=== PATIENT | female | born 1950 | race Caucasian/White ===

== ENCOUNTER 2017-02-23 19:24 | Observation (INO) | payer MEDICARE ==
[2017-02-23] MEDS ORDERED: SODIUM CHLORIDE 0.9% 1000 ML INFUS.BAG IV ONE (20:23)
[2017-02-23] MEDS ORDERED: ACETAMINOPHEN 325 MG TABLET (FP) PO ONE (20:23)
[2017-02-23 20:31] LABS: BASOPHIL 0.5 % (0-2.0); EOSINOPHIL 0.7 % (0-4.5); MCH 29.3 pg (25.7-33.7); MCHC 34.1 g/dl (32.0-36.0); MEAN CELL VOLUME 85.7 fl (80-96); MEAN PLT VOLUME 8.9 fl (7.5-11.1); NEUTROPHILS 72.3 % (42.8-82.8); PLATELET COUNT 263 K/MM3 (134-434); RDW 12.9 % (11.6-15.6); WHITE BLOOD COUNT 7.8 K/mm3 (4.0-10.0)
--- NOTE | 2017-02-23 20:47 | PDOC ---
History of Present Illness - General History Source: Family Exam Limitations: No Limitations - History of Present Illness Initial Comments: 02/23/17 21:24 The patient is a 66-year-old female accompanied by daughter and grandson, with a significant past medical history of diabetes, who presents with 3 days of high BS, blurred vision, dizziness, and headache. As per daughter, the pts BS was noted be high at 540 two days ago. Today the pts BS was noted to be 360. She reports that the patient has been increasingly more confused in the past 3 days and has been having difficulty ambulating. Pt does not use a walker or wheelchair at baseline. Pt was seeing Dr. Paris and her last visit was in November. Pt is now seeing a new PMD. The patient denies any fever, chills, nausea, vomiting, diarrhea, or abdominal pain. She denies any chest pain or shortness of breath. She denies any dysuria. <Caty Kay - Last Filed: 02/23/17 21:30> <Abbey Park - Last Filed: 02/24/17 00:28> - General Chief Complaint: Lightheaded Stated Complaint: BLURRY VISION/DIZZINESS Past History <Caty Kay - Last Filed: 02/23/17 21:30> - Psycho/Social/Smoking Cessation Hx Suicidal Ideation: No Smoking History: Never smoked Have you smoked in the past 12 months: No Information on smoking cessation initiated: No Hx Alcohol Use: No Drug/Substance Use Hx: No <[place] - Last Filed: 02/24/17 00:28> - Past Medical History Allergies/Adverse Reactions: Allergies Allergy/AdvReac Type Severity Reaction Status Date / Time Penicillins Allergy Unknown Difficulty Verified 02/23/17 20:42 Breathing Home Medications: Ambulatory Orders Glipizide [Glipizide ER] 10 mg PO BID 02/23/17 Lisinopril 5 mg PO DAILY 02/23/17 Metformin HCl [Metformin HCl ER] 1,000 mg PO BID 02/23/17 Review of Systems - Review of Systems Able to Perform ROS?: Yes Comments:: 02/23/17 21:26 GENERAL/CONSTITUTIONAL: No fever or chills. HEAD, EYES, EARS, NOSE AND THROAT: (+)blurry vision. No ear pain or discharge. No sore throat. CARDIOVASCULAR: No chest pain or shortness of breath. RESPIRATORY: No cough, wheezing, or hemoptysis. GASTROINTESTINAL: No nausea, vomiting, diarrhea or constipation. GENITOURINARY: No dysuria, frequency, or change in urination. MUSCULOSKELETAL: No joint or muscle swelling or pain. No neck or back pain. SKIN: No rash NEUROLOGIC: (+)headache, dizziness. No vertigo, loss of consciousness, or change in strength/sensation. ENDOCRINE: No increased thirst. No abnormal weight change. HEMATOLOGIC/LYMPHATIC: No anemia, easy bleeding, or history of blood clots. ALLERGIC/IMMUNOLOGIC: No hives or skin allergy. <Caty Kay - Last Filed: 02/23/17 21:30> *Physical Exam - Vital Signs Last Vital Signs Temp Pulse Resp BP Pulse Ox 98.8 F 74 20 146/78 100 02/23/17 19:28 02/23/17 19:28 02/23/17 19:28 02/23/17 19:28 02/23/17 19:28 - Physical Exam Comments: 02/23/17 21:31 GENERAL: Awake, alert, and fully oriented, in no acute distress HEAD: No signs of trauma EYES: PERRLA, EOMI, sclera anicteric, conjunctiva clear ENT: Auricles normal inspection, hearing grossly normal, nares patent, oropharynx clear without exudates. Moist mucosa NECK: Normal ROM, supple, no lymphadenopathy, JVD, or masses LUNGS: Breath sounds equal, clear to auscultation bilaterally. No wheezes, and no crackles HEART: Regular rate and rhythm, normal S1 and S2, no murmurs, rubs or gallops ABDOMEN: Soft, nontender, normoactive bowel sounds. No guarding, no rebound. No masses EXTREMITIES: Normal range of motion, no edema. No clubbing or cyanosis. No cords, erythema, or tenderness NEUROLOGICAL: 5/5 strength. Cranial nerves are normal. [id number] is normal. Gait not tested. SKIN: Warm, Dry, normal turgor, no rashes or lesions noted <Caty Kay - Last Filed: 02/23/17 21:30> - Vital Signs Last Vital Signs Temp Pulse Resp BP Pulse Ox 98.8 F 74 20 146/78 100 02/23/17 19:28 02/23/17 19:28 02/23/17 19:28 02/23/17 19:28 02/23/17 19:28 <BradmauricioAbbey - Last Filed: 02/24/17 00:28> Heart Score/ECG Review #1 ECG reviewed & interpreted by me at: 20:05 General ECG Interpretation: Sinus Rhythm (sinus tachycardia), Normal Rate (105) , Normal Intervals, No acute ischemic changes (q wave III,) Compared to previous ECG there are: Previous ECG unavail <[place] - Last Filed: 02/24/17 00:28> ED Treatment Course - LABORATORY CBC & Chemistry Diagram: 02/23/17 20:23 02/23/17 20:23 - ADDITIONAL ORDERS Additional order review: Laboratory Results 02/23/17 02/23/17 20:31 20:23 Sodium 133 L Potassium 3.9 Chloride 93 L Carbon Dioxide 30 Anion Gap 10 BUN 26 H Creatinine 1.6 H Creat Clearance w eGFR 32.25 Random Glucose 369 H* Calcium 9.0 Total Bilirubin 0.3 AST 12 L ALT 26 Alkaline Phosphatase 140 H Total Protein 7.2 Albumin 3.4 Urine Color Ltyellow Urine Appearance Slcloudy Urine pH 5.0 Urine Protein Negative Urine Glucose (UA) 3+ H Urine Ketones Negative Urine Blood Negative Urine Nitrite Negative Urine Bilirubin Negative Urine Urobilinogen Negative Ur Leukocyte Esterase 2+ H Urine RBC <1 Urine WBC 27 Ur Epithelial Cells Rare Urine Bacteria Moderate Granular Casts 1 Urine Mucus Rare Acetone, Qual Negative L 02/23/17 20:23 RBC 4.63 MCV 85.7 MCHC 34.1 RDW 12.9 MPV 8.9 Neutrophils % 72.3 Lymphocytes % 20.6 Monocytes % 5.9 Eosinophils % 0.7 Basophils % 0.5 - Medications Given in the ED: ED Medications Discontinued Medications Generic Name Dose Route Start Last Admin Trade Name Freq PRN Reason Stop Dose Admin Acetaminophen 650 mg 02/23/17 20:23 02/23/17 20:36 Tylenol - PO 02/23/17 20:24 650 mg ONCE ONE Administration Sodium Chloride 1,000 ml 02/23/17 20:23 02/23/17 20:36 Normal Saline - IV 02/23/17 20:24 1,000 ml ONCE ONE Administration <Caty Kay - Last Filed: 02/23/17 21:30> - LABORATORY CBC & Chemistry Diagram: 02/23/17 20:23 02/23/17 20:23 - ADDITIONAL ORDERS Additional order review: 02/23/17 20:23 RBC 4.63 MCV 85.7 MCHC 34.1 RDW 12.9 MPV 8.9 Neutrophils % 72.3 Lymphocytes % 20.6 Monocytes % 5.9 Eosinophils % 0.7 Basophils % 0.5 - RADIOLOGY Radiology Studies Ordered: Category Date Time Status HEAD CT WITHOUT CONTRAST [CT] Stat CT Scan 02/23/17 20:24 Ordered <[place] - Last Filed: 02/24/17 00:28> Medical Decision Making - Medical Decision Making 02/23/17 20:44 66 yo F with h/o DM HTN here with feeling more confusion, lightheaded blurry vision headache and high sugars. per her daughter and grandson who provide additional history pt has bee more confused and hallucinating the last 3 days. has been unsteady walking. no f/c no urinary complaints. no cp no sob. no head trauma. no cough. on exam awake alert lungs clear heart rrr nomrg abd soft nt nd . ext wwp. no edema. nuero alert oriented. 5/5 all four ext. speech clear. finger to nose normal. gait not tested. differential diagnosis: hyperglycemia. dehydration, cva. dka, hyperosmolar syndrome, infection such as uti, pna, plan cxr ekg labs ivf. ct head. reassess. 02/23/17 20:48 pt with sugar 350. give ivf. will repeat insulin as needed. given levaquin for uti. due to delirium and elevated glucose levels will admit for uti. cultures sent. d/w admitting resident. admit to dr. sena. 02/23/17 20:53 02/24/17 00:26 <[place] - Last Filed: 02/24/17 00:28> *DC/Admit/Observation/Transfer - Attestations Scribe Attestion: 02/23/17 21:32 Documentation prepared by Caty Kay, acting as medical artist for Abbey Park MD. <Caty Kay - Last Filed: 02/23/17 21:30> - Discharge Dispostion Admit: Yes <[place] - Last Filed: 02/24/17 00:28> Diagnosis at time of Disposition: Urinary tract infection, Delirium, Hyperglycemia
[2017-02-23 20:55] LABS: URINE APPEARANCE SLCLOUDY; URINE BILIRUBIN NEGATIVE (NEGATIVE); URINE BLOOD NEGATIVE (NEGATIVE); URINE COLOR LTYELLOW; URINE GLUCOSE (UA) 3+ (NEGATIVE); URINE KETONE NEGATIVE (NEGATIVE); URINE NITRITE NEGATIVE (NEGATIVE); URINE PROTEIN NEGATIVE (NEGATIVE); URINE UROBILINOGEN NEGATIVE mg/dL (0.2-1.0)
[2017-02-23 21:08] LABS: ALBUMIN 3.4 g/dl (3.4-5.0); ALK PHOS 140 U/L (45-117); ANION GAP 10 (8-16); BILIRUBIN,TOTAL 0.3 mg/dL (0.2-1.0); CO2 30 mmol/L (21-32); CREATININE 1.6 mg/dL (0.55-1.02); SGOT/AST 12 U/L (15-37); SGPT/ALT 26 U/L (12-78); TOT PROT 7.2 g/dl (6.4-8.2)
[2017-02-23 21:10] LABS: GLUCOSE,RANDOM 369 mg/dL (74-106)
[2017-02-23 21:13] LABS: ACETONE SERUM NEGATIVE (NEGATIVE)
[2017-02-23 21:17] LABS: URINE LEUK ESTERASE 2+ (NEGATIVE)
[2017-02-23 21:19] LABS: GRANULAR CASTS 1 /lpf; URINE BACTERIA MODERATE /hpf (NONE SEEN); URINE MUCUS RARE; URINE RBC <1 /hpf (0-3); URINE WBC 27 /hpf (3-5)
[2017-02-23] MEDS ORDERED: CIPROFLOXACIN 400 MG/D5W 200 ML IVPB ONE (23:59)
[2017-02-24] MEDS ORDERED: LEVOFLOXACIN 750 MG IVPB 150 ML IVPB ONE ×3 (00:25→10:00)
--- NOTE | 2017-02-24 00:42 | PN ---
Teaching Attending Note Name of Resident: Roby Zamarripa ATTENDING PHYSICIAN STATEMENT I saw and evaluated the patient. I reviewed the resident's note and discussed the case with the resident. I agree with the resident's findings and plan as documented. SUBJECTIVE: BROUGHT BY FAMILY DUE TO WORSENING CONFUSION X 3 DAYS AND ELEVATED BLOOD GLUCOSE 300-500. COMPLAINING OF DIZZINESS. BG UPON ARRIVAL 560. Patient denies any fever, chills, nausea, vomiting, diarrhea, or abdominal pain. She denies any chest pain or shortness of breath. She denies any dysuria. ER course was notable for: (1) Blood Sugar -- 369 (2) BUN/Cr -- 26/1.6 (3) UA--2+LE (4) CT head- mild to moderate volume loss-- no acute pathology Recent Travel: denies PAST MEDICAL HISTORY: HTN, DM PAST SURGICAL HISTORY: no Social History: Smoking: denies Alcohol: denies Drugs: dnies Family History: DM Allergies Penicillins Allergy (Unknown, Verified 02/23/17 20:42) Difficulty Breathing OBJECTIVE: Vital Signs Temperature 98.8 F 02/23/17 19:28 Pulse Rate 74 02/23/17 19:28 Respiratory Rate 20 02/23/17 19:28 Blood Pressure 146/78 02/23/17 19:28 O2 Sat by Pulse Oximetry (%) 100 02/23/17 19:28 HEAD: No signs of trauma EYES: PERRLA, EOMI, sclera anicteric, conjunctiva clear ENT: Oropharynx clear without exudates. Moist mucosa NECK: Normal ROM, supple, no lymphadenopathy, JVD, or masses LUNGS: Breath sounds equal, clear to auscultation bilaterally. No wheezes, and no crackles HEART: Regular rate and rhythm, normal S1 and S2, no murmurs, rubs or gallops ABDOMEN: Soft, nontender, normoactive bowel sounds, No suprapubic tenderness. No guarding, no rebound. No masses EXTREMITIES: Normal range of motion, no edema. No clubbing or cyanosis. CBC, BMP 02/23/17 20:23 02/23/17 20:23 ASSESSMENT AND PLAN: 1.AMS - METABOLIC ENCEPHALOPATHY, ACUTE , POSSIBLY SECONDARY TO UTI 2. UTI - Ua cultures - IV AB 3. UNCONTROLLED DM -DISCONTINUE ORAL METFORMIN - INSULIN SS - TREAT UNDERLYING INFECTION 4. CHRISTIANNE VS POSSIBLE CKD - IV FLUIDS - REPEAT BMP 5. PPx Heparin
[2017-02-24] MEDS ORDERED: SODIUM CHLORIDE 1,000 ML IV SCH (01:00)
--- NOTE | 2017-02-24 01:53 | HP ---
CHIEF COMPLAINT: AMS PCP: unknown HISTORY OF PRESENT ILLNESS: 66 y.o. F with pmh of DM and HTN presented to the ED with 3 day hx of ams, blurry vision, dizziness, visual hallucinations. For the past 3 days, patient's sugars have been elevated to the 300s-500s. Patient has been acting differently per family. Patient has been complaining of dizziness, blurry vision, confusion , headache, as well as visual hallucinations. Patient lives at home with family members and is at baseline able to ambulate without walker or wheelchair. Patient denies any fever, chills, nausea, vomiting, diarrhea, or abdominal pain. She denies any chest pain or shortness of breath. She denies any dysuria. ER course was notable for: (1) Blood Sugar -- 369 (2) BUN/Cr -- 26/1.6 (3) UA--2+LE (4) CT head- mild to moderate volume loss-- no acute pathology Recent Travel: denies PAST MEDICAL HISTORY: HTN, DM PAST SURGICAL HISTORY: no Social History: Smoking: denies Alcohol: denies Drugs: dnies Family History: Allergies Penicillins Allergy (Unknown, Verified 02/23/17 20:42) Difficulty Breathing HOME MEDICATIONS: Home Medications Medication Instructions Recorded Glipizide [Glipizide ER] 10 mg PO BID 02/23/17 Lisinopril 5 mg PO DAILY 02/23/17 Metformin HCl [Metformin HCl ER] 1,000 mg PO BID 02/23/17 REVIEW OF SYSTEMS CONSTITUTIONAL: Absent: fever, chills, diaphoresis, generalized weakness, malaise, loss of appetite, weight change HEENT: Absent: rhinorrhea, nasal congestion, throat pain, throat swelling, difficulty swallowing, mouth swelling, ear pain, eye pain, visual changes CARDIOVASCULAR: Absent: chest pain, syncope, palpitations, irregular heart rate, lightheadedness , peripheral edema RESPIRATORY: Absent: cough, shortness of breath, dyspnea with exertion, orthopnea, wheezing, stridor, hemoptysis GASTROINTESTINAL: Absent: abdominal pain, abdominal distension, nausea, vomiting, diarrhea, constipation, melena, hematochezia GENITOURINARY: Absent: dysuria, frequency, urgency, hesitancy, hematuria, flank pain, genital pain MUSCULOSKELETAL: Absent: myalgia, arthralgia, joint swelling, back pain, neck pain SKIN: Absent: rash, itching, pallor HEMATOLOGIC/IMMUNOLOGIC: Absent: easy bleeding, easy bruising, lymphadenopathy, frequent infections ENDOCRINE: Absent: unexplained weight gain, unexplained weight loss, heat intolerance, cold intolerance NEUROLOGIC: Absent: headache, focal weakness or paresthesias, dizziness, unsteady gait, seizure, mental status changes, bladder or bowel incontinence PSYCHIATRIC: Absent: anxiety, depression, suicidal or homicidal ideation, hallucinations. PHYSICAL EXAMINATION Vital Signs - 24 hr 02/24/17 01:29 Temperature 98.4 F Pulse Rate [ 76 Left Radial] Respiratory 18 Rate Blood Pressure 132/76 [Left Arm] O2 Sat by Pulse 98 Oximetry (%) GENERAL: Awake, alert, and fully oriented x3 , in no acute distress HEAD: No signs of trauma EYES: PERRLA, EOMI, sclera anicteric, conjunctiva clear ENT: Oropharynx clear without exudates. Moist mucosa NECK: Normal ROM, supple, no lymphadenopathy, JVD, or masses LUNGS: Breath sounds equal, clear to auscultation bilaterally. No wheezes, and no crackles HEART: Regular rate and rhythm, normal S1 and S2, no murmurs, rubs or gallops ABDOMEN: Soft, nontender, normoactive bowel sounds, No suprapubic tenderness. No guarding, no rebound. No masses EXTREMITIES: Normal range of motion, no edema. No clubbing or cyanosis. NEUROLOGICAL: 5/5 strength. Cranial nerves are normal. Gait not tested. Sensation intact SKIN: Warm, Dry, normal turgor, no rashes or lesions noted ASSESSMENT/PLAN: 66 y.o. F with pmh of DM and HTN presented with AMS admitted for acute metabolic encephalopathy 2/2 to UTI #Acute metabolic encephalopathy 2/2 to UTI -UA+ UCX pending -1 dose of Ciprofloxacin and Levaquin in the ED -Continue Levaquin 750 mg IV daily -Monitor mental status #DM -BGM achs -ISS achs -Hold metformin and glipizide -Will add levemir coverage as needed #CHRISTIANNE -baseline cr unknown -F/u with PCP -IVF @ 100cc/hr -Trend Cr #HTN -Continue lisinopril 5 mg po daily #FEN/GI -IVF ns @ 100 cc/hr -wnl -Diabetic/sodium diet #PPx Heparin 5000 units sq bid Visit type - Emergency Visit Emergency Visit: Yes ED Registration Date: 02/24/17 Care time: The patient presented to the Emergency Department on the above date and was hospitalized for further evaluation of their emergent condition. - New Patient This patient is new to me today: Yes Date on this admission: 02/24/17 - Critical Care Critical Care patient: No
[2017-02-24 02:10] VITALS: BMI 24.8
[2017-02-24] MEDS: INSULIN SLIDING SCALE (NOVOLOG) 1 VIAL SQ SCH ×4 (06:16→21:32)
--- NOTE | 2017-02-24 08:24 | HOSP ---
Subjective - Review of Symptoms Subjective: pt currently c/o urinary urgency and frequency. can not specify duration. no other assoc symptoms. was having dizzyness and blurred vision last night but that has resolved. denies CP, SOB, fever,chills, N/V/C/D Current Medications Generic Name Dose Route Start Last Admin Trade Name Alphonsoq PRN Reason Stop Dose Admin Heparin Sodium (Porcine) 5,000 unit 02/24/17 10:00 Heparin - SQ BID ANAYELI Sodium Chloride 1,000 mls @ 100 mls/hr 02/24/17 01:00 02/24/17 01:03 Normal Saline - IV 100 mls/hr ASDIR ANAYELI Administration Insulin Aspart 1 vial 02/24/17 07:00 02/24/17 06:16 Novolog Vial Sliding Scale - SQ 2 units ACHS ANAYELI Administration Protocol Lisinopril 5 mg 02/24/17 10:00 Prinivil PO DAILY ANAYELI Last Vital Signs Temp Pulse Resp BP Pulse Ox 98.9 F 68 18 120/68 98 02/24/17 06:00 02/24/17 06:00 02/24/17 06:00 02/24/17 06:00 02/24/17 01:29 General NAD CV S1 s2 RRR no murmur/rub/gallop Lungs CTA B/L no wheezing/rales/rhonchi ABdomen soft NT/ND Extremities no pedal edema CBCD WBC 7.8 K/mm3 (4.0-10.0) 02/23/17 20:23 RBC 4.63 M/mm3 (3.60-5.2) 02/23/17 20:23 Hgb 13.5 GM/dL (10.7-15.3) 02/23/17 20:23 Hct 39.7 % (32.4-45.2) 02/23/17 20:23 MCV 85.7 fl (80-96) 02/23/17 20:23 MCHC 34.1 g/dl (32.0-36.0) 02/23/17 20:23 RDW 12.9 % (11.6-15.6) 02/23/17 20:23 Plt Count 263 K/MM3 (134-434) 02/23/17 20:23 MPV 8.9 fl (7.5-11.1) 02/23/17 20:23 CMP Sodium 133 mmol/L (136-145) L 02/23/17 20:23 Potassium 3.9 mmol/L (3.5-5.1) 02/23/17 20:23 Chloride 93 mmol/L (98-107) L 02/23/17 20:23 Carbon Dioxide 30 mmol/L (21-32) 02/23/17 20:23 Anion Gap 10 (8-16) 02/23/17 20:23 BUN 26 mg/dL (7-18) H 02/23/17 20:23 Creatinine 1.6 mg/dL (0.55-1.02) H 02/23/17 20:23 Creat Clearance w eGFR 32.25 (>60) 02/23/17 20:23 Calcium 9.0 mg/dL (8.5-10.1) 02/23/17 20:23 Total Bilirubin 0.3 mg/dL (0.2-1.0) 02/23/17 20:23 AST 12 U/L (15-37) L 02/23/17 20:23 ALT 26 U/L (12-78) 02/23/17 20:23 Alkaline Phosphatase 140 U/L (45-117) H 02/23/17 20:23 Total Protein 7.2 g/dl (6.4-8.2) 02/23/17 20:23 Albumin 3.4 g/dl (3.4-5.0) 02/23/17 20:23 A/P 66yo F wtih DM and HTN presented with altered mental status and blurred vision 1. Acute metabolic encephalopathy- due to UTI and hypergylcemia. appears more oriented today. head CT negative for acute pathology. remains afebrile. no leukocytosis. started on levaquin due to PCN allergy. can not use bactrim due to CHRISTIANNE. will switch to levaquin po. 2. CHRISTIANNE- likely dehydration and infection. unknown cr baseline. repeat labs. eating well will d/c IVF. avoid nephrotoxic agents 3. DM- check A1c. uncontrolled. hold oral agents. iss, bgm 4. HTN- controlled. cont medications 5. DVT ppx-hep sq Physical Examination Vital Signs: Vital Signs Temperature 98.9 F 02/24/17 06:00 Pulse Rate 68 02/24/17 06:00 Respiratory Rate 18 02/24/17 06:00 Blood Pressure 120/68 02/24/17 06:00 O2 Sat by Pulse Oximetry (%) 98 02/24/17 01:29
[2017-02-24 09:16] LABS: ANION GAP 8 (8-16); CALCIUM 8.3 mg/dL (8.5-10.1); CO2 29 mmol/L (21-32); GLUCOSE,RANDOM 247 mg/dL (74-106)
[2017-02-24 09:20] LABS: CREATININE 1.1 mg/dL (0.55-1.02)
[2017-02-24] MEDS: HEPARIN NA (PORCINE) 5,000 UNITS/ML 1ML VIAL SQ SCH ×2 (10:18→21:32)
[2017-02-24] MEDS: LEVOFLOXACIN 250 MG TABLET (FP) PO SCH (10:18)
[2017-02-24] MEDS: LISINOPRIL 5 MG TABLET (FP) PO SCH (10:18)
[2017-02-24] MEDS ORDERED: INSULIN DETEMIR 100 UNITS/ML MDV SQ SCH (22:00)
[2017-02-25] MEDS: LEVOFLOXACIN 250 MG TABLET (FP) PO SCH (06:14)
[2017-02-25] MEDS: INSULIN SLIDING SCALE (NOVOLOG) 1 VIAL SQ SCH ×2 (06:15→11:43)
[2017-02-25] MEDS ORDERED: INSULIN (NOVOLOG) ASPART 100 UNITS/ML 10ML VIAL ONE (06:46)
[2017-02-25 07:59] VITALS: BP 121/69; PULSE 72
[2017-02-25 08:11] LABS: BASOPHIL 0.6 % (0-2.0); EOSINOPHIL 0.2 % (0-4.5); MCH 29.1 pg (25.7-33.7); MCHC 34.2 g/dl (32.0-36.0); MEAN CELL VOLUME 85.1 fl (80-96); MEAN PLT VOLUME 8.5 fl (7.5-11.1); NEUTROPHILS 62.1 % (42.8-82.8); PLATELET COUNT 219 K/MM3 (134-434); RDW 12.4 % (11.6-15.6); WHITE BLOOD COUNT 8.1 K/mm3 (4.0-10.0)
[2017-02-25 08:37] LABS: ALBUMIN 2.7 g/dl (3.4-5.0); ANION GAP 7 (8-16); CALCIUM 8.7 mg/dL (8.5-10.1); CO2 26 mmol/L (21-32); GLUCOSE,RANDOM 170 mg/dL (74-106)
[2017-02-25 08:41] LABS: ALK PHOS 94 U/L (45-117); BILIRUBIN,TOTAL 0.4 mg/dL (0.2-1.0); CREATININE 1.1 mg/dL (0.55-1.02); SGOT/AST 10 U/L (15-37); SGPT/ALT 17 U/L (12-78); TOT PROT 5.9 g/dl (6.4-8.2)
[2017-02-25] MEDS ORDERED: ACETAMINOPHEN 325 MG TABLET (FP) PO PRN (09:25)
[2017-02-25] MEDS: LISINOPRIL 5 MG TABLET (FP) PO SCH (09:50)
[2017-02-25] MEDS: HEPARIN NA (PORCINE) 5,000 UNITS/ML 1ML VIAL SQ SCH (09:50)
[2017-02-25 10:43] VITALS: TEMP 98.4
--- NOTE | 2017-02-25 11:33 | DS ---
Physical Exam: SUBJECTIVE: Patient seen and examined. asymptomatic. denies CP, SOB, blurred vision, N/V/C/D OBJECTIVE: Vital Signs Period Temp Pulse Resp BP Sys/Salvador Pulse Ox Last 24 Hr 98.2 F-99.8 F 64-72 18-18 119-155/53-74 96-97 PHYSICAL EXAM GENERAL: The patient is awake, alert, and fully oriented, in no acute distress. HEAD: Normal with no signs of trauma. EYES: PERRL, extraocular movements intact, sclera anicteric, conjunctiva clear. ENT: Ears normal, nares patent, oropharynx clear without exudates, moist mucous membranes. NECK: Trachea midline, full range of motion, supple. LUNGS: Breath sounds equal, clear to auscultation bilaterally, no wheezes, no crackles, no accessory muscle use. HEART: Regular rate and rhythm, S1, S2 without murmur, rub or gallop. ABDOMEN: Soft, nontender, nondistended, normoactive bowel sounds, no guarding, no rebound, no hepatosplenomegaly, no masses. EXTREMITIES: 2+ pulses, warm, well-perfused, no edema. NEUROLOGICAL: Cranial nerves II through XII grossly intact. Normal speech, gait not observed. PSYCH: Normal mood, normal affect. SKIN: Warm, dry, normal turgor, no rashes or lesions noted. LABS Laboratory Results - last 24 hr 02/24/17 02/24/17 02/24/17 11:27 16:47 21:26 WBC RBC Hgb Hct MCV MCH MCHC RDW Plt Count MPV Neutrophils % Lymphocytes % Monocytes % Eosinophils % Basophils % Sodium Potassium Chloride Carbon Dioxide Anion Gap BUN Creatinine Creat Clearance w eGFR POC Glucometer 235 186 274 Random Glucose Calcium Total Bilirubin AST ALT Alkaline Phosphatase Total Protein Albumin 02/25/17 02/25/17 02/25/17 06:00 06:00 06:14 WBC 8.1 RBC 4.05 Hgb 11.8 D Hct 34.4 MCV 85.1 MCH 29.1 MCHC 34.2 RDW 12.4 Plt Count 219 MPV 8.5 Neutrophils % 62.1 Lymphocytes % 32.2 D Monocytes % 4.9 Eosinophils % 0.2 Basophils % 0.6 Sodium 134 L Potassium 3.9 Chloride 101 Carbon Dioxide 26 Anion Gap 7 L BUN 14 D Creatinine 1.1 H Creat Clearance w eGFR 49.69 POC Glucometer 212 Random Glucose 170 H D Calcium 8.7 Total Bilirubin 0.4 D AST 10 L ALT 17 D Alkaline Phosphatase 94 D Total Protein 5.9 L Albumin 2.7 L D HOSPITAL COURSE: Date of Admission:02/24/17 Date of Discharge: 02/25/17 Admitting diagnosis: Acute metabolic encephalopathy, hypeglcyemia, CHRISTIANNE Pre hospital course 66 y.o. F with pmh of DM and HTN presented to the ED with 3 day hx of ams, blurry vision, dizziness, visual hallucinations. For the past 3 days, patient's sugars have been elevated to the 300s-500s. Patient has been acting differently per family. Patient has been complaining of dizziness, blurry vision, confusion , headache, as well as visual hallucinations. Patient lives at home with family members and is at baseline able to ambulate without walker or wheelchair. Patient denies any fever, chills, nausea, vomiting, diarrhea, or abdominal pain. She denies any chest pain or shortness of breath. She denies any dysuria. Subsequent hospital course Medicine observation. symptoms resolved. started on levaquin due to PCN allergy. CHRISTIANNE resolved. A1c 12. started on levemir 5units HS with improvement. Spoke with grandson over the phone who speaks good egyptian. counseled on need for tight glycemic control and need for insulin therapy. informed need to take sugar log and montior sugars and to bring that to next dr appt for further adjustment to insulin. to no longer take diabetic medication. d/c home on levaquin to complete 5 day course. Minutes to complete discharge: 40 Discharge Summary Reason For Visit: UTI, DELIRIUM, HYPERGLYCEMIA Current Active Problems CHRISTIANNE (acute kidney injury) (Acute) Delirium (Acute) Hyperglycemia (Acute) Metabolic encephalopathy (Acute) UTI (urinary tract infection) (Acute) Condition: Improved - Instructions Diet, Activity, Other Instructions: You were found to have a urinary tract infection. Take antibiotic for 3 more days. Your diabetes is very uncontrolled. You are now requiring insulin. Take 5 units at bedtime. Follow the instruction given to you by the nurse on how to administer insulin. Check your sugars in the morning and before each meal. write down what your sugars are and bring them to your doctors office. Stop taking your oral diabetic medications. Follow a diabetic diet It is important that you see your primary care doctor this week. You will need further adjustment to your insulin If your symptoms worsen return to the ER. if you develop signs of low blood sugar (dizzyness, sweating, confusion) check your blood sugar and eat a piece of candy or drink some juice. Refer to handout for signs of low blood sugar. Disposition: HOME - Home Medications Comprehensive Discharge Medication List: Ambulatory Orders Lisinopril 5 mg PO DAILY 02/23/17 Insulin (Levemir) [Levemir Flexpen -] 5 units SQ HS #1 pen 02/25/17 Levofloxacin [Levaquin -] 250 mg PO DAILY@0600 #3 tablet 02/25/17 This patient is new to me today: No Emergency Visit: Yes ED Registration Date: 02/24/17 Care time: The patient presented to the Emergency Department on the above date and was hospitalized for further evaluation of their emergent condition. Critical Care patient: No - Discharge Referral Referred to [facility] Med P.C.: No
--- NOTE | 2017-02-25 21:29 | EKG ---
Test Reason : Blood Pressure : / mmHG Vent. Rate : 105 BPM Atrial Rate : 105 BPM P-R Int : 136 ms QRS Dur : 068 ms QT Int : 308 ms P-R-T Axes : 036 020 074 degrees QTc Int : 407 ms SINUS TACHYCARDIA PREMATURE VENTRICULAR COMPLEXES POSSIBLE LEFT ATRIAL ENLARGEMENT LOW VOLTAGE QRS CANNOT RULE OUT INFERIOR INFARCT , AGE UNDETERMINED CANNOT RULE OUT ANTERIOR INFARCT , AGE UNDETERMINED ABNORMAL ECG NO PREVIOUS ECGS AVAILABLE Confirmed by OMEGA MONROY, REINIER ([id number]) on 02/25/2017 9:28:56 PM Referred By: Confirmed By:REINIER DUFF MD
== END 2017-02-25 14:42 | disposition home or self-care (01) ==
LOC: JER 19:24 → JERBED 02-24 00:28 → INTOOBSV 02-24 00:28 → J6S 02-24 02:11
PROVIDERS: ADMIT Internal Medicine; ATTEND Internal Medicine
PROC: 3E03329 Introduction of Other Anti-infective into Peripheral Vein, Percutaneous Approach (ICD-10-PCS; principal; 2017-02-24)
PROC: 3E0337Z Introduction of Electrolytic and Water Balance Substance into Peripheral Vein, Percutaneous Approach (ICD-10-PCS; 2017-02-24)
PROC: 3E013GC Introduction of Other Therapeutic Substance into Subcutaneous Tissue, Percutaneous Approach (ICD-10-PCS; 2017-02-24)
PROC: 3E013VG Introduction of Insulin into Subcutaneous Tissue, Percutaneous Approach (ICD-10-PCS; 2017-02-24)
DX: N39.0 Urinary tract infection, site not specified (principal); R41.0 Disorientation, unspecified; E11.65 Type 2 diabetes mellitus with hyperglycemia; Z79.84 Long term (current) use of oral hypoglycemic drugs; G93.41 Metabolic encephalopathy; N17.9 Acute kidney failure, unspecified; I10 Essential (primary) hypertension; Z88.0 Allergy status to penicillin
CPT/HCPCS: 36415; 70450-TC; 80048; 80053; 81003; 81015; 82009; 83036; 85025; 87040; 87086; 87186; 93005; 93010; 99284-25; G0378; J1644

== ENCOUNTER 2017-02-28 09:43 | Inpatient (IN) | payer MEDICARE, OTHER ==
--- NOTE | 2017-02-28 10:53 | PDOC ---
History of Present Illness <PrasadLizzynaldo - Last Filed: 02/28/17 12:43> - History of Present Illness Initial Comments: 02/28/17 10:47 The patient is a 66 year old female, with a significant past medical history of hypertension, diabetes, dementia, visual hallucinations, and CHRISTIANNE who presents to the emergency department accompanied by family, with increased confusion over the past 2 days. Per family member, the patient woke up this morning at approximately 04:00 shaking her right arm, turning her head to the right with an associated right sided droop of her lips. Family member states her episode lasted approximately 35 seconds, and has occurred intermittently since. Family reports the patient presented to the ED on 02/23/17 for confusion and hallucinations and was diagnosed with a UTI, discharged home, and started on antibiotics. Patient was last seen at her baseline yesterday morning. Family reports that since yesterday afternoon, patient has not been herself, and has not been conversive or responsive to commands. Family denies any fever, chills, nausea, or vomiting. No falls or head trauma. No h/o seizures. As per daughter, patients blood sugar levels have been in the 250-300 range throughout the day. Patient lives at home with family, and is able to carry a conversation and ambulate without a walker at her baseline. Allergies: Penicillins Past Surgical History: None reported Social History: Non smoker. No ETOH or recreational drug use. " <EvaMartin - Last Filed: 03/01/17 09:20> - General Chief Complaint: Seizure Stated Complaint: SEIZURE Time Seen by Provider: 02/28/17 10:04 NIH Stroke Scale - Last Known Well Date/Time & Onset Date Last Known Well: 02/27/17 Time Last Known Well: 12:00 - Initial Evaluation Level of consciousness: Not alert, requires repeat stimulation to attend Ask patient the month and their age: Both incorrect Ask patient to open & close eyes; make fist and let go: Both incorrect Best gaze (horizontal eye movement): Partial gaze palsy Visual field testing: No visual field loss Facial paresis (Show teeth/raise eyebrows/close eyes tight): Normal symmetrical movement Motor Function: Left Arm: Normal Motor Function: Right Arm: Normal (extends arm 90 (or 45) degrees for 10 seconds without drift Motor Function: Left Leg: Normal (extends leg 30 degrees for 5 seconds without drift) Motor Function: Right Leg: Normal (extends leg 30 degrees for 5 seconds without drift) Limb Ataxia: No ataxia Sensory(Use pinprick test arms,legs,trunk,face/side to side): Normal Best language (Describe picture, name items, read sentences): Mute Dysarthria (read several words): Near unintelligible or unable to speak Extinction and Inattention: No abnormality - Total Score NIH Stroke Scale Score: 12 <Martin Velasquez - Last Filed: 03/01/17 09:20> Past History <Judah Prasad - Last Filed: 02/28/17 12:43> - Past Medical History Diabetes: Yes HTN: Yes - Immunization History Immunization Up to Date: Yes - Psycho/Social/Smoking Cessation Hx Anxiety: No Suicidal Ideation: No Smoking History: Never smoked Have you smoked in the past 12 months: No Information on smoking cessation initiated: No Hx Alcohol Use: No Drug/Substance Use Hx: No Substance Use Type: None Hx Substance Use Treatment: No <Martin Velasquez - Last Filed: 03/01/17 09:20> - Past Medical History Allergies/Adverse Reactions: Allergies Allergy/AdvReac Type Severity Reaction Status Date / Time Penicillins Allergy Unknown Difficulty Verified 02/28/17 10:03 Breathing Home Medications: Ambulatory Orders Lisinopril 5 mg PO DAILY 02/23/17 Insulin (Levemir) [Levemir Flexpen -] 5 units SQ HS #1 pen 02/25/17 Review of Systems - Review of Systems Able to Perform ROS?: No (pt nonverbal) <Martin Velasquez - Last Filed: 03/01/17 09:20> *Physical Exam - Vital Signs Last Vital Signs Temp Pulse Resp BP Pulse Ox 99.5 F 80 20 146/84 100 02/28/17 10:04 02/28/17 10:04 02/28/17 10:04 02/28/17 10:04 02/28/17 10:04 <Judah Prasad - Last Filed: 02/28/17 12:43> - Vital Signs Last Vital Signs Temp Pulse Resp BP Pulse Ox 99.5 F 80 20 146/84 100 02/28/17 10:04 02/28/17 10:04 02/28/17 10:04 02/28/17 10:04 02/28/17 10:04 - Physical Exam Comments: 02/28/17 10:49 "GENERAL: Awake, nonverbal, no acute distress HEAD: No signs of trauma EYES: PERRLA, EOMI, sclera anicteric, conjunctiva clear ENT: No tongue lacerations, Auricles normal inspection, hearing grossly normal, nares patent, oropharynx clear without exudates. Moist mucosa NECK: Normal ROM, supple, no lymphadenopathy, JVD, or masses LUNGS: Breath sounds equal, clear to auscultation bilaterally. No wheezes, and no crackles HEART: Regular rate and rhythm, normal S1 and S2, no murmurs, rubs or gallops ABDOMEN: Soft, nontender, normoactive bowel sounds. No guarding, no rebound. No masses EXTREMITIES: Normal range of motion, no edema. No clubbing or cyanosis. No cords, erythema, or tenderness NEUROLOGICAL: R gaze preference, Attends to verbal stimulus but does not follow , Cranial nerves II through XII grossly intact. moves all extremities spontaneously SKIN: Warm, Dry, normal turgor, no rashes or lesions noted. " <Aicha Velasquezan - Last Filed: 03/01/17 09:20> Heart Score/ECG Review - ECG Impressions Comment:: 02/28/17 10:53 NSR, no CHAN/STDs, TWI in V1-V2. intervals wnl, no axis deviation <EvaMartin - Last Filed: 03/01/17 09:20> ED Treatment Course - LABORATORY CBC & Chemistry Diagram: 02/28/17 10:41 02/28/17 10:41 - ADDITIONAL ORDERS Additional order review: Laboratory Results 02/28/17 02/28/17 02/28/17 11:05 10:41 10:41 INR PTT (Actin FS) VBG pH 7.39 POC VBG pCO2 43.5 POC VBG pO2 28.4 Mixed VBG HCO3 25.5 H Sodium Potassium Chloride Carbon Dioxide Anion Gap BUN Creatinine Creat Clearance w eGFR POC Glucometer Random Glucose Lactic Acid 1.2 Calcium Total Bilirubin AST ALT Alkaline Phosphatase Ammonia Creatine Kinase Troponin I Total Protein Albumin TSH Acetone, Qual Negative L 02/28/17 02/28/17 02/28/17 10:41 10:41 10:41 INR 1.01 PTT (Actin FS) 28.8 VBG pH POC VBG pCO2 POC VBG pO2 Mixed VBG HCO3 Sodium 134 L Potassium 4.4 Chloride 99 Carbon Dioxide 26 Anion Gap 9 BUN 22 H D Creatinine 1.2 H Creat Clearance w eGFR 44.95 POC Glucometer Random Glucose 273 H D Lactic Acid Calcium 9.0 Total Bilirubin 0.4 AST 13 L D ALT 23 D Alkaline Phosphatase 102 Ammonia < 10 L Creatine Kinase Troponin I Total Protein 7.1 D Albumin 3.3 L D TSH 1.50 Acetone, Qual 02/28/17 02/28/17 10:41 09:59 INR PTT (Actin FS) VBG pH POC VBG pCO2 POC VBG pO2 Mixed VBG HCO3 Sodium Potassium Chloride Carbon Dioxide Anion Gap BUN Creatinine Creat Clearance w eGFR POC Glucometer 271.00013 Random Glucose Lactic Acid Calcium Total Bilirubin AST ALT Alkaline Phosphatase Ammonia Creatine Kinase 38 Troponin I < 0.02 Total Protein Albumin TSH Acetone, Qual 02/28/17 02/28/17 10:41 09:59 RBC 4.60 MCV 86.0 MCHC 32.9 RDW 13.1 MPV 8.2 Neutrophils % 81.1 D Lymphocytes % 13.1 D Monocytes % 4.7 Eosinophils % 0.7 D Basophils % 0.4 POC Glucometer [id number] - RADIOLOGY Radiograph Interpretation: 02/28/17 12:41 EXAM: Head CT INTERPRETED BY: Dr. Osullivan REVIEWED BY: Dr. Velasquez IMPRESSION: Mild ventriculomegaly that is slightly more than expected for the degree of cortical atrophy, without interval change. No mass lesion or gross acute infarct are identified. EXAM: CXR INTERPRETED BY: Dr. Delatorre REVIEWED BY: Dr. Velasquez IMPRESSION: Large heart. No acute chest pathology. Left axillary density of unclear etiology. <Judah Prasad - Last Filed: 02/28/17 12:43> - LABORATORY CBC & Chemistry Diagram: 02/28/17 10:41 02/28/17 10:41 - ADDITIONAL ORDERS Additional order review: Laboratory Results 02/28/17 09:59 POC Glucometer [id number] 02/28/17 09:59 POC Glucometer [id number] - RADIOLOGY Radiology Studies Ordered: Category Date Time Status HEAD CT WITHOUT CONTRAST [CT] Stat CT Scan 02/28/17 10:16 Ordered CHEST X-RAY PORTABLE* [RAD] Stat Radiology 02/28/17 10:16 Ordered <Martin Velasquez - Last Filed: 03/01/17 09:20> Medical Decision Making - Medical Decision Making 02/28/17 12:40 First call placed to Dr. Muniz at 12:40. Awaiting call back. Case discussed with Dr. Muniz at 12:44. <Judah Prasad - Last Filed: 02/28/17 12:43> - Critical Care Time Total Critical Care Time (minutes): 20 - Medical Decision Making 02/28/17 10:53 66 F with worsening confusion x 2 days, now non-verbal with possible convulsive activity since this morning. Pt awake on exam but unable to follow commands or communicate. Concerning for possible stroke vs seizure activity. Consider infectious etiology as well, as pt was recently diagnosed with UTI. Low suspicion for meningitis, as pt is rectally afebrile with no signs of meningismus. - Labs, cultures - CT head - CXR, UA - MRI if CT head negative - Consider neuro consult and EEG - Admit <Martin Velasquez Last Filed: 03/01/17 09:20> *DC/Admit/Observation/Transfer - Attestations Scribe Attestion: 02/28/17 12:40 Documentation prepared by Judah Prasad, acting as medical equipment repairer for Martin Velasquez MD. <Judah Prasad - Last Filed: 02/28/17 12:43> - Discharge Dispostion Admit: Yes - Attestations Physician Attestion: 03/01/17 09:20 I, Dr. Martin Velasquez MD, attest that this document has been prepared under my direction and personally reviewed by me in its entirety. I further attest, that it accurately reflects all work, treatment, procedures and medical decision -making performed by me. <Martin Velasquez - Last Filed: 03/01/17 09:20> Diagnosis at time of Disposition: Seizure - Referrals
[2017-02-28 11:00] LABS: BASOPHIL 0.4 % (0-2.0); EOSINOPHIL 0.7 % (0-4.5); MCH 28.3 pg (25.7-33.7); MCHC 32.9 g/dl (32.0-36.0); MEAN PLT VOLUME 8.2 fl (7.5-11.1); NEUTROPHILS 81.1 % (42.8-82.8); PLATELET COUNT 282 K/MM3 (134-434); RDW 13.1 % (11.6-15.6); WHITE BLOOD COUNT 7.2 K/mm3 (4.0-10.0)
[2017-02-28 11:09] LABS: VENOUS BLOOD GAS HCO3 25.5 meq/L (19-25); VENOUS PH 7.39 (7.32-7.42)
[2017-02-28 11:21] LABS: INR 1.01 (0.82-1.09); PROTHROMBIN TIME (PATIENT) 11.1 SEC (9.98-11.88)
[2017-02-28 11:24] LABS: ACTIVATED PTT 28.8 SECONDS (26.9-34.4)
[2017-02-28 11:27] LABS: CPK 38 IU/L (26-192)
[2017-02-28 11:28] LABS: TROPONIN I < 0.02 ng/ml (0.00-0.05)
[2017-02-28 11:29] LABS: ALBUMIN 3.3 g/dl (3.4-5.0); ANION GAP 9 (8-16); BILIRUBIN,TOTAL 0.4 mg/dL (0.2-1.0); CO2 26 mmol/L (21-32); CREATININE 1.2 mg/dL (0.55-1.02); GLUCOSE,RANDOM 273 mg/dL (74-106); SGOT/AST 13 U/L (15-37); SGPT/ALT 23 U/L (12-78); TOT PROT 7.1 g/dl (6.4-8.2)
[2017-02-28 11:38] LABS: ALK PHOS 102 U/L (45-117)
[2017-02-28] MEDS ORDERED: SODIUM CHLORIDE 1,000 ML IV STA (12:22)
[2017-02-28 13:50] LABS: URINE APPEARANCE SLCLOUDY; URINE BILIRUBIN NEGATIVE (NEGATIVE); URINE BLOOD NEGATIVE (NEGATIVE); URINE COLOR YELLOW; URINE GLUCOSE (UA) 3+ (NEGATIVE); URINE KETONE 1+ (NEGATIVE); URINE LEUK ESTERASE 1+ (NEGATIVE); URINE NITRITE POSITIVE (NEGATIVE); URINE PROTEIN NEGATIVE (NEGATIVE); URINE UROBILINOGEN NEGATIVE mg/dL (0.2-1.0)
[2017-02-28 13:52] LABS: URINE BACTERIA MANY /hpf (NONE SEEN); URINE HYALINE CAST 4 /lpf; URINE MUCUS RARE; URINE RBC 1 /hpf (0-3); URINE WBC 10 /hpf (3-5)
--- NOTE | 2017-02-28 14:12 | HP ---
CHIEF COMPLAINT: Seizure like activity PCP: Non-staff HISTORY OF PRESENT ILLNESS: 66 yo F h/o dementia, visual hallucination, IDDM, and HTN brought in by family members for seizure-like activity. Patient was found this morning in bed shaking her R arm, head and having R sided lips/facial droop which lasted around half a minute. Family stated patient did not have urinary/bowel incontinence, tongue biting but remains confused. Patient was seen in [facility] ED on 02/23 for confusion and visual hallucination which thought to be secondary to UTI based on lab results. She's discharged home on abx and finished the abx course per family. However, she appeared not to be at her baseline mental status since yesterday afternoon. Further denies fever, chills, urinary/bowel symptoms, chest pain, shortness of breath, n/v, photosensitivity, head rigidity , medication change, psychiatric or cancer history. ER course was notable for: (1) Labs essential wnl besides CHRISTIANNE (2) UA unremarkable s/p abx (3) CXR and CT head -ve Recent Travel: Denies PAST MEDICAL HISTORY: As above PAST SURGICAL HISTORY: None Social History: Smoking: Denies Alcohol: Denies Drugs: Denies Family History: Non-contributory Allergies Penicillins Allergy (Unknown, Verified 02/28/17 10:03) Difficulty Breathing HOME MEDICATIONS: Home Medications Medication Instructions Recorded Lisinopril 5 mg PO DAILY 02/23/17 Insulin (Levemir) [Levemir Flexpen 5 units SQ HS #1 pen 02/25/17 -] REVIEW OF SYSTEMS (Unable to assess) CONSTITUTIONAL: Absent: fever, chills, diaphoresis, generalized weakness, malaise, loss of appetite, weight change HEENT: Absent: rhinorrhea, nasal congestion, throat pain, throat swelling, difficulty swallowing, mouth swelling, ear pain, eye pain, visual changes CARDIOVASCULAR: Absent: chest pain, syncope, palpitations, irregular heart rate, lightheadedness , peripheral edema RESPIRATORY: Absent: cough, shortness of breath, dyspnea with exertion, orthopnea, wheezing, stridor, hemoptysis GASTROINTESTINAL: Absent: abdominal pain, abdominal distension, nausea, vomiting, diarrhea, constipation, melena, hematochezia GENITOURINARY: Absent: dysuria, frequency, urgency, hesitancy, hematuria, flank pain, genital pain MUSCULOSKELETAL: Absent: myalgia, arthralgia, joint swelling, back pain, neck pain SKIN: Absent: rash, itching, pallor HEMATOLOGIC/IMMUNOLOGIC: Absent: easy bleeding, easy bruising, lymphadenopathy, frequent infections ENDOCRINE: Absent: unexplained weight gain, unexplained weight loss, heat intolerance, cold intolerance NEUROLOGIC: Absent: headache, focal weakness or paresthesias, dizziness, unsteady gait, seizure, mental status changes, bladder or bowel incontinence PSYCHIATRIC: Absent: anxiety, depression, suicidal or homicidal ideation, PHYSICAL EXAMINATION Last Vital Signs Temp Pulse Resp BP Pulse Ox 99.5 F 80 20 146/84 100 02/28/17 10:04 02/28/17 10:04 02/28/17 10:04 02/28/17 10:04 02/28/17 10:04 GENERAL: Awake but confused, in no cardiopulmonary acute distress. EYES: Pupils equal, round and reactive to light, extraocular movements intact, sclera anicteric, conjunctiva clear LUNGS: CTAB HEART: Distant heart sounds ABDOMEN: Soft, nontender, not distended, normoactive bowel sounds, no guarding, no rebound, no masses. LOWER EXTREMITIES: warm, well-perfused. No calf tenderness. No peripheral edema. NEUROLOGICAL: Unable to assess due to post-ictal state CBCD WBC 7.2 K/mm3 (4.0-10.0) 02/28/17 10:41 RBC 4.60 M/mm3 (3.60-5.2) 02/28/17 10:41 Hgb 13.0 GM/dL (10.7-15.3) D 02/28/17 10:41 Hct 39.5 % (32.4-45.2) 02/28/17 10:41 MCV 86.0 fl (80-96) 02/28/17 10:41 MCHC 32.9 g/dl (32.0-36.0) 02/28/17 10:41 RDW 13.1 % (11.6-15.6) 02/28/17 10:41 Plt Count 282 K/MM3 (134-434) D 02/28/17 10:41 MPV 8.2 fl (7.5-11.1) 02/28/17 10:41 CMP Sodium 134 mmol/L (136-145) L 02/28/17 10:41 Potassium 4.4 mmol/L (3.5-5.1) 02/28/17 10:41 Chloride 99 mmol/L (98-107) 02/28/17 10:41 Carbon Dioxide 26 mmol/L (21-32) 02/28/17 10:41 Anion Gap 9 (8-16) 02/28/17 10:41 BUN 22 mg/dL (7-18) H D 02/28/17 10:41 Creatinine 1.2 mg/dL (0.55-1.02) H 02/28/17 10:41 Creat Clearance w eGFR 44.95 (>60) 02/28/17 10:41 Calcium 9.0 mg/dL (8.5-10.1) 02/28/17 10:41 Total Bilirubin 0.4 mg/dL (0.2-1.0) 02/28/17 10:41 AST 13 U/L (15-37) L D 02/28/17 10:41 ALT 23 U/L (12-78) D 02/28/17 10:41 Alkaline Phosphatase 102 U/L (45-117) 02/28/17 10:41 Total Protein 7.1 g/dl (6.4-8.2) D 02/28/17 10:41 Albumin 3.3 g/dl (3.4-5.0) L D 02/28/17 10:41 Urine Test Results Urine Color Yellow 02/28/17 13:42 Urine Appearance Slcloudy 02/28/17 13:42 Urine pH 5.0 (5.0-8.0) 02/28/17 13:42 Urine Protein Negative (NEGATIVE) 02/28/17 13:42 Urine Glucose (UA) 3+ (NEGATIVE) H 02/28/17 13:42 Urine Ketones 1+ (NEGATIVE) H 02/28/17 13:42 Urine Blood Negative (NEGATIVE) 02/28/17 13:42 Urine Nitrite Positive (NEGATIVE) 02/28/17 13:42 Urine Bilirubin Negative (NEGATIVE) 02/28/17 13:42 Ur Leukocyte Esterase 1+ (NEGATIVE) H 02/28/17 13:42 Urine RBC 1 /hpf (0-3) 02/28/17 13:42 Urine WBC 10 /hpf (3-5) 02/28/17 13:42 Ur Epithelial Cells Rare /hpf (FEW) 02/28/17 13:42 Urine Bacteria Many /hpf (NONE SEEN) 02/28/17 13:42 Urine Mucus Rare 02/28/17 13:42 ASSESSMENT/PLAN: 66 yo F h/o dementia, visual hallucination, IDDM, and HTN admitted to med-surg inpatient for seizure. Seizure, tonic-clonic - First time seizure, unconfirmed - Likely infectious etiology - Treated for UTI with levaquin - UX resistant to levaquin - Monitor mental status - f/u MRI - Keppra if seizure recurs IDDM -ISS CHRISTIANNE -Unknown baseline -Hydration HTN -Continue lisinopril 5 mg po daily FEN - Gentle hydration - Normal lytes - NPO for now Prophylaxis - Heparin 5000 units SQ TID Dispo - Admit to med-surg inpatient pending seizure workup and neuro status observation Tera Johnson PGY2 Pager: [phone] Visit type - Emergency Visit Emergency Visit: Yes Care time: The patient presented to the Emergency Department on the above date and was hospitalized for further evaluation of their emergent condition. - New Patient This patient is new to me today: Yes Date on this admission: 02/28/17 - Critical Care Critical Care patient: No
--- NOTE | 2017-02-28 14:31 | CONSULT ---
Consult - text type - Consultation Consultation Note: Neurology History of Present Illness The patient is a 66 year old female, with a significant past medical history of hypertension, diabetes, dementia, visual hallucinations, and CHRISTIANNE who presents to the emergency department accompanied by family, with increased confusion over the past 2 days. Per family member, the patient woke up this morning at approximately 04:00 shaking her right arm, turning her head to the right with an associated right sided droop of her lips. Family member states her episode lasted approximately 35 seconds, and has occurred intermittently since. Family reports the patient presented to the ED on 02/23/17 for confusion and hallucinations and was diagnosed with a UTI, discharged home, and started on antibiotics. Patient was last seen at her baseline yesterday morning. Family reports that since yesterday afternoon, patient has not been herself, and has not been conversive or responsive to commands. Family denies any fever, chills, nausea, or vomiting. No falls or head trauma. No h/o seizures. As per daughter, patients blood sugar levels have been in the 250-300 range throughout the day. Patient lives at home with family, and is able to carry a conversation and ambulate without a walker at her baseline. I arrived in the ER to see the patient, she was awake and responsive to me but not following all commands. She did seem to possess strength throughout and was Not TPA case due to no longer being in window and symptoms seem more general and not focal. CT head was completed and did not show any acute changes. Family at bedside and confirmed history that was provided. Past History - Past Medical History Diabetes: Yes HTN: Yes - Immunization History Immunization Up to Date: Yes - Psycho/Social/Smoking Cessation Hx Anxiety: No Suicidal Ideation: No Smoking History: Never smoked Have you smoked in the past 12 months: No Information on smoking cessation initiated: No Hx Alcohol Use: No Drug/Substance Use Hx: No Substance Use Type: None Hx Substance Use Treatment: No - Past Medical History Allergies/Adverse Reactions: Allergies Allergy/AdvReac Type Severity Reaction Status Date / Time Penicillins Allergy Unknown Difficulty Verified 02/28/17 10:03 Breathing Home Medications: Ambulatory Orders Lisinopril 5 mg PO DAILY 02/23/17 Insulin (Levemir) [Levemir Flexpen -] 5 units SQ HS #1 pen 02/25/17 Review of Systems - Review of Systems Able to Perform ROS?: No (pt nonverbal) *Physical Exam - Vital Signs Last Vital Signs Temp Pulse Resp BP Pulse Ox 99.5 F 80 20 146/84 100 02/28/17 10:04 02/28/17 10:04 02/28/17 10:04 02/28/17 10:04 02/28/17 10:04 "GENERAL: Awake, nonverbal, no acute distress HEAD: No signs of trauma EYES: PERRLA, EOMI, sclera anicteric, conjunctiva clear ENT: No tongue lacerations, Auricles normal inspection, hearing grossly normal, nares patent, oropharynx clear without exudates. Moist mucosa NECK: Normal ROM, supple, no lymphadenopathy, JVD, or masses LUNGS: Breath sounds equal, clear to auscultation bilaterally. No wheezes, and no crackles HEART: Regular rate and rhythm, normal S1 and S2, no murmurs, rubs or gallops ABDOMEN: Soft, nontender, normoactive bowel sounds. No guarding, no rebound. No masses EXTREMITIES: Normal range of motion, no edema. No clubbing or cyanosis. No cords, erythema, or tenderness NEUROLOGICAL: R gaze preference, Attends to verbal stimulus but does not follow , Cranial nerves II through XII grossly intact. moves all extremities spontaneously, sensory intact, gait deferred SKIN: Warm, Dry, normal turgor, no rashes or lesions noted. Laboratory Results 02/28/17 02/28/17 02/28/17 11:05 10:41 10:41 INR PTT (Actin FS) VBG pH 7.39 POC VBG pCO2 43.5 POC VBG pO2 28.4 Mixed VBG HCO3 25.5 H Sodium Potassium Chloride Carbon Dioxide Anion Gap BUN Creatinine Creat Clearance w eGFR POC Glucometer Random Glucose Lactic Acid 1.2 Calcium Total Bilirubin AST ALT Alkaline Phosphatase Ammonia Creatine Kinase Troponin I Total Protein Albumin TSH Acetone, Qual Negative L 02/28/17 02/28/17 02/28/17 10:41 10:41 10:41 INR 1.01 PTT (Actin FS) 28.8 VBG pH POC VBG pCO2 POC VBG pO2 Mixed VBG HCO3 Sodium 134 L Potassium 4.4 Chloride 99 Carbon Dioxide 26 Anion Gap 9 BUN 22 H D Creatinine 1.2 H Creat Clearance w eGFR 44.95 POC Glucometer Random Glucose 273 H D Lactic Acid Calcium 9.0 Total Bilirubin 0.4 AST 13 L D ALT 23 D Alkaline Phosphatase 102 Ammonia < 10 L Creatine Kinase Troponin I Total Protein 7.1 D Albumin 3.3 L D TSH 1.50 Acetone, Qual 02/28/17 02/28/17 10:41 09:59 RBC 4.60 MCV 86.0 MCHC 32.9 RDW 13.1 MPV 8.2 Neutrophils % 81.1 D Lymphocytes % 13.1 D Monocytes % 4.7 Eosinophils % 0.7 D Basophils % 0.4 POC Glucometer [id number] - RADIOLOGY CT head INTERPRETED BY: Dr. Osullivan IMPRESSION: Mild ventriculomegaly that is slightly more than expected for the degree of cortical atrophy, without interval change. No mass lesion or gross acute infarct are identified. EXAM: CXR INTERPRETED BY: Dr. Delatorre REVIEWED BY: Dr. Velasquez IMPRESSION: Large heart. No acute chest pathology. Left axillary density of unclear etiology. Medical Decision Making 66 year old female, with a significant past medical history of hypertension, diabetes, dementia, visual hallucinations, and CHRISTIANNE who presents to the emergency department accompanied by family, with increased confusion over the past 2 days. Per family member, the patient woke up this morning at approximately 04:00 shaking her right arm, turning her head to the right with an associated right sided droop of her lips. Family member states her episode lasted approximately 35 seconds, and has occurred intermittently since. Family reports the patient presented to the ED on 02/23/17 for confusion and hallucinations and was diagnosed with a UTI, discharged home, and started on antibiotics. Patient was last seen at her baseline yesterday morning. Family reports that since yesterday afternoon, patient has not been herself, and has not been conversive or responsive to commands. Family denies any fever, chills, nausea, or vomiting. No falls or head trauma. No h/o seizures. As per daughter, patients blood sugar levels have been in the 250-300 range throughout the day. Patient lives at home with family, and is able to carry a conversation and ambulate without a walker at her baseline. In the ER, she was awake and responsive to me but not following all commands. She did seem to possess strength throughout and was Not TPA case due to no longer being in window and symptoms seem more general and not focal. CT head was completed and did not show any acute changes. Unclear if seizure, antiepileptics not started for first time event. Cannot rule out stroke, possible TIA. MRI brain ordered Monitor glucose, prefer range 100-130 Continue Insulin Blood pressure control, continue MARSHA Goal BP < 140/90 Physical therapy Follow up UA as possible source Abx for UTI as needed Increased hydration Critical care time in ER 45 mins
[2017-02-28] MEDS ORDERED: ACETAMINOPHEN 325 MG TABLET (FP) PO PRN (15:08)
[2017-02-28] MEDS ORDERED: SODIUM CHLORIDE 1,000 ML IV SCH ×2 (15:15→18:07)
[2017-02-28 15:44] VITALS: BMI 30.2
--- NOTE | 2017-02-28 15:52 | PN ---
Teaching Attending Note Name of Resident: Bernardino Segura ATTENDING PHYSICIAN STATEMENT I saw and evaluated the patient. I reviewed the resident's note and discussed the case with the resident. I agree with the resident's findings and plan as documented. SUBJECTIVE: Patient is disoriented x 3, even is having problem recognizing her own son, Hx taken by who speaks egyptian fluently. Patient at times looks at her right side and keeps staring to her right side, not sure whether she is having any visual hallucinations. OBJECTIVE: Vital Signs Temperature 99.5 F 02/28/17 10:04 Pulse Rate 71 02/28/17 14:50 Respiratory Rate 18 02/28/17 14:50 Blood Pressure 119/40 02/28/17 14:50 O2 Sat by Pulse Oximetry (%) 97 02/28/17 14:50 CBCD WBC 7.2 K/mm3 (4.0-10.0) 02/28/17 10:41 RBC 4.60 M/mm3 (3.60-5.2) 02/28/17 10:41 Hgb 13.0 GM/dL (10.7-15.3) D 02/28/17 10:41 Hct 39.5 % (32.4-45.2) 02/28/17 10:41 MCV 86.0 fl (80-96) 02/28/17 10:41 MCHC 32.9 g/dl (32.0-36.0) 02/28/17 10:41 RDW 13.1 % (11.6-15.6) 02/28/17 10:41 Plt Count 282 K/MM3 (134-434) D 02/28/17 10:41 MPV 8.2 fl (7.5-11.1) 02/28/17 10:41 CMP Sodium 134 mmol/L (136-145) L 02/28/17 10:41 Potassium 4.4 mmol/L (3.5-5.1) 02/28/17 10:41 Chloride 99 mmol/L (98-107) 02/28/17 10:41 Carbon Dioxide 26 mmol/L (21-32) 02/28/17 10:41 Anion Gap 9 (8-16) 02/28/17 10:41 BUN 22 mg/dL (7-18) H D 02/28/17 10:41 Creatinine 1.2 mg/dL (0.55-1.02) H 02/28/17 10:41 Creat Clearance w eGFR 44.95 (>60) 02/28/17 10:41 Random Glucose 273 mg/dL (74-106) H D 02/28/17 10:41 Calcium 9.0 mg/dL (8.5-10.1) 02/28/17 10:41 Total Bilirubin 0.4 mg/dL (0.2-1.0) 02/28/17 10:41 AST 13 U/L (15-37) L D 02/28/17 10:41 ALT 23 U/L (12-78) D 02/28/17 10:41 Alkaline Phosphatase 102 U/L (45-117) 02/28/17 10:41 Total Protein 7.1 g/dl (6.4-8.2) D 02/28/17 10:41 Albumin 3.3 g/dl (3.4-5.0) L D 02/28/17 10:41 CARDIAC ENZYMES Creatine Kinase 38 IU/L (26-192) 02/28/17 10:41 Troponin I < 0.02 ng/ml (0.00-0.05) 02/28/17 10:41 Current Medications Generic Name Dose Route Start Last Admin Trade Name Freq PRN Reason Stop Dose Admin Acetaminophen 650 mg 02/28/17 15:08 Tylenol - PO Q4H PRN FEVER OR PAIN Enoxaparin Sodium 40 mg 03/01/17 10:00 Lovenox - SQ DAILY [facility] Sodium Chloride 1,000 mls @ 83 mls/hr 02/28/17 15:15 02/28/17 15:45 Normal Saline - IV 83 mls/hr ASDIR [facility] Administration Insulin Aspart 0 vial 02/28/17 16:30 Novolog Vial Sliding Scale - SQ ACHS [facility] Protocol Insulin Detemir 5 units 02/28/17 22:00 Levemir Vial SQ HS [facility] Lisinopril 5 mg 03/01/17 10:00 Prinivil PO DAILY [facility] Pneumococcal 13-Valent Conj Vacc 0.5 ml 02/28/17 15:44 Prevnar 13 Syringe - IM 02/28/17 15:45 .ONCE ONE Home Medications Medication Instructions Recorded Lisinopril 5 mg PO DAILY 02/23/17 Insulin (Levemir) [Levemir Flexpen 5 units SQ HS #1 pen 02/25/17 -] Urine Test Results Urine Color Yellow 02/28/17 13:42 Urine Appearance Slcloudy 02/28/17 13:42 Urine pH 5.0 (5.0-8.0) 02/28/17 13:42 Urine Protein Negative (NEGATIVE) 02/28/17 13:42 Urine Glucose (UA) 3+ (NEGATIVE) H 02/28/17 13:42 Urine Ketones 1+ (NEGATIVE) H 02/28/17 13:42 Urine Blood Negative (NEGATIVE) 02/28/17 13:42 Urine Nitrite Positive (NEGATIVE) 02/28/17 13:42 Urine Bilirubin Negative (NEGATIVE) 02/28/17 13:42 Ur Leukocyte Esterase 1+ (NEGATIVE) H 02/28/17 13:42 Urine RBC 1 /hpf (0-3) 02/28/17 13:42 Urine WBC 10 /hpf (3-5) 02/28/17 13:42 Ur Epithelial Cells Rare /hpf (FEW) 02/28/17 13:42 Urine Bacteria Many /hpf (NONE SEEN) 02/28/17 13:42 Urine Mucus Rare 02/28/17 13:42 PE: disoriented x 3 , follows minimal commands. Rest of physical exam per resident's note. Microbiology 02/24/17 03:27 Urine - Urine Clean Catch Urine Culture - Final Escherichia Coli sensitive to everything except Levaquin. ASSESSMENT AND PLAN: Patient is a 66F w/ hx of HTN and DM and recent hospitalization for UTI treated with Levaquin presented to ED. with right arm shaking and head turning to right side and staring to the right. # Acute UTI will start the patient on IV Rocephin since the culture is sensitive to Rocephin # Acute encephalopathy (disoriented x 3) , Seen by neurologist ordered MRA/MRI of the head and neck, unable to complete at this time since CXR reports some calcified objects of the left axilla vs clips, will get CT of the chest to ID the object prior to proceeding to MRA/MRI. #HTN continue home meds lisinopril 5mg qd #T2DM Uncontrolled on Levemir, sliding scale with coverage. Laboratory Tests 02/24/17 08:50 Hemoglobin A1c % 12.4 H DVT Px: SCds for now.
--- NOTE | 2017-02-28 16:42 | HP ---
CHIEF COMPLAINT: arm shaking PCP: Raina Historian: family members as pt has AMS and is sri lankan-speaking HISTORY OF PRESENT ILLNESS: 66F w/ hx of HTN and DM and recent hospitalization for UTI presenting with right arm shaking and head turning to right side. Family member reports that pt was in her [facility] until 02/23 when she became confused and had visual hallucinations. She was admitted to [facility] for acute encephalopathy 2/2 UTI and CHRISTIANNE, treated with levaquin, and discharged 2 days later. Family members report that her symptoms did not resolve, and late last night, she had a 30 second episode of right arm shaking and head turning to the right side. She continued to have these episodes every 5-10 minutes. Per family member, pt was not complaining of any fevers, chills, headache, chest pain, SOB, n/v/d/c, dysuria, urgency, or frequency. Of note, the urine culture sensitivities from her recent admission show E. coli resistant to levaquin. ER course was notable for: (1) UA showing + nitrites, 10 wbc, and many bacteria (2) CT scan showing mild ventriculomegaly more than expected for degree of cortical atrophy Recent Travel: PAST MEDICAL HISTORY: HTN, DM PAST SURGICAL HISTORY: appendectomy Social History: Smoking: negative Alcohol: negative Drugs: negative Family History: negative Allergies: Penicillins Allergy (Unknown, Verified 02/28/17 10:03) Difficulty Breathing HOME MEDICATIONS: Home Medications Medication Instructions Recorded Lisinopril 5 mg PO DAILY 02/23/17 Insulin (Levemir) [Levemir Flexpen 5 units SQ HS #1 pen 02/25/17 -] REVIEW OF SYSTEMS CONSTITUTIONAL: Absent: fever, chills, diaphoresis, generalized weakness, malaise, loss of appetite, weight change HEENT: Absent: rhinorrhea, nasal congestion, throat pain, throat swelling, difficulty swallowing, mouth swelling, ear pain, eye pain, visual changes CARDIOVASCULAR: Absent: chest pain, syncope, palpitations, irregular heart rate, lightheadedness , peripheral edema RESPIRATORY: Absent: cough, shortness of breath, dyspnea with exertion, orthopnea, wheezing, stridor, hemoptysis GASTROINTESTINAL: Absent: abdominal pain, abdominal distension, nausea, vomiting, diarrhea, constipation, melena, hematochezia GENITOURINARY: Absent: dysuria, frequency, urgency, hesitancy, hematuria, flank pain, genital pain MUSCULOSKELETAL: Absent: myalgia, arthralgia, joint swelling, back pain, neck pain SKIN: Absent: rash, itching, pallor HEMATOLOGIC/IMMUNOLOGIC: Absent: easy bleeding, easy bruising, lymphadenopathy, frequent infections ENDOCRINE: Absent: unexplained weight gain, unexplained weight loss, heat intolerance, cold intolerance NEUROLOGIC: Absent: headache, focal weakness or paresthesias, dizziness, unsteady gait, seizure, bladder or bowel incontinence Present: mental status changes, visual hallucinations PSYCHIATRIC: Absent: anxiety, depression, suicidal or homicidal ideation PHYSICAL EXAMINATION Vital Signs - 24 hr 02/28/17 14:50 Pulse Rate 71 Respiratory 18 Rate Blood Pressure 119/40 O2 Sat by Pulse 97 Oximetry (%) GENERAL: Awake, lying in bed, AAOx1 (name) intermittently, in NAD HEAD: Normal with no signs of trauma. EYES: Pupils equal, round and reactive to light, sclera anicteric, conjunctiva clear. No lid lag. EARS, NOSE, THROAT: Ears normal, nares patent, oropharynx clear without exudates. Moist mucous membranes. NECK: Normal range of motion, supple without lymphadenopathy, JVD, or masses. LUNGS: Breath sounds equal, clear to auscultation bilaterally. No wheezes, and no crackles. No accessory muscle use. HEART: Regular rate and rhythm, normal S1 and S2 without murmur, rub or gallop. ABDOMEN: Soft, mildly tender diffusely, not distended, normoactive bowel sounds , no guarding, no rebound, no masses. No hepatomegaly or splenomegaly. MUSCULOSKELETAL: Normal range of motion at all joints. No bony deformities or tenderness. No CVA tenderness. UPPER EXTREMITIES: 2+ pulses, warm, well-perfused. No cyanosis. No clubbing. No peripheral edema. LOWER EXTREMITIES: 2+ pulses, warm, well-perfused. No calf tenderness. 1+ edema b/l NEUROLOGICAL: head turned to right side, gaze to right and downwards. AAOx1 ( name), speaking incoherently. SKIN: Warm, dry, normal turgor, no rashes or lesions noted, normal capillary refill. Laboratory Results - last 24 hr 02/28/17 13:42 Urine Color Yellow Urine Appearance Slcloudy Urine pH 5.0 Urine Protein Negative Urine Glucose (UA) 3+ H Urine Ketones 1+ H Urine Blood Negative Urine Nitrite Positive Urine Bilirubin Negative Urine Urobilinogen Negative Ur Leukocyte Esterase 1+ H Urine RBC 1 Urine WBC 10 Ur Epithelial Cells Rare Urine Bacteria Many Hyaline Casts 4 Urine Mucus Rare ASSESSMENT/PLAN: #episodic arm shaking and head turning -seizure-like activity likely 2/2 acute encephalopathy 2/2 unresolved UTI from previous admission in setting of UA with + nitrites, 10 wbc, and many bacteria and previous urine culture sensitivities showing resistance to levaquin. Other etiologies include seizure, stroke, NPH. CT did not show evidence of hemorrhagic stroke; shows mild ventriculomegaly more than expected for degree of cortical atrophy. -pending MRA of head and neck -neuro on board, appreciated note -ceftriaxone 1g -Normal saline -neuro checks q4h #acute encephalopathy -likely 2/2 unresolved UTI -f/u blood cultures -f/u urine cultures and sensitivities #HTN -continue home lisinopril 5mg qd #DM -SSI, BGM #left axillary density on CXR -workup as outpt #FEN/PPX -NS -electrolytes wnl -diabetic diet -no GI ppx -lovenox 40mg SQ qd Bernardino Segura MD PGY1 Problem List - Problem (1) Diabetes Code(s): E11.9 - TYPE 2 DIABETES MELLITUS WITHOUT COMPLICATIONS Visit type - Emergency Visit Emergency Visit: Yes ED Registration Date: 02/28/17 Care time: The patient presented to the Emergency Department on the above date and was hospitalized for further evaluation of their emergent condition. - New Patient This patient is new to me today: Yes Date on this admission: 02/28/17 - Critical Care Critical Care patient: No
[2017-02-28] MEDS ORDERED: cefTRIAXone SODIUM 1 GM VIAL ONE (18:14)
[2017-02-28] MEDS ORDERED: DEXTROSE 5%-WATER - 50 ML IVPB ONE (18:14)
[2017-02-28] MEDS: CEFTRIAXONE 1 GM in DEXTROSE 5%-WATER - 50 ML IVPB SCH (18:16)
[2017-02-28] MEDS: INSULIN SLIDING SCALE (NOVOLOG) 1 VIAL SQ SCH ×2 (18:20→21:56)
[2017-02-28] MEDS: SODIUM CHLORIDE 1,000 ML IV SCH (18:22)
[2017-02-28] MEDS ORDERED: PNEUMOC 13-VAL CONJ-DIP CRM/PF 0.5 ML DISP.SYRIN IM ONE (18:30)
[2017-02-28] MEDS: INSULIN DETEMIR 100 UNITS/ML MDV SQ SCH (21:57)
[2017-02-28] MEDS ORDERED: SULFAMETHOXAZOLE 80 MG/TRIMETHOPRIM 16 MG/ML VIAL IVPB SCH (22:00)
--- NOTE | 2017-03-01 04:42 | HOSP ---
Subjective - Review of Symptoms Events since last encounter: MD received page about seizure activity. RN Jasvir stated that patient had frequent episodes of bilateral upper extremity shaking with R head tilt. Each episodes lasted for about 10-30 seconds. No antiepileptics ordered. RN states that patient does not have post-ictal focal neurological deficits, confusion is baseline. Chart reviewed. Seizure activity is presumed to be secondary to acute encephalopathy from unresolved UTI. Physical Examination Vital Signs: Vital Signs Temperature 98.2 F 03/01/17 03:00 Pulse Rate 93 Respiratory Rate 18 03/01/17 03:00 Blood Pressure 160/89 O2 Sat by Pulse Oximetry (%) 100 GEN: Patient awake, breathing spontaneously, alert, not following commands, confused, drooling w/ blood tinged saliva from tongue biting HEENT: PERRLA, unable to assess EOM due to noncooperation CV: S1, S2, RRR LUNG: CTABL on inspiration, patient making upper airway expiratory noises ABD: Soft, nontender, nondistended MSK: No edema Neuro: difficult to assess, PERRLA During the exam, MD witnessed similar episode. Patient turned head to right sided, eyes deviating to right, stiff jaw --> R facial perioral movements --> R upper extremity stiffness and shaking --> bilateral upper extremity stiffness and shaking. Episode was timed lasted for about 40 seconds. Ativan 1mg was drawn , was not given since episode had stopped. After the episode, patient was drooling w/ blood tinged saliva, regained alert status, baseline confusion not following commands. Patient is protecting her airways. Vital signs taken right after the episode revealed O2 sat 98, HR 90s. Hospitalist Encounter Assessment: Pt likely having focal L sided seizure with secondary generalization. Could be secondary to unresolved UTI. Pt currently receiving Ceftriaxone 1g QD. Ativan 1mg PRN ordered for seizure lasting >1min. Patient is currently stable, protecting her airways, vital signs are within normal limits. No electrolyte abnormalities on labs. Mg and PO4 is already ordered for the AM. Prior CT on admission showed no bleed, mild ventriculomegaly. No need for imaging at the moment, as patient does not display focal neurological deficits. Will discuss with day team. Visit type - Emergency Visit Emergency Visit: No - New Patient This patient is new to me today: No - Critical Care Critical Care patient: No
[2017-03-01] MEDS: INSULIN SLIDING SCALE (NOVOLOG) 1 VIAL SQ SCH ×4 (06:45→22:03)
[2017-03-01 09:33] LABS: BASOPHIL 0.4 % (0-2.0); EOSINOPHIL 0.4 % (0-4.5); MCH 29.5 pg (25.7-33.7); MCHC 34.5 g/dl (32.0-36.0); MEAN CELL VOLUME 85.5 fl (80-96); NEUTROPHILS 76.8 % (42.8-82.8); PLATELET COUNT 281 K/MM3 (134-434); WHITE BLOOD COUNT 8.5 K/mm3 (4.0-10.0)
[2017-03-01] MEDS ORDERED: cefTRIAXone SODIUM 1 GM VIAL ONE (09:45)
[2017-03-01] MEDS: LISINOPRIL 5 MG TABLET (FP) PO SCH (09:46)
[2017-03-01] MEDS: CEFTRIAXONE 1 GM in DEXTROSE 5%-WATER - 50 ML IVPB SCH (09:47)
[2017-03-01] MEDS: SODIUM CHLORIDE 1,000 ML IV SCH (09:48)
[2017-03-01] MEDS ORDERED: ENOXAPARIN NA (PORCINE) 40 MG/0.4 ML DISP.SYRIN SQ SCH (10:00)
--- NOTE | 2017-03-01 10:28 | PN ---
Progress Note (short form) - Note Progress Note: Neurology History of Present Illness The patient is a 66 year old female, with a significant past medical history of hypertension, diabetes, dementia, visual hallucinations, and CHRISTIANNE who presents to the emergency department accompanied by family, with increased confusion over the past 2 days. Per family member, the patient woke up this morning at approximately 04:00 shaking her right arm, turning her head to the right with an associated right sided droop of her lips. Family member states her episode lasted approximately 35 seconds, and has occurred intermittently since. Family reports the patient presented to the ED on 02/23/17 for confusion and hallucinations and was diagnosed with a UTI, discharged home, and started on antibiotics. As per daughter, patients blood sugar levels have been in the 250- 300 range throughout the day. Patient lives at home with family, and is able to carry a conversation and ambulate without a walker at her baseline. I arrived in the ER to see the patient, she was awake and responsive to me but not following all commands. She did seem to possess strength throughout and was Not TPA case due to no longer being in window and symptoms seem more general and not focal. CT head was completed and did not show any acute changes. Family at bedside and confirmed history that was provided. Today, more awake, alert, responsive and following commands. She's sitting up in bed, eating meal, no discomfort noted. Overnight there was reported seizure like activity, I spoke to resident and recommended starting keppra 500mg twice daily this AM (I ordered in system). There is also question of metal in chest and resident to discuss with radiology about ability to get MRI. Does not seem she had CVA as there are no deficits, repeat CT head should be sufficient as symptoms are severla days old and would appear on imaging by now. She is getting Ceftriaxone for UTI and this may have been precipitant for her convulsions. Home Medication List Medication Instructions Recorded Confirmed Type Lisinopril 5 mg PO DAILY 02/23/17 02/28/17 History Active Medications Generic Name Dose Route Start Last Admin Trade Name Freq PRN Reason Stop Dose Admin Acetaminophen 650 mg 02/28/17 15:08 Tylenol - PO Q4H PRN FEVER OR PAIN Ceftriaxone Sodium 1 gm/ 50 mls @ 100 mls/hr 02/28/17 17:30 03/01/17 09:47 Dextrose IVPB 100 mls/hr DAILY ANAYELI Administration Sodium Chloride 1,000 mls @ 75 mls/hr 02/28/17 18:15 03/01/17 09:48 Normal Saline - IV 75 mls/hr ASDIR ANAYELI Administration Insulin Aspart 0 vial 02/28/17 16:30 03/01/17 06:45 Novolog Vial Sliding Scale - SQ 4 units ACHS ANAYELI Administration Protocol Insulin Detemir 5 units 02/28/17 22:00 02/28/17 21:57 Levemir Vial SQ 5 units HS ANAYELI Administration Levetiracetam 500 mg 03/01/17 10:30 Keppra - PO BID ANAYELI Lisinopril 5 mg 03/01/17 10:00 03/01/17 09:46 Prinivil PO 5 mg DAILY ANAYELI Administration *Physical Exam Vital Signs Temperature 98.0 F 03/01/17 06:00 Pulse Rate 77 03/01/17 06:00 Respiratory Rate 18 03/01/17 06:00 Blood Pressure 109/73 03/01/17 06:00 O2 Sat by Pulse Oximetry (%) 97 02/28/17 21:00 "GENERAL: Awake, nonverbal, no acute distress HEAD: No signs of trauma EYES: PERRLA, EOMI, sclera anicteric, conjunctiva clear ENT: No tongue lacerations, Auricles normal inspection, hearing grossly normal, nares patent, oropharynx clear without exudates. Moist mucosa NECK: Normal ROM, supple, no lymphadenopathy, JVD, or masses LUNGS: Breath sounds equal, clear to auscultation bilaterally. No wheezes, and no crackles HEART: Regular rate and rhythm, normal S1 and S2, no murmurs, rubs or gallops ABDOMEN: Soft, nontender, normoactive bowel sounds. No guarding, no rebound. No masses EXTREMITIES: Normal range of motion, no edema. No clubbing or cyanosis. No cords, erythema, or tenderness NEUROLOGICAL: Awake, alert, following commands, more cooperative, Cranial nerves II through XII grossly intact. moves all extremities spontaneously, sensory intact, gait deferred SKIN: Warm, Dry, normal turgor, no rashes or lesions noted. CBCD WBC 8.5 K/mm3 (4.0-10.0) 03/01/17 09:05 RBC 4.35 M/mm3 (3.60-5.2) 03/01/17 09:05 Hgb 12.8 GM/dL (10.7-15.3) 03/01/17 09:05 Hct 37.2 % (32.4-45.2) 03/01/17 09:05 MCV 85.5 fl (80-96) 03/01/17 09:05 MCHC 34.5 g/dl (32.0-36.0) 03/01/17 09:05 RDW 13.0 % (11.6-15.6) 03/01/17 09:05 Plt Count 281 K/MM3 (134-434) 03/01/17 09:05 MPV 8.0 fl (7.5-11.1) 03/01/17 09:05 CMP Sodium 134 mmol/L (136-145) L 02/28/17 10:41 Potassium 4.4 mmol/L (3.5-5.1) 02/28/17 10:41 Chloride 99 mmol/L (98-107) 02/28/17 10:41 Carbon Dioxide 26 mmol/L (21-32) 02/28/17 10:41 Anion Gap 9 (8-16) 02/28/17 10:41 BUN 22 mg/dL (7-18) H D 02/28/17 10:41 Creatinine 1.2 mg/dL (0.55-1.02) H 02/28/17 10:41 Creat Clearance w eGFR 44.95 (>60) 02/28/17 10:41 Calcium 9.0 mg/dL (8.5-10.1) 02/28/17 10:41 Total Bilirubin 0.4 mg/dL (0.2-1.0) 02/28/17 10:41 AST 13 U/L (15-37) L D 02/28/17 10:41 ALT 23 U/L (12-78) D 02/28/17 10:41 Alkaline Phosphatase 102 U/L (45-117) 02/28/17 10:41 Total Protein 7.1 g/dl (6.4-8.2) D 02/28/17 10:41 Albumin 3.3 g/dl (3.4-5.0) L D 02/28/17 10:41 - RADIOLOGY CT head INTERPRETED BY: Dr. Osullivan IMPRESSION: Mild ventriculomegaly that is slightly more than expected for the degree of cortical atrophy, without interval change. No mass lesion or gross acute infarct are identified. EXAM: CXR INTERPRETED BY: Dr. Delatorre IMPRESSION: Large heart. No acute chest pathology. Left axillary density of unclear etiology. Medical Decision Making 66 year old female, with a significant past medical history of hypertension, diabetes, dementia, visual hallucinations, and CHRISTIANNE who presents to the emergency department accompanied by family, with increased confusion over the past 2 days. Per family member, the patient woke up this morning at approximately 04:00 shaking her right arm, turning her head to the right with an associated right sided droop of her lips. Family member states her episode lasted approximately 35 seconds, and has occurred intermittently since. Family reports the patient presented to the ED on 02/23/17 for confusion and hallucinations and was diagnosed with a UTI, discharged home, and started on antibiotics. As per daughter, patients blood sugar levels have been in the 250- 300 range throughout the day. Patient lives at home with family, and is able to carry a conversation and ambulate without a walker at her baseline. Tim ordered 500mg twice daily for now If unable to have MRI brain, repeat CT head can be completed as described above Monitor glucose, prefer range 100-130 Continue Insulin Blood pressure control, continue MARSHA Goal BP < 140/90 Physical therapy Follow up UA as possible source, continue ceftriaxone Abx for UTI as needed Increased hydration
[2017-03-01 10:29] LABS: ALK PHOS 94 U/L (45-117); ANION GAP 10 (8-16); BILIRUBIN,TOTAL 0.5 mg/dL (0.2-1.0); CALCIUM 8.7 mg/dL (8.5-10.1); CO2 24 mmol/L (21-32); CREATININE 0.9 mg/dL (0.55-1.02); GLUCOSE,RANDOM 138 mg/dL (74-106); MAGNESIUM 2.3 mg/dL (1.8-2.4); PHOSPHOROUS 2.8 mg/dL (2.5-4.9); SGOT/AST 13 U/L (15-37); SGPT/ALT 19 U/L (12-78); TOT PROT 6.5 g/dl (6.4-8.2)
[2017-03-01] MEDS ORDERED: LORazepam 2 MG/ML SDV VIAL IVPUSH PRN (10:48)
--- NOTE | 2017-03-01 11:30 | EKG ---
Test Reason : Blood Pressure : / mmHG Vent. Rate : 071 BPM Atrial Rate : 071 BPM P-R Int : 142 ms QRS Dur : 064 ms QT Int : 374 ms P-R-T Axes : 034 -12 055 degrees QTc Int : 406 ms NORMAL SINUS RHYTHM LOW VOLTAGE QRS INFERIOR INFARCT (CITED ON OR BEFORE 23-FEB-2017) ABNORMAL ECG WHEN COMPARED WITH ECG OF 23-FEB-2017 20:02, PREMATURE VENTRICULAR COMPLEXES ARE NO LONGER PRESENT NONSPECIFIC T WAVE ABNORMALITY, IMPROVED IN LATERAL LEADS Confirmed by DREW GRACE MD ([id number]) on 03/01/2017 11:30:04 AM Referred By: Confirmed By:DREW GRACE MD
[2017-03-01] MEDS: levETIRAcetam 500 MG TABLET (FP) PO SCH ×2 (12:22→22:02)
--- NOTE | 2017-03-01 14:21 | PN ---
Physical Exam: SUBJECTIVE: Patient seen and examined OBJECTIVE: Vital Signs Period Temp Pulse Resp BP Sys/Salvador Pulse Ox Last 24 Hr 98.0 F-99.1 F 65-83 18-18 109-148/40-99 97-97 GENERAL: The patient is awake, alert, and fully oriented, in no acute distress. HEAD: Normal with no signs of trauma. EYES: PERRL, extraocular movements intact, sclera anicteric, conjunctiva clear. No ptosis. ENT: Ears normal, nares patent, oropharynx clear without exudates, moist mucous membranes. NECK: Trachea midline, full range of motion, supple. LUNGS: Breath sounds equal, clear to auscultation bilaterally, no wheezes, no crackles, no accessory muscle use. HEART: Regular rate and rhythm, S1, S2 without murmur, rub or gallop. ABDOMEN: Soft, nontender, nondistended, normoactive bowel sounds, no guarding, no rebound, no hepatosplenomegaly, no masses. EXTREMITIES: 2+ pulses, warm, well-perfused, no edema. NEUROLOGICAL: Cranial nerves II through XII grossly intact. Normal speech, gait not observed. PSYCH: Normal mood, normal affect. SKIN: Warm, dry, normal turgor, no rashes or lesions noted Laboratory Results - last 24 hr 02/28/17 02/28/17 02/28/17 13:42 18:19 21:53 WBC RBC Hgb Hct MCV MCH MCHC RDW Plt Count MPV Neutrophils % Lymphocytes % Monocytes % Eosinophils % Basophils % Sodium Potassium Chloride Carbon Dioxide Anion Gap BUN Creatinine Creat Clearance w eGFR POC Glucometer 218 185 Random Glucose Calcium Phosphorus Magnesium Total Bilirubin AST ALT Alkaline Phosphatase Total Protein Albumin Urine Color Yellow Urine Appearance Slcloudy Urine pH 5.0 Ur Specific Devens 1.015 Urine Protein Negative Urine Glucose (UA) 3+ H Urine Ketones 1+ H Urine Blood Negative Urine Nitrite Positive Urine Bilirubin Negative Urine Urobilinogen Negative Ur Leukocyte Esterase 1+ H Urine RBC 1 Urine WBC 10 Ur Epithelial Cells Rare Urine Bacteria Many Hyaline Casts 4 Urine Mucus Rare 03/01/17 03/01/17 03/01/17 06:43 09:05 09:05 WBC 8.5 RBC 4.35 Hgb 12.8 Hct 37.2 MCV 85.5 MCH 29.5 MCHC 34.5 RDW 13.0 Plt Count 281 MPV 8.0 Neutrophils % 76.8 Lymphocytes % 16.8 D Monocytes % 5.6 Eosinophils % 0.4 Basophils % 0.4 Sodium 139 Potassium 3.9 Chloride 105 Carbon Dioxide 24 Anion Gap 10 BUN 13 D Creatinine 0.9 D Creat Clearance w eGFR > 60 POC Glucometer 204 Random Glucose 138 H D Calcium 8.7 Phosphorus 2.8 Magnesium 2.3 Total Bilirubin 0.5 D AST 13 L ALT 19 Alkaline Phosphatase 94 Total Protein 6.5 Albumin 3.0 L Urine Color Urine Appearance Urine pH Ur Specific Devens Urine Protein Urine Glucose (UA) Urine Ketones Urine Blood Urine Nitrite Urine Bilirubin Urine Urobilinogen Ur Leukocyte Esterase Urine RBC Urine WBC Ur Epithelial Cells Urine Bacteria Hyaline Casts Urine Mucus 03/01/17 12:17 WBC RBC Hgb Hct MCV MCH MCHC RDW Plt Count MPV Neutrophils % Lymphocytes % Monocytes % Eosinophils % Basophils % Sodium Potassium Chloride Carbon Dioxide Anion Gap BUN Creatinine Creat Clearance w eGFR POC Glucometer 211 Random Glucose Calcium Phosphorus Magnesium Total Bilirubin AST ALT Alkaline Phosphatase Total Protein Albumin Urine Color Urine Appearance Urine pH Ur Specific Devens Urine Protein Urine Glucose (UA) Urine Ketones Urine Blood Urine Nitrite Urine Bilirubin Urine Urobilinogen Ur Leukocyte Esterase Urine RBC Urine WBC Ur Epithelial Cells Urine Bacteria Hyaline Casts Urine Mucus Active Medications Generic Name Dose Route Start Last Admin Trade Name Freq PRN Reason Stop Dose Admin Acetaminophen 650 mg 02/28/17 15:08 Tylenol - PO Q4H PRN FEVER OR PAIN Ceftriaxone Sodium 1 gm/ 50 mls @ 100 mls/hr 02/28/17 17:30 03/01/17 09:47 Dextrose IVPB 100 mls/hr DAILY ANAYELI Administration Sodium Chloride 1,000 mls @ 75 mls/hr 02/28/17 18:15 03/01/17 09:48 Normal Saline - IV 75 mls/hr ASDIR ANAYELI Administration Insulin Aspart 0 vial 02/28/17 16:30 03/01/17 12:21 Novolog Vial Sliding Scale - SQ 4 units ACHS ANAYELI Administration Protocol Insulin Detemir 5 units 02/28/17 22:00 02/28/17 21:57 Levemir Vial SQ 5 units HS ANAYELI Administration Levetiracetam 500 mg 03/01/17 12:15 03/01/17 12:22 Keppra - PO 500 mg BID ANAYELI Administration Lisinopril 5 mg 03/01/17 10:00 03/01/17 09:46 Prinivil PO 5 mg DAILY ANAYELI Administration Lorazepam 1 mg 03/01/17 10:48 Ativan Injection - IVPUSH Q2H PRN seizure ASSESSMENT/PLAN: #episodic arm shaking and head turning -seizure-like activity likely 2/2 acute encephalopathy 2/2 unresolved UTI from previous admission in setting of UA with + nitrites, 10 wbc, and many bacteria and previous urine culture sensitivities showing resistance to levaquin. Other etiologies include seizure, stroke, NPH. CT did not show evidence of hemorrhagic stroke; shows mild ventriculomegaly more than expected for degree of cortical atrophy. -MRA of head and neck- cancelled due to possibility that axillary density seen on CXR may be metallic. -neuro on board- does not think that this is due to stroke because symptoms are not focal. Will repeat CT head to rule out stroke. -f/u carotid doppler -keppra 500mg BID for seizure ppx, ativan 1mg q2h PRN for seizure -continue ceftriaxone 1g, today is day 2 -acetaminophen 650 q4h PRN for pain or fever -Normal saline -neuro checks q4h #acute encephalopathy -likely 2/2 unresolved UTI -f/u blood cultures -f/u urine cultures and sensitivities #HTN -continue home lisinopril 5mg qd #DM -SSI, BGM #left axillary density on CXR -f/u CT chest #FEN/PPX -NS -electrolytes wnl -diabetic diet -no GI ppx -lovenox 40mg SQ qd Bernardino Segura MD PGY1 Problem List - Problems (1) Diabetes Code(s): E11.9 - TYPE 2 DIABETES MELLITUS WITHOUT COMPLICATIONS Visit type - Emergency Visit Emergency Visit: Yes ED Registration Date: 02/28/17 Care time: The patient presented to the Emergency Department on the above date and was hospitalized for further evaluation of their emergent condition. - New Patient This patient is new to me today: No - Critical Care Critical Care patient: No
--- NOTE | 2017-03-01 17:54 | PN ---
Teaching Attending Note Name of Resident: Bernardino Segura ATTENDING PHYSICIAN STATEMENT I saw and evaluated the patient. I reviewed the resident's note and discussed the case with the resident. I agree with the resident's findings and plan as documented. SUBJECTIVE: Patient is 50% better today , but still having some episodes of seizure like activity, tuens head to the right and looks at it as if having visual hallucination. OBJECTIVE: Vital Signs Temperature 99.3 F 03/01/17 14:00 Pulse Rate 84 03/01/17 14:00 Respiratory Rate 18 03/01/17 14:00 Blood Pressure 127/77 03/01/17 14:00 O2 Sat by Pulse Oximetry (%) 97 03/01/17 09:00 CBCD WBC 8.5 K/mm3 (4.0-10.0) 03/01/17 09:05 RBC 4.35 M/mm3 (3.60-5.2) 03/01/17 09:05 Hgb 12.8 GM/dL (10.7-15.3) 03/01/17 09:05 Hct 37.2 % (32.4-45.2) 03/01/17 09:05 MCV 85.5 fl (80-96) 03/01/17 09:05 MCHC 34.5 g/dl (32.0-36.0) 03/01/17 09:05 RDW 13.0 % (11.6-15.6) 03/01/17 09:05 Plt Count 281 K/MM3 (134-434) 03/01/17 09:05 MPV 8.0 fl (7.5-11.1) 03/01/17 09:05 CMP Sodium 139 mmol/L (136-145) 03/01/17 09:05 Potassium 3.9 mmol/L (3.5-5.1) 03/01/17 09:05 Chloride 105 mmol/L (98-107) 03/01/17 09:05 Carbon Dioxide 24 mmol/L (21-32) 03/01/17 09:05 Anion Gap 10 (8-16) 03/01/17 09:05 BUN 13 mg/dL (7-18) D 03/01/17 09:05 Creatinine 0.9 mg/dL (0.55-1.02) D 03/01/17 09:05 Creat Clearance w eGFR > 60 (>60) 03/01/17 09:05 Random Glucose 138 mg/dL (74-106) H D 03/01/17 09:05 Calcium 8.7 mg/dL (8.5-10.1) 03/01/17 09:05 Total Bilirubin 0.5 mg/dL (0.2-1.0) D 03/01/17 09:05 AST 13 U/L (15-37) L 03/01/17 09:05 ALT 19 U/L (12-78) 03/01/17 09:05 Alkaline Phosphatase 94 U/L (45-117) 03/01/17 09:05 Total Protein 6.5 g/dl (6.4-8.2) 03/01/17 09:05 Albumin 3.0 g/dl (3.4-5.0) L 03/01/17 09:05 CARDIAC ENZYMES Creatine Kinase 38 IU/L (26-192) 02/28/17 10:41 Troponin I < 0.02 ng/ml (0.00-0.05) 02/28/17 10:41 Current Medications Generic Name Dose Route Start Last Admin Trade Name Freq PRN Reason Stop Dose Admin Acetaminophen 650 mg 02/28/17 15:08 Tylenol - PO Q4H PRN FEVER OR PAIN Ceftriaxone Sodium 1 gm/ 50 mls @ 100 mls/hr 02/28/17 17:30 03/01/17 09:47 Dextrose IVPB 100 mls/hr DAILY ANAYELI Administration Sodium Chloride 1,000 mls @ 75 mls/hr 02/28/17 18:15 03/01/17 09:48 Normal Saline - IV 75 mls/hr ASDIR ANAYELI Administration Insulin Aspart 0 vial 02/28/17 16:30 03/01/17 16:44 Novolog Vial Sliding Scale - SQ Not Given ACHS [facility] Protocol Insulin Detemir 5 units 02/28/17 22:00 02/28/17 21:57 Levemir Vial SQ 5 units HS ANAYELI Administration Levetiracetam 500 mg 03/01/17 12:15 03/01/17 12:22 Keppra - PO 500 mg BID ANAYELI Administration Lisinopril 5 mg 03/01/17 10:00 03/01/17 09:46 Prinivil PO 5 mg DAILY ANAYELI Administration Lorazepam 1 mg 03/01/17 10:48 Ativan Injection - IVPUSH Q2H PRN seizure Home Medications Medication Instructions Recorded Lisinopril 5 mg PO DAILY 02/23/17 Insulin (Levemir) [Levemir Flexpen 5 units SQ HS #1 pen 02/25/17 -] 02/24/17 08:50 Hemoglobin A1c % 12.4 H ASSESSMENT AND PLAN: Patient is a 66F w/ hx of HTN and DM and recent hospitalization for UTI treated with Levaquin presented to ED. with right arm shaking and head turning to right side and staring to the right. # Questionable seizure activity as per neuro , started the patient on Keppra ordered 500mg twice daily for now , , EEG done, check the result of Ct of the head # Acute UTI continue IV Rocephin since the culture is sensitive to Rocephin continue # Acute encephalopathy improving , MRA/MRI of the head and neck was cancelled due to possible having a metal piece under her left axillary region and was suggested to get Ct of the head with IV contrast . Ct of the chest ordered for possible clip under the arm. and family is not aware of any clip in the arm. #HTN continue home meds lisinopril 5mg qd, as per neuro recom. keep blood pressure Goal BP < 140/90 #T2DM Uncontrolled on Levemir, sliding scale with coverage, need tight control of Blood sugar b/t 100-130 DVT px: SCds
[2017-03-01] MEDS: INSULIN DETEMIR 100 UNITS/ML MDV SQ SCH (22:00)
[2017-03-02] MEDS: SODIUM CHLORIDE 1,000 ML IV SCH (02:39)
[2017-03-02] MEDS: INSULIN SLIDING SCALE (NOVOLOG) 1 VIAL SQ SCH ×4 (06:08→21:34)
[2017-03-02] MEDS ORDERED: DEXTROSE 5%-WATER - 50 ML IVPB ONE (08:39)
[2017-03-02] MEDS ORDERED: cefTRIAXone SODIUM 1 GM VIAL ONE (08:39)
[2017-03-02] MEDS: LISINOPRIL 5 MG TABLET (FP) PO SCH (09:43)
[2017-03-02] MEDS: levETIRAcetam 500 MG TABLET (FP) PO SCH ×2 (09:43→21:35)
[2017-03-02] MEDS: CEFTRIAXONE 1 GM in DEXTROSE 5%-WATER - 50 ML IVPB SCH (09:43)
--- NOTE | 2017-03-02 10:07 | PN ---
Progress Note (short form) - Note Progress Note: Neurology History of Present Illness The patient is a 66 year old female, with a significant past medical history of hypertension, diabetes, dementia, visual hallucinations, and CHRISTIANNE who presents to the emergency department accompanied by family, with increased confusion over the past 2 days. Per family member, the patient woke up this morning at approximately 04:00 shaking her right arm, turning her head to the right with an associated right sided droop of her lips. Family member states her episode lasted approximately 35 seconds, and has occurred intermittently since. Family reports the patient presented to the ED on 02/23/17 for confusion and hallucinations and was diagnosed with a UTI, discharged home, and started on antibiotics. As per daughter, patients blood sugar levels have been in the 250- 300 range throughout the day. Patient lives at home with family, and is able to carry a conversation and ambulate without a walker at her baseline. I arrived in the ER to see the patient, she was awake and responsive to me but not following all commands. She did seem to possess strength throughout and was Not TPA case due to no longer being in window and symptoms seem more general and not focal. CT head was completed and did not show any acute changes. Family at bedside and confirmed history that was provided. Continues to be more awake, alert, responsive and following commands. She's communicative with me but didn't know place or date but maintain attention and conversation. Started on keppra 500mg twice daily. Repeat CT head completed and no structural changes. She is getting Ceftriaxone for UTI and this may have been precipitant for her convulsions. Active Medications Acetaminophen (Tylenol -) 650 mg PO Q4H PRN PRN Reason: FEVER OR PAIN Ceftriaxone Sodium 1 gm/ (Dextrose) 50 mls @ 100 mls/hr IVPB DAILY ANAYELI Last Admin: 03/02/17 09:43 Dose: 100 mls/hr Sodium Chloride (Normal Saline -) 1,000 mls @ 75 mls/hr IV ASDIR ANAYELI Last Admin: 03/02/17 02:39 Dose: 75 mls/hr Insulin Aspart (Novolog Vial Sliding Scale -) 0 vial SQ ACHS ANAYELI PRN Reason: Protocol Last Admin: 03/02/17 06:08 Dose: Not Given Insulin Detemir (Levemir Vial) 5 units SQ HS ANAYELI Last Admin: 03/01/17 22:00 Dose: 5 units Levetiracetam (Keppra -) 500 mg PO BID [facility] Last Admin: 03/02/17 09:43 Dose: 500 mg Lisinopril (Prinivil) 5 mg PO DAILY [facility] Last Admin: 03/02/17 09:43 Dose: 5 mg Lorazepam (Ativan Injection -) 1 mg IVPUSH Q2H PRN PRN Reason: seizure *Physical Exam Vital Signs Temperature 98.5 F 03/02/17 07:00 Pulse Rate 65 03/02/17 07:00 Respiratory Rate 18 03/02/17 07:00 Blood Pressure 121/73 03/02/17 07:00 O2 Sat by Pulse Oximetry (%) 95 03/01/17 22:00 "GENERAL: Awake, nonverbal, no acute distress HEAD: No signs of trauma EYES: PERRLA, EOMI, sclera anicteric, conjunctiva clear ENT: No tongue lacerations, Auricles normal inspection, hearing grossly normal, nares patent, oropharynx clear without exudates. Moist mucosa NECK: Normal ROM, supple, no lymphadenopathy, JVD, or masses LUNGS: Breath sounds equal, clear to auscultation bilaterally. No wheezes, and no crackles HEART: Regular rate and rhythm, normal S1 and S2, no murmurs, rubs or gallops ABDOMEN: Soft, nontender, normoactive bowel sounds. No guarding, no rebound. No masses EXTREMITIES: Normal range of motion, no edema. No clubbing or cyanosis. No cords, erythema, or tenderness NEUROLOGICAL: Awake, alert, following commands, more cooperative, Cranial nerves II through XII grossly intact. moves all extremities spontaneously, sensory intact, gait deferred SKIN: Warm, Dry, normal turgor, no rashes or lesions noted. CBCD WBC 8.5 K/mm3 (4.0-10.0) 03/01/17 09:05 RBC 4.35 M/mm3 (3.60-5.2) 03/01/17 09:05 Hgb 12.8 GM/dL (10.7-15.3) 03/01/17 09:05 Hct 37.2 % (32.4-45.2) 03/01/17 09:05 MCV 85.5 fl (80-96) 03/01/17 09:05 MCHC 34.5 g/dl (32.0-36.0) 03/01/17 09:05 RDW 13.0 % (11.6-15.6) 03/01/17 09:05 Plt Count 281 K/MM3 (134-434) 03/01/17 09:05 MPV 8.0 fl (7.5-11.1) 03/01/17 09:05 CMP Sodium 139 mmol/L (136-145) 03/01/17 09:05 Potassium 3.9 mmol/L (3.5-5.1) 03/01/17 09:05 Chloride 105 mmol/L (98-107) 03/01/17 09:05 Carbon Dioxide 24 mmol/L (21-32) 03/01/17 09:05 Anion Gap 10 (8-16) 03/01/17 09:05 BUN 13 mg/dL (7-18) D 03/01/17 09:05 Creatinine 0.9 mg/dL (0.55-1.02) D 03/01/17 09:05 Creat Clearance w eGFR > 60 (>60) 03/01/17 09:05 Calcium 8.7 mg/dL (8.5-10.1) 03/01/17 09:05 Total Bilirubin 0.5 mg/dL (0.2-1.0) D 03/01/17 09:05 AST 13 U/L (15-37) L 03/01/17 09:05 ALT 19 U/L (12-78) 03/01/17 09:05 Alkaline Phosphatase 94 U/L (45-117) 03/01/17 09:05 Total Protein 6.5 g/dl (6.4-8.2) 03/01/17 09:05 Albumin 3.0 g/dl (3.4-5.0) L 03/01/17 09:05 - RADIOLOGY CT head INTERPRETED BY: Dr. Osullivan IMPRESSION: Mild ventriculomegaly that is slightly more than expected for the degree of cortical atrophy, without interval change. No mass lesion or gross acute infarct are identified. EXAM: CXR INTERPRETED BY: Dr. Delatorre IMPRESSION: Large heart. No acute chest pathology. Left axillary density of unclear etiology. Medical Decision Making 66 year old female, with a significant past medical history of hypertension, diabetes, dementia, visual hallucinations, and CHRISTIANNE who presents to the emergency department accompanied by family, with increased confusion over the past 2 days. Per family member, the patient woke up this morning at approximately 04:00 shaking her right arm, turning her head to the right with an associated right sided droop of her lips. Family member states her episode lasted approximately 35 seconds, and has occurred intermittently since. Family reports the patient presented to the ED on 02/23/17 for confusion and hallucinations and was diagnosed with a UTI, discharged home, and started on antibiotics. As per daughter, patients blood sugar levels have been in the 250- 300 range throughout the day. Patient lives at home with family, and is able to carry a conversation and ambulate without a walker at her baseline. Keppra ordered 500mg twice daily for now Ct head repeated and no acute changes Monitor glucose, prefer range 100-130 Continue Insulin Blood pressure control, continue MARSHA Goal BP < 140/90 Physical therapy Follow up UA as possible source, continue ceftriaxone Abx for UTI as needed Increased hydration Unclear what her baseline mental status and I was told she has Dementia though family said she is functional at home.
--- NOTE | 2017-03-02 16:28 | PN ---
Physical Exam: SUBJECTIVE: Patient seen and examined. No seizure episodes overnight. Per nurse, pt speaking but saying incoherent phrases. This am, pt appears more alert than yesterday and is responding to more commands. She denies pain anywhere. OBJECTIVE: Vital Signs Period Temp Pulse Resp BP Sys/Salvador Pulse Ox Last 24 Hr 98.2 F-98.5 F 61-77 18-18 113-147/63-74 95-98 GENERAL: The patient is awake and alert. HEAD: Normal with no signs of trauma. EYES: PERRL, extraocular movements intact, sclera anicteric, conjunctiva clear. No ptosis. ENT: Ears normal, nares patent, oropharynx clear without exudates, moist mucous membranes. NECK: Trachea midline, full range of motion, supple. LUNGS: Breath sounds equal, clear to auscultation bilaterally, no wheezes, no crackles, no accessory muscle use. HEART: Regular rate and rhythm, S1, S2 without murmur, rub or gallop. ABDOMEN: Soft, mildly tender in lower quadrants, nondistended, normoactive bowel sounds, no guarding, no rebound, no hepatosplenomegaly, no masses. EXTREMITIES: 2+ pulses, warm, well-perfused, no edema. NEUROLOGICAL: physician asst still difficult to fully assess. Pt is more alert than yesterday, responding to more commands. gait not observed. SKIN: Warm, dry, normal turgor, no rashes or lesions noted Laboratory Results - last 24 hr 03/01/17 03/01/17 03/02/17 16:43 22:00 05:49 POC Glucometer 142 248 127 03/02/17 11:09 POC Glucometer 174 Active Medications Generic Name Dose Route Start Last Admin Trade Name Freq PRN Reason Stop Dose Admin Acetaminophen 650 mg 02/28/17 15:08 Tylenol - PO Q4H PRN FEVER OR PAIN Ceftriaxone Sodium 1 gm/ 50 mls @ 100 mls/hr 02/28/17 17:30 03/02/17 09:43 Dextrose IVPB 100 mls/hr DAILY ANAYELI Administration Insulin Aspart 0 vial 02/28/17 16:30 03/02/17 11:32 Novolog Vial Sliding Scale - SQ 4 units ACHS ANAYELI Administration Protocol Insulin Detemir 5 units 02/28/17 22:00 03/01/17 22:00 Levemir Vial SQ 5 units HS ANAYELI Administration Levetiracetam 500 mg 03/01/17 12:15 03/02/17 09:43 Keppra - PO 500 mg BID ANAYELI Administration Lisinopril 5 mg 03/01/17 10:00 03/02/17 09:43 Prinivil PO 5 mg DAILY ANAYELI Administration Lorazepam 1 mg 03/01/17 10:48 Ativan Injection - IVPUSH Q2H PRN seizure ASSESSMENT/PLAN: 66F w/ hx of HTN and DM who presented with acute encephalopathy and intermittent seizures likely due to unresolved UTI. #episodic arm shaking and head turning -seizure-like activity likely 2/2 acute encephalopathy 2/2 unresolved UTI from previous admission in setting of UA with + nitrites, 10 wbc, and many bacteria and previous urine culture sensitivities showing resistance to levaquin. Other etiologies include seizure, stroke, NPH. CT did not show evidence of hemorrhagic stroke; shows mild ventriculomegaly more than expected for degree of cortical atrophy. -neuro on board- does not think that this is due to stroke because symptoms are not focal. -repeat CT shows no acute pathology -carotid doppler: No evidence of hemodynamically significant stenosis. -keppra 500mg BID for seizure ppx, ativan 1mg q2h PRN for seizure -continue ceftriaxone 1g, today is day 3 -acetaminophen 650 q4h PRN for pain or fever -Normal saline discontinued as pt is tolerating PO well. -neuro checks q4h -psych consulted to rule out psychiatric causes of her encephalopathy #acute encephalopathy -likely 2/2 unresolved UTI -f/u blood cultures. Currently no growth after 48 hrs. -f/u urine cultures and sensitivities. Currently reveals > 100,00 of non- lactose fermenting GNB #HTN -continue home lisinopril 5mg qd #DM -SSI, BGM #left axillary density on CXR -CT chest revealed no pathology in axilla. Density on CXR was likely something overlying pt's shirt. #FEN/PPX -no fluids -electrolytes wnl -diabetic diet -no GI ppx -heparin SQ 5000 Units TD Bernardino Segura MD PGY1 Problem List - Problems (1) Diabetes Code(s): E11.9 - TYPE 2 DIABETES MELLITUS WITHOUT COMPLICATIONS Visit type - Emergency Visit Emergency Visit: Yes ED Registration Date: 02/28/17 Care time: The patient presented to the Emergency Department on the above date and was hospitalized for further evaluation of their emergent condition. - New Patient This patient is new to me today: No - Critical Care Critical Care patient: No
--- NOTE | 2017-03-02 17:41 | CON.PSY ---
Psychiatry Consult Chief Complaint: Patient seen for Psych eval. Spoke to HB and daughters. History of Encephalopatrhry, confusion and ? Psedo Seizures?? Symptoms: reports: Memory Impairment - Previous Psychiatric Treatment Outpatient: None Inpatient: None - Previous Substance Abuse Treatment Outpatient: None Inpatient: None - Current Medications Current Medications: Active Medications Acetaminophen (Tylenol -) 650 mg PO Q4H PRN PRN Reason: FEVER OR PAIN Heparin Sodium (Porcine) (Heparin -) 5,000 unit SQ TID [facility] Ceftriaxone Sodium 1 gm/ (Dextrose) 50 mls @ 100 mls/hr IVPB DAILY [facility] Last Admin: 03/02/17 09:43 Dose: 100 mls/hr Insulin Aspart (Novolog Vial Sliding Scale -) 0 vial SQ ACHS ANAYELI PRN Reason: Protocol Last Admin: 03/02/17 17:31 Dose: 6 units Insulin Detemir (Levemir Vial) 5 units SQ HS [facility] Last Admin: 03/01/17 22:00 Dose: 5 units Levetiracetam (Keppra -) 500 mg PO BID [facility] Last Admin: 03/02/17 09:43 Dose: 500 mg Lisinopril (Prinivil) 5 mg PO DAILY [facility] Last Admin: 03/02/17 09:43 Dose: 5 mg Lorazepam (Ativan Injection -) 1 mg IVPUSH Q2H PRN PRN Reason: seizure - Allergies Allergies: Allergies Allergy/AdvReac Type Severity Reaction Status Date / Time Penicillins Allergy Unknown Difficulty Verified 02/28/17 10:03 Breathing - Current Living Status Usual Living Arrangement: With Significant Other - Current Mental Status Evaluation Appearance: Well Groomed Attitude: Cooperative - Affect Affect: Full Range Appropriateness: Appropriate to Content - Mood Mood: Euthymic - Speech/Language Expressive: Delayed - Psychomotor Activity Psychomotor Activity: Normal - Thought Process Thought Process: Circumstantial - Thought Content Hallucinations: Absent Delusions: Absent - Self Perception Self Perception: No Impairment - Cognition Attention: Alert Orientation: Person Memory, Immediate Recall: Intact Memory, Short Term: 2/3 Memory, Remote with Promptin/3 - Concentration Serial Sevens Intact: No Simple Calculations Intact: No - Abstraction Proverb Interpretation: Impaired Judgement: Minimally Impaired - Insight Insight: Intact - Impulse Control Impulse Control: Minimally Impaired - Suicidal Ideation Suicidal Ideation: No - Homicidal Ideation Homicidal Ideation: No Assessment/Plan !) Patient has no Psych history . 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 Neuro follow up.
--- NOTE | 2017-03-02 17:44 | PN ---
Teaching Attending Note Name of Resident: Bernardino Segura ATTENDING PHYSICIAN STATEMENT I saw and evaluated the patient. I reviewed the resident's note and discussed the case with the resident. I agree with the resident's findings and plan as documented. SUBJECTIVE: Patient continues to have seizure like activity. family at bedside. OBJECTIVE: Vital Signs Temperature 98.2 F 03/02/17 10:00 Pulse Rate 61 03/02/17 10:00 Respiratory Rate 18 03/02/17 10:00 Blood Pressure 147/74 03/02/17 10:00 O2 Sat by Pulse Oximetry (%) 98 03/02/17 10:00 CBCD WBC 8.5 K/mm3 (4.0-10.0) 03/01/17 09:05 RBC 4.35 M/mm3 (3.60-5.2) 03/01/17 09:05 Hgb 12.8 GM/dL (10.7-15.3) 03/01/17 09:05 Hct 37.2 % (32.4-45.2) 03/01/17 09:05 MCV 85.5 fl (80-96) 03/01/17 09:05 MCHC 34.5 g/dl (32.0-36.0) 03/01/17 09:05 RDW 13.0 % (11.6-15.6) 03/01/17 09:05 Plt Count 281 K/MM3 (134-434) 03/01/17 09:05 MPV 8.0 fl (7.5-11.1) 03/01/17 09:05 CMP Sodium 139 mmol/L (136-145) 03/01/17 09:05 Potassium 3.9 mmol/L (3.5-5.1) 03/01/17 09:05 Chloride 105 mmol/L (98-107) 03/01/17 09:05 Carbon Dioxide 24 mmol/L (21-32) 03/01/17 09:05 Anion Gap 10 (8-16) 03/01/17 09:05 BUN 13 mg/dL (7-18) D 03/01/17 09:05 Creatinine 0.9 mg/dL (0.55-1.02) D 03/01/17 09:05 Creat Clearance w eGFR > 60 (>60) 03/01/17 09:05 Random Glucose 138 mg/dL (74-106) H D 03/01/17 09:05 Calcium 8.7 mg/dL (8.5-10.1) 03/01/17 09:05 Total Bilirubin 0.5 mg/dL (0.2-1.0) D 03/01/17 09:05 AST 13 U/L (15-37) L 03/01/17 09:05 ALT 19 U/L (12-78) 03/01/17 09:05 Alkaline Phosphatase 94 U/L (45-117) 03/01/17 09:05 Total Protein 6.5 g/dl (6.4-8.2) 03/01/17 09:05 Albumin 3.0 g/dl (3.4-5.0) L 03/01/17 09:05 CARDIAC ENZYMES Creatine Kinase 38 IU/L (26-192) 02/28/17 10:41 Troponin I < 0.02 ng/ml (0.00-0.05) 02/28/17 10:41 Current Medications Generic Name Dose Route Start Last Admin Trade Name Freq PRN Reason Stop Dose Admin Acetaminophen 650 mg 02/28/17 15:08 Tylenol - PO Q4H PRN FEVER OR PAIN Heparin Sodium (Porcine) 5,000 unit 03/02/17 22:00 Heparin - SQ TID ANAYELI Ceftriaxone Sodium 1 gm/ 50 mls @ 100 mls/hr 02/28/17 17:30 03/02/17 09:43 Dextrose IVPB 100 mls/hr DAILY ANAYELI Administration Insulin Aspart 0 vial 02/28/17 16:30 03/02/17 17:31 Novolog Vial Sliding Scale - SQ 6 units ACHS ANAYELI Administration Protocol Insulin Detemir 5 units 02/28/17 22:00 03/01/17 22:00 Levemir Vial SQ 5 units HS ANAYELI Administration Levetiracetam 500 mg 03/01/17 12:15 03/02/17 09:43 Keppra - PO 500 mg BID ANAYELI Administration Lisinopril 5 mg 03/01/17 10:00 03/02/17 09:43 Prinivil PO 5 mg DAILY ANAYELI Administration Lorazepam 1 mg 03/01/17 10:48 Ativan Injection - IVPUSH Q2H PRN seizure Home Medications Medication Instructions Recorded Lisinopril 5 mg PO DAILY 02/23/17 Insulin (Levemir) [Levemir Flexpen 5 units SQ HS #1 pen 02/25/17 -] Head CT: negative CT of the chest: no obvious object on the left axilla PE: per resident's notes ASSESSMENT AND PLAN: Patient is a 66F w/ hx of HTN and DM and recent hospitalization for UTI treated with Levaquin presented to ED. with right arm shaking and head turning to right side and staring to the right. # Acute possibble partial seizure activity continues, as per neuro to continue Keppra ordered 500mg twice daily for now, EEG is done, pending the result. # Acute UTI continue IV Rocephin since the culture is sensitive to Rocephin continue # Acute encephalopathy continues, MRI of the head and neck is ordered to r/o active pathology . #HTN continue home meds lisinopril 5mg qd, as per neuro recom. keep blood pressure Goal BP < 140/90 #T2DM Uncontrolled on Levemir, sliding scale with coverage, need tight control of Blood sugar b/t 100-130 DVT px: SCds, heparin
[2017-03-02] MEDS ORDERED: INSULIN (NOVOLOG) ASPART 100 UNITS/ML 10ML VIAL ONE (20:33)
[2017-03-02] MEDS: HEPARIN NA (PORCINE) 5,000 UNITS/ML 1ML VIAL SQ SCH (21:34)
[2017-03-02] MEDS: INSULIN DETEMIR 100 UNITS/ML MDV SQ SCH (21:34)
[2017-03-02] MEDS: SENNOSIDES 8.6MG TABLET (FP) PO SCH (23:20)
[2017-03-03] MEDS: HEPARIN NA (PORCINE) 5,000 UNITS/ML 1ML VIAL SQ SCH ×3 (06:01→22:13)
[2017-03-03] MEDS: INSULIN SLIDING SCALE (NOVOLOG) 1 VIAL SQ SCH ×4 (06:01→22:19)
[2017-03-03] MEDS ORDERED: PT OWN MED DRAWER 7, Y5N ONE ×2 (10:05→15:18)
[2017-03-03] MEDS ORDERED: DEXTROSE 5%-WATER - 50 ML IVPB ONE (10:05)
[2017-03-03] MEDS ORDERED: cefTRIAXone SODIUM 1 GM VIAL ONE (10:05)
[2017-03-03] MEDS: DOCUSATE SODIUM 100 MG CAPSULE (FP) PO SCH (10:09)
[2017-03-03] MEDS: levETIRAcetam 500 MG TABLET (FP) PO SCH ×2 (10:09→22:13)
[2017-03-03] MEDS: SENNOSIDES 8.6MG TABLET (FP) PO SCH ×2 (10:09→22:13)
[2017-03-03] MEDS: LISINOPRIL 5 MG TABLET (FP) PO SCH (10:09)
[2017-03-03] MEDS: CEFTRIAXONE 1 GM in DEXTROSE 5%-WATER - 50 ML IVPB SCH (10:09)
--- NOTE | 2017-03-03 14:44 | PN ---
Progress Note (short form) - Note Progress Note: Patient continues to be confused ,also keeps staring without any communication Vital Signs Temperature 98.8 F 03/03/17 10:10 Pulse Rate 77 03/03/17 10:10 Respiratory Rate 20 03/03/17 10:10 Blood Pressure 114/70 03/03/17 10:10 O2 Sat by Pulse Oximetry (%) 96 03/03/17 09:00 GENERAL: The patient is awake but does not follow any commands . HEAD: Normal with no signs of trauma. EYES: PERRL, extraocular movements intact, sclera anicteric, conjunctiva clear. ENT: Ears normal, oropharynx clear without exudates, moist mucous membranes. NECK: Trachea midline, full range of motion, supple. LUNGS: Breath sounds equal, clear to auscultation bilaterally, no wheezes, no crackles, no accessory muscle use. HEART: Regular rate and rhythm, S1, S2 without murmur, rub or gallop. ABDOMEN: Soft, mildly tender in lower quadrants, nondistended, normoactive bowel sounds, no guarding, no hepatosplenomegaly, no masses appreciated EXTREMITIES: 2+ pulses, warm, well-perfused, no edema. Right hip an old bruise. NEUROLOGICAL: supervisor curing room still difficult to fully assess. Pt does not follow any command . gait not observed. SKIN: Warm, dry, normal turgor, no rashes or lesions noted CBCD WBC 8.5 K/mm3 (4.0-10.0) 03/01/17 09:05 RBC 4.35 M/mm3 (3.60-5.2) 03/01/17 09:05 Hgb 12.8 GM/dL (10.7-15.3) 03/01/17 09:05 Hct 37.2 % (32.4-45.2) 03/01/17 09:05 MCV 85.5 fl (80-96) 03/01/17 09:05 MCHC 34.5 g/dl (32.0-36.0) 03/01/17 09:05 RDW 13.0 % (11.6-15.6) 03/01/17 09:05 Plt Count 281 K/MM3 (134-434) 03/01/17 09:05 MPV 8.0 fl (7.5-11.1) 03/01/17 09:05 CMP Sodium 139 mmol/L (136-145) 03/01/17 09:05 Potassium 3.9 mmol/L (3.5-5.1) 03/01/17 09:05 Chloride 105 mmol/L (98-107) 03/01/17 09:05 Carbon Dioxide 24 mmol/L (21-32) 03/01/17 09:05 Anion Gap 10 (8-16) 03/01/17 09:05 BUN 13 mg/dL (7-18) D 03/01/17 09:05 Creatinine 0.9 mg/dL (0.55-1.02) D 03/01/17 09:05 Creat Clearance w eGFR > 60 (>60) 03/01/17 09:05 Random Glucose 138 mg/dL (74-106) H D 03/01/17 09:05 Calcium 8.7 mg/dL (8.5-10.1) 03/01/17 09:05 Total Bilirubin 0.5 mg/dL (0.2-1.0) D 03/01/17 09:05 AST 13 U/L (15-37) L 03/01/17 09:05 ALT 19 U/L (12-78) 03/01/17 09:05 Alkaline Phosphatase 94 U/L (45-117) 03/01/17 09:05 Total Protein 6.5 g/dl (6.4-8.2) 03/01/17 09:05 Albumin 3.0 g/dl (3.4-5.0) L 03/01/17 09:05 CARDIAC ENZYMES Creatine Kinase 38 IU/L (26-192) 02/28/17 10:41 Troponin I < 0.02 ng/ml (0.00-0.05) 02/28/17 10:41 Current Medications Generic Name Dose Route Start Last Admin Trade Name Freq PRN Reason Stop Dose Admin Acetaminophen 650 mg 02/28/17 15:08 Tylenol - PO Q4H PRN FEVER OR PAIN Docusate Sodium 100 mg 03/03/17 10:00 03/03/17 10:09 Colace - PO 100 mg DAILY ANAYELI Administration Heparin Sodium (Porcine) 5,000 unit 03/02/17 22:00 03/03/17 06:01 Heparin - SQ 5,000 unit TID ANAYELI Administration Ceftriaxone Sodium 1 gm/ 50 mls @ 100 mls/hr 02/28/17 17:30 03/03/17 10:09 Dextrose IVPB 100 mls/hr DAILY ANAYELI Administration Insulin Aspart 0 vial 02/28/17 16:30 03/03/17 12:06 Novolog Vial Sliding Scale - SQ 8 units ACHS ANAYELI Administration Protocol Insulin Detemir 5 units 02/28/17 22:00 03/02/17 21:34 Levemir Vial SQ 5 units HS ANAYELI Administration Levetiracetam 500 mg 03/01/17 12:15 03/03/17 10:09 Keppra - PO 500 mg BID ANAYELI Administration Lisinopril 5 mg 03/01/17 10:00 03/03/17 10:09 Prinivil PO 5 mg DAILY ANAYELI Administration Lorazepam 1 mg 03/01/17 10:48 Ativan Injection - IVPUSH Q2H PRN seizure Quetiapine Fumarate 12.5 mg 03/03/17 14:45 Seroquel - PO DAILY ANAYELI Senna 1 tab 03/02/17 23:00 03/03/17 10:09 Senna - PO 1 tab BID ANAYELI Administration Home Medications Medication Instructions Recorded Lisinopril 5 mg PO DAILY 02/23/17 Insulin (Levemir) [Levemir Flexpen 5 units SQ HS #1 pen 02/25/17 -] MRI of the brain: Mild to moderate loss ventricular dilatations A/P: Patient is a 66F w/ hx of HTN and DM and recent hospitalization for UTI treated with Levaquin presented to ED. with right arm shaking and head turning to right side and staring to the right. # acute partial seizure activity as per neuro continue , patient on Keppra ordered 500mg twice daily for now , EEG result is pending. # Acute encephalopathy continues, MRI of the head and neck reviewed . #HTN continue home meds lisinopril increased to 10mg qd, keep blood pressure Goal BP < 140/90 #T2DM Uncontrolled on Levemir, sliding scale with coverage, need tight control of Blood sugar b/t 100-130 DVT px: SCds. Visit type - Emergency Visit Emergency Visit: Yes ED Registration Date: 02/28/17 Care time: The patient presented to the Emergency Department on the above date and was hospitalized for further evaluation of their emergent condition. - New Patient This patient is new to me today: No - Critical Care Critical Care patient: No
[2017-03-03] MEDS: QUEtiapine FUMARATE 25 MG TABLET (FP) PO SCH (15:20)
[2017-03-03] MEDS ORDERED: ACETAMINOPHEN 325 MG TABLET (FP) PO PRN (19:45)
[2017-03-03] MEDS ORDERED: SODIUM CHLORIDE 0.45% 1,000 ML IV SCH (20:00)
[2017-03-03] MEDS: INSULIN DETEMIR 100 UNITS/ML MDV SQ SCH (22:21)
[2017-03-04] MEDS: HEPARIN NA (PORCINE) 5,000 UNITS/ML 1ML VIAL SQ SCH ×2 (06:25→14:54)
[2017-03-04] MEDS: INSULIN SLIDING SCALE (NOVOLOG) 1 VIAL SQ SCH ×3 (06:29→16:53)
[2017-03-04 08:20] LABS: BASOPHIL 0.8 % (0-2.0); MCH 29.1 pg (25.7-33.7); MCHC 33.8 g/dl (32.0-36.0); MEAN CELL VOLUME 86.1 fl (80-96); MEAN PLT VOLUME 8.3 fl (7.5-11.1); NEUTROPHILS 63.3 % (42.8-82.8); PLATELET COUNT 215 K/MM3 (134-434); RDW 12.9 % (11.6-15.6); WHITE BLOOD COUNT 6.2 K/mm3 (4.0-10.0)
[2017-03-04 08:53] LABS: PHOSPHOROUS 3.2 mg/dL (2.5-4.9)
[2017-03-04] MEDS ORDERED: cefTRIAXone SODIUM 1 GM VIAL ONE (09:04)
[2017-03-04] MEDS ORDERED: DEXTROSE 5%-WATER - 50 ML IVPB ONE (09:05)
[2017-03-04] MEDS: levETIRAcetam 500 MG TABLET (FP) PO SCH (09:08)
[2017-03-04] MEDS: LISINOPRIL 5 MG TABLET (FP) PO SCH (09:08)
[2017-03-04] MEDS: DOCUSATE SODIUM 100 MG CAPSULE (FP) PO SCH (09:08)
[2017-03-04] MEDS: SENNOSIDES 8.6MG TABLET (FP) PO SCH (09:08)
[2017-03-04] MEDS: QUEtiapine FUMARATE 25 MG TABLET (FP) PO SCH (09:12)
[2017-03-04] MEDS: CEFTRIAXONE 1 GM in DEXTROSE 5%-WATER - 50 ML IVPB SCH (09:12)
[2017-03-04] MEDS ORDERED: levETIRAcetam 500 MG TABLET (FP) PO SCH (09:41)
[2017-03-04] MEDS ORDERED: LISINOPRIL 10 MG TABLET (FP) PO SCH (09:43)
[2017-03-04 09:44] LABS: FREE T4 1.35 ng/dl (0.76-1.46); THYROID STIMULATING HORMONE 0.82 uIU/ml (0.358-3.74)
[2017-03-04] MEDS ORDERED: CEFTRIAXONE 2 GM in DEXTROSE 5%-WATER - 50 ML IVPB SCH (09:44)
[2017-03-04] MEDS ORDERED: QUEtiapine FUMARATE 25 MG TABLET (FP) PO SCH (10:00)
[2017-03-04] MEDS ORDERED: LEVETIRACETAM 250 MG, LEVETIRACETAM 500 MG PO SCH (10:00)
[2017-03-04] MEDS ORDERED: VITAMIN B COMP W-C 1 EA TABLET PO SCH (10:00)
[2017-03-04] MEDS ORDERED: OLANZapine 5 MG TABLET PO SCH (10:45)
[2017-03-04] MEDS ORDERED: LISINOPRIL 5 MG TABLET (FP) PO ONE (10:48)
[2017-03-04] MEDS ORDERED: DIVALPROEX SODIUM 500 MG TABLET E.C. PO SCH (11:00)
--- NOTE | 2017-03-04 12:39 | PN ---
Progress Note (short form) - Note Progress Note: Neurology History of Present Illness The patient is a 66 year old female, with a significant past medical history of hypertension, diabetes, dementia, visual hallucinations, and CHRISTIANNE who presents to the emergency department accompanied by family, with increased confusion over the past 2 days. Per family member, the patient woke up this morning at approximately 04:00 shaking her right arm, turning her head to the right with an associated right sided droop of her lips. Family member states her episode lasted approximately 35 seconds, and has occurred intermittently since. Family reports the patient presented to the ED on 02/23/17 for confusion and hallucinations and was diagnosed with a UTI, discharged home, and started on antibiotics. As per daughter, patients blood sugar levels have been in the 250- 300 range throughout the day. Patient lives at home with family, and is able to carry a conversation and ambulate without a walker at her baseline. I arrived in the ER to see the patient, she was awake and responsive to me but not following all commands. She did seem to possess strength throughout and was Not TPA case due to no longer being in window and symptoms seem more general and not focal. CT head was completed and did not show any acute changes. Family at bedside and confirmed history that was provided. Started on keppra 500mg twice daily. Repeat CT head completed and no structural changes. She is getting Ceftriaxone for UTI and this may have been precipitant for her convulsions. Has been having right arm shaking and also personaility change so spoke to PMD and decision made to switch to Depakote which also has mood stabilization properties. Psych consulted and patient given Zyprexa 5mg twice a day as well. Active Medications Acetaminophen (Tylenol -) 650 mg PO Q6H PRN PRN Reason: FEVER OR PAIN Divalproex Sodium (Depakote -) 500 mg PO BID [facility] Last Admin: 03/04/17 11:57 Dose: 500 mg Docusate Sodium (Colace -) 100 mg PO DAILY [facility] Last Admin: 03/04/17 09:08 Dose: 100 mg Heparin Sodium (Porcine) (Heparin -) 5,000 unit SQ TID [facility] Last Admin: 03/04/17 06:25 Dose: 5,000 unit Insulin Aspart (Novolog Vial Sliding Scale -) 0 vial SQ ACHS [facility] PRN Reason: Protocol Last Admin: 03/04/17 11:57 Dose: 4 units Insulin Detemir (Levemir Vial) 5 units SQ HS [facility] Last Admin: 03/03/17 22:21 Dose: 5 units Lisinopril (Prinivil) 10 mg PO DAILY [facility] Last Admin: 03/04/17 11:34 Dose: Not Given Lorazepam (Ativan Injection -) 1 mg IVPUSH Q2H PRN PRN Reason: seizure Multivit/Ca Carb/B Cmplx/FA/Prenat (Nephro-Robert -) 1 tablet PO DAILY [facility] Last Admin: 03/04/17 09:08 Dose: 1 tablet Olanzapine (Zyprexa -) 5 mg PO BID [facility] Last Admin: 03/04/17 11:57 Dose: 5 mg *Physical Exam Vital Signs Period Temp Pulse Resp BP Sys/Salvador Pulse Ox Last 24 Hr 98.1 F-98.8 F 65-88 16-21 131-150/70-78 96-96 "GENERAL: Awake, nonverbal, no acute distress HEAD: No signs of trauma EYES: PERRLA, EOMI, sclera anicteric, conjunctiva clear ENT: No tongue lacerations, Auricles normal inspection, hearing grossly normal, nares patent, oropharynx clear without exudates. Moist mucosa NECK: Normal ROM, supple, no lymphadenopathy, JVD, or masses LUNGS: Breath sounds equal, clear to auscultation bilaterally. No wheezes, and no crackles HEART: Regular rate and rhythm, normal S1 and S2, no murmurs, rubs or gallops ABDOMEN: Soft, nontender, normoactive bowel sounds. No guarding, no rebound. No masses EXTREMITIES: Normal range of motion, no edema. No clubbing or cyanosis. No cords, erythema, or tenderness NEUROLOGICAL: Awake, alert, following commands, more cooperative, Cranial nerves II through XII grossly intact. moves all extremities spontaneously, sensory intact, gait deferred SKIN: Warm, Dry, normal turgor, no rashes or lesions noted. CBCD WBC 6.2 K/mm3 (4.0-10.0) 03/04/17 07:38 RBC 3.99 M/mm3 (3.60-5.2) 03/04/17 07:38 Hgb 11.6 GM/dL (10.7-15.3) 03/04/17 07:38 Hct 34.4 % (32.4-45.2) 03/04/17 07:38 MCV 86.1 fl (80-96) 03/04/17 07:38 MCHC 33.8 g/dl (32.0-36.0) 03/04/17 07:38 RDW 12.9 % (11.6-15.6) 03/04/17 07:38 Plt Count 215 K/MM3 (134-434) D 03/04/17 07:38 MPV 8.3 fl (7.5-11.1) 03/04/17 07:38 CMP Sodium 139 mmol/L (136-145) 03/01/17 09:05 Potassium 3.9 mmol/L (3.5-5.1) 03/01/17 09:05 Chloride 105 mmol/L (98-107) 03/01/17 09:05 Carbon Dioxide 24 mmol/L (21-32) 03/01/17 09:05 Anion Gap 10 (8-16) 03/01/17 09:05 BUN 13 mg/dL (7-18) D 03/01/17 09:05 Creatinine 0.9 mg/dL (0.55-1.02) D 03/01/17 09:05 Creat Clearance w eGFR > 60 (>60) 03/01/17 09:05 Calcium 8.7 mg/dL (8.5-10.1) 03/01/17 09:05 Total Bilirubin 0.5 mg/dL (0.2-1.0) D 03/01/17 09:05 AST 13 U/L (15-37) L 03/01/17 09:05 ALT 19 U/L (12-78) 03/01/17 09:05 Alkaline Phosphatase 94 U/L (45-117) 03/01/17 09:05 Total Protein 6.5 g/dl (6.4-8.2) 03/01/17 09:05 Albumin 3.0 g/dl (3.4-5.0) L 03/01/17 09:05 - RADIOLOGY CT head INTERPRETED BY: Dr. Osullivan IMPRESSION: Mild ventriculomegaly that is slightly more than expected for the degree of cortical atrophy, without interval change. No mass lesion or gross acute infarct are identified. EXAM: CXR INTERPRETED BY: Dr. Swirsky IMPRESSION: Large heart. No acute chest pathology. Left axillary density of unclear etiology. Medical Decision Making 66 year old female, with a significant past medical history of hypertension, diabetes, dementia, visual hallucinations, and CHRISTIANNE who presents to the emergency department accompanied by family, with increased confusion over the past 2 days. Per family member, the patient woke up this morning at approximately 04:00 shaking her right arm, turning her head to the right with an associated right sided droop of her lips. Family member states her episode lasted approximately 35 seconds, and has occurred intermittently since. Family reports the patient presented to the ED on 02/23/17 for confusion and hallucinations and was diagnosed with a UTI, discharged home, and started on antibiotics. As per daughter, patients blood sugar levels have been in the 250- 300 range throughout the day. Patient lives at home with family, and is able to carry a conversation and ambulate without a walker at her baseline. Keppra discontinued Started depkaote 500mg twice a day As per psych, Zyprexa 5mg twice daily Ct head repeated and no acute changes Monitor glucose, prefer range 100-130 Continue Insulin Blood pressure control, continue MARSHA Goal BP < 140/90 Physical therapy Follow up UA as possible source, continue ceftriaxone Abx for UTI as needed Increased hydration Unclear what her baseline mental status and I was told she has Dementia though family said she is functional at home. Maybe her baseline mental status is more limited than described.
[2017-03-04 15:56] LABS: ARTERIAL BLOOD GAS BASE EXCESS -0.9 meq/l (-2-2); ARTERIAL BLOOD GAS HCO3 23.1 meq/L (22-26); ARTERIAL BLOOD GAS PO2 80.6 mmHg (80-100)
[2017-03-04 15:58] LABS: ALLENS TEST POSITIVE; ART PUNCT SITE RIGHT RADIAL; LPM/O2% 21%; PT. ON O2? NO; TYPE OF O2 ROOM AIR
[2017-03-04] MEDS ORDERED: PHENYTOIN SODIUM 100 MG/2 ML VIAL IVPB ONE (16:29)
[2017-03-04 16:48] LABS: ALBUMIN 2.8 g/dl (3.4-5.0); ALK PHOS 103 U/L (45-117); ANION GAP 10 (8-16); BILIRUBIN,TOTAL 0.2 mg/dL (0.2-1.0); CALCIUM 8.6 mg/dL (8.5-10.1); CO2 26 mmol/L (21-32); CREATININE 1.2 mg/dL (0.55-1.02); GLUCOSE,RANDOM 248 mg/dL (74-106); MAGNESIUM 2.1 mg/dL (1.8-2.4); PHOSPHOROUS 4.1 mg/dL (2.5-4.9); SGOT/AST 15 U/L (15-37); SGPT/ALT 20 U/L (12-78); TOT PROT 6.2 g/dl (6.4-8.2)
--- NOTE | 2017-03-04 17:05 | PN ---
Progress Note (short form) - Note Progress Note: Patient is more not to herself today. Kept staring and does not answer to any questions. Patient's daughter at bed side, kept having episodes of staring, with derilium picture, moaning and foaming today. had a 5 msec of seizure like activity. Vital Signs Temperature 98.0 F 03/04/17 15:30 Pulse Rate 76 03/04/17 15:30 Respiratory Rate 20 03/04/17 15:30 Blood Pressure 148/62 03/04/17 15:30 O2 Sat by Pulse Oximetry (%) 96 03/04/17 09:00 GENERAL: The patient is awake but does not follow any commands . HEAD: Normal with no signs of trauma. EYES: PERRL, extraocular movements intact, sclera anicteric, conjunctiva clear. ENT: Ears normal, oropharynx clear without exudates, moist mucous membranes. NECK: Trachea midline, full range of motion, supple. LUNGS: Breath sounds equal, clear to auscultation bilaterally, no wheezes, no crackles, no accessory muscle use. HEART: Regular rate and rhythm, S1, S2 without murmur, rub or gallop. ABDOMEN: Soft, mildly tender in lower quadrants, nondistended, normoactive bowel sounds, no guarding, no hepatosplenomegaly, no masses appreciated EXTREMITIES: 2+ pulses, warm, well-perfused, no edema. Right hip an old bruise. NEUROLOGICAL: still difficult to fully assess. Pt does not follow any command . gait not observed. SKIN: Warm, dry, normal turgor, no rashes or lesions noted CBCD WBC 6.2 K/mm3 (4.0-10.0) 03/04/17 07:38 RBC 3.99 M/mm3 (3.60-5.2) 03/04/17 07:38 Hgb 11.6 GM/dL (10.7-15.3) 03/04/17 07:38 Hct 34.4 % (32.4-45.2) 03/04/17 07:38 MCV 86.1 fl (80-96) 03/04/17 07:38 MCHC 33.8 g/dl (32.0-36.0) 03/04/17 07:38 RDW 12.9 % (11.6-15.6) 03/04/17 07:38 Plt Count 215 K/MM3 (134-434) D 03/04/17 07:38 MPV 8.3 fl (7.5-11.1) 03/04/17 07:38 CMP Sodium 139 mmol/L (136-145) 03/01/17 09:05 Potassium 3.9 mmol/L (3.5-5.1) 03/01/17 09:05 Chloride 105 mmol/L (98-107) 03/01/17 09:05 Carbon Dioxide 24 mmol/L (21-32) 03/01/17 09:05 Anion Gap 10 (8-16) 03/01/17 09:05 BUN 13 mg/dL (7-18) D 03/01/17 09:05 Creatinine 0.9 mg/dL (0.55-1.02) D 03/01/17 09:05 Creat Clearance w eGFR > 60 (>60) 03/01/17 09:05 Random Glucose 138 mg/dL (74-106) H D 03/01/17 09:05 Calcium 8.7 mg/dL (8.5-10.1) 03/01/17 09:05 Total Bilirubin 0.5 mg/dL (0.2-1.0) D 03/01/17 09:05 AST 13 U/L (15-37) L 03/01/17 09:05 ALT 19 U/L (12-78) 03/01/17 09:05 Alkaline Phosphatase 94 U/L (45-117) 03/01/17 09:05 Total Protein 6.5 g/dl (6.4-8.2) 03/01/17 09:05 Albumin 3.0 g/dl (3.4-5.0) L 03/01/17 09:05 CARDIAC ENZYMES Creatine Kinase 49 IU/L (26-192) 03/04/17 06:00 Troponin I < 0.02 ng/ml (0.00-0.05) 02/28/17 10:41 Current Medications Generic Name Dose Route Start Last Admin Trade Name Freq PRN Reason Stop Dose Admin Docusate Sodium 100 mg 03/03/17 10:00 03/04/17 09:08 Colace - PO 100 mg DAILY ANAYELI Administration Ceftriaxone Sodium 1 gm/ 50 mls @ 100 mls/hr 03/05/17 10:00 Dextrose IVPB DAILY [facility] Insulin Aspart 0 vial 02/28/17 16:30 03/04/17 16:53 Novolog Vial Sliding Scale - SQ 6 units ACHS ANAYELI Administration Protocol Insulin Detemir 5 units 02/28/17 22:00 03/03/17 22:21 Levemir Vial SQ 5 units HS ANAYELI Administration Lisinopril 10 mg 03/04/17 09:43 03/04/17 11:34 Prinivil PO Not Given DAILY [facility] Lorazepam 1 mg 03/01/17 10:48 03/04/17 15:44 Ativan Injection - IVPUSH 1 mg Q2H PRN Administration seizure Multivit/Ca Carb/B Cmplx/FA/Prenat 1 tablet 03/04/17 10:00 03/04/17 09:08 Nephro-Robert - PO 1 tablet DAILY ANAYELI Administration Phenytoin Sodium 1,000 mg 03/04/17 16:29 Dilantin Injection - IVPB 03/04/17 16:30 ONCE ONE Phenytoin Sodium 100 mg 03/05/17 06:00 Dilantin Injection - IVPB Q8H [facility] Home Medications Medication Instructions Recorded RX: Lisinopril 5 mg PO DAILY 02/23/17 Insulin (Levemir) [Levemir Flexpen 5 units SQ HS #1 pen 02/25/17 -] MRI of the brain: Mild to moderate loss ventricular dilatations A/P: Patient is a 66F w/ hx of HTN and DM and recent hospitalization for UTI treated with Levaquin presented to ED. with right arm shaking and head turning to right side and staring to the right. # acute partial seizure activity with worsening episodes ,comming on more often. per psych. to discontine all her meds now and as per neuro to start the patient on Dilantin 1gm followed with the maintenance dose, also to tx the patient to ICU for close monitoring. EEG result is pending. will need LP to r/o viral meningitis. Discussed with pulmonary ACCEPTED THE PATIENT IN THE UNIT , WILL tX THE PATIENT TO icu [place] PRN. DILANTIN LEVEL IN AM # Acute encephalopathy continues, MRI of the head and neck reviewed . #HTN continue home meds lisinopril increased to 10mg qd, keep blood pressure Goal BP < 140/90 #T2DM Uncontrolled on Levemir, sliding scale with coverage, need tight control of Blood sugar b/t 100-130 DVT px: SCds. DC HEPARIN FOR POSSIBLE lp TONIGHT CRITICAL CARE OF 35 MINUTES. Visit type - Emergency Visit Emergency Visit: Yes ED Registration Date: 02/28/17 Care time: The patient presented to the Emergency Department on the above date and was hospitalized for further evaluation of their emergent condition. - New Patient This patient is new to me today: No - Critical Care Critical Care patient: Yes Total Critical Care Time (in minutes): 35 Critical Care Statement: The care of this patient involved high complexity decision making to prevent further life threatening deterioration of the patient 's condition and/or to evaluate & treat vital organ system(s) failure or risk of failure.
[2017-03-04] MEDS ORDERED: LORazepam 2 MG/ML SDV VIAL IVPUSH PRN (17:08)
[2017-03-04] MEDS ORDERED: THIAMINE HCL 200 MG/2 ML VIAL IVPB SCH (19:30)
[2017-03-04] MEDS ORDERED: INSULIN SLIDING SCALE (NOVOLOG) 1 VIAL SQ SCH (22:00)
[2017-03-04] MEDS ORDERED: INSULIN DETEMIR 100 UNITS/ML MDV SQ SCH (22:00)
--- NOTE | 2017-03-04 23:15 | CONSULT ---
Consult Consult Specialty:: PULM / CCM Referred by:: HEIDI Reason for Consultation:: AMS - History of Present Illness Chief Complaint: AMS History of Present Illness: Mrs. Bhavin Mckeon is a 66 y/o woman, w/ HTN, IDDM, CHRISTIANNE, & BENNY (w/ known documented visual hallucinations). 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 Of note, this pt presented to the ED on 02/23/2017 for confusion and hallucinations and was diagnosed w/ UTI, started on LVQ, & dc'ed home. In ED, Family denied pt w/ any fever, chills, or N/V. No falls or head trauma. The pt does NOT have a Hx/o Szs. A/p daughter, patients BGL has been 250-300mg/dl. Initially, the pt was admitted to the floor. A/p report, today, pt "not to herself", staring, NOT answering questions. Patient's daughter at bed side described derilium w/ moaning and foaming +/- 5sec of sz-like activity. Thus, pt sent to ICU. In ICU Pt confirmed NOT in critical condition. No indication of toxic metabolic disarray. Pt stable for transfer back to floor for continued w/u & management. - History Source History Provided By: Medical Record Limitations to Obtaining History: Clinical Condition - Past Medical History NETWORK MANAGER: Yes: Dementia Cardio/Vascular: Yes: HTN Endocrine: Yes: Diabetes Mellitus - Alcohol/Substance Use Hx Alcohol Use: No - Smoking History Smoking history: Never smoked Have you smoked in the past 12 months: No - Social History Usual Living Arrangement: With Significant Other ADL: Family Assistance Place of : Other History of Recent Travel: No Home Medications - Allergies Allergies/Adverse Reactions: Allergies Allergy/AdvReac Type Severity Reaction Status Date / Time Penicillins Allergy Unknown Difficulty Verified 02/28/17 10:03 Breathing - Home Medications Home Medications: Ambulatory Orders Lisinopril 5 mg PO DAILY 02/23/17 Insulin (Levemir) [Levemir Flexpen -] 5 units SQ HS #1 pen 02/25/17 Family Disease History - Family Disease History Family History: Unable to Obtain (BENNY) Review of Systems Unable to obtain ROS, reason: BENNY Physical Exam Vital Signs: Vital Signs Temperature 99.2 F 03/04/17 19:00 Pulse Rate 62 03/04/17 19:00 Respiratory Rate 15 03/04/17 20:38 Blood Pressure 109/63 03/04/17 19:00 O2 Sat by Pulse Oximetry (%) 96 03/04/17 20:38 Constitutional: Yes: Well Nourished, No Distress, Calm Eyes: Yes: WNL, Conjunctiva Clear, EOM Intact HENT: Yes: WNL, Atraumatic, Normocephalic Neck: Yes: WNL, Supple, Trachea Midline Cardiovascular: Yes: WNL, Regular Rate and Rhythm Respiratory: Yes: WNL, Regular, CTA Bilaterally Gastrointestinal: Yes: Normal Bowel Sounds, Soft, Abdomen, Obese ...Rectal Exam: Yes: Deferred Renal/: Yes: WNL Breast(s): Yes: WNL Musculoskeletal: Yes: WNL Extremities: Yes: WNL Edema: No Neurological: Yes: WNL, Alert ...Motor Strength: WNL Psychiatric: Yes: WNL, Alert, Oriented Labs: CBC, BMP 03/04/17 07:38 03/04/17 16:00 Imaging - Results Chest X-ray: Image Reviewed (02/28: Clear (My Read).) MRI: Report Reviewed (03/03: Mild to moderate loss ventricular dilatations) Problem List - Problems (1) Dementia Code(s): F03.90 - UNSPECIFIED DEMENTIA WITHOUT BEHAVIORAL DISTURBANCE (2) Hypertension Code(s): I10 - ESSENTIAL (PRIMARY) HYPERTENSION (3) Diabetes Code(s): E11.9 - TYPE 2 DIABETES MELLITUS WITHOUT COMPLICATIONS (4) CHRISTIANNE (acute kidney injury) Code(s): N17.9 - ACUTE KIDNEY FAILURE, UNSPECIFIED Assessment/Plan ASSESS: This is a 66 y/o woman w/ HTN, IDDM, & BENNY who presents to ED on 02/28 w / worse BENNY than normal +/- partial sz-like activity. Pt sent to ICU today for reported partial sz-like activity on the floor. PLAN: -FiO2 for an SpO2> 92% -Nebs -Dilantin -Ativan prn for any break through activity -F/u EEG Read -NEURO Consult -LP for r/o meningitis -Vitamin B studies -Iron Studies -Vit B1 -Can cont home dose Lisinopril for HTN -FSs -Insulin to cover -I's & O's -Monitor UOP -Replete e-lytes prn -Transfer back to floor for continued eval & manangement Thank you for this interesting consult. DGL [id number] PULM /CCM
[2017-03-04 23:59] LABS: CSF APPEARANCE CLEAR; CSF COLOR COLORLESS; CSF RBC 89
[2017-03-05 00:11] LABS: GLUCOSE,CSF 118 mg/dL (50-80)
--- NOTE | 2017-03-05 00:14 | PROC ---
Lumbar Puncture Indication: AMS Risks and Benefits Explained: Yes Consent on Chart: Yes Sterile Technique: Yes Skin prep: Chlorhexidine Position: Right lateral decubitus Site: L4-L51 Local Anesthesia: 1% Lidocaine with epi Opening Pressure(mmHg): 16 Closing Pressure(mmHg): NOT MEasured CSF Color, Appearance: Clear Sterile Dressing Applied: Yes
[2017-03-05] MEDS ORDERED: LORazepam 2 MG/ML SDV VIAL IVPUSH PRN ×2 (00:25→09:43)
[2017-03-05] MEDS: THIAMINE HCL 200 MG/2 ML VIAL IVPB SCH ×3 (01:13→18:21)
[2017-03-05] MEDS ORDERED: PHENYTOIN SODIUM 100 MG/2 ML VIAL IVPB SCH ×2 (02:00→06:00)
[2017-03-05] MEDS: INSULIN SLIDING SCALE (NOVOLOG) 1 VIAL SQ SCH ×4 (06:11→22:34)
[2017-03-05 06:12] LABS: BASOPHIL 0.4 % (0-2.0); EOSINOPHIL 3.6 % (0-4.5); MCH 29.2 pg (25.7-33.7); MCHC 33.5 g/dl (32.0-36.0); MEAN PLT VOLUME 8.1 fl (7.5-11.1); NEUTROPHILS 66.9 % (42.8-82.8); PLATELET COUNT 215 K/MM3 (134-434); RDW 13.5 % (11.6-15.6); WHITE BLOOD COUNT 8.1 K/mm3 (4.0-10.0)
[2017-03-05] MEDS ORDERED: INSULIN (NOVOLOG) ASPART 100 UNITS/ML 10ML VIAL ONE (06:19)
--- NOTE | 2017-03-05 09:08 | PN ---
Progress Note (short form) - Note Progress Note: Patient is doing better, following commands, no further hallucinations today. no further seizure is noted. S/p LP (02/01/2017) Vital Signs Temperature 98.8 F 03/05/17 06:00 Pulse Rate 79 03/05/17 06:00 Respiratory Rate 18 03/05/17 06:00 Blood Pressure 144/76 03/05/17 06:00 O2 Sat by Pulse Oximetry (%) 96 03/04/17 20:38 GENERAL: The patient is awake , following commands today . HEAD: Normal with no signs of trauma. EYES: PERRL, extraocular movements intact, sclera anicteric, conjunctiva clear. ENT: Ears normal, oropharynx clear without exudates, moist mucous membranes. NECK: Trachea midline, full range of motion, supple. LUNGS: Breath sounds equal, clear to auscultation bilaterally, no wheezes, no crackles, no accessory muscle use. HEART: Regular rate and rhythm, S1, S2 without murmur, rub or gallop. ABDOMEN: Soft, NT, nondistended, normoactive bowel sounds, no guarding, no hepatosplenomegaly, no masses appreciated EXTREMITIES: 2+ pulses, warm, well-perfused, no edema. Right hip an old bruise. NEUROLOGICAL: still difficult to fully assess. Pt does not follow any command . gait not observed. SKIN: Warm, dry, normal turgor, no rashes or lesions noted CBCD WBC 8.1 K/mm3 (4.0-10.0) D 03/05/17 05:30 RBC 4.15 M/mm3 (3.60-5.2) 03/05/17 05:30 Hgb 12.1 GM/dL (10.7-15.3) 03/05/17 05:30 Hct 36.1 % (32.4-45.2) 03/05/17 05:30 MCV 87.0 fl (80-96) 03/05/17 05:30 MCHC 33.5 g/dl (32.0-36.0) 03/05/17 05:30 RDW 13.5 % (11.6-15.6) 03/05/17 05:30 Plt Count 215 K/MM3 (134-434) 03/05/17 05:30 MPV 8.1 fl (7.5-11.1) 03/05/17 05:30 CMP Sodium 141 mmol/L (136-145) 03/04/17 16:00 Potassium 4.1 mmol/L (3.5-5.1) 03/04/17 16:00 Chloride 105 mmol/L (98-107) 03/04/17 16:00 Carbon Dioxide 26 mmol/L (21-32) 03/04/17 16:00 Anion Gap 10 (8-16) 03/04/17 16:00 BUN 17 mg/dL (7-18) D 03/04/17 16:00 Creatinine 1.2 mg/dL (0.55-1.02) H D 03/04/17 16:00 Creat Clearance w eGFR 44.95 (>60) 03/04/17 16:00 Random Glucose 248 mg/dL (74-106) H D 03/04/17 16:00 Calcium 8.6 mg/dL (8.5-10.1) 03/04/17 16:00 Total Bilirubin 0.2 mg/dL (0.2-1.0) D 03/04/17 16:00 AST 15 U/L (15-37) 03/04/17 16:00 ALT 20 U/L (12-78) 03/04/17 16:00 Alkaline Phosphatase 103 U/L (45-117) 03/04/17 16:00 Total Protein 6.2 g/dl (6.4-8.2) L 03/04/17 16:00 Albumin 2.8 g/dl (3.4-5.0) L 03/04/17 16:00 CARDIAC ENZYMES Creatine Kinase 49 IU/L (26-192) 03/04/17 06:00 Troponin I < 0.02 ng/ml (0.00-0.05) 02/28/17 10:41 Current Medications Generic Name Dose Route Start Last Admin Trade Name Freq PRN Reason Stop Dose Admin Docusate Sodium 100 mg 03/05/17 10:00 Colace - PO DAILY [facility] Ceftriaxone Sodium 50 mls @ 100 mls/hr 03/05/17 10:00 Rocephin 1gm Ivpb (Pre-Docked) IVPB DAILY [facility] Insulin Aspart 1 vial 03/05/17 07:00 03/05/17 06:11 Novolog Vial Sliding Scale - SQ 4 units ACHS [facility] Administration Protocol Insulin Detemir 5 units 03/05/17 22:00 Levemir Vial SQ HS [facility] Lisinopril 10 mg 03/05/17 10:00 Prinivil PO DAILY [facility] Lorazepam 1 mg 03/05/17 00:25 Ativan Injection - IVPUSH Q2H PRN seizure Phenytoin Sodium 100 mg 03/05/17 02:00 03/05/17 01:13 Dilantin Injection - IVPB 100 mg Q8H-IV ANAYELI Administration Thiamine HCl 250 mg 03/05/17 02:00 03/05/17 01:13 Vitamin B1 Injection - IVPB 03/06/17 18:01 250 mg Q8H-IV ANAYELI Administration Home Medications Medication Instructions Recorded Lisinopril 5 mg PO DAILY 02/23/17 Insulin (Levemir) [Levemir Flexpen 5 units SQ HS #1 pen 02/25/17 -] Microbiology 03/04/17 23:15 Cerebral Spinal Fluid - Lumbar Puncture ELSY Preparation - Preliminary 03/04/17 23:15 Cerebral Spinal Fluid - Lumbar Puncture Fungal Culture - Preliminary 02/28/17 10:17 Blood - Peripheral Venous Blood Culture - Preliminary NO GROWTH OBTAINED AFTER 96 HOURS, INCUBATION TO CONTINUE FOR 1 DAYS. 02/28/17 10:41 Blood - Peripheral Venous Blood Culture - Preliminary NO GROWTH OBTAINED AFTER 96 HOURS, INCUBATION TO CONTINUE FOR 1 DAYS. 02/28/17 10:59 Urine - Urine - Catheterized Urine Culture - Final Escherichia Coli MRI of the brain: Mild to moderate loss with ventricular dilatations A/P: Patient is a 66F w/ hx of HTN and DM and recent hospitalization for UTI treated with Levaquin presented to ED. with right arm shaking and head turning to right side and staring to the right. # acute partial seizure activity , No further seizure is noted, s/p LP on 2016 . No WBc, only thing is elevated is CSF sugar, which is due to uncontrolled sugar., EEG report is pending. Continue Dilantin 100mg iv q8h for now, phenyroin level is 13.3, continue Thiamine IV 250mg q8 x 2 days. Will hold all the psych. meds for now, if needed will give her ativan. # Acute metabolic encephalopathy is improving, following command today. Continue thiamine 250mg q8h iv, can't r/o dementia. MRI of the head and carotid of the neck reviewed . #HTN continue home meds lisinopril increased to 10mg qd, keep blood pressure Goal BP < 140/90, will add norvasc 2.5mg for better blood pressure control. #T2DM Uncontrolled on Levemir, sliding scale with coverage, need tight control of Blood sugar b/t 100-130, for consult # Right hip old bruise as per son had a fall in the house DVT px: SCds. Visit type - Emergency Visit Emergency Visit: Yes ED Registration Date: 02/28/17 Care time: The patient presented to the Emergency Department on the above date and was hospitalized for further evaluation of their emergent condition. - New Patient This patient is new to me today: No - Critical Care Critical Care patient: Yes Total Critical Care Time (in minutes): 35 Critical Care Statement: The care of this patient involved high complexity decision making to prevent further life threatening deterioration of the patient 's condition and/or to evaluate & treat vital organ system(s) failure or risk of failure.
[2017-03-05] MEDS ORDERED: SODIUM CHLORIDE 0.45% 1,000 ML IV SCH (09:30)
[2017-03-05] MEDS: DOCUSATE SODIUM 100 MG CAPSULE (FP) PO SCH (09:59)
[2017-03-05] MEDS: CEFTRIAXONE 50 ML IVPB SCH (09:59)
[2017-03-05] MEDS ORDERED: amLODIPine BESYLATE 5 MG TABLET (FP) PO SCH (10:00)
[2017-03-05] MEDS ORDERED: DOCUSATE SODIUM 100 MG CAPSULE (FP) PO SCH (10:00)
[2017-03-05] MEDS ORDERED: LISINOPRIL 10 MG TABLET (FP) PO SCH ×2 (10:00)
[2017-03-05] MEDS ORDERED: amLODIPine BESYLATE 2.5 MG TABLET (FP) PO SCH (10:00)
[2017-03-05] MEDS: LISINOPRIL 5 MG TABLET (FP) PO SCH (10:00)
[2017-03-05] MEDS ORDERED: CEFTRIAXONE 1 GM in DEXTROSE 5%-WATER - 50 ML IVPB SCH (10:00)
[2017-03-05] MEDS: PHENYTOIN SODIUM 100 MG/2 ML VIAL IVPB SCH ×2 (10:16→21:38)
--- NOTE | 2017-03-05 10:21 | PN ---
Progress Note (short form) - Note Progress Note: Neurology History of Present Illness The patient is a 66 year old female, with a significant past medical history of hypertension, diabetes, dementia, visual hallucinations, and CHRISTIANNE who presents to the emergency department accompanied by family, with increased confusion for 2 days prior to arrival. Per family member, the patient woke up morning of admission approximately 04:00 shaking her right arm, turning her head to the right with an associated right sided droop of her lips. Family member states her episode lasted approximately 35 seconds, and has occurred intermittently since. Family reports the patient presented to the ED on 02/23/17 for confusion and hallucinations and was diagnosed with a UTI, discharged home, and started on antibiotics. As per daughter, patients blood sugar levels have been in the 250-300 range throughout the day. Patient lives at home with family, and is able to carry a conversation and ambulate without a walker at her baseline. I arrived in the ER to see the patient, she was awake and responsive to me but not following all commands. She did seem to possess strength throughout and was Not TPA case due to no longer being in window and symptoms seem more general and not focal. CT head was completed and did not show any acute changes. Family at bedside and confirmed history that was provided. She was started on keppra 500mg twice daily. Repeat CT head completed and no structural changes. She is getting Ceftriaxone for UTI and this may have been precipitant for her convulsions. Has been having right arm shaking and also personaility change so spoke to PMD and decision made to switch to Depakote which also has mood stabilization properties. Psych consulted and patient given Zyprexa 5mg twice a day as well. Thereafter, patient with repeat episode and decision made to transfer to ICU where LP was completed and 0 Wbc, normal protein, does not meet criteria for meningitis or encephalitis. Was switched to Dilantin, improved overnight, did not have seizures, and downgraded to floor status. Active Medications Amlodipine Besylate (Norvasc -) 5 mg PO DAILY [facility] Last Admin: 03/05/17 10:00 Dose: 5 mg Docusate Sodium (Colace -) 100 mg PO DAILY [facility] Last Admin: 03/05/17 09:59 Dose: 100 mg Ceftriaxone Sodium (Rocephin 1gm Ivpb (Pre-Docked)) 50 mls @ 100 mls/hr IVPB DAILY [facility] Last Admin: 03/05/17 09:59 Dose: 100 mls/hr Sodium Chloride (1/2 Normal Saline) 1,000 mls @ 100 mls/hr IV ASDIR [facility] Stop: 03/05/17 19:29 Last Admin: 03/05/17 09:41 Dose: 100 mls/hr Insulin Aspart (Novolog Vial Sliding Scale -) 1 vial SQ ACHS ANAYELI PRN Reason: Protocol Last Admin: 03/05/17 06:11 Dose: 4 units Insulin Detemir (Levemir Vial) 5 units SQ HS ANAY[facility]I Lisinopril (Prinivil) 5 mg PO DAILY [facility] Last Admin: 03/05/17 10:00 Dose: 5 mg Lorazepam (Ativan Injection -) 0.5 mg IVPUSH Q4H PRN PRN Reason: seizure Phenytoin Sodium (Dilantin Injection -) 100 mg IVPB Q12H [facility] Last Admin: 03/05/17 10:16 Dose: 100 mg Thiamine HCl (Vitamin B1 Injection -) 250 mg IVPB Q8H-IV ANAY[facility]I Stop: 03/06/17 18:01 Last Admin: 03/05/17 10:00 Dose: 250 mg *Physical Exam Vital Signs Temperature 98.1 F 03/05/17 09:00 Pulse Rate 89 03/05/17 09:00 Respiratory Rate 18 03/05/17 09:00 Blood Pressure 155/84 03/05/17 09:00 O2 Sat by Pulse Oximetry (%) 98 03/05/17 09:00 "GENERAL: Awake, nonverbal, no acute distress HEAD: No signs of trauma EYES: PERRLA, EOMI, sclera anicteric, conjunctiva clear ENT: No tongue lacerations, Auricles normal inspection, hearing grossly normal, nares patent, oropharynx clear without exudates. Moist mucosa NECK: Normal ROM, supple, no lymphadenopathy, JVD, or masses LUNGS: Breath sounds equal, clear to auscultation bilaterally. No wheezes, and no crackles HEART: Regular rate and rhythm, normal S1 and S2, no murmurs, rubs or gallops ABDOMEN: Soft, nontender, normoactive bowel sounds. No guarding, no rebound. No masses EXTREMITIES: Normal range of motion, no edema. No clubbing or cyanosis. No cords, erythema, or tenderness NEUROLOGICAL: Awake, alert, following commands, more cooperative, Cranial nerves II through XII grossly intact. moves all extremities spontaneously, sensory intact, gait deferred SKIN: Warm, Dry, normal turgor, no rashes or lesions noted. CBCD WBC 8.1 K/mm3 (4.0-10.0) D 03/05/17 05:30 RBC 4.15 M/mm3 (3.60-5.2) 03/05/17 05:30 Hgb 12.1 GM/dL (10.7-15.3) 03/05/17 05:30 Hct 36.1 % (32.4-45.2) 03/05/17 05:30 MCV 87.0 fl (80-96) 03/05/17 05:30 MCHC 33.5 g/dl (32.0-36.0) 03/05/17 05:30 RDW 13.5 % (11.6-15.6) 03/05/17 05:30 Plt Count 215 K/MM3 (134-434) 03/05/17 05:30 MPV 8.1 fl (7.5-11.1) 03/05/17 05:30 CMP Sodium 141 mmol/L (136-145) 03/04/17 16:00 Potassium 4.1 mmol/L (3.5-5.1) 03/04/17 16:00 Chloride 105 mmol/L (98-107) 03/04/17 16:00 Carbon Dioxide 26 mmol/L (21-32) 03/04/17 16:00 Anion Gap 10 (8-16) 03/04/17 16:00 BUN 17 mg/dL (7-18) D 03/04/17 16:00 Creatinine 1.2 mg/dL (0.55-1.02) H D 03/04/17 16:00 Creat Clearance w eGFR 44.95 (>60) 03/04/17 16:00 Calcium 8.6 mg/dL (8.5-10.1) 03/04/17 16:00 Total Bilirubin 0.2 mg/dL (0.2-1.0) D 03/04/17 16:00 AST 15 U/L (15-37) 03/04/17 16:00 ALT 20 U/L (12-78) 03/04/17 16:00 Alkaline Phosphatase 103 U/L (45-117) 03/04/17 16:00 Total Protein 6.2 g/dl (6.4-8.2) L 03/04/17 16:00 Albumin 2.8 g/dl (3.4-5.0) L 03/04/17 16:00 - RADIOLOGY CT head INTERPRETED BY: Dr. Osullivan IMPRESSION: Mild ventriculomegaly that is slightly more than expected for the degree of cortical atrophy, without interval change. No mass lesion or gross acute infarct are identified. MRI brain reviewed and area of DWI suspicious for artifact LP- See lab section Medical Decision Making 66 year old female, with a significant past medical history of hypertension, diabetes, dementia, visual hallucinations, and CHRISTIANNE who presents to the emergency department accompanied by family, with increased confusion over the past 2 days. Per family member, the patient woke up this morning at approximately 04:00 shaking her right arm, turning her head to the right with an associated right sided droop of her lips. Family member states her episode lasted approximately 35 seconds, and has occurred intermittently since. Family reports the patient presented to the ED on 02/23/17 for confusion and hallucinations and was diagnosed with a UTI, discharged home, and started on antibiotics. As per daughter, patients blood sugar levels have been in the 250- 300 range throughout the day. Patient lives at home with family, and is able to carry a conversation and ambulate without a walker at her baseline. Keppra discontinued, Depakote only one dose given Switched to Dilantin As per psych, Zyprexa 5mg twice daily Ct head repeated and no acute changes MRI reviewed and area of likely artifact, repeat MRI was suggested Monitor glucose, prefer range 100-130 Continue Insulin Blood pressure control, continue MARSHA Goal BP < 140/90 Physical therapy On Ceftriaxone for UTI Unclear what her baseline mental status and I was told she has Dementia though family said she is functional at home. Maybe her baseline mental status is more limited than described.
[2017-03-05] MEDS ORDERED: GLYCERIN 1 RECTAL SUPPOSITORY, ADULT PR ONE (15:54)
[2017-03-05] MEDS ORDERED: MINERAL OIL ENEMA 133 ML ENEMA PR ONE (17:14)
[2017-03-05] MEDS ORDERED: HEMOQUE TEST 1 EACH EACH ONE ×2 (17:47→17:53)
[2017-03-05] MEDS: INSULIN DETEMIR 100 UNITS/ML MDV SQ SCH (22:34)
[2017-03-06] MEDS: THIAMINE HCL 200 MG/2 ML VIAL IVPB SCH ×3 (01:20→17:12)
[2017-03-06] MEDS: INSULIN SLIDING SCALE (NOVOLOG) 1 VIAL SQ SCH ×4 (06:42→22:12)
[2017-03-06 06:50] LABS: ALBUMIN 2.7 g/dl (3.4-5.0); ALK PHOS 97 U/L (45-117); ANION GAP 8 (8-16); BILIRUBIN,TOTAL 0.3 mg/dL (0.2-1.0); CALCIUM 8.4 mg/dL (8.5-10.1); CO2 28 mmol/L (21-32); CREATININE 1.1 mg/dL (0.55-1.02); GLUCOSE,RANDOM 99 mg/dL (74-106); SGOT/AST 14 U/L (15-37); SGPT/ALT 20 U/L (12-78)
[2017-03-06] MEDS: DOCUSATE SODIUM 100 MG CAPSULE (FP) PO SCH (09:05)
[2017-03-06] MEDS: LISINOPRIL 5 MG TABLET (FP) PO SCH (09:05)
[2017-03-06] MEDS ORDERED: SODIUM CHLORIDE 250 ML IV STA (09:06)
[2017-03-06] MEDS: CEFTRIAXONE 50 ML IVPB SCH (09:10)
--- NOTE | 2017-03-06 09:40 | PN ---
Progress Note (short form) - Note Progress Note: Neurology History of Present Illness The patient is a 66 year old female, with a significant past medical history of hypertension, diabetes, dementia, visual hallucinations, and CHRISTIANNE who presents to the emergency department accompanied by family, with increased confusion for 2 days prior to arrival. Per family member, the patient woke up morning of admission approximately 04:00 shaking her right arm, turning her head to the right with an associated right sided droop of her lips. Family member states her episode lasted approximately 35 seconds, and has occurred intermittently since. Family reports the patient presented to the ED on 02/23/17 for confusion and hallucinations and was diagnosed with a UTI, discharged home, and started on antibiotics. As per daughter, patients blood sugar levels have been in the 250-300 range throughout the day. Patient lives at home with family, and is able to carry a conversation and ambulate without a walker at her baseline. I arrived in the ER to see the patient, she was awake and responsive to me but not following all commands. She did seem to possess strength throughout and was Not TPA case due to no longer being in window and symptoms seem more general and not focal. CT head was completed and did not show any acute changes. Family at bedside and confirmed history that was provided. She was started on keppra 500mg twice daily. Repeat CT head completed and no structural changes. She is getting Ceftriaxone for UTI and this may have been precipitant for her convulsions. Has been having right arm shaking and also personaility change so spoke to PMD and decision made to switch to Depakote which also has mood stabilization properties. Psych consulted and patient given Zyprexa 5mg twice a day as well. Thereafter, patient with repeat episode and decision made to transfer to ICU where LP was completed and 0 Wbc, normal protein, does not meet criteria for meningitis or encephalitis. Was switched to Dilantin, has not been have seizures, and downgraded to floor status and more stable now. Active Medications Amlodipine Besylate (Norvasc -) 2.5 mg PO DAILY ANAYELI Docusate Sodium (Colace -) 100 mg PO DAILY [facility] Last Admin: 03/06/17 09:05 Dose: Not Given Ceftriaxone Sodium (Rocephin 1gm Ivpb (Pre-Docked)) 50 mls @ 100 mls/hr IVPB DAILY ANAYELI Last Admin: 09/05/17 09:10 Dose: 100 mls/hr Sodium Chloride (Normal Saline -) 250 mls @ 500 mls/hr IV ASDIR STA Stop: 03/06/17 09:35 Insulin Aspart (Novolog Vial Sliding Scale -) 1 vial SQ ACHS ANAYELI PRN Reason: Protocol Last Admin: 03/06/17 06:42 Dose: Not Given Insulin Detemir (Levemir Vial) 5 units SQ HS [facility] Last Admin: 03/05/17 22:34 Dose: 5 units Lisinopril (Prinivil) 5 mg PO DAILY [facility] Last Admin: 03/06/17 09:05 Dose: Not Given Lorazepam (Ativan Injection -) 0.5 mg IVPUSH Q4H PRN PRN Reason: seizure Phenytoin Sodium (Dilantin Injection -) 100 mg IVPB Q12H [facility] Last Admin: 03/05/17 21:38 Dose: 100 mg Potassium Chloride (K-Dur -) 20 meq PO ONCE ONE Stop: 03/06/17 09:10 Thiamine HCl (Vitamin B1 Injection -) 250 mg IVPB Q8H-IV ANAYELI Stop: 03/06/17 18:01 Last Admin: 03/06/17 01:20 Dose: 250 mg *Physical Exam Vital Signs Period Temp Pulse Resp BP Sys/Salvador Pulse Ox Last 24 Hr 98.0 F-98.4 F 73-106 18-20 93-158/53-90 98-98 "GENERAL: Awake, nonverbal, no acute distress HEAD: No signs of trauma EYES: PERRLA, EOMI, sclera anicteric, conjunctiva clear ENT: No tongue lacerations, Auricles normal inspection, hearing grossly normal, nares patent, oropharynx clear without exudates. Moist mucosa NECK: Normal ROM, supple, no lymphadenopathy, JVD, or masses LUNGS: Breath sounds equal, clear to auscultation bilaterally. No wheezes, and no crackles HEART: Regular rate and rhythm, normal S1 and S2, no murmurs, rubs or gallops ABDOMEN: Soft, nontender, normoactive bowel sounds. No guarding, no rebound. No masses EXTREMITIES: Normal range of motion, no edema. No clubbing or cyanosis. No cords, erythema, or tenderness NEUROLOGICAL: Awake, alert, following commands, more cooperative, Cranial nerves II through XII grossly intact. moves all extremities spontaneously, sensory intact, gait deferred SKIN: Warm, Dry, normal turgor, no rashes or lesions noted. CBCD WBC 8.1 K/mm3 (4.0-10.0) D 03/05/17 05:30 RBC 4.15 M/mm3 (3.60-5.2) 03/05/17 05:30 Hgb 12.1 GM/dL (10.7-15.3) 03/05/17 05:30 Hct 36.1 % (32.4-45.2) 03/05/17 05:30 MCV 87.0 fl (80-96) 03/05/17 05:30 MCHC 33.5 g/dl (32.0-36.0) 03/05/17 05:30 RDW 13.5 % (11.6-15.6) 03/05/17 05:30 Plt Count 215 K/MM3 (134-434) 03/05/17 05:30 MPV 8.1 fl (7.5-11.1) 03/05/17 05:30 CMP Sodium 143 mmol/L (136-145) 03/06/17 05:00 Potassium 3.7 mmol/L (3.5-5.1) 03/06/17 05:00 Chloride 107 mmol/L (98-107) 03/06/17 05:00 Carbon Dioxide 28 mmol/L (21-32) 03/06/17 05:00 Anion Gap 8 (8-16) 03/06/17 05:00 BUN 14 mg/dL (7-18) 03/06/17 05:00 Creatinine 1.1 mg/dL (0.55-1.02) H 03/06/17 05:00 Creat Clearance w eGFR 49.69 (>60) 03/06/17 05:00 Calcium 8.4 mg/dL (8.5-10.1) L 03/06/17 05:00 Total Bilirubin 0.3 mg/dL (0.2-1.0) D 03/06/17 05:00 AST 14 U/L (15-37) L 03/06/17 05:00 ALT 20 U/L (12-78) 03/06/17 05:00 Alkaline Phosphatase 97 U/L (45-117) 03/06/17 05:00 Total Protein 6.0 g/dl (6.4-8.2) L 03/06/17 05:00 Albumin 2.7 g/dl (3.4-5.0) L 03/06/17 05:00 - RADIOLOGY CT head IMPRESSION: Mild ventriculomegaly that is slightly more than expected for the degree of cortical atrophy, without interval change. No mass lesion or gross acute infarct are identified. MRI brain reviewed and area of DWI suspicious for artifact LP- See lab section Medical Decision Making 66 year old female, with a significant past medical history of hypertension, diabetes, dementia, visual hallucinations, and CHRISTIANNE who presents to the emergency department accompanied by family, with increased confusion over the past 2 days. Per family member, the patient woke up this morning at approximately 04:00 shaking her right arm, turning her head to the right with an associated right sided droop of her lips. Family member states her episode lasted approximately 35 seconds, and has occurred intermittently since. Family reports the patient presented to the ED on 02/23/17 for confusion and hallucinations and was diagnosed with a UTI, discharged home, and started on antibiotics. As per daughter, patients blood sugar levels have been in the 250- 300 range throughout the day. Patient lives at home with family, and is able to carry a conversation and ambulate without a walker at her baseline. Keppra discontinued, Depakote only one dose given Switched to Dilantin 100mg three times daily and stable on it As per psych, Zyprexa 5mg twice daily Ct head repeated and no acute changes MRI reviewed and area of likely artifact, repeat MRI was suggested Monitor glucose, prefer range 100-130 Continue Insulin Blood pressure control, continue MARSHA Goal BP < 140/90 Physical therapy On Ceftriaxone for UTI Unclear what her baseline mental status and I was told she has Dementia though family said she is functional at home. Maybe her baseline mental status is more limited than described.
[2017-03-06] MEDS ORDERED: POTASSIUM CHLORIDE TABS 20 MEQ TABLET.ER (FP) PO ONE (09:45)
[2017-03-06] MEDS: PHENYTOIN SODIUM 100 MG/2 ML VIAL IVPB SCH (10:00)
[2017-03-06] MEDS: amLODIPine BESYLATE 2.5 MG TABLET (FP) PO SCH (11:00)
--- NOTE | 2017-03-06 11:34 | CONSULT ---
Consult Consult Specialty:: Endocrinology Referred by:: Dr Sebastian Reason for Consultation:: Hyperglycemia - History of Present Illness Chief Complaint: AMS History of Present Illness: This is a 66 year old female, with history of hypertension, diabetes, dementia , DM recently started on Insulin after ED visit visual hallucinations, and CHRISTIANNE who presents to the emergency department accompanied by family, with increased confusion over the past 2 days. Per Daughter the patient woke up this morning at approximately 04:00 shaking her right arm, turning her head to the right with an associated right sided droop of her lips. Patient presented to the ED on 02/23/17 for confusion and hallucinations and was diagnosed with a UTI, discharged home, and started on antibiotics. Pt referred for management of hyperglycemia. FS at home 200 to 500, no hypos. No visual symptoms. No paresthesia. Pt currently oriented to person. - History Source History Provided By: Patient, Family Member - Past Medical History [employer]: Yes: Dementia Cardio/Vascular: Yes: HTN Endocrine: Yes: Diabetes Mellitus - Alcohol/Substance Use Hx Alcohol Use: No - Smoking History Smoking history: Never smoked Have you smoked in the past 12 months: No - Social History Usual Living Arrangement: With Significant Other ADL: Family Assistance History of Recent Travel: No Home Medications - Allergies Allergies/Adverse Reactions: Allergies Allergy/AdvReac Type Severity Reaction Status Date / Time Penicillins Allergy Unknown Difficulty Verified 02/28/17 10:03 Breathing - Home Medications Home Medications: Ambulatory Orders Lisinopril 5 mg PO DAILY 02/23/17 Insulin (Levemir) [Levemir Flexpen -] 5 units SQ HS #1 pen 02/25/17 Family Disease History - Family Disease History Family Disease History: Diabetes: Brother, Sister Review of Systems - Review of Systems Constitutional: reports: Malaise Eyes: reports: No Symptoms HENT: reports: No Symptoms Neck: reports: No Symptoms Cardiovascular: reports: No Symptoms Respiratory: reports: No Symptoms Gastrointestinal: reports: No Symptoms Genitourinary: reports: No Symptoms Musculoskeletal: reports: No Symptoms Neurological: reports: Confusion, Seizure Physical Exam Vital Signs: Vital Signs Temperature 98.0 F 03/06/17 05:52 Pulse Rate 73 03/06/17 05:52 Respiratory Rate 20 03/06/17 05:52 Blood Pressure 93/53 03/06/17 05:52 O2 Sat by Pulse Oximetry (%) 98 03/05/17 20:17 Constitutional: Yes: No Distress, Calm Eyes: Yes: Conjunctiva Clear, EOM Intact HENT: Yes: Atraumatic, Normocephalic Neck: Yes: Supple, Trachea Midline Cardiovascular: Yes: Regular Rate and Rhythm Respiratory: Yes: Regular, CTA Bilaterally Gastrointestinal: Yes: Normal Bowel Sounds, Soft Extremities: Yes: WNL Edema: No Neurological: Yes: Confusion, Other (Oriented to person) Labs: CBC, BMP 03/05/17 05:30 03/06/17 05:00 Assessment/Plan AP: Dementia Confusion Seizure DM: uncontrolled BGM QACHS Levemir 5 units daily Novolog SS coverage Will f/u
--- NOTE | 2017-03-06 14:08 | PN ---
Physical Exam: SUBJECTIVE: Patient seen and examined. No acute events overnight. Per nurse, pt had no episodes of seizures last night or this am. This am, pt was found sleeping in bed. She was not very responsive and fell asleep during exam several times. OBJECTIVE: Vital Signs Period Temp Pulse Resp BP Sys/Salvador Pulse Ox Last 24 Hr 98.0 F-98.7 F 63-106 16-20 92-158/53-90 98-99 GENERAL: The patient is asleep in no acute distress. HEAD: Normal with no signs of trauma. EYES: PERRL, extraocular movements intact, sclera anicteric, conjunctiva clear. No ptosis. ENT: Ears normal, nares patent, oropharynx clear without exudates, moist mucous membranes. NECK: Trachea midline, full range of motion, supple. LUNGS: Breath sounds equal, clear to auscultation bilaterally, no wheezes, no crackles, no accessory muscle use. HEART: Regular rate and rhythm, S1, S2 without murmur, rub or gallop. ABDOMEN: Soft, nontender, nondistended, normoactive bowel sounds, no guarding, no rebound, no hepatosplenomegaly, no masses. EXTREMITIES: 2+ pulses, warm, well-perfused, no edema. NEUROLOGICAL: Cranial nerves II through XII difficult to fully assess, gait not observed. SKIN: Warm, dry, normal turgor, no rashes or lesions noted Laboratory Results - last 24 hr 03/05/17 03/05/17 03/06/17 18:20 22:30 05:00 Sodium 143 Potassium 3.7 Chloride 107 Carbon Dioxide 28 Anion Gap 8 BUN 14 Creatinine 1.1 H Creat Clearance w eGFR 49.69 POC Glucometer [phone] Random Glucose 470 H* D 99 D Calcium 8.4 L Total Bilirubin 0.3 D AST 14 L ALT 20 Alkaline Phosphatase 97 Total Protein 6.0 L Albumin 2.7 L 03/06/17 03/06/17 05:30 11:32 Sodium Potassium Chloride Carbon Dioxide Anion Gap BUN Creatinine Creat Clearance w eGFR POC Glucometer [phone] Random Glucose Calcium Total Bilirubin AST ALT Alkaline Phosphatase Total Protein Albumin Active Medications Generic Name Dose Route Start Last Admin Trade Name Freq PRN Reason Stop Dose Admin Amlodipine Besylate 2.5 mg 03/06/17 09:06 03/06/17 11:00 Norvasc - PO 2.5 mg DAILY ANAYELI Administration Docusate Sodium 100 mg 03/05/17 10:00 03/06/17 09:05 Colace - PO Not Given DAILY ANAYELI Ceftriaxone Sodium 50 mls @ 100 mls/hr 03/05/17 10:00 03/06/17 09:10 Rocephin 1gm Ivpb (Pre-Docked) IVPB 100 mls/hr DAILY ANAYELI Administration Insulin Aspart 1 vial 03/06/17 16:30 Novolog Vial Sliding Scale - SQ TIDAC ANAYELI Protocol Insulin Aspart 1 vial 03/06/17 22:00 Novolog Vial Sliding Scale - SQ HS ANAYELI Protocol Insulin Detemir 5 units 03/05/17 22:00 03/05/17 22:34 Levemir Vial SQ 5 units HS ANAYELI Administration Lisinopril 5 mg 03/05/17 10:00 03/06/17 09:05 Prinivil PO Not Given DAILY ANAYELI Lorazepam 0.5 mg 03/05/17 09:43 Ativan Injection - IVPUSH Q4H PRN seizure Phenytoin Sodium 100 mg 03/05/17 09:45 03/06/17 10:00 Dilantin Injection - IVPB 100 mg Q12H ANAYLEI Administration Thiamine HCl 250 mg 03/05/17 02:00 03/06/17 11:21 Vitamin B1 Injection - IVPB 03/06/17 18:01 250 mg Q8H-IV ANAYELI Administration ASSESSMENT/PLAN: 66F w/ hx of HTN and DM who presented with acute encephalopathy and intermittent seizures likely due to unresolved UTI. #episodic arm shaking and head turning -seizure-like activity likely 2/2 acute encephalopathy 2/2 unresolved UTI from previous admission in setting of UA with + nitrites, 10 wbc, and many bacteria and previous urine culture sensitivities showing resistance to levaquin. Other etiologies include seizure, stroke, NPH. CT did not show evidence of hemorrhagic stroke; shows mild ventriculomegaly more than expected for degree of cortical atrophy. -neuro on board- does not think that this is due to stroke because symptoms are not focal. -repeat CT shows no acute pathology -carotid doppler: No evidence of hemodynamically significant stenosis. -neuro checks q4h -psych consulted, found no psychiatric cause for acute encephalopathy -brain MRI (03/03) showed increased cortical signalintensity in the left occipital lobe which may be artifact and less likely infarct, rec f/u MRI. -continue phenytoin 100mg IV q12h for seizure ppx, ativan 0.5mg q4h PRN for seizure -continue thiamine 250mg IV q8h -continue ceftriaxone 1g, today is day 7 of a 10 day course -VDRL negative -f/u AFBcx, fungal cx, viral cx, toxoplasma, free T3, phenytoin level #acute encephalopathy -likely 2/2 unresolved UTI -blood cultures were negative after 5 days. -urine cultures grew E. coli pansensitive except for levaquin. -continue ceftriaxone 1g, today is day 7 of a 10 day course #HTN -BP today as low as 90/50 with HR of 70-90. -change amlodipine from 5mg to 2.5mg and administer 250ml bolus of NS -monitor BP #DM -SSI, BGM ACHS -endocrinology on board due to a high level in the 400s yesterday. f/u recs #FEN/PPX -no fluids -potassium repleted -diabetic diet -no GI ppx -SCDs Bernardino Segura MD PGY1 Problem List - Problems (1) Diabetes Code(s): E11.9 - TYPE 2 DIABETES MELLITUS WITHOUT COMPLICATIONS Visit type - Emergency Visit Emergency Visit: Yes ED Registration Date: 02/28/17 Care time: The patient presented to the Emergency Department on the above date and was hospitalized for further evaluation of their emergent condition. - New Patient This patient is new to me today: No - Critical Care Critical Care patient: No
--- NOTE | 2017-03-06 16:18 | PN ---
Teaching Attending Note Name of Resident: Bernardino Segura ATTENDING PHYSICIAN STATEMENT I saw and evaluated the patient. I reviewed the resident's note and discussed the case with the resident. I agree with the resident's findings and plan as documented. SUBJECTIVE: Patient is improving ,back to her normal state of mind. Family at bedside. Patient answers to questions appropiately now. No further seizure is noted today. OBJECTIVE: Vital Signs Temperature 99.3 F 03/06/17 14:00 Pulse Rate 87 03/06/17 14:00 Respiratory Rate 16 03/06/17 14:00 Blood Pressure 106/65 03/06/17 14:00 O2 Sat by Pulse Oximetry (%) 99 03/06/17 09:00 PE: follows commands now, answers appropiately , CN2-12 grossly intact rest of PE per resident's note CBCD WBC 8.1 K/mm3 (4.0-10.0) D 03/05/17 05:30 RBC 4.15 M/mm3 (3.60-5.2) 03/05/17 05:30 Hgb 12.1 GM/dL (10.7-15.3) 03/05/17 05:30 Hct 36.1 % (32.4-45.2) 03/05/17 05:30 MCV 87.0 fl (80-96) 03/05/17 05:30 MCHC 33.5 g/dl (32.0-36.0) 03/05/17 05:30 RDW 13.5 % (11.6-15.6) 03/05/17 05:30 Plt Count 215 K/MM3 (134-434) 03/05/17 05:30 MPV 8.1 fl (7.5-11.1) 03/05/17 05:30 CMP Sodium 143 mmol/L (136-145) 03/06/17 05:00 Potassium 3.7 mmol/L (3.5-5.1) 03/06/17 05:00 Chloride 107 mmol/L (98-107) 03/06/17 05:00 Carbon Dioxide 28 mmol/L (21-32) 03/06/17 05:00 Anion Gap 8 (8-16) 03/06/17 05:00 BUN 14 mg/dL (7-18) 03/06/17 05:00 Creatinine 1.1 mg/dL (0.55-1.02) H 03/06/17 05:00 Creat Clearance w eGFR 49.69 (>60) 03/06/17 05:00 Random Glucose 99 mg/dL (74-106) D 03/06/17 05:00 Calcium 8.4 mg/dL (8.5-10.1) L 03/06/17 05:00 Total Bilirubin 0.3 mg/dL (0.2-1.0) D 03/06/17 05:00 AST 14 U/L (15-37) L 03/06/17 05:00 ALT 20 U/L (12-78) 03/06/17 05:00 Alkaline Phosphatase 97 U/L (45-117) 03/06/17 05:00 Total Protein 6.0 g/dl (6.4-8.2) L 03/06/17 05:00 Albumin 2.7 g/dl (3.4-5.0) L 03/06/17 05:00 CARDIAC ENZYMES Creatine Kinase 49 IU/L (26-192) 03/04/17 06:00 Troponin I < 0.02 ng/ml (0.00-0.05) 02/28/17 10:41 Current Medications Generic Name Dose Route Start Last Admin Trade Name Freq PRN Reason Stop Dose Admin Amlodipine Besylate 2.5 mg 03/06/17 09:06 03/06/17 11:00 Norvasc - PO 2.5 mg DAILY ANAYELI Administration Docusate Sodium 100 mg 03/05/17 10:00 03/06/17 09:05 Colace - PO Not Given DAILY [facility] Ceftriaxone Sodium 50 mls @ 100 mls/hr 03/05/17 10:00 03/06/17 09:10 Rocephin 1gm Ivpb (Pre-Docked) IVPB 100 mls/hr DAILY ANAYELI Administration Insulin Aspart 1 vial 03/06/17 16:30 Novolog Vial Sliding Scale - SQ TIDAC [facility] Protocol Insulin Aspart 1 vial 03/06/17 22:00 Novolog Vial Sliding Scale - SQ HS [facility] Protocol Insulin Detemir 5 units 03/05/17 22:00 03/05/17 22:34 Levemir Vial SQ 5 units HS ANAYELI Administration Lisinopril 5 mg 03/05/17 10:00 03/06/17 09:05 Prinivil PO Not Given DAILY [facility] Lorazepam 0.5 mg 03/05/17 09:43 Ativan Injection - IVPUSH Q4H PRN seizure Phenytoin Sodium 100 mg 03/06/17 22:00 Dilantin - PO TID ANAYELI Thiamine HCl 250 mg 03/05/17 02:00 03/06/17 11:21 Vitamin B1 Injection - IVPB 03/06/17 18:01 250 mg Q8H-IV ANAYELI Administration Home Medications Medication Instructions Recorded RX: Lisinopril 5 mg PO DAILY 02/23/17 Insulin (Levemir) [Levemir Flexpen 5 units SQ HS #1 pen 02/25/17 -] Microbiology 03/04/17 23:15 Cerebral Spinal Fluid - Lumbar Puncture AFB Smear Concentration - Preliminary 03/04/17 23:15 Cerebral Spinal Fluid - Lumbar Puncture Mycobacterial Culture - Preliminary 03/04/17 23:15 Cerebral Spinal Fluid - Lumbar Puncture Gram Stain - Final 03/04/17 23:15 Cerebral Spinal Fluid - Lumbar Puncture CSF Culture - Preliminary 03/04/17 23:15 Cerebral Spinal Fluid - Lumbar Puncture Cryptococcal Antigen - Preliminary 03/04/17 23:15 Cerebral Spinal Fluid - Lumbar Puncture Viral Culture - Preliminary 02/28/17 10:17 Blood - Peripheral Venous Blood Culture - Final NO GROWTH AFTER 5 DAYS INCUBATION 02/28/17 10:41 Blood - Peripheral Venous Blood Culture - Final NO GROWTH AFTER 5 DAYS INCUBATION 03/04/17 23:15 Cerebral Spinal Fluid - Lumbar Puncture ELSY Preparation - Preliminary 03/04/17 23:15 Cerebral Spinal Fluid - Lumbar Puncture Fungal Culture - Preliminary 02/28/17 10:59 Urine - Urine - Catheterized Urine Culture - Final Escherichia Coli EEG report: reported normal LP report: negative for now MRI of the brain: Mild to moderate volume loss and ventricular dilatation. mild chronic microvascular ischemic changes are present. Carotid doppler: internal thickening and minimal plague build at common carotid bifurcation without evidence of stenosis. ASSESSMENT AND PLAN: Patient is a 66F w/ hx of HTN and DM and recent hospitalization for UTI treated with Levaquin presented to ED. with right arm shaking and head turning to right side and staring to the right with seizure like activity. # acute partial seizure activity , No further seizure is noted, s/p LP on 2016 . No WBc in LP. EEG report negative for seizure. but EEG is not 100% specific, patient was witnessed to have partial seizure activity. S/p MRI and CT of brain completed with mild to moderate ventricaular dilatation, Dilantin 100mg iv chnaged to po dilantin 100mg tid, discussed with Dr. khan neurologist to discharge the patient on dilatin 3 x per day. to be followed as an outpatient with neurologist. if no further seizure for a year then can be taken off Dilantin . last phenyroin level is 13.3, , patient received Thiamine IV 250mg q8 x 2 days ( will complete the last dose of 250 tonight). ativan prn if needed. # Acute UTI sensitive to Rocephin, upon discharge give the patient 3 more days of po Ceftin 250mg po bid x 3 more days. # Acute metabolic encephalopathy improved fully today. Follows command today. can't r/o dementia. MRI of the head ; enlarged ventricals and brain volume loss. #Internal thickening of carotid with minimal plaque, will fasting lipid profile for am. Started tonight with Lipitor 20mg hs. also started the patient on po aspirin. #HTN continue home meds lisinopril 5mg and added 2.5mg norvasc. keep blood pressure Goal BP < 140/90. #T2DM Uncontrolled on Levemir, sliding scale with coverage, need tight control of Blood sugar b/t 100-130, ; endocrine consult appreciated. # Right hip old bruise as per son had a fall in the house DVT px: SCds.
[2017-03-06] MEDS: ASPIRIN COATED 81 MG TABLET.EC PO SCH (17:12)
[2017-03-06] MEDS: PHENYTOIN NA EXTENDED 100 MG CAPSULE (FP) PO SCH (22:11)
[2017-03-06] MEDS: ATORVASTATIN CA 20 MG TABLET (FP) PO SCH (22:11)
[2017-03-06] MEDS: INSULIN DETEMIR 100 UNITS/ML MDV SQ SCH (22:12)
[2017-03-07] MEDS: PHENYTOIN NA EXTENDED 100 MG CAPSULE (FP) PO SCH ×3 (06:12→21:43)
[2017-03-07] MEDS: INSULIN SLIDING SCALE (NOVOLOG) 1 VIAL SQ SCH ×4 (06:13→21:45)
[2017-03-07 06:38] LABS: ANION GAP 9 (8-16); CALCIUM 8.6 mg/dL (8.5-10.1); CO2 24 mmol/L (21-32); GLUCOSE,RANDOM 182 mg/dL (74-106)
[2017-03-07 07:32] LABS: BASOPHIL 0.2 % (0-2.0); EOSINOPHIL 3.9 % (0-4.5); MCH 29.1 pg (25.7-33.7); MCHC 33.3 g/dl (32.0-36.0); MEAN CELL VOLUME 87.4 fl (80-96); NEUTROPHILS 71.1 % (42.8-82.8); PLATELET COUNT 129 K/MM3 (134-434); RDW 13.4 % (11.6-15.6); WHITE BLOOD COUNT 9.5 K/mm3 (4.0-10.0)
--- NOTE | 2017-03-07 09:06 | PN ---
Progress Note (short form) - Note Progress Note: Denies any complaints Vital Signs Period Temp Pulse Resp BP Sys/Salvador Pulse Ox Last 24 Hr 98.9 F-99.9 F 76-95 16-20 101-141/59-83 99 PE: Awake, alert Neck: supple, No JVD HEENT: EOMI Lungs: CTA CVS: S1S2 Abd: Benign Ext: No edema Neuro: No focal deficit CMP Sodium 141 mmol/L (136-145) 03/07/17 05:15 Potassium 4.4 mmol/L (3.5-5.1) 03/07/17 05:15 Chloride 108 mmol/L (98-107) H 03/07/17 05:15 Carbon Dioxide 24 mmol/L (21-32) 03/07/17 05:15 Anion Gap 9 (8-16) 03/07/17 05:15 BUN 16 mg/dL (7-18) 03/07/17 05:15 Creatinine 1.0 mg/dL (0.55-1.02) 03/07/17 05:15 Creat Clearance w eGFR 49.69 (>60) 03/06/17 05:00 POC Glucometer [phone] UNITS (()) 03/06/17 22:10 Random Glucose 182 mg/dL (74-106) H D 03/07/17 05:15 Lactic Acid 1.2 mmol/L (0.4-2.0) 02/28/17 10:41 Calcium 8.6 mg/dL (8.5-10.1) 03/07/17 05:15 Phosphorus 4.1 mg/dL (2.5-4.9) D 03/04/17 16:00 Magnesium 2.1 mg/dL (1.8-2.4) 03/04/17 16:00 Total Bilirubin 0.3 mg/dL (0.2-1.0) D 03/06/17 05:00 AST 14 U/L (15-37) L 03/06/17 05:00 ALT 20 U/L (12-78) 03/06/17 05:00 Alkaline Phosphatase 97 U/L (45-117) 03/06/17 05:00 Ammonia 12.50 umol/L (11-32) 03/04/17 16:00 Creatine Kinase 49 IU/L (26-192) 03/04/17 06:00 Troponin I < 0.02 ng/ml (0.00-0.05) 02/28/17 10:41 Total Protein 6.0 g/dl (6.4-8.2) L 03/06/17 05:00 Albumin 2.7 g/dl (3.4-5.0) L 03/06/17 05:00 Vitamin B12 Cancelled 03/04/17 07:38 Serum Folate Cancelled 03/04/17 07:38 TSH 0.82 uIU/ml (0.358-3.74) D 03/04/17 06:00 Free T4 1.35 ng/dl (0.76-1.46) 03/04/17 06:00 Free T3 2.6 pg/ml (2.0-4.4) 03/04/17 07:38 Current Medications Generic Name Dose Route Start Last Admin Trade Name Alphonsoq PRN Reason Stop Dose Admin Amlodipine Besylate 2.5 mg 03/06/17 09:06 03/06/17 11:00 Norvasc - PO 2.5 mg DAILY ANAYELI Administration Aspirin 81 mg 03/06/17 16:30 03/06/17 17:12 Ecotrin - PO 81 mg DAILY ANAYELI Administration Atorvastatin Calcium 20 mg 03/06/17 22:00 03/06/17 22:11 Lipitor - PO 20 mg HS ANAYELI Administration Docusate Sodium 100 mg 03/05/17 10:00 03/06/17 09:05 Colace - PO Not Given DAILY ANAYELI Ceftriaxone Sodium 50 mls @ 100 mls/hr 03/05/17 10:00 03/06/17 09:10 Rocephin 1gm Ivpb (Pre-Docked) IVPB 100 mls/hr DAILY ANAYELI Administration Insulin Aspart 1 vial 03/06/17 16:30 03/07/17 06:13 Novolog Vial Sliding Scale - SQ 2 unit TIDAC [facility] Administration Protocol Insulin Aspart 1 vial 03/06/17 22:00 03/06/17 22:12 Novolog Vial Sliding Scale - SQ 6 units HS ANAYELI Administration Protocol Insulin Detemir 5 units 03/05/17 22:00 03/06/17 22:12 Levemir Vial SQ 5 units HS ANAYELI Administration Lisinopril 5 mg 03/05/17 10:00 03/06/17 09:05 Prinivil PO Not Given DAILY ANAYELI Lorazepam 0.5 mg 03/05/17 09:43 Ativan Injection - IVPUSH Q4H PRN seizure Phenytoin Sodium 100 mg 03/06/17 22:00 03/07/17 06:12 Dilantin - PO 100 mg TID ANAYELI Administration AP: Dementia Confusion Seizure DM: uncontrolled BGM QACHS Increase Levemir 8 units daily Novolog SS coverage Will f/u
--- NOTE | 2017-03-07 09:48 | PN ---
Progress Note (short form) - Note Progress Note: Neurology History of Present Illness The patient is a 66 year old female, with a significant past medical history of hypertension, diabetes, dementia, visual hallucinations, and CHRISTIANNE who presents to the emergency department accompanied by family, with increased confusion for 2 days prior to arrival. Per family member, the patient woke up morning of admission approximately 04:00 shaking her right arm, turning her head to the right with an associated right sided droop of her lips. Family member states her episode lasted approximately 35 seconds, and has occurred intermittently since. Family reports the patient presented to the ED on 02/23/17 for confusion and hallucinations and was diagnosed with a UTI, discharged home, and started on antibiotics. As per daughter, patients blood sugar levels have been in the 250-300 range throughout the day. Patient lives at home with family, and is able to carry a conversation and ambulate without a walker at her baseline. I arrived in the ER to see the patient, she was awake and responsive to me but not following all commands. She did seem to possess strength throughout and was Not TPA case due to no longer being in window and symptoms seem more general and not focal. CT head was completed and did not show any acute changes. Family at bedside and confirmed history that was provided. She was started on keppra 500mg twice daily. Repeat CT head completed and no structural changes. She is getting Ceftriaxone for UTI and this may have been precipitant for her convulsions. Has been having right arm shaking and also personality change so spoke to PMD and decision made to switch to Depakote which also has mood stabilization properties. Psych consulted and patient given Zyprexa 5mg twice a day as well. Thereafter, patient with repeat episode and decision made to transfer to ICU where LP was completed and 0 Wbc, normal protein, does not meet criteria for meningitis or encephalitis. Was switched to Dilantin, has not been have seizures, and downgraded to floor status and more stable now. Awake and alert with me today. She was able to tell me she's in the hospital which is much improved from previous. She was watching TV and coherent today. She seems to be close to her baseline. Active Medications Amlodipine Besylate (Norvasc -) 2.5 mg PO DAILY [facility] Last Admin: 03/06/17 11:00 Dose: 2.5 mg Aspirin (Ecotrin -) 81 mg PO DAILY [facility] Last Admin: 03/06/17 17:12 Dose: 81 mg Atorvastatin Calcium (Lipitor -) 20 mg PO HS [facility] Last Admin: 03/06/17 22:11 Dose: 20 mg Docusate Sodium (Colace -) 100 mg PO DAILY [facility] Last Admin: 03/06/17 09:05 Dose: Not Given Ceftriaxone Sodium (Rocephin 1gm Ivpb (Pre-Docked)) 50 mls @ 100 mls/hr IVPB DAILY [facility] Last Admin: 03/06/17 09:10 Dose: 100 mls/hr Insulin Aspart (Novolog Vial Sliding Scale -) 1 vial SQ TIDAC [facility] PRN Reason: Protocol Last Admin: 03/07/17 06:13 Dose: 2 unit Insulin Aspart (Novolog Vial Sliding Scale -) 1 vial SQ HS [facility] PRN Reason: Protocol Last Admin: 03/06/17 22:12 Dose: 6 units Insulin Detemir (Levemir Vial) 5 units SQ HS [facility] Last Admin: 03/06/17 22:12 Dose: 5 units Lisinopril (Prinivil) 5 mg PO DAILY [facility] Last Admin: 03/06/17 09:05 Dose: Not Given Lorazepam (Ativan Injection -) 0.5 mg IVPUSH Q4H PRN PRN Reason: seizure Phenytoin Sodium (Dilantin -) 100 mg PO TID [facility] Last Admin: 03/07/17 06:12 Dose: 100 mg *Physical Exam Vital Signs Period Temp Pulse Resp BP Sys/Salvador Pulse Ox Last 24 Hr 98.9 F-99.9 F 76-95 16-20 101-141/59-83 99 "GENERAL: Awake, nonverbal, no acute distress HEAD: No signs of trauma EYES: PERRLA, EOMI, sclera anicteric, conjunctiva clear ENT: No tongue lacerations, Auricles normal inspection, hearing grossly normal, nares patent, oropharynx clear without exudates. Moist mucosa NECK: Normal ROM, supple, no lymphadenopathy, JVD, or masses LUNGS: Breath sounds equal, clear to auscultation bilaterally. No wheezes, and no crackles HEART: Regular rate and rhythm, normal S1 and S2, no murmurs, rubs or gallops ABDOMEN: Soft, nontender, normoactive bowel sounds. No guarding, no rebound. No masses EXTREMITIES: Normal range of motion, no edema. No clubbing or cyanosis. No cords, erythema, or tenderness NEUROLOGICAL: Awake, alert, following commands, more cooperative, Cranial nerves II through XII grossly intact. moves all extremities spontaneously, sensory intact, gait deferred SKIN: Warm, Dry, normal turgor, no rashes or lesions noted. CBCD WBC 9.5 K/mm3 (4.0-10.0) 03/07/17 05:15 RBC 4.12 M/mm3 (3.60-5.2) 03/07/17 05:15 Hgb 12.0 GM/dL (10.7-15.3) 03/07/17 05:15 Hct 36.0 % (32.4-45.2) 03/07/17 05:15 MCV 87.4 fl (80-96) 03/07/17 05:15 MCHC 33.3 g/dl (32.0-36.0) 03/07/17 05:15 RDW 13.4 % (11.6-15.6) 03/07/17 05:15 Plt Count 129 K/MM3 (134-434) L D 03/07/17 05:15 MPV 8.0 fl (7.5-11.1) 03/07/17 05:15 CMP Sodium 141 mmol/L (136-145) 03/07/17 05:15 Potassium 4.4 mmol/L (3.5-5.1) 03/07/17 05:15 Chloride 108 mmol/L (98-107) H 03/07/17 05:15 Carbon Dioxide 24 mmol/L (21-32) 03/07/17 05:15 Anion Gap 9 (8-16) 03/07/17 05:15 BUN 16 mg/dL (7-18) 03/07/17 05:15 Creatinine 1.0 mg/dL (0.55-1.02) 03/07/17 05:15 Creat Clearance w eGFR 49.69 (>60) 03/06/17 05:00 Calcium 8.6 mg/dL (8.5-10.1) 03/07/17 05:15 Total Bilirubin 0.3 mg/dL (0.2-1.0) D 03/06/17 05:00 AST 14 U/L (15-37) L 03/06/17 05:00 ALT 20 U/L (12-78) 03/06/17 05:00 Alkaline Phosphatase 97 U/L (45-117) 03/06/17 05:00 Total Protein 6.0 g/dl (6.4-8.2) L 03/06/17 05:00 Albumin 2.7 g/dl (3.4-5.0) L 03/06/17 05:00 - RADIOLOGY CT head IMPRESSION: Mild ventriculomegaly that is slightly more than expected for the degree of cortical atrophy, without interval change. No mass lesion or gross acute infarct are identified. MRI brain reviewed and area of DWI suspicious for artifact LP- See lab section Medical Decision Making 66 year old female, with a significant past medical history of hypertension, diabetes, dementia, visual hallucinations, and CHRISTIANNE who presents to the emergency department accompanied by family, with increased confusion over the past 2 days. Per family member, the patient woke up this morning at approximately 04:00 shaking her right arm, turning her head to the right with an associated right sided droop of her lips. Family member states her episode lasted approximately 35 seconds, and has occurred intermittently since. Family reports the patient presented to the ED on 02/23/17 for confusion and hallucinations and was diagnosed with a UTI, discharged home, and started on antibiotics. As per daughter, patients blood sugar levels have been in the 250- 300 range throughout the day. Patient lives at home with family, and is able to carry a conversation and ambulate without a walker at her baseline. Keppra discontinued, Depakote only one dose given Switched to Dilantin 100mg three times daily and stable on it OUTPATIENT WOULD BE ON DILANTIN 300MG DAILY, 100 TID dose is often difficult for compliance As per psych, Zyprexa 5mg twice daily EEG completed and reviewed, grossly normal Ct head repeated and no acute changes MRI reviewed and area of likely artifact, repeat MRI was suggested Monitor glucose, prefer range 100-130 Continue Insulin Blood pressure control, continue MARSHA Goal BP < 140/90 Physical therapy On Ceftriaxone for UTI Mental status much improved at this point
[2017-03-07] MEDS ORDERED: PT OWN MED DRAWER 7, Y5N ONE (09:55)
[2017-03-07] MEDS: CEFTRIAXONE 50 ML IVPB SCH (09:57)
[2017-03-07] MEDS: amLODIPine BESYLATE 2.5 MG TABLET (FP) PO SCH (09:57)
[2017-03-07] MEDS: LISINOPRIL 5 MG TABLET (FP) PO SCH (09:58)
[2017-03-07] MEDS: ASPIRIN COATED 81 MG TABLET.EC PO SCH (09:59)
[2017-03-07] MEDS: DOCUSATE SODIUM 100 MG CAPSULE (FP) PO SCH (11:24)
[2017-03-07] MEDS ORDERED: INSULIN (NOVOLOG) ASPART 100 UNITS/ML 10ML VIAL ONE ×2 (12:14→17:13)
--- NOTE | 2017-03-07 15:38 | DS ---
Physical Exam: SUBJECTIVE: Patient seen and examined. No acute events including seizures overnight. This am, pt is alert, sitting in bed, without any complaints. She denies CARVALHO, chest pain, SOB, abdominal pain, or dysuria. OBJECTIVE: Vital Signs Period Temp Pulse Resp BP Sys/Salvador Pulse Ox Last 24 Hr 98.9 F-99.9 F 76-95 16-22 101-141/59-84 99-99 PHYSICAL EXAM GENERAL: The patient is awake, alert, and in no acute distress. HEAD: Normal with no signs of trauma. EYES: PERRL, extraocular movements intact, sclera anicteric, conjunctiva clear. ENT: Ears normal, nares patent, oropharynx clear without exudates, moist mucous membranes. NECK: Trachea midline, full range of motion, supple. LUNGS: Breath sounds equal, clear to auscultation bilaterally, no wheezes, no crackles, no accessory muscle use. HEART: Regular rate and rhythm, S1, S2 without murmur, rub or gallop. ABDOMEN: Soft, nontender, nondistended, normoactive bowel sounds, no guarding, no rebound, no hepatosplenomegaly, no masses. EXTREMITIES: 2+ pulses, warm, well-perfused, no edema. NEUROLOGICAL: Cranial nerves II through XII grossly intact although not responding to all commands appropriately. Does not know age, gait not observed. SKIN: Warm, dry, normal turgor, no rashes or lesions noted. LABS Laboratory Results - last 24 hr 03/04/17 03/06/17 03/06/17 07:38 16:48 22:10 WBC RBC Hgb Hct MCV MCH MCHC RDW Plt Count MPV Neutrophils % Lymphocytes % Monocytes % Eosinophils % Basophils % Sodium Potassium Chloride Carbon Dioxide Anion Gap BUN Creatinine POC Glucometer [phone] Random Glucose Calcium Free T3 2.6 03/07/17 03/07/17 05:15 05:15 WBC 9.5 RBC 4.12 Hgb 12.0 Hct 36.0 MCV 87.4 MCH 29.1 MCHC 33.3 RDW 13.4 Plt Count 129 L D MPV 8.0 Neutrophils % 71.1 Lymphocytes % 19.9 Monocytes % 4.9 Eosinophils % 3.9 Basophils % 0.2 Sodium 141 Potassium 4.4 Chloride 108 H Carbon Dioxide 24 Anion Gap 9 BUN 16 Creatinine 1.0 POC Glucometer Random Glucose 182 H D Calcium 8.6 Free T3 HOSPITAL COURSE: Ms. Delcid is a 66F with a history of HTN and DM who presented with intermittent seizures and acute encephelopathy likely 2/2 an unresolved UTI from her prior admission (she was treated with levaquin and her prior urine culture sensitivities showed resistance to levaquin). In the hospital, her UA showed + nitries, many bacteria, and 10 wbcs. Work-up for other causes of acute encephalopathy and seizures including CT head, CXR, brain MRI, TSH, troponin and electrolytes were all negative. The pt received 8 doses of ceftriaxone for her UTI, and urine cultures here showed sensitivity to ceftriaxone. Her seizures were effectively treated with phenytoin 100mg TID. Pt was also started on ASA and lipitor 20, and her home dose of lisinopril was continued. Today, pt is back at her baseline mental status as per daughter, her vitals are normal, she has had no seizure activity since starting phenytoin, she is stable, and ready for discharge. She is being sent home on 2 more days of ceftin with referral to neurology (Dr. Muniz). Date of Admission:02/28/17 Date of Discharge: 03/07/17 Minutes to complete discharge: 38 Discharge Summary Reason For Visit: SEIZURE Current Active Problems CHRISTIANNE (acute kidney injury) (Acute) Delirium (Acute) Dementia (Acute) Hyperglycemia (Acute) Metabolic encephalopathy (Acute) Seizure (Acute) UTI (urinary tract infection) (Acute) Diabetes (Chronic) Hypertension (Chronic) Condition: Improved - Instructions Diet, Activity, Other Instructions: You were found to have seizures and altered mental status likely from a urinary tract infection. In the hospital, we gave you an antibiotic called ceftriaxone and a medication to treat your seizures called phenytoin. We have prescribed you the antibiotic called ceftin that you should take for two more days at home. Please follow up with your PCP, Dr. Paris, within one week. We have referred you to a neurologist, Dr. Muniz. Please make an appointment to see him within 2 weeks. He may want to perform repeat imaging including CT or MRI. Referrals: Domo Muniz MD [Staff Physician] - Marilee Cooper MD [Primary Care Provider] - Disposition: VNS/HOME HEALTH CARE - Home Medications Comprehensive Discharge Medication List: Ambulatory Orders Lisinopril 5 mg PO DAILY 02/23/17 Insulin (Levemir) [Levemir Flexpen -] 5 units SQ HS #1 pen 02/25/17 Aspirin Coated [Ecotrin -] 81 mg PO DAILY #30 tab 03/07/17 Atorvastatin Ca [Lipitor] 20 mg PO HS #30 tablet 03/07/17 Phenytoin Na Extended [Dilantin -] 100 mg PO TID #90 tab 03/07/17 Problem List - Problems (1) Diabetes Code(s): E11.9 - TYPE 2 DIABETES MELLITUS WITHOUT COMPLICATIONS This patient is new to me today: No Emergency Visit: Yes ED Registration Date: 02/28/17 Care time: The patient presented to the Emergency Department on the above date and was hospitalized for further evaluation of their emergent condition. Critical Care patient: No - Discharge Referral Referred to [facility] Med P.C.: No
--- NOTE | 2017-03-07 15:54 | PN ---
Teaching Attending Note Name of Resident: Bernardino Segura ATTENDING PHYSICIAN STATEMENT I saw and evaluated the patient. I reviewed the resident's note and discussed the case with the resident. I agree with the resident's findings and plan as documented. SUBJECTIVE: no fever or chills, feels better , no abd pain OBJECTIVE: NAD , AAOx2 , does not remember her age CV: RRR Lyngs : CTAB ext : no edema neuro , hard to perform , no facial droop, EOMI, round equal pupils, reactive to light. Strength 5/5 in upper and lower extremities. reflexes limited, as not relaxed ASSESSMENT AND PLAN: 66F w/ hx of HTN and DM and recent hospitalization for UTI presented with seizure activity 1- Seizure activity 2- UTI 3- Acute metabolic encephalopathy , due to seizure , meds, delirium, and UTI 4- HTN 5- DM Plan: - cont dilantin 300 TID - f/u with neuro -levemir to 8 units HS and SSI - cont ceftin x 2 more days - cont lisinopril and norvasc - cont ASa for carotid plaque . lipitor started LDL pending Dispo: dc home today if cleared by PT
[2017-03-07 16:28] LABS: ALBUMIN,CSF 54.2 % (56.8-76.4); ALPHA-1-GLOBULIN,CSF 4.9 % (1.1-6.6); M-SPIKE CSF Not Observed % (Not Observed); PRE-ALBUMIN CSF 3.4 % (2.2-7.1); TOTAL PROTEIN, CSF 46.5 mg/dL (0.0-44.0)
[2017-03-07] MEDS ORDERED: INSULIN DETEMIR 100 UNITS/ML MDV SQ ONE ×3 (17:55→19:19)
--- NOTE | 2017-03-07 21:34 | PN ---
Physical Exam: SUBJECTIVE: Patient seen and examined. Pt's daughter stated yesterday that pt is at baseline in terms of mental status. No acute events overnight. This am, pt is awake, alert, communicative, and not complaining of any problems. She denies headache, SOB, chest pain, or abdominal pain. OBJECTIVE: Vital Signs Period Temp Pulse Resp BP Sys/Salvador Pulse Ox Last 24 Hr 98.9 F-99.9 F 76-95 19-22 101-141/59-84 99-99 GENERAL: The patient is awake, alert, and in no acute distress. HEAD: Normal with no signs of trauma. EYES: PERRL, extraocular movements intact, sclera anicteric, conjunctiva clear. No ptosis. ENT: Ears normal, nares patent, oropharynx clear without exudates, moist mucous membranes. NECK: Trachea midline, full range of motion, supple. LUNGS: Breath sounds equal, clear to auscultation bilaterally, no wheezes, no crackles, no accessory muscle use. HEART: Regular rate and rhythm, S1, S2 without murmur, rub or gallop. ABDOMEN: Soft, nontender, nondistended, normoactive bowel sounds, no guarding, no rebound, no hepatosplenomegaly, no masses. EXTREMITIES: 2+ pulses, warm, well-perfused, no edema. NEUROLOGICAL: Cranial nerves II through XII grossly intact. speech incompletely appropriate, gait not observed. SKIN: Warm, dry, normal turgor, no rashes or lesions noted Laboratory Results - last 24 hr 03/04/17 03/04/17 03/06/17 07:38 23:15 16:48 WBC RBC Hgb Hct MCV MCH MCHC RDW Plt Count MPV Neutrophils % Lymphocytes % Monocytes % Eosinophils % Basophils % Sodium Potassium Chloride Carbon Dioxide Anion Gap BUN Creatinine POC Glucometer [phone] Random Glucose Calcium Free T3 2.6 CSF Total Protein 46.5 H CSF Prealbumin 3.4 CSF Albumin 54.2 L CSF Hjpke-9-Djqmrfeg 4.9 CSF Shxma-1-Yxzwxcrn 8.5 CSF Beta Globulin 22.1 H CSF Gamma Globulin 7.0 CSF PEP M-Gibran Not observed CSF VDRL Non reactive 03/06/17 03/07/17 03/07/17 22:10 05:15 05:15 WBC 9.5 RBC 4.12 Hgb 12.0 Hct 36.0 MCV 87.4 MCH 29.1 MCHC 33.3 RDW 13.4 Plt Count 129 L D MPV 8.0 Neutrophils % 71.1 Lymphocytes % 19.9 Monocytes % 4.9 Eosinophils % 3.9 Basophils % 0.2 Sodium 141 Potassium 4.4 Chloride 108 H Carbon Dioxide 24 Anion Gap 9 BUN 16 Creatinine 1.0 POC Glucometer [phone] Random Glucose 182 H D Calcium 8.6 Free T3 CSF Total Protein CSF Prealbumin CSF Albumin CSF Rwzuy-4-Kgkulkni CSF Tlafw-4-Kvddkqrp CSF Beta Globulin CSF Gamma Globulin CSF PEP M-Gibran CSF VDRL 03/07/17 03/07/17 06:04 12:09 WBC RBC Hgb Hct MCV MCH MCHC RDW Plt Count MPV Neutrophils % Lymphocytes % Monocytes % Eosinophils % Basophils % Sodium Potassium Chloride Carbon Dioxide Anion Gap BUN Creatinine POC Glucometer 195.22504 [phone] Random Glucose Calcium Free T3 CSF Total Protein CSF Prealbumin CSF Albumin CSF Akihq-1-Kqmuudsm CSF Nviyx-3-Iqvvrpzx CSF Beta Globulin CSF Gamma Globulin CSF PEP M-iGbran CSF VDRL Active Medications Generic Name Dose Route Start Last Admin Trade Name Freq PRN Reason Stop Dose Admin Amlodipine Besylate 2.5 mg 03/06/17 09:06 03/07/17 09:57 Norvasc - PO 2.5 mg DAILY ANAYELI Administration Aspirin 81 mg 03/06/17 16:30 03/07/17 09:59 Ecotrin - PO 81 mg DAILY ANAYELI Administration Atorvastatin Calcium 20 mg 03/06/17 22:00 03/06/17 22:11 Lipitor - PO 20 mg HS ANAYELI Administration Docusate Sodium 100 mg 03/05/17 10:00 03/07/17 11:24 Colace - PO Not Given DAILY ANAYELI Glipizide 10 mg 03/08/17 09:00 Glucotrol Xl - PO 03/08/17 09:01 ONCE ONE Ceftriaxone Sodium 50 mls @ 100 mls/hr 03/05/17 10:00 03/07/17 09:57 Rocephin 1gm Ivpb (Pre-Docked) IVPB 100 mls/hr DAILY ANAYELI Administration Insulin Aspart 1 vial 03/06/17 22:00 03/06/17 22:12 Novolog Vial Sliding Scale - SQ 6 units HS ANAYELI Administration Protocol Insulin Aspart 1 vial 03/07/17 17:30 Novolog Vial Sliding Scale - SQ TIDAC COUNT INCLUDES THE [facility] Protocol Lisinopril 5 mg 03/05/17 10:00 03/07/17 09:58 Prinivil PO 5 mg DAILY ANAYELI Administration Lorazepam 0.5 mg 03/05/17 09:43 Ativan Injection - IVPUSH Q4H PRN seizure Metformin HCl 1,000 mg 03/08/17 09:00 Glucophage Xr - PO 03/08/17 09:01 ONCE ONE Phenytoin Sodium 100 mg 03/06/17 22:00 03/07/17 13:30 Dilantin - PO 100 mg TID ANAYELI Administration ASSESSMENT/PLAN: 66F w/ hx of HTN and DM who presented with acute encephalopathy and intermittent seizures likely due to unresolved UTI. #episodic arm shaking and head turning -seizure-like activity likely 2/2 acute encephalopathy 2/2 unresolved UTI from previous admission in setting of UA with + nitrites, 10 wbc, and many bacteria and previous urine culture sensitivities showing resistance to levaquin. Other etiologies include seizure, stroke, NPH. CT did not show evidence of hemorrhagic stroke; shows mild ventriculomegaly more than expected for degree of cortical atrophy. -neuro on board- does not think that this is due to stroke because symptoms are not focal. -repeat CT shows no acute pathology -carotid doppler: No evidence of hemodynamically significant stenosis. -neuro checks q4h -psych consulted, found no psychiatric cause for acute encephalopathy -brain MRI (03/03) showed increased cortical signalintensity in the left occipital lobe which may be artifact and less likely infarct, rec f/u MRI. -continue phenytoin 100mg IV TID for seizure ppx, ativan 0.5mg q4h PRN for seizure -continue ceftriaxone 1g, today is day 8 of a 10 day course -EEG negative -VDRL negative -f/u AFBcx, fungal cx, viral cx, toxoplasma, free T3, phenytoin level -no seizure activity since being started on phenytoin. #acute encephalopathy -likely 2/2 unresolved UTI -blood cultures were negative after 5 days. -urine cultures grew E. coli pansensitive except for levaquin. -continue ceftriaxone 1g, today is day 8 of a 10 day course -back at baseline mental status per daughter #HTN -BP today 100-140/60-80 with HR of 80-90. -continue amlodipine 2.5mg qd and lisinopril 5mg qd -monitor BP #DM -SSI, BGM ACHS -endocrinology on board due to a high level in the 400s yesterday. f/u recs -due to pt's lack of insurance, pt started on metformin 1000mg ER and glipizide 10 ER. Will discuss oral hypoglycemics vs. insulin with pt's family iqra. -continue levemir 5U #FEN/PPX -no fluids -potassium repleted -diabetic diet -no GI ppx -SCDs #Dispo -Per PT, pt able to walk 80 feet, but with unsteady gait. -pt to be discharged tomorrow home with home PT. Discussed w/ social media project manager that pt has no insurance and might not be covered for services. Will discuss iqra about providing a walker for pt. Will call [facility] about pt's insulin coverage and pricing. Bernardino Segura MD PGY1 Problem List - Problems (1) Diabetes Code(s): E11.9 - TYPE 2 DIABETES MELLITUS WITHOUT COMPLICATIONS Visit type - Emergency Visit Emergency Visit: Yes ED Registration Date: 02/28/17 Care time: The patient presented to the Emergency Department on the above date and was hospitalized for further evaluation of their emergent condition. - New Patient This patient is new to me today: No - Critical Care Critical Care patient: No
[2017-03-07] MEDS: ATORVASTATIN CA 20 MG TABLET (FP) PO SCH (21:44)
[2017-03-07] MEDS ORDERED: INSULIN DETEMIR 100 UNITS/ML MDV SQ SCH (22:00)
[2017-03-08] MEDS ORDERED: HEMOQUE TEST 1 EACH EACH ONE (04:07)
[2017-03-08 04:29] LABS: CHOLESTEROL 231 mg/dL (50-200)
[2017-03-08] MEDS: PHENYTOIN NA EXTENDED 100 MG CAPSULE (FP) PO SCH ×3 (06:32→23:21)
[2017-03-08] MEDS ORDERED: glipiZIDE-XL 10 MG TAB.ER.24 (FP) PO ONE (09:00)
[2017-03-08] MEDS ORDERED: INSULIN (NOVOLOG) ASPART 100 UNITS/ML 10ML VIAL ONE ×2 (09:34→18:22)
[2017-03-08] MEDS: INSULIN SLIDING SCALE (NOVOLOG) 1 VIAL SQ SCH ×4 (09:42→23:34)
[2017-03-08] MEDS: ASPIRIN COATED 81 MG TABLET.EC PO SCH (09:43)
[2017-03-08] MEDS: LISINOPRIL 5 MG TABLET (FP) PO SCH (09:43)
[2017-03-08] MEDS: amLODIPine BESYLATE 2.5 MG TABLET (FP) PO SCH (09:43)
[2017-03-08] MEDS: CEFTRIAXONE 50 ML IVPB SCH (09:43)
[2017-03-08] MEDS: DOCUSATE SODIUM 100 MG CAPSULE (FP) PO SCH (09:44)
--- NOTE | 2017-03-08 09:50 | PN ---
Progress Note (short form) - Note Progress Note: Neurology History of Present Illness The patient is a 66 year old female, with a significant past medical history of hypertension, diabetes, dementia, visual hallucinations, and CHRISTIANNE who presents to the emergency department accompanied by family, with increased confusion for 2 days prior to arrival. Per family member, the patient woke up morning of admission approximately 04:00 shaking her right arm, turning her head to the right with an associated right sided droop of her lips. Family member states her episode lasted approximately 35 seconds, and has occurred intermittently since. Family reports the patient presented to the ED on 02/23/17 for confusion and hallucinations and was diagnosed with a UTI, discharged home, and started on antibiotics. As per daughter, patients blood sugar levels have been in the 250-300 range throughout the day. Patient lives at home with family, and is able to carry a conversation and ambulate without a walker at her baseline. I arrived in the ER to see the patient, she was awake and responsive to me but not following all commands. She did seem to possess strength throughout and was Not TPA case due to no longer being in window and symptoms seem more general and not focal. CT head was completed and did not show any acute changes. Family at bedside and confirmed history that was provided. She was started on keppra 500mg twice daily. Repeat CT head completed and no structural changes. She is getting Ceftriaxone for UTI and this may have been precipitant for her convulsions. Has been having right arm shaking and also personality change so spoke to PMD and decision made to switch to Depakote which also has mood stabilization properties. Psych consulted and patient given Zyprexa 5mg twice a day as well. Thereafter, patient with repeat episode and decision made to transfer to ICU where LP was completed and 0 Wbc, normal protein, does not meet criteria for meningitis or encephalitis. Was switched to Dilantin, has not been have seizures, and downgraded to floor status and more stable now. Awake and alert with me today. She was able to tell me she's in the hospital which is much improved from previous. She was watching TV and coherent today. She seems to be at her baseline. Neurologically stable overnight and awaiting discharge at this time. Active Medications Amlodipine Besylate (Norvasc -) 2.5 mg PO DAILY ANAYELI Last Admin: 03/08/17 09:43 Dose: 2.5 mg Aspirin (Ecotrin -) 81 mg PO DAILY [facility] Last Admin: 03/08/17 09:43 Dose: 81 mg Atorvastatin Calcium (Lipitor -) 20 mg PO HS [facility] Last Admin: 03/07/17 21:44 Dose: 20 mg Docusate Sodium (Colace -) 100 mg PO DAILY [facility] Last Admin: 03/08/17 09:44 Dose: Not Given Ceftriaxone Sodium (Rocephin 1gm Ivpb (Pre-Docked)) 50 mls @ 100 mls/hr IVPB DAILY [facility] Last Admin: 03/08/17 09:43 Dose: 100 mls/hr Insulin Aspart (Novolog Vial Sliding Scale -) 1 vial SQ HS [facility] PRN Reason: Protocol Last Admin: 03/07/17 21:45 Dose: 4 units Insulin Aspart (Novolog Vial Sliding Scale -) 1 vial SQ TIDAC [facility] PRN Reason: Protocol Last Admin: 03/08/17 09:42 Dose: 6 units Lisinopril (Prinivil) 5 mg PO DAILY [facility] Last Admin: 03/08/17 09:43 Dose: 5 mg Phenytoin Sodium (Dilantin -) 100 mg PO TID [facility] Last Admin: 03/08/17 06:32 Dose: 100 mg *Physical Exam Last Vital Signs Temp Pulse Resp BP Pulse Ox 98.4 F 82 21 128/92 99 03/08/17 08:36 03/08/17 08:36 03/08/17 08:36 03/08/17 08:36 03/08/17 08:36 "GENERAL: Awake, nonverbal, no acute distress HEAD: No signs of trauma EYES: PERRLA, EOMI, sclera anicteric, conjunctiva clear ENT: No tongue lacerations, Auricles normal inspection, hearing grossly normal, nares patent, oropharynx clear without exudates. Moist mucosa NECK: Normal ROM, supple, no lymphadenopathy, JVD, or masses LUNGS: Breath sounds equal, clear to auscultation bilaterally. No wheezes, and no crackles HEART: Regular rate and rhythm, normal S1 and S2, no murmurs, rubs or gallops ABDOMEN: Soft, nontender, normoactive bowel sounds. No guarding, no rebound. No masses EXTREMITIES: Normal range of motion, no edema. No clubbing or cyanosis. No cords, erythema, or tenderness NEUROLOGICAL: Awake, alert, following commands, more cooperative, Cranial nerves II through XII grossly intact. moves all extremities spontaneously, sensory intact, gait deferred SKIN: Warm, Dry, normal turgor, no rashes or lesions noted. CBCD WBC 9.5 K/mm3 (4.0-10.0) 03/07/17 05:15 RBC 4.12 M/mm3 (3.60-5.2) 03/07/17 05:15 Hgb 12.0 GM/dL (10.7-15.3) 03/07/17 05:15 Hct 36.0 % (32.4-45.2) 03/07/17 05:15 MCV 87.4 fl (80-96) 03/07/17 05:15 MCHC 33.3 g/dl (32.0-36.0) 03/07/17 05:15 RDW 13.4 % (11.6-15.6) 03/07/17 05:15 Plt Count 129 K/MM3 (134-434) L D 03/07/17 05:15 MPV 8.0 fl (7.5-11.1) 03/07/17 05:15 CMP Sodium 141 mmol/L (136-145) 03/07/17 05:15 Potassium 4.4 mmol/L (3.5-5.1) 03/07/17 05:15 Chloride 108 mmol/L (98-107) H 03/07/17 05:15 Carbon Dioxide 24 mmol/L (21-32) 03/07/17 05:15 Anion Gap 9 (8-16) 03/07/17 05:15 BUN 16 mg/dL (7-18) 03/07/17 05:15 Creatinine 1.0 mg/dL (0.55-1.02) 03/07/17 05:15 Creat Clearance w eGFR 49.69 (>60) 03/06/17 05:00 Calcium 8.6 mg/dL (8.5-10.1) 03/07/17 05:15 Total Bilirubin 0.3 mg/dL (0.2-1.0) D 03/06/17 05:00 AST 14 U/L (15-37) L 03/06/17 05:00 ALT 20 U/L (12-78) 03/06/17 05:00 Alkaline Phosphatase 97 U/L (45-117) 03/06/17 05:00 Total Protein 6.0 g/dl (6.4-8.2) L 03/06/17 05:00 Albumin 2.7 g/dl (3.4-5.0) L 03/06/17 05:00 - RADIOLOGY CT head IMPRESSION: Mild ventriculomegaly that is slightly more than expected for the degree of cortical atrophy, without interval change. No mass lesion or gross acute infarct are identified. MRI brain reviewed and area of DWI suspicious for artifact LP- See lab section Medical Decision Making 66 year old female, with a significant past medical history of hypertension, diabetes, dementia, visual hallucinations, and CHRISTIANNE who presents to the emergency department accompanied by family, with increased confusion over the past 2 days. Per family member, the patient woke up this morning at approximately 04:00 shaking her right arm, turning her head to the right with an associated right sided droop of her lips. Family member states her episode lasted approximately 35 seconds, and has occurred intermittently since. Family reports the patient presented to the ED on 02/23/17 for confusion and hallucinations and was diagnosed with a UTI, discharged home, and started on antibiotics. As per daughter, patients blood sugar levels have been in the 250- 300 range throughout the day. Patient lives at home with family, and is able to carry a conversation and ambulate without a walker at her baseline. Keppra discontinued, Depakote only one dose given Switched to Dilantin 100mg three times daily and stable on it OUTPATIENT WOULD BE ON DILANTIN 300MG DAILY, 100 TID dose is often difficult for compliance As per psych, Zyprexa 5mg twice daily EEG completed and reviewed, grossly normal Ct head repeated and no acute changes MRI reviewed and area of likely artifact, repeat MRI was suggested Monitor glucose, prefer range 100-130 Continue Insulin Blood pressure control, continue MARSHA Goal BP < 140/90 Physical therapy On Ceftriaxone for UTI Mental status much improved at this point Outpatient follow up
[2017-03-08] MEDS: ENOXAPARIN NA (PORCINE) 60 MG/0.6 ML DISP.SYRIN SQ SCH ×2 (12:56→23:21)
[2017-03-08] MEDS ORDERED: glipiZIDE 5 MG TABLET (FP) PO SCH (17:00)
--- NOTE | 2017-03-08 17:15 | PN ---
Progress Note (short form) - Note Progress Note: Denies any complaints Fs >400 prelunch Apetite good Vital Signs Period Temp Pulse Resp BP Sys/Salvador Pulse Ox Last 24 Hr 98 F-99.9 F 74-92 18-22 115-134/59-92 99-99 PE: Awake, alert Neck: supple, No JVD HEENT: EOMI Lungs: CTA CVS: S1S2 Abd: Benign Ext: No edema Neuro: No focal deficit CMP Sodium 141 mmol/L (136-145) 03/07/17 05:15 Potassium 4.4 mmol/L (3.5-5.1) 03/07/17 05:15 Chloride 108 mmol/L (98-107) H 03/07/17 05:15 Carbon Dioxide 24 mmol/L (21-32) 03/07/17 05:15 Anion Gap 9 (8-16) 03/07/17 05:15 BUN 16 mg/dL (7-18) 03/07/17 05:15 Creatinine 1.0 mg/dL (0.55-1.02) 03/07/17 05:15 Creat Clearance w eGFR 49.69 (>60) 03/06/17 05:00 POC Glucometer > 400 UNITS (()) 03/08/17 11:55 Random Glucose 182 mg/dL (74-106) H D 03/07/17 05:15 Lactic Acid 1.2 mmol/L (0.4-2.0) 02/28/17 10:41 Calcium 8.6 mg/dL (8.5-10.1) 03/07/17 05:15 Phosphorus 4.1 mg/dL (2.5-4.9) D 03/04/17 16:00 Magnesium 2.1 mg/dL (1.8-2.4) 03/04/17 16:00 Total Bilirubin 0.3 mg/dL (0.2-1.0) D 03/06/17 05:00 AST 14 U/L (15-37) L 03/06/17 05:00 ALT 20 U/L (12-78) 03/06/17 05:00 Alkaline Phosphatase 97 U/L (45-117) 03/06/17 05:00 Ammonia 12.50 umol/L (11-32) 03/04/17 16:00 Creatine Kinase 49 IU/L (26-192) 03/04/17 06:00 Troponin I < 0.02 ng/ml (0.00-0.05) 02/28/17 10:41 Total Protein 6.0 g/dl (6.4-8.2) L 03/06/17 05:00 Albumin 2.7 g/dl (3.4-5.0) L 03/06/17 05:00 Triglycerides 150 mg/dL (35-160) 03/07/17 05:40 Cholesterol 231 mg/dL (50-200) H 03/07/17 05:40 Total LDL Cholesterol 140 mg/dL (5-100) H 03/07/17 05:40 HDL Cholesterol 63 mg/dL (40-60) H 03/07/17 05:40 Vitamin B12 Cancelled 03/04/17 07:38 Serum Folate Cancelled 03/04/17 07:38 TSH 0.82 uIU/ml (0.358-3.74) D 03/04/17 06:00 Free T4 1.35 ng/dl (0.76-1.46) 03/04/17 06:00 Free T3 2.6 pg/ml (2.0-4.4) 03/04/17 07:38 Current Medications Generic Name Dose Route Start Last Admin Trade Name Melisa PRN Reason Stop Dose Admin Amlodipine Besylate 2.5 mg 03/06/17 09:06 03/08/17 09:43 Norvasc - PO 2.5 mg DAILY ANAYELI Administration Aspirin 81 mg 03/06/17 16:30 03/08/17 09:43 Ecotrin - PO 81 mg DAILY ANAYELI Administration Atorvastatin Calcium 20 mg 03/06/17 22:00 03/07/17 21:44 Lipitor - PO 20 mg HS ANAYELI Administration Docusate Sodium 100 mg 03/05/17 10:00 03/08/17 09:44 Colace - PO Not Given DAILY [facility] Enoxaparin Sodium 60 mg 03/08/17 12:30 03/08/17 12:56 Lovenox - SQ 60 mg BID ANAYELI Administration Glipizide 10 mg 03/09/17 07:00 Glucotrol - PO DAILY@0700 [facility] Glipizide 5 mg 03/08/17 17:00 Glucotrol - PO DAILY@1700 [facility] Insulin Aspart 1 vial 03/06/17 22:00 03/07/17 21:45 Novolog Vial Sliding Scale - SQ 4 units HS [facility] Administration Protocol Insulin Aspart 1 vial 03/07/17 17:30 03/08/17 12:16 Novolog Vial Sliding Scale - SQ 12 units TIDAC [facility] Administration Protocol Lisinopril 5 mg 03/05/17 10:00 03/08/17 09:43 Prinivil PO 5 mg DAILY ANAYELI Administration Losartan Potassium 50 mg 03/09/17 10:00 Cozaar - PO DAILY [facility] Metformin HCl 1,000 mg 03/09/17 07:00 Glucophage Xr - PO DAILY@0700 [facility] Phenytoin Sodium 100 mg 03/06/17 22:00 03/08/17 12:59 Dilantin - PO 100 mg TID [facility] Administration Warfarin Sodium 5 mg 03/08/17 18:00 Coumadin - PO DAILY@1800 [facility] AP: Dementia Confusion Seizure DM: uncontrolled BGM QACHS Increase Levemir 10 units daily at HS Increase Novolog SS coverage Will f/u
[2017-03-08] MEDS: WARFARIN NA 5 MG TABLET (UD) PO SCH (18:03)
[2017-03-08] MEDS ORDERED: PT OWN MED DRAWER 7, Y5N ONE (18:22)
--- NOTE | 2017-03-08 20:03 | PN ---
Teaching Attending Note Name of Resident: Bernardino Segura ATTENDING PHYSICIAN STATEMENT I saw and evaluated the patient. I reviewed the resident's note and discussed the case with the resident. I agree with the resident's findings and plan as documented. SUBJECTIVE: no fever or chills. no SOB , no cough or CP OBJECTIVE: NAD CV: RRR Lungs : CTAB ext : LLE with TTP , increased circumference, and warmth. Positive Hufman SIgn ASSESSMENT AND PLAN: 66F w/ hx of HTN and DM and recent hospitalization for UTI presented with seizure activity 1- Seizure activity 2- UTI 3- Acute metabolic encephalopathy , due to seizure , meds, delirium, and UTI 4- HTN 5- DM 6- DVT of LLE Plan: - cont dilantin 100 TID , as out tp 300 daily - f/u with neuro -US obtained , and confirmed DVT of LLE. start bridging with lovenox to coumadin. - dc ABx - cont lisinopril and norvasc - cont ASa for carotid plaque . - cont lipitor LDL > goal - unfortunately , pt has no insurance and can not afford any type of insulin. will try oral agents. start glipizide 10 in am and 5 in pm, and meformin 1000 daily cont SSI for now ACHS will touch base with endo tomorrow, for further recs - family and patient updated through embedded linux developer by resident HLOC until she finishes bridging
[2017-03-08] MEDS ORDERED: INSULIN DETEMIR 100 UNITS/ML MDV SQ SCH (22:00)
--- NOTE | 2017-03-08 22:52 | PN ---
Physical Exam: SUBJECTIVE: Patient seen and examined. No acute events overnight. Pt reports no complaints, denies headache, chest pain , SOB, abdominal pain, or dysuria. OBJECTIVE: Vital Signs Period Temp Pulse Resp BP Sys/Salvador Pulse Ox Last 24 Hr 98 F-99.9 F 74-86 18-22 115-134/59-92 99 GENERAL: The patient is awake, alert, and in no acute distress. HEAD: Normal with no signs of trauma. EYES: PERRL, extraocular movements intact, sclera anicteric, conjunctiva clear. No ptosis. ENT: Ears normal, nares patent, oropharynx clear without exudates, moist mucous membranes. NECK: Trachea midline, full range of motion, supple. LUNGS: Breath sounds equal, clear to auscultation bilaterally, no wheezes, no crackles, no accessory muscle use. HEART: Regular rate and rhythm, S1, S2 without murmur, rub or gallop. ABDOMEN: Soft, nontender, nondistended, normoactive bowel sounds, no guarding, no rebound, no hepatosplenomegaly, no masses. EXTREMITIES: 2+ pulses, warm, well-perfused, no edema. NEUROLOGICAL: Cranial nerves II through XII grossly intact. speech incompletely appropriate, gait not observed. SKIN: Warm, dry, normal turgor, no rashes or lesions noted Laboratory Results - last 24 hr 03/05/17 03/05/17 03/06/17 17:51 17:57 05:00 POC Glucometer > 400 > 400 Triglycerides Cholesterol Total LDL Cholesterol HDL Cholesterol Phenytoin 12.1 D 03/07/17 03/07/17 03/07/17 05:40 17:05 21:41 POC Glucometer 286.00860 271.84276 Triglycerides 150 Cholesterol 231 H Total LDL Cholesterol 140 H HDL Cholesterol 63 H Phenytoin 03/08/17 03/08/17 03/08/17 08:31 11:48 11:55 POC Glucometer 234.93161 > 400 > 400 Triglycerides Cholesterol Total LDL Cholesterol HDL Cholesterol Phenytoin 03/08/17 16:44 POC Glucometer [phone] Triglycerides Cholesterol Total LDL Cholesterol HDL Cholesterol Phenytoin Active Medications Generic Name Dose Route Start Last Admin Trade Name Freq PRN Reason Stop Dose Admin Amlodipine Besylate 2.5 mg 03/06/17 09:06 03/08/17 09:43 Norvasc - PO 2.5 mg DAILY ANAYELI Administration Aspirin 81 mg 03/06/17 16:30 03/08/17 09:43 Ecotrin - PO 81 mg DAILY ANAYELI Administration Atorvastatin Calcium 20 mg 03/06/17 22:00 03/07/17 21:44 Lipitor - PO 20 mg HS ANAYELI Administration Docusate Sodium 100 mg 03/05/17 10:00 03/08/17 09:44 Colace - PO Not Given DAILY ANAYELI Enoxaparin Sodium 60 mg 03/08/17 12:30 03/08/17 12:56 Lovenox - SQ 60 mg BID ANAYELI Administration Glipizide 10 mg 03/09/17 07:00 Glucotrol - PO DAILY@0700 ANAYELI Glipizide 5 mg 03/08/17 17:00 03/08/17 18:03 Glucotrol - PO 5 mg DAILY@1700 ANAYELI Administration Insulin Aspart 1 vial 03/06/17 22:00 03/07/17 21:45 Novolog Vial Sliding Scale - SQ 4 units HS ANAYELI Administration Protocol Insulin Aspart 1 vial 03/08/17 17:19 Novolog Vial Sliding Scale - SQ TIDAC [facility] Protocol Lisinopril 5 mg 03/05/17 10:00 03/08/17 09:43 Prinivil PO 5 mg DAILY ANAYELI Administration Metformin HCl 1,000 mg 03/09/17 07:00 Glucophage Xr - PO DAILY@0700 [facility] Phenytoin Sodium 100 mg 03/06/17 22:00 03/08/17 12:59 Dilantin - PO 100 mg TID ANAYELI Administration Warfarin Sodium 5 mg 03/08/17 18:00 03/08/17 18:03 Coumadin - PO 5 mg DAILY@1800 ANAYELI Administration Doppler US of LLE: +DVT ASSESSMENT/PLAN: 66F w/ hx of HTN and DM who presented with acute encephalopathy and intermittent seizures likely due to unresolved UTI, found to have DVT in LLE, currently bridging to coumadin. #episodic arm shaking and head turning -seizure-like activity likely 2/2 acute encephalopathy 2/2 unresolved UTI from previous admission in setting of UA with + nitrites, 10 wbc, and many bacteria and previous urine culture sensitivities showing resistance to levaquin. Other etiologies include seizure, stroke, NPH. CT did not show evidence of hemorrhagic stroke; shows mild ventriculomegaly more than expected for degree of cortical atrophy. -neuro on board- does not think that this is due to stroke because symptoms are not focal. -repeat CT shows no acute pathology -carotid doppler: No evidence of hemodynamically significant stenosis. -neuro checks q4h -psych consulted, found no psychiatric cause for acute encephalopathy -brain MRI (03/03) showed increased cortical signalintensity in the left occipital lobe which may be artifact and less likely infarct, rec f/u MRI. -continue phenytoin 100mg IV TID for seizure ppx, ativan 0.5mg q4h PRN for seizure -9th dose of ceftriaxone given today, discontinued afterwards -EEG negative -VDRL negative -f/u AFBcx, fungal cx, viral cx, toxoplasma, free T3, phenytoin level -no seizure activity since being started on phenytoin. #acute encephalopathy -likely / unresolved UTI -blood cultures were negative after 5 days. -urine cultures grew E. coli pansensitive except for levaquin. -9th dose of ceftriaxone given today, discontinued afterwards -back at baseline mental status per daughter #HTN -BP today 110-130/60-70 with HR of 70-80. -continue amlodipine 2.5mg qd and lisinopril 5mg qd -monitor BP #DVT -US doppler of LLE confirmed DVT -as pt, does not have insurance, will not start NOAC -pt started on 60mg lovenox BID with bridge to coumadin 5mg -INR of 1 on admission -f/u INR and CBC #DM -SSI, BGM ACHS -endocrinology on board -due to pt's lack of insurance, pt started on metformin 1000mg ER, glipizide 5 in evening, and glipize 10 in morning. #FEN/PPX -no fluids -potassium repleted -diabetic diet -no GI ppx -lovenox 60mg BID #Dispo -Per PT, pt able to walk 80 feet, but with unsteady gait. -Discussed w/ social staff worker that pt has no insurance and might not be covered for services -will write prescription for walker -discussed pt's medical condition, medications, and answered all questions with daughter Aruna and pt using [employer] hr developer service phone. Bernardino Segura MD PGY1 Problem List - Problems (1) Diabetes Code(s): E11.9 - TYPE 2 DIABETES MELLITUS WITHOUT COMPLICATIONS Visit type - Emergency Visit Emergency Visit: Yes ED Registration Date: 02/28/17 Care time: The patient presented to the Emergency Department on the above date and was hospitalized for further evaluation of their emergent condition. - New Patient This patient is new to me today: No - Critical Care Critical Care patient: No
[2017-03-08] MEDS: ATORVASTATIN CA 20 MG TABLET (FP) PO SCH (23:21)
[2017-03-09 05:48] LABS: MCH 29.7 pg (25.7-33.7); MCHC 33.8 g/dl (32.0-36.0); MEAN CELL VOLUME 87.8 fl (80-96); MEAN PLT VOLUME 8.8 fl (7.5-11.1); PLATELET COUNT 124 K/MM3 (134-434); RDW 13.2 % (11.6-15.6)
[2017-03-09 06:02] LABS: INR 1.12 (0.82-1.09); PROTHROMBIN TIME (PATIENT) 12.3 SEC (9.98-11.88)
[2017-03-09 06:06] LABS: TOXOPLASMA IGG,CSF 6.5 IU/mL (.)
[2017-03-09] MEDS ORDERED: PT OWN MED DRAWER 7, Y5N ONE (06:30)
[2017-03-09] MEDS: INSULIN SLIDING SCALE (NOVOLOG) 1 VIAL SQ SCH ×4 (06:48→22:06)
[2017-03-09] MEDS: PHENYTOIN NA EXTENDED 100 MG CAPSULE (FP) PO SCH ×3 (06:48→22:09)
[2017-03-09] MEDS ORDERED: glipiZIDE 10 MG TABLET (FP) PO SCH (07:00)
--- NOTE | 2017-03-09 09:07 | PN ---
Progress Note (short form) - Note Progress Note: Denies any complaints Fs better today Apetite good Vital Signs Period Temp Pulse Resp BP Sys/Salvador Pulse Ox Last 24 Hr 98 F-98.2 F 67-81 18-18 107-115/67-78 99 PE: Awake, alert Neck: supple, No JVD HEENT: EOMI Lungs: CTA CVS: S1S2 Abd: Benign Ext: left leg swelling Neuro: No focal deficit CMP Sodium 141 mmol/L (136-145) 03/07/17 05:15 Potassium 4.4 mmol/L (3.5-5.1) 03/07/17 05:15 Chloride 108 mmol/L (98-107) H 03/07/17 05:15 Carbon Dioxide 24 mmol/L (21-32) 03/07/17 05:15 Anion Gap 9 (8-16) 03/07/17 05:15 BUN 16 mg/dL (7-18) 03/07/17 05:15 Creatinine 1.0 mg/dL (0.55-1.02) 03/07/17 05:15 Creat Clearance w eGFR 49.69 (>60) 03/06/17 05:00 POC Glucometer [phone] UNITS (()) 03/09/17 06:43 Random Glucose 182 mg/dL (74-106) H D 03/07/17 05:15 Lactic Acid 1.2 mmol/L (0.4-2.0) 02/28/17 10:41 Calcium 8.6 mg/dL (8.5-10.1) 03/07/17 05:15 Phosphorus 4.1 mg/dL (2.5-4.9) D 03/04/17 16:00 Magnesium 2.1 mg/dL (1.8-2.4) 03/04/17 16:00 Total Bilirubin 0.3 mg/dL (0.2-1.0) D 03/06/17 05:00 AST 14 U/L (15-37) L 03/06/17 05:00 ALT 20 U/L (12-78) 03/06/17 05:00 Alkaline Phosphatase 97 U/L (45-117) 03/06/17 05:00 Ammonia 12.50 umol/L (11-32) 03/04/17 16:00 Creatine Kinase 49 IU/L (26-192) 03/04/17 06:00 Troponin I < 0.02 ng/ml (0.00-0.05) 02/28/17 10:41 Total Protein 6.0 g/dl (6.4-8.2) L 03/06/17 05:00 Albumin 2.7 g/dl (3.4-5.0) L 03/06/17 05:00 Triglycerides 150 mg/dL (35-160) 03/07/17 05:40 Cholesterol 231 mg/dL (50-200) H 03/07/17 05:40 Total LDL Cholesterol 140 mg/dL (5-100) H 03/07/17 05:40 HDL Cholesterol 63 mg/dL (40-60) H 03/07/17 05:40 Vitamin B12 Cancelled 03/04/17 07:38 Serum Folate Cancelled 03/04/17 07:38 TSH 0.82 uIU/ml (0.358-3.74) D 03/04/17 06:00 Free T4 1.35 ng/dl (0.76-1.46) 03/04/17 06:00 Free T3 2.6 pg/ml (2.0-4.4) 03/04/17 07:38 Current Medications Generic Name Dose Route Start Last Admin Trade Name Melisa PRN Reason Stop Dose Admin Amlodipine Besylate 2.5 mg 03/06/17 09:06 03/08/17 09:43 Norvasc - PO 2.5 mg DAILY ANAYELI Administration Aspirin 81 mg 03/06/17 16:30 03/08/17 09:43 Ecotrin - PO 81 mg DAILY ANAYELI Administration Atorvastatin Calcium 20 mg 03/06/17 22:00 03/08/17 23:21 Lipitor - PO 20 mg HS ANAYELI Administration Docusate Sodium 100 mg 03/05/17 10:00 03/08/17 09:44 Colace - PO Not Given DAILY ANAYELI Enoxaparin Sodium 60 mg 03/08/17 12:30 03/08/17 23:21 Lovenox - SQ 60 mg BID ANAYELI Administration Glipizide 10 mg 03/09/17 07:00 03/09/17 06:48 Glucotrol - PO 10 mg DAILY@0700 ANAYELI Administration Glipizide 5 mg 03/08/17 17:00 03/08/17 18:03 Glucotrol - PO 5 mg DAILY@1700 ANAYELI Administration Insulin Aspart 1 vial 03/06/17 22:00 03/08/17 23:34 Novolog Vial Sliding Scale - SQ Not Given HS ANAYELI Protocol Insulin Aspart 1 vial 03/08/17 17:19 03/09/17 06:48 Novolog Vial Sliding Scale - SQ 8 units TIDAC ANAYELI Administration Protocol Lisinopril 5 mg 03/05/17 10:00 03/08/17 09:43 Prinivil PO 5 mg DAILY ANAYELI Administration Metformin HCl 1,000 mg 03/09/17 07:00 03/09/17 06:47 Glucophage Xr - PO 1,000 mg DAILY@0700 ANAYELI Administration Phenytoin Sodium 100 mg 03/06/17 22:00 03/09/17 06:48 Dilantin - PO 100 mg TID ANAYELI Administration Warfarin Sodium 5 mg 03/08/17 18:00 03/08/17 18:03 Coumadin - PO 5 mg DAILY@1800 ANAYELI Administration AP: Dementia Confusion Seizure DM: uncontrolled DVT BGM LILLY Levemir dced as pt has no Insurance and will not be able to get it as outpt Discussed case with Hospitalist. The generic oral antidiabetics available including glipizide, metformin and acarbose can be tried before long acting Insulin Novolog SS coverage Will f/u
[2017-03-09] MEDS: ENOXAPARIN NA (PORCINE) 60 MG/0.6 ML DISP.SYRIN SQ SCH ×2 (09:28→22:07)
[2017-03-09] MEDS: ASPIRIN COATED 81 MG TABLET.EC PO SCH (09:29)
[2017-03-09] MEDS: LISINOPRIL 5 MG TABLET (FP) PO SCH (09:29)
[2017-03-09] MEDS: DOCUSATE SODIUM 100 MG CAPSULE (FP) PO SCH ×2 (09:29→09:31)
[2017-03-09] MEDS: amLODIPine BESYLATE 2.5 MG TABLET (FP) PO SCH (09:29)
[2017-03-09] MEDS ORDERED: LOSARTAN POTASSIUM 50 MG TABLET (FP) PO SCH (10:00)
--- NOTE | 2017-03-09 10:03 | PN ---
Progress Note (short form) - Note Progress Note: Neurology History of Present Illness The patient is a 66 year old female, with a significant past medical history of hypertension, diabetes, dementia, visual hallucinations, and CHRISTIANNE who presents to the emergency department accompanied by family, with increased confusion for 2 days prior to arrival. Per family member, the patient woke up morning of admission approximately 04:00 shaking her right arm, turning her head to the right with an associated right sided droop of her lips. Family member states her episode lasted approximately 35 seconds, and has occurred intermittently since. Family reports the patient presented to the ED on 02/23/17 for confusion and hallucinations and was diagnosed with a UTI, discharged home, and started on antibiotics. As per daughter, patients blood sugar levels have been in the 250-300 range throughout the day. Patient lives at home with family, and is able to carry a conversation and ambulate without a walker at her baseline. I arrived in the ER to see the patient, she was awake and responsive to me but not following all commands. She did seem to possess strength throughout and was Not TPA case due to no longer being in window and symptoms seem more general and not focal. CT head was completed and did not show any acute changes. Family at bedside and confirmed history that was provided. She was started on keppra 500mg twice daily. Repeat CT head completed and no structural changes. She is getting Ceftriaxone for UTI and this may have been precipitant for her convulsions. Has been having right arm shaking and also personality change so spoke to PMD and decision made to switch to Depakote which also has mood stabilization properties. Psych consulted and patient given Zyprexa 5mg twice a day as well. Thereafter, patient with repeat episode and decision made to transfer to ICU where LP was completed and 0 Wbc, normal protein, does not meet criteria for meningitis or encephalitis. Was switched to Dilantin, has not been have seizures, and downgraded to floor status and more stable now. Awake and alert with me today. She was able to tell me she's in the hospital which is much improved from previous. She was watching TV and coherent. She seems to be at her baseline. Neurologically stable overnight and well appearing. Active Medications Amlodipine Besylate (Norvasc -) 2.5 mg PO DAILY [facility] Last Admin: 03/09/17 09:29 Dose: 2.5 mg Aspirin (Ecotrin -) 81 mg PO DAILY [facility] Last Admin: 03/09/17 09:29 Dose: 81 mg Atorvastatin Calcium (Lipitor -) 20 mg PO HS [facility] Last Admin: 03/08/17 23:21 Dose: 20 mg Docusate Sodium (Colace -) 100 mg PO DAILY [facility] Last Admin: 03/09/17 09:31 Dose: Not Given Enoxaparin Sodium (Lovenox -) 60 mg SQ BID [facility] Last Admin: 03/09/17 09:28 Dose: 60 mg Glipizide (Glucotrol -) 10 mg PO DAILY@0700 [facility] Last Admin: 03/09/17 06:48 Dose: 10 mg Glipizide (Glucotrol -) 5 mg PO DAILY@1700 [facility] Last Admin: 03/08/17 18:03 Dose: 5 mg Insulin Aspart (Novolog Vial Sliding Scale -) 1 vial SQ [facility] PRN Reason: Protocol Last Admin: 03/08/17 23:34 Dose: Not Given Insulin Aspart (Novolog Vial Sliding Scale -) 1 vial SQ TIDAC [facility] PRN Reason: Protocol Last Admin: 03/09/17 06:48 Dose: 8 units Lisinopril (Prinivil) 5 mg PO DAILY [facility] Last Admin: 03/09/17 09:29 Dose: 5 mg Metformin HCl (Glucophage Xr -) 1,000 mg PO DAILY@0700 [facility] Last Admin: 03/09/17 06:47 Dose: 1,000 mg Phenytoin Sodium (Dilantin -) 100 mg PO TID [facility] Last Admin: 03/09/17 06:48 Dose: 100 mg Warfarin Sodium (Coumadin -) 5 mg PO DAILY@1800 [facility] Last Admin: 03/08/17 18:03 Dose: 5 mg *Physical Exam Vital Signs Temperature 98.1 F 03/09/17 05:58 Pulse Rate 88 03/09/17 09:50 Respiratory Rate 18 03/09/17 05:58 Blood Pressure 107/68 03/09/17 05:58 O2 Sat by Pulse Oximetry (%) 100 03/09/17 09:50 "GENERAL: Awake, alert, cooperative, following commands HEAD: No signs of trauma EYES: PERRLA, EOMI, sclera anicteric, conjunctiva clear ENT: No tongue lacerations, Auricles normal inspection, hearing grossly normal, nares patent, oropharynx clear without exudates. Moist mucosa NECK: Normal ROM, supple, no lymphadenopathy, JVD, or masses LUNGS: Breath sounds equal, clear to auscultation bilaterally. No wheezes, and no crackles HEART: Regular rate and rhythm, normal S1 and S2, no murmurs, rubs or gallops ABDOMEN: Soft, nontender, normoactive bowel sounds. No guarding, no rebound. No masses EXTREMITIES: Normal range of motion, no edema. No clubbing or cyanosis. No cords, erythema, or tenderness NEUROLOGICAL: Awake, alert, following commands, more cooperative, Cranial nerves II through XII grossly intact. moves all extremities spontaneously, sensory intact, gait deferred SKIN: Warm, Dry, normal turgor, no rashes or lesions noted. CBCD WBC 7.0 K/mm3 (4.0-10.0) 03/09/17 05:00 RBC 3.65 M/mm3 (3.60-5.2) 03/09/17 05:00 Hgb 10.8 GM/dL (10.7-15.3) 03/09/17 05:00 Hct 32.1 % (32.4-45.2) L 03/09/17 05:00 MCV 87.8 fl (80-96) 03/09/17 05:00 MCHC 33.8 g/dl (32.0-36.0) 03/09/17 05:00 RDW 13.2 % (11.6-15.6) 03/09/17 05:00 Plt Count 124 K/MM3 (134-434) L 03/09/17 05:00 MPV 8.8 fl (7.5-11.1) 03/09/17 05:00 CMP Sodium 141 mmol/L (136-145) 03/07/17 05:15 Potassium 4.4 mmol/L (3.5-5.1) 03/07/17 05:15 Chloride 108 mmol/L (98-107) H 03/07/17 05:15 Carbon Dioxide 24 mmol/L (21-32) 03/07/17 05:15 Anion Gap 9 (8-16) 03/07/17 05:15 BUN 16 mg/dL (7-18) 03/07/17 05:15 Creatinine 1.0 mg/dL (0.55-1.02) 03/07/17 05:15 Creat Clearance w eGFR 49.69 (>60) 03/06/17 05:00 Calcium 8.6 mg/dL (8.5-10.1) 03/07/17 05:15 Total Bilirubin 0.3 mg/dL (0.2-1.0) D 03/06/17 05:00 AST 14 U/L (15-37) L 03/06/17 05:00 ALT 20 U/L (12-78) 03/06/17 05:00 Alkaline Phosphatase 97 U/L (45-117) 03/06/17 05:00 Total Protein 6.0 g/dl (6.4-8.2) L 03/06/17 05:00 Albumin 2.7 g/dl (3.4-5.0) L 03/06/17 05:00 - RADIOLOGY CT head IMPRESSION: Mild ventriculomegaly that is slightly more than expected for the degree of cortical atrophy, without interval change. No mass lesion or gross acute infarct are identified. MRI brain reviewed and area of DWI suspicious for artifact LP- See lab section Medical Decision Making 66 year old female, with a significant past medical history of hypertension, diabetes, dementia, visual hallucinations, and CHRISTIANNE who presents to the emergency department accompanied by family, with increased confusion over the past 2 days. Per family member, the patient woke up this morning at approximately 04:00 shaking her right arm, turning her head to the right with an associated right sided droop of her lips. Family member states her episode lasted approximately 35 seconds, and has occurred intermittently since. Family reports the patient presented to the ED on 02/23/17 for confusion and hallucinations and was diagnosed with a UTI, discharged home, and started on antibiotics. As per daughter, patients blood sugar levels have been in the 250- 300 range throughout the day. Patient lives at home with family, and is able to carry a conversation and ambulate without a walker at her baseline. Keppra discontinued, Depakote only one dose given On Dilantin 100mg three times daily and stable on it OUTPATIENT WOULD BE ON DILANTIN 300MG DAILY, 100 TID dose is often difficult for compliance As per psych, Zyprexa 5mg twice daily EEG completed and reviewed, grossly normal Monitor glucose, prefer range 100-130 Continue Insulin Blood pressure control, continue MARSHA Goal BP < 140/90 Physical therapy Mental status much improved at this point Outpatient follow up, no further rec'd at this time
[2017-03-09] MEDS: glipiZIDE 10 MG TABLET (FP) PO SCH (17:00)
--- NOTE | 2017-03-09 17:50 | PN ---
Teaching Attending Note Name of Resident: Bernardino Segura ATTENDING PHYSICIAN STATEMENT I saw and evaluated the patient. I reviewed the resident's note and discussed the case with the resident. I agree with the resident's findings and plan as documented. SUBJECTIVE: no pain or fever or chills. OBJECTIVE: NAD CV: RRR Lungs : CTAB ext : LLE with TTP , increased circumference, and warmth. Positive Hufman SIgn ASSESSMENT AND PLAN: 66F w/ hx of HTN and DM and recent hospitalization for UTI presented with seizure activity 1- Seizure activity 2- UTI 3- Acute metabolic encephalopathy , due to seizure , meds, delirium, and UTI . Now back to base mauricio e 4- HTN 5- DM 6- DVT of LLE Plan: - cont dilantin 100 TID , as out tp 300 daily - f/u with neuro - cont bridging with lovenox to coumadin - cont lisinopril and norvasc - cont ASa for carotid plaque . - cont lipitor LDL > goal - due to lack of insurance, will try po meds: increase glipizide to 10 BId. increase metformin to 1000 BID . we don't carry acarbose , will start it at [facility] until she finishes bridging
[2017-03-09] MEDS: WARFARIN NA 5 MG TABLET (UD) PO SCH (19:14)
--- NOTE | 2017-03-09 20:04 | PN ---
Physical Exam: SUBJECTIVE: Patient seen and examined. No acute events overnight. Pt has no complaints. She denies leg pain, SOB, chest pain, n/v/d/c. OBJECTIVE: Vital Signs Period Temp Pulse Resp BP Sys/Salvador Pulse Ox Last 24 Hr 98 F-98.2 F 67-88 18-20 107-116/66-85 99-100 GENERAL: The patient is awake, alert, in no acute distress. HEAD: Normal with no signs of trauma. EYES: PERRL, extraocular movements intact, sclera anicteric, conjunctiva clear. No ptosis. ENT: Ears normal, nares patent, oropharynx clear without exudates, moist mucous membranes. NECK: Trachea midline, full range of motion, supple. LUNGS: Breath sounds equal, clear to auscultation bilaterally, no wheezes, no crackles, no accessory muscle use. HEART: Regular rate and rhythm, S1, S2 without murmur, rub or gallop. ABDOMEN: Soft, nontender, nondistended, normoactive bowel sounds, no guarding, no rebound, no hepatosplenomegaly, no masses. EXTREMITIES: LLE swollen compared to RLE, minimally tender to palpation, 2+ distal pulses NEUROLOGICAL: Cranial nerves II through XII grossly intact. Normal speech, gait not observed. PSYCH: Normal mood, normal affect. SKIN: Warm, dry, normal turgor, no rashes or lesions noted Laboratory Results - last 24 hr 03/04/17 03/08/17 03/09/17 23:15 23:33 05:00 WBC 7.0 RBC 3.65 Hgb 10.8 Hct 32.1 L MCV 87.8 MCH 29.7 MCHC 33.8 RDW 13.2 Plt Count 124 L MPV 8.8 INR POC Glucometer 192.29963 CSF Total Protein 46.5 H CSF Prealbumin 3.4 CSF Albumin 54.2 L CSF Xgkpm-4-Pserjhqy 4.9 CSF Gumvp-9-Ilwnwccf 8.5 CSF Beta Globulin 22.1 H CSF Gamma Globulin 7.0 CSF PEP M-Gibran Not observed CSF VDRL Non reactive CSF Toxoplasma IgG Ab 6.5 03/09/17 03/09/17 05:00 06:43 WBC RBC Hgb Hct MCV MCH MCHC RDW Plt Count MPV INR 1.12 POC Glucometer [id number] CSF Total Protein CSF Prealbumin CSF Albumin CSF Pwwqp-7-Iciylcbu CSF Szgeo-6-Rpjfdcjp CSF Beta Globulin CSF Gamma Globulin CSF PEP M-Gibran CSF VDRL CSF Toxoplasma IgG Ab Active Medications Generic Name Dose Route Start Last Admin Trade Name Melisa PRN Reason Stop Dose Admin Amlodipine Besylate 2.5 mg 03/06/17 09:06 03/09/17 09:29 Norvasc - PO 2.5 mg DAILY ANAYELI Administration Aspirin 81 mg 03/06/17 16:30 03/09/17 09:29 Ecotrin - PO 81 mg DAILY ANAYELI Administration Atorvastatin Calcium 20 mg 03/06/17 22:00 03/08/17 23:21 Lipitor - PO 20 mg HS ANAYELI Administration Docusate Sodium 100 mg 03/05/17 10:00 03/09/17 09:31 Colace - PO Not Given DAILY ANAYELI Enoxaparin Sodium 60 mg 03/08/17 12:30 03/09/17 09:28 Lovenox - SQ 60 mg BID ANAYELI Administration Glipizide 10 mg 03/09/17 16:30 03/09/17 17:00 Glucotrol - PO 10 mg BIDAC ANAYELI Administration Insulin Aspart 1 vial 03/06/17 22:00 03/08/17 23:34 Novolog Vial Sliding Scale - SQ Not Given HS ANAYELI Protocol Insulin Aspart 1 vial 03/08/17 17:19 03/09/17 17:30 Novolog Vial Sliding Scale - SQ 6 units TIDAC ANAYELI Administration Protocol Lisinopril 5 mg 03/05/17 10:00 03/09/17 09:29 Prinivil PO 5 mg DAILY ANAYELI Administration Metformin HCl 1,000 mg 03/09/17 16:30 03/09/17 15:00 Glucophage Xr - PO 1,000 mg BIDAC ANAYELI Administration Phenytoin Sodium 100 mg 03/06/17 22:00 03/09/17 15:33 Dilantin - PO 100 mg TID AANYELI Administration Warfarin Sodium 5 mg 03/08/17 18:00 03/09/17 19:14 Coumadin - PO 5 mg DAILY@1800 ANAYELI Administration ASSESSMENT/PLAN: 66F w/ hx of HTN and DM who presented with acute encephalopathy and intermittent seizures likely due to unresolved UTI, found to have DVT in LLE, currently bridging to coumadin. #episodic arm shaking and head turning -likely 2/2 UTI -no seizure activity since being started on phenytoin. #acute encephalopathy -likely 2/2 UTI -urine cultures grew E. coli whitley-sensitive except for levaquin. -finished course of abx -back at baseline mental status per daughter #HTN -continue amlodipine 2.5mg qd and lisinopril 5mg qd -monitor BP #LLE DVT -continue 60mg lovenox BID with bridge to coumadin 5mg -INR today of 1.12 -trend INR #Anemia -f/u iron studies,B12, folate, FOBT #Malodorous diarrhea -f/u c.diff studies #DM -SSI, BGM ACHS -endocrinology on board -continue metformin 1000mg QD and glipizide 10 BIDAC. #FEN/PPX -no fluids -no BMP -diabetic diet -no GI ppx -lovenox 60mg BID #Dispo -Per PT, pt able to walk 80 feet, but with unsteady gait. -Discussed w/ neonatal social worker that pt has no insurance and might not be covered for services -will write prescription for walker upon discharge -discussed pt's medical condition, medications, and answered all questions with daughter Aruna and pt using database reporting consultant service phone. -D/C pending therapeutic INR Bernardino Segura MD PGY1 Problem List - Problems (1) Diabetes Code(s): E11.9 - TYPE 2 DIABETES MELLITUS WITHOUT COMPLICATIONS Visit type - Emergency Visit Emergency Visit: Yes ED Registration Date: 02/28/17 Care time: The patient presented to the Emergency Department on the above date and was hospitalized for further evaluation of their emergent condition. - New Patient This patient is new to me today: No - Critical Care Critical Care patient: No
[2017-03-09] MEDS: ATORVASTATIN CA 20 MG TABLET (FP) PO SCH (22:07)
[2017-03-10] MEDS: PHENYTOIN NA EXTENDED 100 MG CAPSULE (FP) PO SCH ×3 (06:25→22:08)
[2017-03-10] MEDS: glipiZIDE 10 MG TABLET (FP) PO SCH ×2 (06:25→17:40)
[2017-03-10] MEDS: INSULIN SLIDING SCALE (NOVOLOG) 1 VIAL SQ SCH ×4 (06:26→22:10)
[2017-03-10 07:47] LABS: MCH 29.1 pg (25.7-33.7); MCHC 33.3 g/dl (32.0-36.0); MEAN CELL VOLUME 87.2 fl (80-96); MEAN PLT VOLUME 8.2 fl (7.5-11.1); PLATELET COUNT 147 K/MM3 (134-434); RDW 12.8 % (11.6-15.6); WHITE BLOOD COUNT 5.7 K/mm3 (4.0-10.0)
[2017-03-10 07:55] LABS: INR 1.07 (0.82-1.09); PROTHROMBIN TIME (PATIENT) 11.8 SEC (9.98-11.88)
[2017-03-10 08:02] LABS: FERRITIN 64.554 ng/ml (6.9-282.5)
[2017-03-10] MEDS: ENOXAPARIN NA (PORCINE) 60 MG/0.6 ML DISP.SYRIN SQ SCH ×2 (10:26→22:07)
[2017-03-10] MEDS: ASPIRIN COATED 81 MG TABLET.EC PO SCH (10:26)
[2017-03-10] MEDS: amLODIPine BESYLATE 2.5 MG TABLET (FP) PO SCH (10:26)
[2017-03-10] MEDS: DOCUSATE SODIUM 100 MG CAPSULE (FP) PO SCH (10:27)
[2017-03-10] MEDS: LISINOPRIL 5 MG TABLET (FP) PO SCH (10:27)
[2017-03-10] MEDS: WARFARIN NA 5 MG TABLET (UD) PO SCH (17:40)
[2017-03-10] MEDS ORDERED: WARFARIN NA 2.5 MG TABLET (FP) PO ONE (18:00)
--- NOTE | 2017-03-10 19:33 | PN ---
Teaching Attending Note Name of Resident: Grant Patino ATTENDING PHYSICIAN STATEMENT I saw and evaluated the patient. I reviewed the resident's note and discussed the case with the resident. I agree with the resident's findings and plan as documented. SUBJECTIVE: No fever or chills. feels better OBJECTIVE: NAD CV: RRR Lungs : CTAB Ext : LLE with minimal TTP , L leg circumference > R, and warmth. Positive Hufman SIgn ASSESSMENT AND PLAN: 66F w/ hx of HTN and DM and recent hospitalization for UTI presented with seizure activity 1- Seizure activity 2- UTI 3- Acute metabolic encephalopathy , due to seizure , meds, delirium, and UTI . Now back to base mauricio e 4- HTN 5- DM 6- DVT of LLE Plan: - cont dilantin 100 TID , as out tp 300 daily - f/u with neuro - cont bridging with lovenox to coumadin . 7.5 coumadin today - cont lisinopril and norvasc - cont ASA for carotid plaque . - cont lipitor - Cont glipizide to 10 BId and metformin to 1000 BID . [facility] she finishes [facility]
--- NOTE | 2017-03-10 20:18 | PN ---
Physical Exam: SUBJECTIVE: Patient seen and examined. Says she feels better today. No acute events over night. Offers no new complaints. OBJECTIVE: Vital Signs Period Temp Pulse Resp BP Sys/Salvador Pulse Ox Last 24 Hr 76 F-98.2 F 70-85 14-20 99-138/52-80 99-99 GENERAL: The patient is awake, alert, in no acute distress. HEAD: Normal with no signs of trauma. EYES: PERRL, extraocular movements intact, sclera anicteric, conjunctiva clear. No ptosis. ENT: Ears normal, nares patent, oropharynx clear without exudates, moist mucous membranes. NECK: Trachea midline, full range of motion, supple. LUNGS: Breath sounds equal, clear to auscultation bilaterally, no wheezes, no crackles, no accessory muscle use. HEART: Regular rate and rhythm, S1, S2 without murmur, rub or gallop. ABDOMEN: Soft, nontender, nondistended, normoactive bowel sounds, no guarding, no rebound, no hepatosplenomegaly, no masses. EXTREMITIES: LLE swollen compared to RLE, minimally tender to palpation, 2+ distal pulses NEUROLOGICAL: Cranial nerves II through XII grossly intact. Normal speech, gait not observed. PSYCH: Normal mood, normal affect. SKIN: Warm, dry, normal turgor, no rashes or lesions noted Laboratory Results - last 24 hr 03/09/17 03/09/17 03/09/17 12:24 16:47 21:54 WBC RBC Hgb Hct MCV MCH MCHC RDW Plt Count MPV INR POC Glucometer 223.56171 196.15478 158 Ferritin Vitamin B12 Serum Folate 03/10/17 03/10/17 03/10/17 06:00 06:00 06:00 WBC 5.7 RBC 3.74 Hgb 10.9 Hct 32.6 MCV 87.2 MCH 29.1 MCHC 33.3 RDW 12.8 Plt Count 147 MPV 8.2 INR 1.07 POC Glucometer Ferritin 64.554 Vitamin B12 Serum Folate 19 H D 03/10/17 03/10/17 03/10/17 06:00 06:03 12:15 WBC RBC Hgb Hct MCV MCH MCHC RDW Plt Count MPV INR POC Glucometer 190 248 Ferritin Vitamin B12 349 Serum Folate 03/10/17 17:39 WBC RBC Hgb Hct MCV MCH MCHC RDW Plt Count MPV INR POC Glucometer 166 Ferritin Vitamin B12 Serum Folate Active Medications Generic Name Dose Route Start Last Admin Trade Name Melisa PRN Reason Stop Dose Admin Amlodipine Besylate 2.5 mg 03/06/17 09:06 03/10/17 10:26 Norvasc - PO 2.5 mg DAILY ANAYELI Administration Aspirin 81 mg 03/06/17 16:30 03/10/17 10:26 Ecotrin - PO 81 mg DAILY ANAYELI Administration Atorvastatin Calcium 20 mg 03/06/17 22:00 03/09/17 22:07 Lipitor - PO 20 mg HS ANAYELI Administration Docusate Sodium 100 mg 03/05/17 10:00 03/10/17 10:27 Colace - PO 100 mg DAILY ANAYELI Administration Enoxaparin Sodium 60 mg 03/08/17 12:30 03/10/17 10:26 Lovenox - SQ 60 mg BID ANAYELI Administration Glipizide 10 mg 03/09/17 16:30 03/10/17 17:40 Glucotrol - PO 10 mg BIDAC ANAYELI Administration Insulin Aspart 1 vial 03/06/17 22:00 03/09/17 22:06 Novolog Vial Sliding Scale - SQ Not Given HS ANAYELI Protocol Insulin Aspart 1 vial 03/08/17 17:19 03/10/17 17:41 Novolog Vial Sliding Scale - SQ 6 units TIDAC ANAYELI Administration Protocol Lisinopril 5 mg 03/05/17 10:00 03/10/17 10:27 Prinivil PO 5 mg DAILY ANAYELI Administration Metformin HCl 1,000 mg 03/09/17 16:30 03/10/17 17:40 Glucophage Xr - PO 1,000 mg BIDAC ANAYELI Administration Phenytoin Sodium 100 mg 03/06/17 22:00 03/10/17 13:53 Dilantin - PO 100 mg TID ANAYELI Administration Warfarin Sodium 5 mg 03/08/17 18:00 03/10/17 17:40 Coumadin - PO 5 mg DAILY@1800 ANAYELI Administration ASSESSMENT/PLAN: 66F w/ hx of HTN and DM who presented with acute encephalopathy and intermittent seizures likely due to unresolved UTI, found to have DVT in LLE, currently bridging to coumadin. #episodic arm shaking and head turning -likely 2/2 UTI -no seizure activity since being started on phenytoin. -Continue dilantin 100 TID -f/u with neuro #acute encephalopathy -likely 2/2 UTI -urine cultures grew E. coli whitley-sensitive except for levaquin. -finished course of abx -back at baseline mental status per daughter #HTN -continue amlodipine 2.5mg qd and lisinopril 5mg qd -monitor BP #LLE DVT -continue 60mg lovenox BID with bridge to coumadin 7.5mg -INR today of 1.07 -trend INR #Anemia -f/u iron studies - B12, Folate WNL #Malodorous diarrhea -f/u c.diff studies #DM -SSI, BGM ACHS -endocrinology on board -continue metformin 1000mg QD and glipizide 10 BIDAC. #FEN/PPX -no fluids -no BMP -diabetic diet -no GI ppx -lovenox 60mg BID Visit type - Emergency Visit Emergency Visit: Yes ED Registration Date: 02/28/17 Care time: The patient presented to the Emergency Department on the above date and was hospitalized for further evaluation of their emergent condition. - New Patient This patient is new to me today: Yes Date on this admission: 03/10/17 - Critical Care Critical Care patient: No
[2017-03-10] MEDS: ATORVASTATIN CA 20 MG TABLET (FP) PO SCH (22:06)
[2017-03-11] MEDS: PHENYTOIN NA EXTENDED 100 MG CAPSULE (FP) PO SCH ×3 (06:27→21:58)
[2017-03-11] MEDS: glipiZIDE 10 MG TABLET (FP) PO SCH ×2 (06:27→17:29)
[2017-03-11] MEDS: INSULIN SLIDING SCALE (NOVOLOG) 1 VIAL SQ SCH ×4 (06:27→21:59)
[2017-03-11 08:07] LABS: SERUM IRON 53 ug/dL (27-139); TOTAL IRON BINDING CAPACITY 279 ug/dL (250-450); TRANSFERRIN 221 mg/dL (200-370); UIBC 226 ug/dL (118-369)
[2017-03-11 08:08] LABS: INR 1.09 (0.82-1.09)
[2017-03-11] MEDS: amLODIPine BESYLATE 2.5 MG TABLET (FP) PO SCH (09:13)
[2017-03-11] MEDS: ENOXAPARIN NA (PORCINE) 60 MG/0.6 ML DISP.SYRIN SQ SCH ×2 (09:13→21:58)
[2017-03-11] MEDS: LISINOPRIL 5 MG TABLET (FP) PO SCH (09:13)
[2017-03-11] MEDS: DOCUSATE SODIUM 100 MG CAPSULE (FP) PO SCH (09:13)
[2017-03-11] MEDS: ASPIRIN COATED 81 MG TABLET.EC PO SCH (09:13)
--- NOTE | 2017-03-11 13:31 | PN ---
Progress Note (short form) - Note Progress Note: Subjective: no fever or chills , nopain or SOB Objective: Vital Signs: Last Vital Signs Temp Pulse Resp BP Pulse Ox 98.2 F 82 14 138/78 94 L 03/11/17 08:10 03/11/17 08:10 03/11/17 09:00 03/11/17 08:10 03/11/17 09:00 Laboratory Results - last 24 hr 03/10/17 03/10/17 03/10/17 06:00 17:39 22:10 INR POC Glucometer 166 248 Iron 53 TIBC 279 Iron Saturation 19 Transferrin 221 03/11/17 03/11/17 03/11/17 05:29 06:00 12:44 INR 1.09 POC Glucometer 170 233 Iron TIBC Iron Saturation Transferrin Physical Exam: NAD CV: RRR Lungs : CTAB Ext : LLE with minimal TTP , L leg circumference > R, and warmth. ASSESSMENT AND PLAN: 66F w/ hx of HTN and DM and recent hospitalization for UTI presented with seizure activity 1- Seizure activity 2- UTI 3- Acute metabolic encephalopathy , due to seizure , meds, delirium, and UTI . Now back to base line 4- HTN 5- DM 6- DVT of LLE Plan: - cont dilantin 100 TID , as out tp 300 daily - f/u with neuro - cont bridging with lovenox to coumadin . 7.5 coumadin tonight - cont lisinopril and norvasc - cont ASA for carotid plaque . - cont lipitor - Cont glipizide 10 BId and metformin to 1000 BID . start acarbose at [facility] until she finishes bridging Visit type - Emergency Visit Emergency Visit: Yes ED Registration Date: 02/28/17 Care time: The patient presented to the Emergency Department on the above date and was hospitalized for further evaluation of their emergent condition. - New Patient This patient is new to me today: No - Critical Care Critical Care patient: No
[2017-03-11] MEDS ORDERED: ACETAMINOPHEN 325 MG TABLET (FP) PO PRN (17:18)
[2017-03-11] MEDS: WARFARIN NA 5 MG TABLET (UD) PO SCH (17:29)
[2017-03-11] MEDS ORDERED: WARFARIN NA 2.5 MG TABLET (FP) PO ONE (18:00)
[2017-03-11] MEDS: ATORVASTATIN CA 20 MG TABLET (FP) PO SCH (21:58)
[2017-03-12] MEDS: INSULIN SLIDING SCALE (NOVOLOG) 1 VIAL SQ SCH ×4 (06:33→21:38)
[2017-03-12] MEDS: glipiZIDE 10 MG TABLET (FP) PO SCH ×2 (06:33→17:24)
[2017-03-12] MEDS: PHENYTOIN NA EXTENDED 100 MG CAPSULE (FP) PO SCH ×3 (06:33→22:01)
[2017-03-12 07:34] LABS: INR 1.28 (0.82-1.09); PROTHROMBIN TIME (PATIENT) 14.2 SEC (9.98-11.88)
--- NOTE | 2017-03-12 07:51 | PN ---
Physical Exam: SUBJECTIVE: Patient seen and examined. No acute events overnight. Pt alert, no complaints. She denies LE pain, SOB, or chest pain. OBJECTIVE: Vital Signs Period Temp Pulse Resp BP Sys/Salvador Pulse Ox Last 24 Hr 97.8 F-98.8 F 70-91 14-20 110-148/46-78 94-98 GENERAL: The patient is awake, alert, in no acute distress. HEAD: Normal with no signs of trauma. EYES: PERRL, extraocular movements intact, sclera anicteric, conjunctiva clear. No ptosis. ENT: Ears normal, nares patent, oropharynx clear without exudates, moist mucous membranes. NECK: Trachea midline, full range of motion, supple. LUNGS: Breath sounds equal, clear to auscultation bilaterally, no wheezes, no crackles, no accessory muscle use. HEART: Regular rate and rhythm, S1, S2 without murmur, rub or gallop. ABDOMEN: Soft, nontender, nondistended, normoactive bowel sounds, no guarding, no rebound, no hepatosplenomegaly, no masses. EXTREMITIES: LLE slightly larger than RLE, NT, non-swollen, distal pulses intact NEUROLOGICAL: Cranial nerves II through XII grossly intact. Normal speech, gait not observed. PSYCH: Normal mood, normal affect. SKIN: Warm, dry, normal turgor, no rashes or lesions noted Laboratory Results - last 24 hr 03/10/17 03/11/17 03/11/17 06:00 06:00 12:44 INR 1.09 POC Glucometer 233 Iron 53 TIBC 279 Iron Saturation 19 Transferrin 221 03/11/17 03/11/17 03/12/17 17:27 21:44 05:35 INR 1.28 H POC Glucometer 113 185 Iron TIBC Iron Saturation Transferrin 03/12/17 06:05 INR POC Glucometer 154 Iron TIBC Iron Saturation Transferrin Active Medications Generic Name Dose Route Start Last Admin Trade Name Freq PRN Reason Stop Dose Admin Acetaminophen 650 mg 03/11/17 17:18 03/11/17 17:40 Tylenol - PO 650 mg Q6H PRN Administration FEVER OR PAIN Amlodipine Besylate 2.5 mg 03/06/17 09:06 03/11/17 09:13 Norvasc - PO 2.5 mg DAILY ANAYELI Administration Aspirin 81 mg 03/06/17 16:30 03/11/17 09:13 Ecotrin - PO 81 mg DAILY ANAYELI Administration Atorvastatin Calcium 20 mg 03/06/17 22:00 03/11/17 21:58 Lipitor - PO 20 mg HS ANAYELI Administration Docusate Sodium 100 mg 03/05/17 10:00 03/11/17 09:13 Colace - PO 100 mg DAILY ANAYELI Administration Enoxaparin Sodium 60 mg 03/08/17 12:30 03/11/17 21:58 Lovenox - SQ 60 mg BID ANAYELI Administration Glipizide 10 mg 03/09/17 16:30 03/12/17 06:33 Glucotrol - PO 10 mg BIDAC ANAYELI Administration Insulin Aspart 1 vial 03/06/17 22:00 03/11/17 21:59 Novolog Vial Sliding Scale - SQ Not Given HS [facility] Protocol Insulin Aspart 1 vial 03/08/17 17:19 03/12/17 06:33 Novolog Vial Sliding Scale - SQ 6 units TIDAC ANAYELI Administration Protocol Lisinopril 5 mg 03/05/17 10:00 03/11/17 09:13 Prinivil PO 5 mg DAILY ANAYELI Administration Metformin HCl 1,000 mg 03/09/17 16:30 03/12/17 06:33 Glucophage Xr - PO 1,000 mg BIDAC ANAYELI Administration Phenytoin Sodium 100 mg 03/06/17 22:00 03/12/17 06:33 Dilantin - PO 100 mg TID ANAYELI Administration Warfarin Sodium 5 mg 03/08/17 18:00 03/11/17 17:29 Coumadin - PO 5 mg DAILY@1800 ANAYELI Administration ASSESSMENT/PLAN: 66F w/ hx of HTN and DM who presented with acute encephalopathy and intermittent seizures likely due to UTI, found to have DVT in LLE, currently bridging to coumadin (day 5). #episodic arm shaking and head turning- likely 2/2 UTI -no seizure activity since being started on phenytoin. #acute encephalopathy -likely 2/2 UTI -urine cultures grew E. coli whitley-sensitive except for levaquin. -finished course of abx -back at baseline mental status per daughter, resolved #HTN -continue amlodipine 2.5mg qd and lisinopril 5mg qd -monitor BP #LLE DVT -continue 60mg lovenox BID with bridge to coumadin 7.5mg (day 5 of coumadin) -INR today of 1.28 up from 1.09 -trend INR #Anemia -iron studies: ferritin 65, iron 53, TIBC 279, transferrin 231 -B12 wnl, folate elevated -f/u FOBT #Malodorous diarrhea -f/u c.diff studies #DM -SSI, BGM ACHS -endocrinology on board -continue metformin HCl 1000mg BIDAC and glipizide 10 BIDAC. #FEN/PPX -no fluids -no BMP -diabetic diet -no GI ppx -lovenox 60mg BID #Dispo -Per PT, pt able to walk 80 feet, but with unsteady gait. -Discussed w/ school social worker that pt has no insurance and might not be covered for services -will write prescription for walker upon discharge -discussed pt's medical condition, medications, and answered all questions with daughter Aruna and pt using bowling alley mechanic service phone. -D/C pending therapeutic INR Bernardino Segura MD PGY1 Problem List - Problems (1) Diabetes Code(s): E11.9 - TYPE 2 DIABETES MELLITUS WITHOUT COMPLICATIONS Visit type - Emergency Visit Emergency Visit: Yes ED Registration Date: 02/28/17 Care time: The patient presented to the Emergency Department on the above date and was hospitalized for further evaluation of their emergent condition. - New Patient This patient is new to me today: No - Critical Care Critical Care patient: No
--- NOTE | 2017-03-12 09:45 | PN ---
Progress Note (short form) - Note Progress Note: Neurology History of Present Illness The patient is a 66 year old female, with a significant past medical history of hypertension, diabetes, dementia, visual hallucinations, and CHRISTIANNE who presents to the emergency department accompanied by family, with increased confusion for 2 days prior to arrival. Per family member, the patient woke up morning of admission approximately 04:00 shaking her right arm, turning her head to the right with an associated right sided droop of her lips. Family member states her episode lasted approximately 35 seconds, and has occurred intermittently since. Family reports the patient presented to the ED on 02/23/17 for confusion and hallucinations and was diagnosed with a UTI, discharged home, and started on antibiotics. As per daughter, patients blood sugar levels have been in the 250-300 range throughout the day. Patient lives at home with family, and is able to carry a conversation and ambulate without a walker at her baseline. I arrived in the ER to see the patient, she was awake and responsive to me but not following all commands. She did seem to possess strength throughout and was Not TPA case due to no longer being in window and symptoms seem more general and not focal. CT head was completed and did not show any acute changes. Family at bedside and confirmed history that was provided. She was started on keppra 500mg twice daily. Repeat CT head completed and no structural changes. She is getting Ceftriaxone for UTI and this may have been precipitant for her convulsions. Has been having right arm shaking and also personality change so spoke to PMD and decision made to switch to Depakote which also has mood stabilization properties. Psych consulted and patient given Zyprexa 5mg twice a day as well. Thereafter, patient with repeat episode and decision made to transfer to ICU where LP was completed and 0 Wbc, normal protein, does not meet criteria for meningitis or encephalitis. Was switched to Dilantin, has not been have seizures, and downgraded to floor status and more stable now. Awake and alert with me. She has been able to tell me she's in the hospital which is much improved from previous. She seems to be at her baseline. Neurologically stable overnight and well appearing. She did not have any events over the weekend. Is getting AC for LLE DVT per notes, lovenox to Coumadin bridge. Active Medications Acetaminophen (Tylenol -) 650 mg PO Q6H PRN PRN Reason: FEVER OR PAIN Last Admin: 09/10/17 17:40 Dose: 650 mg Amlodipine Besylate (Norvasc -) 2.5 mg PO DAILY [facility] Last Admin: 03/11/17 09:13 Dose: 2.5 mg Aspirin (Ecotrin -) 81 mg PO DAILY [facility] Last Admin: 03/11/17 09:13 Dose: 81 mg Atorvastatin Calcium (Lipitor -) 20 mg PO HS [facility] Last Admin: 03/11/17 21:58 Dose: 20 mg Docusate Sodium (Colace -) 100 mg PO DAILY [facility] Last Admin: 03/11/17 09:13 Dose: 100 mg Enoxaparin Sodium (Lovenox -) 60 mg SQ BID [facility] Last Admin: 03/11/17 21:58 Dose: 60 mg Glipizide (Glucotrol -) 10 mg PO BIDAC [facility] Last Admin: 03/12/17 06:33 Dose: 10 mg Insulin Aspart (Novolog Vial Sliding Scale -) 1 vial SQ [facility] PRN Reason: Protocol Last Admin: 03/11/17 21:59 Dose: Not Given Insulin Aspart (Novolog Vial Sliding Scale -) 1 vial SQ TIDAC [facility] PRN Reason: Protocol Last Admin: 03/12/17 06:33 Dose: 6 units Lisinopril (Prinivil) 5 mg PO DAILY [facility] Last Admin: 03/11/17 09:13 Dose: 5 mg Metformin HCl (Glucophage Xr -) 1,000 mg PO BIDAC [facility] Last Admin: 03/12/17 06:33 Dose: 1,000 mg Phenytoin Sodium (Dilantin -) 100 mg PO TID [facility] Last Admin: 03/12/17 06:33 Dose: 100 mg Warfarin Sodium (Coumadin -) 5 mg PO DAILY@1800 [facility] Last Admin: 03/11/17 17:29 Dose: 5 mg *Physical Exam Vital Signs Temperature 98.8 F 03/12/17 06:00 Pulse Rate 74 03/12/17 06:00 Respiratory Rate 20 03/12/17 06:00 Blood Pressure 110/66 03/12/17 06:00 O2 Sat by Pulse Oximetry (%) 98 03/11/17 21:00 "GENERAL: Awake, alert, cooperative, following commands HEAD: No signs of trauma EYES: PERRLA, EOMI, sclera anicteric, conjunctiva clear ENT: No tongue lacerations, Auricles normal inspection, hearing grossly normal, nares patent, oropharynx clear without exudates. Moist mucosa NECK: Normal ROM, supple, no lymphadenopathy, JVD, or masses LUNGS: Breath sounds equal, clear to auscultation bilaterally. No wheezes, and no crackles HEART: Regular rate and rhythm, normal S1 and S2, no murmurs, rubs or gallops ABDOMEN: Soft, nontender, normoactive bowel sounds. No guarding, no rebound. No masses EXTREMITIES: Normal range of motion, no edema. No clubbing or cyanosis. No cords, erythema, or tenderness NEUROLOGICAL: Awake, alert, following commands, more cooperative, Cranial nerves II through XII grossly intact. moves all extremities spontaneously, sensory intact, gait deferred SKIN: Warm, Dry, normal turgor, no rashes or lesions noted. CBCD WBC 5.7 K/mm3 (4.0-10.0) 03/10/17 06:00 RBC 3.74 M/mm3 (3.60-5.2) 03/10/17 06:00 Hgb 10.9 GM/dL (10.7-15.3) 03/10/17 06:00 Hct 32.6 % (32.4-45.2) 03/10/17 06:00 MCV 87.2 fl (80-96) 03/10/17 06:00 MCHC 33.3 g/dl (32.0-36.0) 03/10/17 06:00 RDW 12.8 % (11.6-15.6) 03/10/17 06:00 Plt Count 147 K/MM3 (134-434) 03/10/17 06:00 MPV 8.2 fl (7.5-11.1) 03/10/17 06:00 CMP Sodium 141 mmol/L (136-145) 03/07/17 05:15 Potassium 4.4 mmol/L (3.5-5.1) 03/07/17 05:15 Chloride 108 mmol/L (98-107) H 03/07/17 05:15 Carbon Dioxide 24 mmol/L (21-32) 03/07/17 05:15 Anion Gap 9 (8-16) 03/07/17 05:15 BUN 16 mg/dL (7-18) 03/07/17 05:15 Creatinine 1.0 mg/dL (0.55-1.02) 03/07/17 05:15 Creat Clearance w eGFR 49.69 (>60) 03/06/17 05:00 Calcium 8.6 mg/dL (8.5-10.1) 03/07/17 05:15 Total Bilirubin 0.3 mg/dL (0.2-1.0) D 03/06/17 05:00 AST 14 U/L (15-37) L 03/06/17 05:00 ALT 20 U/L (12-78) 03/06/17 05:00 Alkaline Phosphatase 97 U/L (45-117) 03/06/17 05:00 Total Protein 6.0 g/dl (6.4-8.2) L 03/06/17 05:00 Albumin 2.7 g/dl (3.4-5.0) L 03/06/17 05:00 - RADIOLOGY CT head IMPRESSION: Mild ventriculomegaly that is slightly more than expected for the degree of cortical atrophy, without interval change. No mass lesion or gross acute infarct are identified. MRI brain reviewed and area of DWI suspicious for artifact LP- See lab section Medical Decision Making 66 year old female, with a significant past medical history of hypertension, diabetes, dementia, visual hallucinations, and CHRISTIANNE who presents to the emergency department accompanied by family, with increased confusion over the past 2 days. Per family member, the patient woke up this morning at approximately 04:00 shaking her right arm, turning her head to the right with an associated right sided droop of her lips. Family member states her episode lasted approximately 35 seconds, and has occurred intermittently since. Family reports the patient presented to the ED on 02/23/17 for confusion and hallucinations and was diagnosed with a UTI, discharged home, and started on antibiotics. As per daughter, patients blood sugar levels have been in the 250- 300 range throughout the day. Patient lives at home with family, and is able to carry a conversation and ambulate without a walker at her baseline. Keppra discontinued, Depakote only one dose given On Dilantin 100mg three times daily and stable on it OUTPATIENT WOULD BE ON DILANTIN 300MG DAILY, 100 TID dose is often difficult for compliance As per psych, Zyprexa 5mg twice daily EEG completed and reviewed, grossly normal Monitor glucose, prefer range 100-130 Continue Insulin Blood pressure control, continue MARSHA Goal BP < 140/90 Physical therapy Mental status much improved at this point AC for LLE DVT, Lovenox to Coumadin bridge Outpatient follow up, no further rec'd at this time
[2017-03-12] MEDS ORDERED: PT OWN MED DRAWER 7, Y5N ONE ×2 (11:17→21:41)
[2017-03-12] MEDS: ASPIRIN COATED 81 MG TABLET.EC PO SCH (11:19)
[2017-03-12] MEDS: DOCUSATE SODIUM 100 MG CAPSULE (FP) PO SCH (11:19)
[2017-03-12] MEDS: ENOXAPARIN NA (PORCINE) 60 MG/0.6 ML DISP.SYRIN SQ SCH ×2 (11:19→21:31)
[2017-03-12] MEDS: LISINOPRIL 5 MG TABLET (FP) PO SCH (11:19)
[2017-03-12] MEDS: amLODIPine BESYLATE 2.5 MG TABLET (FP) PO SCH (11:19)
--- NOTE | 2017-03-12 17:53 | PN ---
Teaching Attending Note Name of Resident: Bernardino Segura ATTENDING PHYSICIAN STATEMENT I saw and evaluated the patient. I reviewed the resident's note and discussed the case with the resident. I agree with the resident's findings and plan as documented. SUBJECTIVE: no pain or SOB . OBJECTIVE: NAD CV: RRR Lungs : CTAB Ext : LLE with minimal TTP , L leg circumference > R, and warmth. ASSESSMENT AND PLAN: 66F w/ hx of HTN and DM and recent hospitalization for UTI presented with seizure activity 1- Seizure activity 2- UTI 3- Acute metabolic encephalopathy , due to seizure , meds, delirium, and UTI . Now back to base line 4- HTN 5- DM 6- DVT of LLE Plan: - cont dilantin 100 TID , as out tp 300 daily - f/u with neuro as outpt - cont bridging with lovenox to coumadin. INR 1.2 ,give 7.5 coumadin tonight - cont lisinopril and norvasc - cont ASA for carotid plaque . - cont lipitor - Cont glipizide 10 BId and metformin to 1000 BID . start acarbose at DC [facility] has no insurance can't afford lovenox, need to finish bridging here for a safe DC
[2017-03-12] MEDS ORDERED: WARFARIN NA 7.5 MG TABLET (FP) PO SCH (18:00)
[2017-03-12] MEDS: ATORVASTATIN CA 20 MG TABLET (FP) PO SCH (21:31)
[2017-03-13] MEDS ORDERED: PT OWN MED DRAWER 7, Y5N ONE ×2 (06:22→22:57)
[2017-03-13] MEDS: PHENYTOIN NA EXTENDED 100 MG CAPSULE (FP) PO SCH ×3 (06:44→23:10)
[2017-03-13] MEDS: glipiZIDE 10 MG TABLET (FP) PO SCH ×2 (06:44→17:02)
[2017-03-13] MEDS ORDERED: INSULIN (NOVOLOG) ASPART 100 UNITS/ML 10ML VIAL ONE (06:47)
[2017-03-13] MEDS: INSULIN SLIDING SCALE (NOVOLOG) 1 VIAL SQ SCH ×4 (06:49→23:17)
--- NOTE | 2017-03-13 08:38 | PN ---
Physical Exam: SUBJECTIVE: Patient seen and examined. No acute events overnight, pt reports no new complaints. She denies SOB, chest pain, n/v/d/c, and dysuria. OBJECTIVE: Vital Signs Period Temp Pulse Resp BP Sys/Salvador Pulse Ox Last 24 Hr 97.3 F-99.3 F 71-90 18-18 119-136/56-74 99 GENERAL: The patient is awake, alert, in no acute distress. HEAD: Normal with no signs of trauma. EYES: PERRL, extraocular movements intact, sclera anicteric, conjunctiva clear. No ptosis. ENT: Ears normal, nares patent, oropharynx clear without exudates, moist mucous membranes. NECK: Trachea midline, full range of motion, supple. LUNGS: Breath sounds equal, clear to auscultation bilaterally, no wheezes, no crackles, no accessory muscle use. HEART: Regular rate and rhythm, S1, S2 without murmur, rub or gallop. ABDOMEN: Soft, nontender, nondistended, normoactive bowel sounds, no guarding, no rebound, no hepatosplenomegaly, no masses. EXTREMITIES: LLE is mildly erythematous, minimally tender to palpation, and mildly swollen. 1+ pitting edema in b/l LE, distal pulses intact NEUROLOGICAL: Cranial nerves II through XII grossly intact. Normal speech, gait not observed. PSYCH: Normal mood, normal affect. SKIN: Warm, dry, normal turgor, no rashes or lesions noted Laboratory Results - last 24 hr 03/12/17 03/12/17 03/12/17 11:46 17:20 21:27 POC Glucometer 168 195 173 03/13/17 06:14 POC Glucometer 175 Active Medications Generic Name Dose Route Start Last Admin Trade Name Freq PRN Reason Stop Dose Admin Acetaminophen 650 mg 03/11/17 17:18 03/11/17 17:40 Tylenol - PO 650 mg Q6H PRN Administration FEVER OR PAIN Amlodipine Besylate 2.5 mg 03/06/17 09:06 03/12/17 11:19 Norvasc - PO 2.5 mg DAILY ANAYELI Administration Aspirin 81 mg 03/06/17 16:30 03/12/17 11:19 Ecotrin - PO 81 mg DAILY ANAYELI Administration Atorvastatin Calcium 20 mg 03/06/17 22:00 03/12/17 21:31 Lipitor - PO 20 mg HS ANAYELI Administration Docusate Sodium 100 mg 03/05/17 10:00 03/12/17 11:19 Colace - PO 100 mg DAILY ANAYELI Administration Enoxaparin Sodium 60 mg 03/08/17 12:30 03/12/17 21:31 Lovenox - SQ 60 mg BID ANAYELI Administration Glipizide 10 mg 03/09/17 16:30 03/13/17 06:44 Glucotrol - PO 10 mg BIDAC ANAYELI Administration Insulin Aspart 1 vial 03/06/17 22:00 03/12/17 21:38 Novolog Vial Sliding Scale - SQ Not Given HS ANAYELI Protocol Insulin Aspart 1 vial 03/08/17 17:19 03/13/17 06:49 Novolog Vial Sliding Scale - SQ 6 units TIDAC ANAYELI Administration Protocol Lisinopril 5 mg 03/05/17 10:00 03/12/17 11:19 Prinivil PO 5 mg DAILY ANAYELI Administration Metformin HCl 1,000 mg 03/09/17 16:30 03/13/17 06:44 Glucophage Xr - PO 1,000 mg BIDAC ANAYELI Administration Phenytoin Sodium 100 mg 03/06/17 22:00 03/13/17 06:44 Dilantin - PO 100 mg TID ANAYELI Administration Warfarin Sodium 7.5 mg 03/12/17 18:00 03/12/17 17:24 Coumadin - PO 7.5 mg DAILY@1800 ANAYELI Administration ASSESSMENT/PLAN: 66F w/ hx of HTN and DM who presented with acute encephalopathy and intermittent seizures likely due to UTI, found to have DVT in LLE, currently bridging to coumadin (day 6). #LLE DVT -INR today of 1.57 up from 1.28. Coumadin changed from 7.5mg to 5mg. -continue 60mg lovenox BID with bridge to coumadin (day 6) -trend INR #episodic arm shaking and head turning- likely 2/2 UTI -no seizure activity since being started on phenytoin. #acute encephalopathy -likely 2/2 UTI -urine cultures grew E. coli whitley-sensitive except for levaquin. -finished course of abx -back at baseline mental status per daughter, resolved #HTN -continue amlodipine 2.5mg qd and lisinopril 5mg qd -monitor BP #Anemia -iron studies: ferritin 65, iron 53, TIBC 279, transferrin 231 -B12 wnl, folate elevated -f/u FOBT #Malodorous diarrhea -f/u c.diff studies #DM -SSI, BGM ACHS -endocrinology on board -continue metformin HCl 1000mg BIDAC and glipizide 10 BIDAC. #FEN/PPX -no fluids -no BMP -diabetic diet -no GI ppx -lovenox 60mg BID #Dispo -Per PT, pt able to walk 80 feet, but with unsteady gait. -Discussed w/ medical social worker that pt has no insurance and might not be covered for services -will write prescription for walker upon discharge -discussed pt's medical condition, medications, and answered all questions with daughter Aruna and pt using internal affairs commander service phone. -D/C pending therapeutic INR Bernardino Segura MD PGY1 Problem List - Problems (1) Diabetes Code(s): E11.9 - TYPE 2 DIABETES MELLITUS WITHOUT COMPLICATIONS Visit type - Emergency Visit Emergency Visit: Yes ED Registration Date: 02/28/17 Care time: The patient presented to the Emergency Department on the above date and was hospitalized for further evaluation of their emergent condition. - New Patient This patient is new to me today: No - Critical Care Critical Care patient: No
[2017-03-13] MEDS: amLODIPine BESYLATE 2.5 MG TABLET (FP) PO SCH (09:49)
[2017-03-13] MEDS: LISINOPRIL 5 MG TABLET (FP) PO SCH (09:49)
[2017-03-13] MEDS: DOCUSATE SODIUM 100 MG CAPSULE (FP) PO SCH (09:49)
[2017-03-13] MEDS: ENOXAPARIN NA (PORCINE) 60 MG/0.6 ML DISP.SYRIN SQ SCH ×2 (09:49→23:10)
[2017-03-13] MEDS: ASPIRIN COATED 81 MG TABLET.EC PO SCH (09:50)
[2017-03-13 10:16] LABS: INR 1.57 (0.82-1.09); PROTHROMBIN TIME (PATIENT) 17.4 SEC (9.98-11.88)
--- NOTE | 2017-03-13 10:37 | PN ---
Progress Note (short form) - Note Progress Note: Neurology History of Present Illness The patient is a 66 year old female, with a significant past medical history of hypertension, diabetes, dementia, visual hallucinations, and CHRISTIANNE who presents to the emergency department accompanied by family, with increased confusion for 2 days prior to arrival. Per family member, the patient woke up morning of admission approximately 04:00 shaking her right arm, turning her head to the right with an associated right sided droop of her lips. Family member states her episode lasted approximately 35 seconds, and has occurred intermittently since. Family reports the patient presented to the ED on 02/23/17 for confusion and hallucinations and was diagnosed with a UTI, discharged home, and started on antibiotics. As per daughter, patients blood sugar levels have been in the 250-300 range throughout the day. Patient lives at home with family, and is able to carry a conversation and ambulate without a walker at her baseline. I arrived in the ER to see the patient, she was awake and responsive to me but not following all commands. She did seem to possess strength throughout and was Not TPA case due to no longer being in window and symptoms seem more general and not focal. CT head was completed and did not show any acute changes. Family at bedside and confirmed history that was provided. She was started on keppra 500mg twice daily. Repeat CT head completed and no structural changes. She is getting Ceftriaxone for UTI and this may have been precipitant for her convulsions. Has been having right arm shaking and also personality change so spoke to PMD and decision made to switch to Depakote which also has mood stabilization properties. Psych consulted and patient given Zyprexa 5mg twice a day as well. Thereafter, patient with repeat episode and decision made to transfer to ICU where LP was completed and 0 Wbc, normal protein, does not meet criteria for meningitis or encephalitis. Was switched to Dilantin, has not been have seizures, and downgraded to floor status and more stable now. Awake and alert with me. She has been able to tell me she's in the hospital which is much improved from previous. She seems to be at her baseline. Neurologically remains and well appearing. She did not have any events over the weekend. Is getting AC for LLE DVT per notes, lovenox to Coumadin bridge and awaiting theraputic range. Active Medications Acetaminophen (Tylenol -) 650 mg PO Q6H PRN PRN Reason: FEVER OR PAIN Last Admin: 03/11/17 17:40 Dose: 650 mg Amlodipine Besylate (Norvasc -) 2.5 mg PO DAILY [facility] Last Admin: 03/13/17 09:49 Dose: 2.5 mg Aspirin (Ecotrin -) 81 mg PO DAILY [facility] Last Admin: 03/13/17 09:50 Dose: 81 mg Atorvastatin Calcium (Lipitor -) 20 mg PO HS [facility] Last Admin: 03/12/17 21:31 Dose: 20 mg Docusate Sodium (Colace -) 100 mg PO DAILY [facility] Last Admin: 03/13/17 09:49 Dose: 100 mg Enoxaparin Sodium (Lovenox -) 60 mg SQ BID [facility] Last Admin: 03/13/17 09:49 Dose: 60 mg Glipizide (Glucotrol -) 10 mg PO BIDAC [facility] Last Admin: 03/13/17 06:44 Dose: 10 mg Insulin Aspart (Novolog Vial Sliding Scale -) 1 vial SQ HS [facility] PRN Reason: Protocol Last Admin: 03/12/17 21:38 Dose: Not Given Insulin Aspart (Novolog Vial Sliding Scale -) 1 vial SQ TIDAC [facility] PRN Reason: Protocol Last Admin: 03/13/17 06:49 Dose: 6 units Lisinopril (Prinivil) 5 mg PO DAILY [facility] Last Admin: 03/13/17 09:49 Dose: 5 mg Metformin HCl (Glucophage Xr -) 1,000 mg PO BIDAC [facility] Last Admin: 03/13/17 06:44 Dose: 1,000 mg Phenytoin Sodium (Dilantin -) 100 mg PO TID [facility] Last Admin: 03/13/17 06:44 Dose: 100 mg Warfarin Sodium (Coumadin -) 7.5 mg PO DAILY@1800 [facility] Last Admin: 03/12/17 17:24 Dose: 7.5 mg *Physical Exam Vital Signs Temperature 98.1 F 03/13/17 07:53 Pulse Rate 85 03/13/17 07:53 Respiratory Rate 18 03/13/17 07:53 Blood Pressure 132/66 03/13/17 07:53 O2 Sat by Pulse Oximetry (%) 99 03/12/17 21:00 "GENERAL: Awake, alert, cooperative, following commands HEAD: No signs of trauma EYES: PERRLA, EOMI, sclera anicteric, conjunctiva clear ENT: No tongue lacerations, Auricles normal inspection, hearing grossly normal, nares patent, oropharynx clear without exudates. Moist mucosa NECK: Normal ROM, supple, no lymphadenopathy, JVD, or masses LUNGS: Breath sounds equal, clear to auscultation bilaterally. No wheezes, and no crackles HEART: Regular rate and rhythm, normal S1 and S2, no murmurs, rubs or gallops ABDOMEN: Soft, nontender, normoactive bowel sounds. No guarding, no rebound. No masses EXTREMITIES: Normal range of motion, no edema. No clubbing or cyanosis. No cords, erythema, or tenderness NEUROLOGICAL: Awake, alert, following commands, more cooperative, Cranial nerves II through XII grossly intact. moves all extremities spontaneously, sensory intact, gait deferred SKIN: Warm, Dry, normal turgor, no rashes or lesions noted. CBCD WBC 5.7 K/mm3 (4.0-10.0) 03/10/17 06:00 RBC 3.74 M/mm3 (3.60-5.2) 03/10/17 06:00 Hgb 10.9 GM/dL (10.7-15.3) 03/10/17 06:00 Hct 32.6 % (32.4-45.2) 03/10/17 06:00 MCV 87.2 fl (80-96) 03/10/17 06:00 MCHC 33.3 g/dl (32.0-36.0) 03/10/17 06:00 RDW 12.8 % (11.6-15.6) 03/10/17 06:00 Plt Count 147 K/MM3 (134-434) 03/10/17 06:00 MPV 8.2 fl (7.5-11.1) 03/10/17 06:00 CMP Sodium 141 mmol/L (136-145) 03/07/17 05:15 Potassium 4.4 mmol/L (3.5-5.1) 03/07/17 05:15 Chloride 108 mmol/L (98-107) H 03/07/17 05:15 Carbon Dioxide 24 mmol/L (21-32) 03/07/17 05:15 Anion Gap 9 (8-16) 03/07/17 05:15 BUN 16 mg/dL (7-18) 03/07/17 05:15 Creatinine 1.0 mg/dL (0.55-1.02) 03/07/17 05:15 Creat Clearance w eGFR 49.69 (>60) 03/06/17 05:00 Calcium 8.6 mg/dL (8.5-10.1) 03/07/17 05:15 Total Bilirubin 0.3 mg/dL (0.2-1.0) D 03/06/17 05:00 AST 14 U/L (15-37) L 03/06/17 05:00 ALT 20 U/L (12-78) 03/06/17 05:00 Alkaline Phosphatase 97 U/L (45-117) 03/06/17 05:00 Total Protein 6.0 g/dl (6.4-8.2) L 03/06/17 05:00 Albumin 2.7 g/dl (3.4-5.0) L 03/06/17 05:00 - RADIOLOGY CT head IMPRESSION: Mild ventriculomegaly that is slightly more than expected for the degree of cortical atrophy, without interval change. No mass lesion or gross acute infarct are identified. MRI brain reviewed and area of DWI suspicious for artifact LP- See lab section Medical Decision Making 66 year old female, with a significant past medical history of hypertension, diabetes, dementia, visual hallucinations, and CHRISTIANNE who presents to the emergency department accompanied by family, with increased confusion over the past 2 days. Per family member, the patient woke up this morning at approximately 04:00 shaking her right arm, turning her head to the right with an associated right sided droop of her lips. Family member states her episode lasted approximately 35 seconds, and has occurred intermittently since. Family reports the patient presented to the ED on 02/23/17 for confusion and hallucinations and was diagnosed with a UTI, discharged home, and started on antibiotics. As per daughter, patients blood sugar levels have been in the 250- 300 range throughout the day. Patient lives at home with family, and is able to carry a conversation and ambulate without a walker at her baseline. Keppra discontinued, Depakote only one dose given On Dilantin 100mg three times daily and stable on it OUTPATIENT WOULD BE ON DILANTIN 300MG DAILY, 100 TID dose is often difficult for compliance As per psych, Zyprexa 5mg twice daily EEG completed and reviewed, grossly normal Monitor glucose, prefer range 100-130 Continue Insulin Blood pressure control, continue MARSHA Goal BP < 140/90 Physical therapy Mental status much improved at this point AC for LLE DVT, Lovenox to Coumadin bridge Awaiting theraputic INR range Outpatient follow up, no further rec'd at this time
[2017-03-13] MEDS: WARFARIN NA 5 MG TABLET (UD) PO SCH (17:02)
--- NOTE | 2017-03-13 18:38 | PN ---
Teaching Attending Note Name of Resident: Bernardino Segura ATTENDING PHYSICIAN STATEMENT I saw and evaluated the patient. I reviewed the resident's note and discussed the case with the resident. I agree with the resident's findings and plan as documented. SUBJECTIVE: No fever or chills. no pain OBJECTIVE: NAD CV: RRR Lungs: CTAB Ext : LLE with no tenderness , L leg circumference > R. ASSESSMENT AND PLAN: 66F w/ hx of HTN and DM and recent hospitalization for UTI presented with seizure activity 1- Seizure activity 2- UTI 3- Acute metabolic encephalopathy , due to seizure , meds, delirium, and UTI . Now back to base line 4- HTN 5- DM 6- DVT of LLE Plan: - cont dilantin 100 TID , as out tp 300 daily - f/u with neuro as outpt - cont bridging with lovenox to coumadin.give 5 of coumadin tonight - cont lisinopril and norvasc - cont ASA for carotid plaque . - cont lipitor - Cont glipizide 10 BId and metformin to 1000 BID. start acarbose at DC ( no insurance, can't afford insulin ) [facility] has no insurance can't afford lovenox, need to finish bridging here for a safe DC
[2017-03-13] MEDS: ATORVASTATIN CA 20 MG TABLET (FP) PO SCH (23:10)
[2017-03-14] MEDS ORDERED: PT OWN MED DRAWER 7, Y5N ONE ×3 (06:50→21:46)
[2017-03-14] MEDS: INSULIN SLIDING SCALE (NOVOLOG) 1 VIAL SQ SCH ×4 (06:51→22:24)
[2017-03-14] MEDS: glipiZIDE 10 MG TABLET (FP) PO SCH ×2 (06:51→16:39)
[2017-03-14] MEDS: PHENYTOIN NA EXTENDED 100 MG CAPSULE (FP) PO SCH ×3 (06:51→21:48)
[2017-03-14 07:45] LABS: INR 1.83 (0.82-1.09); PROTHROMBIN TIME (PATIENT) 20.4 SEC (9.98-11.88)
[2017-03-14] MEDS: ASPIRIN COATED 81 MG TABLET.EC PO SCH (09:17)
[2017-03-14] MEDS: LISINOPRIL 5 MG TABLET (FP) PO SCH (09:17)
[2017-03-14] MEDS: DOCUSATE SODIUM 100 MG CAPSULE (FP) PO SCH (09:17)
[2017-03-14] MEDS: amLODIPine BESYLATE 2.5 MG TABLET (FP) PO SCH (09:17)
[2017-03-14] MEDS: ENOXAPARIN NA (PORCINE) 60 MG/0.6 ML DISP.SYRIN SQ SCH ×2 (09:17→21:47)
--- NOTE | 2017-03-14 10:09 | PN ---
Progress Note (short form) - Note Progress Note: Neurology History of Present Illness The patient is a 66 year old female, with a significant past medical history of hypertension, diabetes, dementia, visual hallucinations, and CHRISTIANNE who presents to the emergency department accompanied by family, with increased confusion for 2 days prior to arrival. Per family member, the patient woke up morning of admission approximately 04:00 shaking her right arm, turning her head to the right with an associated right sided droop of her lips. Family member states her episode lasted approximately 35 seconds, and has occurred intermittently since. Family reports the patient presented to the ED on 02/23/17 for confusion and hallucinations and was diagnosed with a UTI, discharged home, and started on antibiotics. As per daughter, patients blood sugar levels have been in the 250-300 range throughout the day. Patient lives at home with family, and is able to carry a conversation and ambulate without a walker at her baseline. I arrived in the ER to see the patient, she was awake and responsive to me but not following all commands. She did seem to possess strength throughout and was Not TPA case due to no longer being in window and symptoms seem more general and not focal. CT head was completed and did not show any acute changes. Family at bedside and confirmed history that was provided. She was started on keppra 500mg twice daily. Repeat CT head completed and no structural changes. She is getting Ceftriaxone for UTI and this may have been precipitant for her convulsions. Has been having right arm shaking and also personality change so spoke to PMD and decision made to switch to Depakote which also has mood stabilization properties. Psych consulted and patient given Zyprexa 5mg twice a day as well. Thereafter, patient with repeat episode and decision made to transfer to ICU where LP was completed and 0 Wbc, normal protein, does not meet criteria for meningitis or encephalitis. Was switched to Dilantin, has not been have seizures, and downgraded to floor status and more stable now. Awake and alert with me. She has been able to tell me she's in the hospital which is much improved from previous. She seems to be at her baseline. Neurologically remains and well appearing. Is getting AC for LLE DVT per notes, lovenox to Coumadin bridge and awaiting theraputic range. No acute events overnight. Active Medications Acetaminophen (Tylenol -) 650 mg PO Q6H PRN PRN Reason: FEVER OR PAIN Last Admin: 03/11/17 17:40 Dose: 650 mg Amlodipine Besylate (Norvasc -) 2.5 mg PO DAILY [facility] Last Admin: 03/14/17 09:17 Dose: 2.5 mg Aspirin (Ecotrin -) 81 mg PO DAILY [facility] Last Admin: 03/14/17 09:17 Dose: 81 mg Atorvastatin Calcium (Lipitor -) 20 mg PO HS [facility] Last Admin: 03/13/17 23:10 Dose: 20 mg Docusate Sodium (Colace -) 100 mg PO DAILY [facility] Last Admin: 03/14/17 09:17 Dose: 100 mg Enoxaparin Sodium (Lovenox -) 60 mg SQ BID [facility] Last Admin: 03/14/17 09:17 Dose: 60 mg Glipizide (Glucotrol -) 10 mg PO BIDAC [facility] Last Admin: 03/14/17 06:51 Dose: 10 mg Insulin Aspart (Novolog Vial Sliding Scale -) 1 vial SQ HS [facility] PRN Reason: Protocol Last Admin: 03/13/17 23:17 Dose: Not Given Insulin Aspart (Novolog Vial Sliding Scale -) 1 vial SQ TIDAC [facility] PRN Reason: Protocol Last Admin: 03/14/17 06:51 Dose: 4 units Lisinopril (Prinivil) 5 mg PO DAILY [facility] Last Admin: 03/14/17 09:17 Dose: 5 mg Metformin HCl (Glucophage Xr -) 1,000 mg PO BIDAC [facility] Last Admin: 03/14/17 06:51 Dose: 1,000 mg Phenytoin Sodium (Dilantin -) 100 mg PO TID [facility] Last Admin: 03/14/17 06:51 Dose: 100 mg Warfarin Sodium (Coumadin -) 5 mg PO DAILY@1800 [facility] Last Admin: 03/13/17 17:02 Dose: 5 mg *Physical Exam Vital Signs Temperature 98.4 F 03/14/17 06:00 Pulse Rate 74 03/14/17 06:00 Respiratory Rate 18 03/14/17 06:00 Blood Pressure 124/55 03/14/17 06:00 O2 Sat by Pulse Oximetry (%) 97 03/13/17 21:00 "GENERAL: Awake, alert, cooperative, following commands HEAD: No signs of trauma EYES: PERRLA, EOMI, sclera anicteric, conjunctiva clear ENT: No tongue lacerations, Auricles normal inspection, hearing grossly normal, nares patent, oropharynx clear without exudates. Moist mucosa NECK: Normal ROM, supple, no lymphadenopathy, JVD, or masses LUNGS: Breath sounds equal, clear to auscultation bilaterally. No wheezes, and no crackles HEART: Regular rate and rhythm, normal S1 and S2, no murmurs, rubs or gallops ABDOMEN: Soft, nontender, normoactive bowel sounds. No guarding, no rebound. No masses EXTREMITIES: Normal range of motion, no edema. No clubbing or cyanosis. No cords, erythema, or tenderness NEUROLOGICAL: Awake, alert, following commands, more cooperative, Cranial nerves II through XII grossly intact. moves all extremities spontaneously, sensory intact, gait deferred SKIN: Warm, Dry, normal turgor, no rashes or lesions noted. CBCD WBC 5.7 K/mm3 (4.0-10.0) 03/10/17 06:00 RBC 3.74 M/mm3 (3.60-5.2) 03/10/17 06:00 Hgb 10.9 GM/dL (10.7-15.3) 03/10/17 06:00 Hct 32.6 % (32.4-45.2) 03/10/17 06:00 MCV 87.2 fl (80-96) 03/10/17 06:00 MCHC 33.3 g/dl (32.0-36.0) 03/10/17 06:00 RDW 12.8 % (11.6-15.6) 03/10/17 06:00 Plt Count 147 K/MM3 (134-434) 03/10/17 06:00 MPV 8.2 fl (7.5-11.1) 03/10/17 06:00 CMP Sodium 141 mmol/L (136-145) 03/07/17 05:15 Potassium 4.4 mmol/L (3.5-5.1) 03/07/17 05:15 Chloride 108 mmol/L (98-107) H 03/07/17 05:15 Carbon Dioxide 24 mmol/L (21-32) 03/07/17 05:15 Anion Gap 9 (8-16) 03/07/17 05:15 BUN 16 mg/dL (7-18) 09/06/17 05:15 Creatinine 1.0 mg/dL (0.55-1.02) 03/07/17 05:15 Creat Clearance w eGFR 49.69 (>60) 03/06/17 05:00 Calcium 8.6 mg/dL (8.5-10.1) 03/07/17 05:15 Total Bilirubin 0.3 mg/dL (0.2-1.0) D 03/06/17 05:00 AST 14 U/L (15-37) L 03/06/17 05:00 ALT 20 U/L (12-78) 03/06/17 05:00 Alkaline Phosphatase 97 U/L (45-117) 03/06/17 05:00 Total Protein 6.0 g/dl (6.4-8.2) L 03/06/17 05:00 Albumin 2.7 g/dl (3.4-5.0) L 03/06/17 05:00 - RADIOLOGY CT head IMPRESSION: Mild ventriculomegaly that is slightly more than expected for the degree of cortical atrophy, without interval change. No mass lesion or gross acute infarct are identified. MRI brain reviewed and area of DWI suspicious for artifact LP- See lab section Medical Decision Making 66 year old female, with a significant past medical history of hypertension, diabetes, dementia, visual hallucinations, and CHRISTIANNE who presents to the emergency department accompanied by family, with increased confusion over the past 2 days. Per family member, the patient woke up this morning at approximately 04:00 shaking her right arm, turning her head to the right with an associated right sided droop of her lips. Family member states her episode lasted approximately 35 seconds, and has occurred intermittently since. Family reports the patient presented to the ED on 02/23/17 for confusion and hallucinations and was diagnosed with a UTI, discharged home, and started on antibiotics. As per daughter, patients blood sugar levels have been in the 250- 300 range throughout the day. Patient lives at home with family, and is able to carry a conversation and ambulate without a walker at her baseline. Keppra discontinued, Depakote only one dose given Stable on Dilantin, 300mg daily as outpatient As per psych, Zyprexa 5mg twice daily EEG completed and reviewed, grossly normal Monitor glucose, prefer range 100-130 Continue Insulin Blood pressure control, continue MARSHA Goal BP < 140/90 Physical therapy Mental status much improved at this point AC for LLE DVT, Lovenox to Coumadin bridge Awaiting theraputic INR range Outpatient follow up, no further rec'd at this time
--- NOTE | 2017-03-14 11:38 | PN ---
Physical Exam: SUBJECTIVE: Patient seen and examined. No acute events overnight. Pt has no complaints, denies headache, chest pain, SOB, abdominal pain, n/v/d/c, dysuria, and leg pain. She states that is walking around without any leg pain as well. OBJECTIVE: Vital Signs Period Temp Pulse Resp BP Sys/Salvador Pulse Ox Last 24 Hr 97.6 F-98.6 F 74-90 18-20 116-136/55-77 97 GENERAL: The patient is awake, alert, and fully oriented, in no acute distress. HEAD: Normal with no signs of trauma. EYES: PERRL, extraocular movements intact, sclera anicteric, conjunctiva clear. No ptosis. ENT: Ears normal, nares patent, oropharynx clear without exudates, moist mucous membranes. NECK: Trachea midline, full range of motion, supple. LUNGS: Breath sounds equal, clear to auscultation bilaterally, no wheezes, no crackles, no accessory muscle use. HEART: Regular rate and rhythm, S1, S2 without murmur, rub or gallop. ABDOMEN: Soft, nontender, nondistended, normoactive bowel sounds, no guarding, no rebound, no hepatosplenomegaly, no masses. EXTREMITIES: LLE minimally tender to palpation, 1+ edema L>R NEUROLOGICAL: Cranial nerves II through XII grossly intact. Normal speech, gait not observed. PSYCH: Normal mood, normal affect. SKIN: Warm, dry, normal turgor, no rashes or lesions noted Laboratory Results - last 24 hr 03/13/17 03/13/17 03/14/17 17:01 23:16 05:35 INR 1.83 H POC Glucometer 159 172 03/14/17 05:40 INR POC Glucometer 146 Active Medications Generic Name Dose Route Start Last Admin Trade Name Freq PRN Reason Stop Dose Admin Acetaminophen 650 mg 03/11/17 17:18 03/11/17 17:40 Tylenol - PO 650 mg Q6H PRN Administration FEVER OR PAIN Amlodipine Besylate 2.5 mg 03/06/17 09:06 03/14/17 09:17 Norvasc - PO 2.5 mg DAILY [facility] Administration Aspirin 81 mg 03/06/17 16:30 03/14/17 09:17 Ecotrin - PO 81 mg DAILY [facility] Administration Atorvastatin Calcium 20 mg 03/06/17 22:00 03/13/17 23:10 Lipitor - PO 20 mg HS [facility] Administration Docusate Sodium 100 mg 03/05/17 10:00 03/14/17 09:17 Colace - PO 100 mg DAILY [facility] Administration Enoxaparin Sodium 60 mg 03/08/17 12:30 03/14/17 09:17 Lovenox - SQ 60 mg BID [facility] Administration Glipizide 10 mg 03/09/17 16:30 03/14/17 06:51 Glucotrol - PO 10 mg BIDAC [facility] Administration Insulin Aspart 1 vial 03/06/17 22:00 03/13/17 23:17 Novolog Vial Sliding Scale - SQ Not Given HS [facility] Protocol Insulin Aspart 1 vial 03/08/17 17:19 03/14/17 06:51 Novolog Vial Sliding Scale - SQ 4 units TIDAC [facility] Administration Protocol Lisinopril 5 mg 03/05/17 10:00 03/14/17 09:17 Prinivil PO 5 mg DAILY [facility] Administration Metformin HCl 1,000 mg 03/09/17 16:30 03/14/17 06:51 Glucophage Xr - PO 1,000 mg BIDAC [facility] Administration Phenytoin Sodium 100 mg 03/06/17 22:00 03/14/17 06:51 Dilantin - PO 100 mg TID [facility] Administration Warfarin Sodium 5 mg 03/13/17 18:00 03/13/17 17:02 Coumadin - PO 5 mg DAILY@1800 [facility] Administration ASSESSMENT/PLAN: 66F w/ hx of HTN and DM who presented with acute encephalopathy and intermittent seizures likely due to UTI, found to have DVT in LLE, currently bridging to coumadin (day 7). #LLE DVT -INR today of 1.83 up from 1.57 -continue coumadin 5mg and 60mg lovenox BID (day 7 of bridge) -trend INR #episodic arm shaking and head turning- likely 2/2 UTI -no seizure activity since being started on phenytoin. #acute encephalopathy -likely 2/2 UTI -urine cultures grew E. coli whitley-sensitive except for levaquin. -finished course of abx -back at baseline mental status per daughter, resolved #HTN -continue amlodipine 2.5mg qd and lisinopril 5mg qd -monitor BP #Anemia -iron studies: ferritin 65, iron 53, TIBC 279, transferrin 231 -B12 wnl, folate elevated -f/u FOBT #Malodorous diarrhea -f/u c.diff studies #DM -SSI, BGM ACHS -endocrinology on board -continue metformin HCl 1000mg BIDAC and glipizide 10 BIDAC. #FEN/PPX -no fluids -no BMP -diabetic diet -no GI ppx -lovenox 60mg BID #Dispo -Per PT, pt able to walk 80 feet, but with unsteady gait. -Discussed w/ family welfare social work professor that pt has no insurance and might not be covered for services -will write prescription for walker upon discharge -discussed pt's medical condition, medications, and answered all questions with daughter Aruna and pt using burr bench hand service phone. -D/C pending therapeutic INR Bernardino Segura MD PGY1 Problem List - Problems (1) Diabetes Code(s): E11.9 - TYPE 2 DIABETES MELLITUS WITHOUT COMPLICATIONS Visit type - Emergency Visit Emergency Visit: Yes ED Registration Date: 02/28/17 Care time: The patient presented to the Emergency Department on the above date and was hospitalized for further evaluation of their emergent condition. - New Patient This patient is new to me today: No - Critical Care Critical Care patient: No
--- NOTE | 2017-03-14 13:04 | PN ---
Teaching Attending Note Name of Resident: Bernardino Segura ATTENDING PHYSICIAN STATEMENT I saw and evaluated the patient. I reviewed the resident's note and discussed the case with the resident. I agree with the resident's findings and plan as documented. SUBJECTIVE: Patient is feeling better, back to her normal status. OBJECTIVE: Vital Signs Temperature 98 F 03/14/17 10:00 Pulse Rate 86 03/14/17 10:00 Respiratory Rate 18 03/14/17 10:00 Blood Pressure 136/76 03/14/17 10:00 O2 Sat by Pulse Oximetry (%) 99 03/14/17 09:00 CBCD WBC 5.7 K/mm3 (4.0-10.0) 03/10/17 06:00 RBC 3.74 M/mm3 (3.60-5.2) 03/10/17 06:00 Hgb 10.9 GM/dL (10.7-15.3) 03/10/17 06:00 Hct 32.6 % (32.4-45.2) 03/10/17 06:00 MCV 87.2 fl (80-96) 03/10/17 06:00 MCHC 33.3 g/dl (32.0-36.0) 03/10/17 06:00 RDW 12.8 % (11.6-15.6) 03/10/17 06:00 Plt Count 147 K/MM3 (134-434) 03/10/17 06:00 MPV 8.2 fl (7.5-11.1) 03/10/17 06:00 CMP Sodium 141 mmol/L (136-145) 03/07/17 05:15 Potassium 4.4 mmol/L (3.5-5.1) 03/07/17 05:15 Chloride 108 mmol/L (98-107) H 03/07/17 05:15 Carbon Dioxide 24 mmol/L (21-32) 03/07/17 05:15 Anion Gap 9 (8-16) 03/07/17 05:15 BUN 16 mg/dL (7-18) 03/07/17 05:15 Creatinine 1.0 mg/dL (0.55-1.02) 03/07/17 05:15 Creat Clearance w eGFR 49.69 (>60) 03/06/17 05:00 Random Glucose 182 mg/dL (74-106) H D 03/07/17 05:15 Calcium 8.6 mg/dL (8.5-10.1) 03/07/17 05:15 Total Bilirubin 0.3 mg/dL (0.2-1.0) D 03/06/17 05:00 AST 14 U/L (15-37) L 03/06/17 05:00 ALT 20 U/L (12-78) 03/06/17 05:00 Alkaline Phosphatase 97 U/L (45-117) 03/06/17 05:00 Total Protein 6.0 g/dl (6.4-8.2) L 03/06/17 05:00 Albumin 2.7 g/dl (3.4-5.0) L 03/06/17 05:00 CARDIAC ENZYMES Creatine Kinase 49 IU/L (26-192) 03/04/17 06:00 Troponin I < 0.02 ng/ml (0.00-0.05) 02/28/17 10:41 Current Medications Generic Name Dose Route Start Last Admin Trade Name Melisa PRN Reason Stop Dose Admin Acetaminophen 650 mg 03/11/17 17:18 03/11/17 17:40 Tylenol - PO 650 mg Q6H PRN Administration FEVER OR PAIN Amlodipine Besylate 2.5 mg 03/06/17 09:06 03/14/17 09:17 Norvasc - PO 2.5 mg DAILY ANAYELI Administration Aspirin 81 mg 03/06/17 16:30 03/14/17 09:17 Ecotrin - PO 81 mg DAILY ANAYELI Administration Atorvastatin Calcium 20 mg 03/06/17 22:00 03/13/17 23:10 Lipitor - PO 20 mg HS ANAYELI Administration Docusate Sodium 100 mg 03/05/17 10:00 03/14/17 09:17 Colace - PO 100 mg DAILY ANAYELI Administration Enoxaparin Sodium 60 mg 03/08/17 12:30 03/14/17 09:17 Lovenox - SQ 60 mg BID ANAYELI Administration Glipizide 10 mg 03/09/17 16:30 03/14/17 06:51 Glucotrol - PO 10 mg BIDAC ANAYELI Administration Insulin Aspart 1 vial 03/06/17 22:00 03/13/17 23:17 Novolog Vial Sliding Scale - SQ Not Given HS [facility] Protocol Insulin Aspart 1 vial 03/08/17 17:19 03/14/17 12:20 Novolog Vial Sliding Scale - SQ 6 units TIDAC ANAYELI Administration Protocol Lisinopril 5 mg 03/05/17 10:00 03/14/17 09:17 Prinivil PO 5 mg DAILY ANAYELI Administration Metformin HCl 1,000 mg 03/09/17 16:30 03/14/17 06:51 Glucophage Xr - PO 1,000 mg BIDAC ANAYELI Administration Phenytoin Sodium 100 mg 03/06/17 22:00 03/14/17 06:51 Dilantin - PO 100 mg TID ANAYELI Administration Warfarin Sodium 5 mg 03/13/17 18:00 03/13/17 17:02 Coumadin - PO 5 mg DAILY@1800 ANAYELI Administration Home Medications Medication Instructions Recorded Lisinopril 5 mg PO DAILY 02/23/17 Insulin (Levemir) [Levemir Flexpen 5 units SQ HS #1 pen 02/25/17 -] Amlodipine Besylate [Norvasc -] 2.5 mg PO DAILY #30 tablet 03/07/17 Aspirin Coated [Ecotrin -] 81 mg PO DAILY #30 tab 03/07/17 Atorvastatin Ca [Lipitor] 20 mg PO HS #30 tablet 03/07/17 Insulin Sliding Scale [Novolog See Protocol SQ AC #100 units 03/07/17 Vial Sliding Scale -] Phenytoin Na Extended [Dilantin -] 100 mg PO TID #90 tab 03/07/17 Phenytoin Na Extended [Dilantin -] 300 mg PO DAILY #90 capsule 03/07/17 LE: Left leg swollen but no pain or tenderness. Pulses are positive both LE and Upper extremities. rest of physical exam by the resident. ASSESSMENT AND PLAN: 66F w/ hx of HTN and DM and recent hospitalization for UTI presented with seizure activity # s/p Seizure activity ,well controlled on Phenytoin will recheck with neurology whether to send the patient home on phenytoin # s/p UTI s/p post Rocephin IV # Acute metabolic encephalopathy due to UTI due to seizure , meds, delirium, and UTI . Now back to her base line # HTN controlled #T2DM on metformin and glyburide continue # DVT of LLE ,on coumadin another 5mg today Pt/INR daily start acarbose at [place] ( no insurance, can't afford insulin ) Patient requiring coumadin can't afford lovenox, need to finish bridging here for a safe DC
[2017-03-14] MEDS: WARFARIN NA 5 MG TABLET (UD) PO SCH (18:50)
[2017-03-14] MEDS: ATORVASTATIN CA 20 MG TABLET (FP) PO SCH (21:47)
[2017-03-15] MEDS: PHENYTOIN NA EXTENDED 100 MG CAPSULE (FP) PO SCH ×3 (06:15→21:02)
[2017-03-15] MEDS: INSULIN SLIDING SCALE (NOVOLOG) 1 VIAL SQ SCH ×4 (06:16→21:05)
[2017-03-15] MEDS: glipiZIDE 10 MG TABLET (FP) PO SCH ×2 (06:16→16:28)
[2017-03-15 07:34] LABS: INR 1.76 (0.82-1.09); PROTHROMBIN TIME (PATIENT) 19.6 SEC (9.98-11.88)
--- NOTE | 2017-03-15 10:43 | PN ---
Progress Note (short form) - Note Progress Note: Neurology History of Present Illness The patient is a 66 year old female, with a significant past medical history of hypertension, diabetes, dementia, visual hallucinations, and CHRISTIANNE who presents to the emergency department accompanied by family, with increased confusion for 2 days prior to arrival. Per family member, the patient woke up morning of admission approximately 04:00 shaking her right arm, turning her head to the right with an associated right sided droop of her lips. Family member states her episode lasted approximately 35 seconds, and has occurred intermittently since. Family reports the patient presented to the ED on 02/23/17 for confusion and hallucinations and was diagnosed with a UTI, discharged home, and started on antibiotics. As per daughter, patients blood sugar levels have been in the 250-300 range throughout the day. Patient lives at home with family, and is able to carry a conversation and ambulate without a walker at her baseline. I arrived in the ER to see the patient, she was awake and responsive to me but not following all commands. She did seem to possess strength throughout and was Not TPA case due to no longer being in window and symptoms seem more general and not focal. CT head was completed and did not show any acute changes. Family at bedside and confirmed history that was provided. She was started on keppra 500mg twice daily. Repeat CT head completed and no structural changes. She is getting Ceftriaxone for UTI and this may have been precipitant for her convulsions. Has been having right arm shaking and also personality change so spoke to PMD and decision made to switch to Depakote which also has mood stabilization properties. Psych consulted and patient given Zyprexa 5mg twice a day as well. Thereafter, patient with repeat episode and decision made to transfer to ICU where LP was completed and 0 Wbc, normal protein, does not meet criteria for meningitis or encephalitis. Was switched to Dilantin, has not been have seizures, and downgraded to floor status and more stable now. Awake and alert with me. She has been able to tell me she's in the hospital which is much improved from previous. She seems to be at her baseline. Neurologically remains and well appearing. Is getting AC for LLE DVT per notes, lovenox to Coumadin bridge and awaiting theraputic range. No acute events overnight. Has been stable on phenytoin and would benefit from this medication as outpatient as would want to avoid recurrence of seizures. Active Medications Acetaminophen (Tylenol -) 650 mg PO Q6H PRN PRN Reason: FEVER OR PAIN Last Admin: 03/11/17 17:40 Dose: 650 mg Amlodipine Besylate (Norvasc -) 2.5 mg PO DAILY [facility] Last Admin: 03/14/17 09:17 Dose: 2.5 mg Aspirin (Ecotrin -) 81 mg PO DAILY [facility] Last Admin: 03/14/17 09:17 Dose: 81 mg Atorvastatin Calcium (Lipitor -) 20 mg PO HS [facility] Last Admin: 03/14/17 21:47 Dose: 20 mg Docusate Sodium (Colace -) 100 mg PO DAILY [facility] Last Admin: 03/14/17 09:17 Dose: 100 mg Enoxaparin Sodium (Lovenox -) 60 mg SQ BID [facility] Last Admin: 03/14/17 21:47 Dose: 60 mg Glipizide (Glucotrol -) 10 mg PO BIDAC [facility] Last Admin: 03/15/17 06:16 Dose: 10 mg Insulin Aspart (Novolog Vial Sliding Scale -) 1 vial SQ [facility] PRN Reason: Protocol Last Admin: 03/14/17 22:24 Dose: Not Given Insulin Aspart (Novolog Vial Sliding Scale -) 1 vial SQ TIDAC [facility] PRN Reason: Protocol Last Admin: 03/15/17 06:16 Dose: 4 units Lisinopril (Prinivil) 5 mg PO DAILY [facility] Last Admin: 03/14/17 09:17 Dose: 5 mg Metformin HCl (Glucophage Xr -) 1,000 mg PO BIDAC [facility] Last Admin: 03/15/17 06:15 Dose: 1,000 mg Phenytoin Sodium (Dilantin -) 100 mg PO TID [facility] Last Admin: 03/15/17 06:15 Dose: 100 mg Warfarin Sodium (Coumadin -) 5 mg PO DAILY@1800 [facility] Last Admin: 03/14/17 18:50 Dose: 5 mg Warfarin Sodium (Coumadin -) 2.5 mg PO ONCE@1800 ONE Stop: 03/15/17 18:01 *Physical Exam Vital Signs Temperature 98.3 F 03/15/17 05:00 Pulse Rate 75 03/15/17 05:00 Respiratory Rate 18 03/15/17 05:00 Blood Pressure 115/60 03/15/17 05:00 O2 Sat by Pulse Oximetry (%) 99 03/14/17 21:00 "GENERAL: Awake, alert, cooperative, following commands HEAD: No signs of trauma EYES: PERRLA, EOMI, sclera anicteric, conjunctiva clear ENT: No tongue lacerations, Auricles normal inspection, hearing grossly normal, nares patent, oropharynx clear without exudates. Moist mucosa NECK: Normal ROM, supple, no lymphadenopathy, JVD, or masses LUNGS: Breath sounds equal, clear to auscultation bilaterally. No wheezes, and no crackles HEART: Regular rate and rhythm, normal S1 and S2, no murmurs, rubs or gallops ABDOMEN: Soft, nontender, normoactive bowel sounds. No guarding, no rebound. No masses EXTREMITIES: Normal range of motion, no edema. No clubbing or cyanosis. No cords, erythema, or tenderness NEUROLOGICAL: Awake, alert, following commands, more cooperative, Cranial nerves II through XII grossly intact. moves all extremities spontaneously, sensory intact, gait deferred SKIN: Warm, Dry, normal turgor, no rashes or lesions noted. CBCD WBC 5.7 K/mm3 (4.0-10.0) 03/10/17 06:00 RBC 3.74 M/mm3 (3.60-5.2) 03/10/17 06:00 Hgb 10.9 GM/dL (10.7-15.3) 03/10/17 06:00 Hct 32.6 % (32.4-45.2) 03/10/17 06:00 MCV 87.2 fl (80-96) 03/10/17 06:00 MCHC 33.3 g/dl (32.0-36.0) 03/10/17 06:00 RDW 12.8 % (11.6-15.6) 03/10/17 06:00 Plt Count 147 K/MM3 (134-434) 03/10/17 06:00 MPV 8.2 fl (7.5-11.1) 03/10/17 06:00 CMP Sodium 141 mmol/L (136-145) 03/07/17 05:15 Potassium 4.4 mmol/L (3.5-5.1) 03/07/17 05:15 Chloride 108 mmol/L (98-107) H 03/07/17 05:15 Carbon Dioxide 24 mmol/L (21-32) 03/07/17 05:15 Anion Gap 9 (8-16) 03/07/17 05:15 BUN 16 mg/dL (7-18) 03/07/17 05:15 Creatinine 1.0 mg/dL (0.55-1.02) 03/07/17 05:15 Creat Clearance w eGFR 49.69 (>60) 03/06/17 05:00 Calcium 8.6 mg/dL (8.5-10.1) 03/07/17 05:15 Total Bilirubin 0.3 mg/dL (0.2-1.0) D 03/06/17 05:00 AST 14 U/L (15-37) L 03/06/17 05:00 ALT 20 U/L (12-78) 03/06/17 05:00 Alkaline Phosphatase 97 U/L (45-117) 03/06/17 05:00 Total Protein 6.0 g/dl (6.4-8.2) L 03/06/17 05:00 Albumin 2.7 g/dl (3.4-5.0) L 03/06/17 05:00 - RADIOLOGY CT head IMPRESSION: Mild ventriculomegaly that is slightly more than expected for the degree of cortical atrophy, without interval change. No mass lesion or gross acute infarct are identified. MRI brain reviewed and area of DWI suspicious for artifact LP- See lab section Medical Decision Making 66 year old female, with a significant past medical history of hypertension, diabetes, dementia, visual hallucinations, and CHRISTIANNE who presents to the emergency department accompanied by family, with increased confusion over the past 2 days. Per family member, the patient woke up this morning at approximately 04:00 shaking her right arm, turning her head to the right with an associated right sided droop of her lips. Family member states her episode lasted approximately 35 seconds, and has occurred intermittently since. Family reports the patient presented to the ED on 02/23/17 for confusion and hallucinations and was diagnosed with a UTI, discharged home, and started on antibiotics. As per daughter, patients blood sugar levels have been in the 250- 300 range throughout the day. Patient lives at home with family, and is able to carry a conversation and ambulate without a walker at her baseline. Stable on Dilantin, 300mg daily as outpatient As per psych, Zyprexa 5mg twice daily EEG completed and reviewed, grossly normal Monitor glucose, prefer range 100-130 Continue Insulin Blood pressure control, continue MARSHA Goal BP < 140/90 Physical therapy Mental status much improved at this point AC for LLE DVT, Lovenox to Coumadin bridge Awaiting theraputic INR range Outpatient follow up, no further rec'd at this time
[2017-03-15] MEDS: DOCUSATE SODIUM 100 MG CAPSULE (FP) PO SCH (11:36)
[2017-03-15] MEDS: ASPIRIN COATED 81 MG TABLET.EC PO SCH (11:37)
[2017-03-15] MEDS: ENOXAPARIN NA (PORCINE) 60 MG/0.6 ML DISP.SYRIN SQ SCH ×2 (11:37→21:02)
[2017-03-15] MEDS: LISINOPRIL 5 MG TABLET (FP) PO SCH (11:37)
[2017-03-15] MEDS: amLODIPine BESYLATE 2.5 MG TABLET (FP) PO SCH (11:37)
--- NOTE | 2017-03-15 11:55 | PN ---
Physical Exam: SUBJECTIVE: Patient seen and examined. No acute events overnight. Pt reports no SOB, chest pain, or leg pain. She has no complaints, and just wants to know when she can go home. OBJECTIVE: Vital Signs Period Temp Pulse Resp BP Sys/Salvador Pulse Ox Last 24 Hr 97.6 F-98.3 F 75-98 18-20 105-135/60-76 99 GENERAL: The patient is awake, alert, oriented, in no acute distress. HEAD: Normal with no signs of trauma. EYES: PERRL, extraocular movements intact, sclera anicteric, conjunctiva clear. No ptosis. ENT: Ears normal, nares patent, oropharynx clear without exudates, moist mucous membranes. NECK: Trachea midline, full range of motion, supple. LUNGS: Breath sounds equal, clear to auscultation bilaterally, no wheezes, no crackles, no accessory muscle use. HEART: Regular rate and rhythm, S1, S2 without murmur, rub or gallop. ABDOMEN: Soft, nontender, nondistended, normoactive bowel sounds, no guarding, no rebound, no hepatosplenomegaly, no masses. EXTREMITIES: LLE is less swollen compared to yesterday and NT NEUROLOGICAL: Cranial nerves II through XII grossly intact. Normal speech, gait not observed. PSYCH: Normal mood, normal affect. Laboratory Results - last 24 hr 03/14/17 03/14/17 03/14/17 12:17 16:36 22:23 INR POC Glucometer 165 119 175 03/15/17 03/15/17 05:35 05:54 INR 1.76 H POC Glucometer 145 Active Medications Generic Name Dose Route Start Last Admin Trade Name Alphonsoq PRN Reason Stop Dose Admin Acetaminophen 650 mg 03/11/17 17:18 03/11/17 17:40 Tylenol - PO 650 mg Q6H PRN Administration FEVER OR PAIN Amlodipine Besylate 2.5 mg 03/06/17 09:06 03/15/17 11:37 Norvasc - PO 2.5 mg DAILY ANAYELI Administration Aspirin 81 mg 03/06/17 16:30 03/15/17 11:37 Ecotrin - PO 81 mg DAILY ANAYELI Administration Atorvastatin Calcium 20 mg 03/06/17 22:00 03/14/17 21:47 Lipitor - PO 20 mg HS ANAYELI Administration Docusate Sodium 100 mg 03/05/17 10:00 03/15/17 11:36 Colace - PO 100 mg DAILY ANAYELI Administration Enoxaparin Sodium 60 mg 03/08/17 12:30 03/15/17 11:37 Lovenox - SQ 60 mg BID ANAYELI Administration Glipizide 10 mg 03/09/17 16:30 03/15/17 06:16 Glucotrol - PO 10 mg BIDAC ANAYELI Administration Insulin Aspart 1 vial 03/06/17 22:00 03/14/17 22:24 Novolog Vial Sliding Scale - SQ Not Given HS ANAYELI Protocol Insulin Aspart 1 vial 03/08/17 17:19 03/15/17 06:16 Novolog Vial Sliding Scale - SQ 4 units TIDAC ANAYELI Administration Protocol Lisinopril 5 mg 03/05/17 10:00 03/15/17 11:37 Prinivil PO 5 mg DAILY ANAYELI Administration Metformin HCl 1,000 mg 03/09/17 16:30 03/15/17 06:15 Glucophage Xr - PO 1,000 mg BIDAC ANAYELI Administration Phenytoin Sodium 100 mg 03/06/17 22:00 03/15/17 06:15 Dilantin - PO 100 mg TID ANAYELI Administration Warfarin Sodium 5 mg 03/13/17 18:00 03/14/17 18:50 Coumadin - PO 5 mg DAILY@1800 ANAYELI Administration Warfarin Sodium 2.5 mg 03/15/17 18:00 Coumadin - PO 03/15/17 18:01 ONCE@1800 ONE ASSESSMENT/PLAN: 66F w/ hx of HTN and DM who presented with acute encephalopathy and intermittent seizures likely due to UTI and adverse reaction to levaquin, found to have DVT in LLE, currently bridging to coumadin (day 8). #LLE DVT -no insurance and can't afford NOAC, so bridging to coumadin -INR today of 1.76, down from 1.83 -will give coumadin 7.5mg tonight instead of 5mg -continue 60mg lovenox BID (day 8 of bridge) -trend INR #episodic arm shaking and head turning- likely 2/2 UTI or levaquin adverse reaction -no seizure activity since being started on phenytoin. -will discuss with neuro regarding need to continue phenytoin if seizures were simply 2/2 levaquin adverse reaction #acute encephalopathy -likely 2/2 UTI -urine cultures grew E. coli whitley-sensitive except for levaquin. -finished course of abx -back at baseline mental status per daughter, resolved #HTN -continue amlodipine 2.5mg qd and lisinopril 5mg qd -monitor BP #DM -SSI, BGM ACHS -endocrinology on board -continue metformin HCl 1000mg BIDAC and glipizide 10 BIDAC. #FEN/PPX -no fluids -no BMP -diabetic diet -no GI ppx -lovenox 60mg BID #Dispo -Per PT, pt able to walk 80 feet, but with unsteady gait. -Discussed w/ drug abuse social worker that pt has no insurance and might not be covered for services -will write prescription for walker upon discharge -discussed pt's medical condition, medications, and answered all questions with daughter Aruna and pt using shot core drill operator service phone. -add acarbose upon discharge for optimal DM control -appointment at [facility] coumadin clinic scheduled for 03/19, inserted in discharge plan -D/C pending therapeutic INR ----- Bernardino Segura MD PGY1 Problem List - Problems (1) Diabetes Code(s): E11.9 - TYPE 2 DIABETES MELLITUS WITHOUT COMPLICATIONS Visit type - Emergency Visit Emergency Visit: Yes ED Registration Date: 02/28/17 Care time: The patient presented to the Emergency Department on the above date and was hospitalized for further evaluation of their emergent condition. - New Patient This patient is new to me today: No - Critical Care Critical Care patient: No
--- NOTE | 2017-03-15 13:12 | PN ---
Teaching Attending Note Name of Resident: Bernardino Segura ATTENDING PHYSICIAN STATEMENT I saw and evaluated the patient. I reviewed the resident's note and discussed the case with the resident. I agree with the resident's findings and plan as documented. SUBJECTIVE: Patient is feeling better, wants to go home. OBJECTIVE: Vital Signs Temperature 98.3 F 03/15/17 05:00 Pulse Rate 75 03/15/17 05:00 Respiratory Rate 18 03/15/17 05:00 Blood Pressure 115/60 03/15/17 05:00 O2 Sat by Pulse Oximetry (%) 99 03/14/17 21:00 CBCD WBC 5.7 K/mm3 (4.0-10.0) 03/10/17 06:00 RBC 3.74 M/mm3 (3.60-5.2) 03/10/17 06:00 Hgb 10.9 GM/dL (10.7-15.3) 03/10/17 06:00 Hct 32.6 % (32.4-45.2) 03/10/17 06:00 MCV 87.2 fl (80-96) 03/10/17 06:00 MCHC 33.3 g/dl (32.0-36.0) 03/10/17 06:00 RDW 12.8 % (11.6-15.6) 03/10/17 06:00 Plt Count 147 K/MM3 (134-434) 03/10/17 06:00 MPV 8.2 fl (7.5-11.1) 03/10/17 06:00 CMP Sodium 141 mmol/L (136-145) 03/07/17 05:15 Potassium 4.4 mmol/L (3.5-5.1) 03/07/17 05:15 Chloride 108 mmol/L (98-107) H 03/07/17 05:15 Carbon Dioxide 24 mmol/L (21-32) 03/07/17 05:15 Anion Gap 9 (8-16) 03/07/17 05:15 BUN 16 mg/dL (7-18) 03/07/17 05:15 Creatinine 1.0 mg/dL (0.55-1.02) 03/07/17 05:15 Creat Clearance w eGFR 49.69 (>60) 03/06/17 05:00 Random Glucose 182 mg/dL (74-106) H D 03/07/17 05:15 Calcium 8.6 mg/dL (8.5-10.1) 03/07/17 05:15 Total Bilirubin 0.3 mg/dL (0.2-1.0) D 03/06/17 05:00 AST 14 U/L (15-37) L 03/06/17 05:00 ALT 20 U/L (12-78) 03/06/17 05:00 Alkaline Phosphatase 97 U/L (45-117) 03/06/17 05:00 Total Protein 6.0 g/dl (6.4-8.2) L 03/06/17 05:00 Albumin 2.7 g/dl (3.4-5.0) L 03/06/17 05:00 CARDIAC ENZYMES Creatine Kinase 49 IU/L (26-192) 03/04/17 06:00 Troponin I < 0.02 ng/ml (0.00-0.05) 02/28/17 10:41 Current Medications Generic Name Dose Route Start Last Admin Trade Name Melisa PRN Reason Stop Dose Admin Acetaminophen 650 mg 03/11/17 17:18 03/11/17 17:40 Tylenol - PO 650 mg Q6H PRN Administration FEVER OR PAIN Amlodipine Besylate 2.5 mg 03/06/17 09:06 03/15/17 11:37 Norvasc - PO 2.5 mg DAILY ANAYELI Administration Aspirin 81 mg 03/06/17 16:30 03/15/17 11:37 Ecotrin - PO 81 mg DAILY ANAYELI Administration Atorvastatin Calcium 20 mg 03/06/17 22:00 03/14/17 21:47 Lipitor - PO 20 mg HS ANAYELI Administration Docusate Sodium 100 mg 03/05/17 10:00 03/15/17 11:36 Colace - PO 100 mg DAILY ANAYELI Administration Enoxaparin Sodium 60 mg 03/08/17 12:30 03/15/17 11:37 Lovenox - SQ 60 mg BID ANAYELI Administration Glipizide 10 mg 03/09/17 16:30 03/15/17 06:16 Glucotrol - PO 10 mg BIDAC ANAYELI Administration Insulin Aspart 1 vial 03/06/17 22:00 03/14/17 22:24 Novolog Vial Sliding Scale - SQ Not Given HS ANAYELI Protocol Insulin Aspart 1 vial 03/08/17 17:19 03/15/17 12:26 Novolog Vial Sliding Scale - SQ 6 units TIDAC ANAYELI Administration Protocol Lisinopril 5 mg 03/05/17 10:00 03/15/17 11:37 Prinivil PO 5 mg DAILY ANAYELI Administration Metformin HCl 1,000 mg 03/09/17 16:30 03/15/17 06:15 Glucophage Xr - PO 1,000 mg BIDAC ANAYELI Administration Phenytoin Sodium 100 mg 03/06/17 22:00 03/15/17 06:15 Dilantin - PO 100 mg TID ANAYELI Administration Warfarin Sodium 5 mg 03/13/17 18:00 03/14/17 18:50 Coumadin - PO 5 mg DAILY@1800 ANAYELI Administration Warfarin Sodium 2.5 mg 03/15/17 18:00 Coumadin - PO 03/15/17 18:01 ONCE@1800 ONE Current Medications Generic Name Dose Route Start Last Admin Trade Name Freq PRN Reason Stop Dose Admin Acetaminophen 650 mg 03/11/17 17:18 03/11/17 17:40 Tylenol - PO 650 mg Q6H PRN Administration FEVER OR PAIN Amlodipine Besylate 2.5 mg 03/06/17 09:06 03/15/17 11:37 Norvasc - PO 2.5 mg DAILY ANAYELI Administration Aspirin 81 mg 03/06/17 16:30 03/15/17 11:37 Ecotrin - PO 81 mg DAILY ANAYELI Administration Atorvastatin Calcium 20 mg 03/06/17 22:00 03/14/17 21:47 Lipitor - PO 20 mg HS ANAYELI Administration Docusate Sodium 100 mg 03/05/17 10:00 03/15/17 11:36 Colace - PO 100 mg DAILY ANAYELI Administration Enoxaparin Sodium 60 mg 03/08/17 12:30 03/15/17 11:37 Lovenox - SQ 60 mg BID ANAYELI Administration Glipizide 10 mg 03/09/17 16:30 03/15/17 06:16 Glucotrol - PO 10 mg BIDAC ANAYELI Administration Insulin Aspart 1 vial 03/06/17 22:00 03/14/17 22:24 Novolog Vial Sliding Scale - SQ Not Given HS ANAYELI Protocol Insulin Aspart 1 vial 03/08/17 17:19 03/15/17 12:26 Novolog Vial Sliding Scale - SQ 6 units TIDAC ANAYELI Administration Protocol Lisinopril 5 mg 03/05/17 10:00 03/15/17 11:37 Prinivil PO 5 mg DAILY ANAYELI Administration Metformin HCl 1,000 mg 03/09/17 16:30 03/15/17 06:15 Glucophage Xr - PO 1,000 mg BIDAC ANAYELI Administration Phenytoin Sodium 100 mg 03/06/17 22:00 03/15/17 06:15 Dilantin - PO 100 mg TID ANAYELI Administration Warfarin Sodium 5 mg 03/13/17 18:00 03/14/17 18:50 Coumadin - PO 5 mg DAILY@1800 ANAYELI Administration Warfarin Sodium 2.5 mg 03/15/17 18:00 Coumadin - PO 03/15/17 18:01 ONCE@1800 ONE Home Medications Medication Instructions Recorded Lisinopril 5 mg PO DAILY 02/23/17 Insulin (Levemir) [Levemir Flexpen 5 units SQ HS #1 pen 02/25/17 -] Amlodipine Besylate [Norvasc -] 2.5 mg PO DAILY #30 tablet 03/07/17 Aspirin Coated [Ecotrin -] 81 mg PO DAILY #30 tab 03/07/17 Atorvastatin Ca [Lipitor] 20 mg PO HS #30 tablet 03/07/17 Insulin Sliding Scale [Novolog See Protocol SQ AC #100 units 03/07/17 Vial Sliding Scale -] Phenytoin Na Extended [Dilantin -] 100 mg PO TID #90 tab 03/07/17 Phenytoin Na Extended [Dilantin -] 300 mg PO DAILY #90 capsule 03/07/17 LE: Left leg swollen but less today but no pain or tenderness. Pulses are positive both LE and Upper extremities. rest of physical exam by the resident. ASSESSMENT AND PLAN: 66F w/ hx of HTN and DM and recent hospitalization for UTI presented with seizure activity # s/p Seizure activity ,well controlled on Phenytoin will recheck with neurology whether to send the patient home on phenytoin or not # s/p UTI s/p post Rocephin IV # Acute metabolic encephalopathy due to UTI now resolved # HTN controlled #T2DM on metformin and glyburide continue # DVT of LLE ,on coumadin ,still subtherapeutic will give 7.5 mg today Pt/INR in am start acarbose at DC ( patient can't afford insulin ) Patient requiring coumadin can't afford lovenox, need to finish bridging here for a safe DC
[2017-03-15] MEDS ORDERED: ACETAMINOPHEN 325 MG TABLET (FP) PO PRN (15:51)
[2017-03-15] MEDS ORDERED: glipiZIDE 5 MG TABLET (FP) ONE (16:22)
[2017-03-15] MEDS: WARFARIN NA 5 MG TABLET (UD) PO SCH (17:22)
[2017-03-15] MEDS ORDERED: WARFARIN NA 2.5 MG TABLET (FP) PO ONE ×3 (18:00)
[2017-03-15] MEDS ORDERED: INSULIN (NOVOLOG) ASPART 100 UNITS/ML 10ML VIAL ONE (20:37)
[2017-03-15] MEDS: ATORVASTATIN CA 20 MG TABLET (FP) PO SCH (21:00)
[2017-03-16] MEDS ORDERED: glipiZIDE 5 MG TABLET (FP) ONE ×2 (05:05→18:02)
[2017-03-16] MEDS: INSULIN SLIDING SCALE (NOVOLOG) 1 VIAL SQ SCH ×4 (06:13→22:26)
[2017-03-16] MEDS: glipiZIDE 10 MG TABLET (FP) PO SCH ×2 (06:13→18:05)
[2017-03-16] MEDS: PHENYTOIN NA EXTENDED 100 MG CAPSULE (FP) PO SCH ×3 (06:14→22:31)
[2017-03-16 07:42] LABS: INR 1.85 (0.82-1.09); PROTHROMBIN TIME (PATIENT) 20.6 SEC (9.98-11.88)
[2017-03-16] MEDS: amLODIPine BESYLATE 2.5 MG TABLET (FP) PO SCH (10:15)
[2017-03-16] MEDS: LISINOPRIL 5 MG TABLET (FP) PO SCH (10:15)
[2017-03-16] MEDS: ENOXAPARIN NA (PORCINE) 60 MG/0.6 ML DISP.SYRIN SQ SCH ×2 (10:15→22:31)
[2017-03-16] MEDS: ASPIRIN COATED 81 MG TABLET.EC PO SCH (10:15)
[2017-03-16] MEDS: DOCUSATE SODIUM 100 MG CAPSULE (FP) PO SCH (10:15)
--- NOTE | 2017-03-16 10:18 | PN ---
Progress Note (short form) - Note Progress Note: Neurology History of Present Illness The patient is a 66 year old female, with a significant past medical history of hypertension, diabetes, dementia, visual hallucinations, and CHRISTIANNE who presents to the emergency department accompanied by family, with increased confusion for 2 days prior to arrival. Per family member, the patient woke up morning of admission approximately 04:00 shaking her right arm, turning her head to the right with an associated right sided droop of her lips. Family member states her episode lasted approximately 35 seconds, and has occurred intermittently since. Family reports the patient presented to the ED on 02/23/17 for confusion and hallucinations and was diagnosed with a UTI, discharged home, and started on antibiotics. As per daughter, patients blood sugar levels have been in the 250-300 range throughout the day. Patient lives at home with family, and is able to carry a conversation and ambulate without a walker at her baseline. I arrived in the ER to see the patient, she was awake and responsive to me but not following all commands. She did seem to possess strength throughout and was Not TPA case due to no longer being in window and symptoms seem more general and not focal. CT head was completed and did not show any acute changes. Family at bedside and confirmed history that was provided. She was started on keppra 500mg twice daily. Repeat CT head completed and no structural changes. She is getting Ceftriaxone for UTI and this may have been precipitant for her convulsions. Has been having right arm shaking and also personality change so spoke to PMD and decision made to switch to Depakote which also has mood stabilization properties. Psych consulted and patient given Zyprexa 5mg twice a day as well. Thereafter, patient with repeat episode and decision made to transfer to ICU where LP was completed and 0 Wbc, normal protein, does not meet criteria for meningitis or encephalitis. Was switched to Dilantin, has not been have seizures, and downgraded to floor status and more stable now. Awake and alert with me. She has been able to tell me she's in the hospital which is much improved from previous. She seems to be at her baseline. Neurologically remains and well appearing. Is getting AC for LLE DVT per notes, lovenox to Coumadin bridge and awaiting theraputic range. No acute events overnight. Has been stable on phenytoin and would benefit from this medication as outpatient as would want to avoid recurrence of seizures. Spoke to resident yesterday and encouraged keeping her on Dilantin 300mg daily as outpatient especially since it was challenging to control the seizures when occured. Can be considered for weaning as outpatient. Active Medications Acetaminophen (Tylenol -) 650 mg PO Q6H PRN PRN Reason: FEVER OR PAIN Amlodipine Besylate (Norvasc -) 2.5 mg PO DAILY [facility] Last Admin: 03/16/17 10:15 Dose: 2.5 mg Aspirin (Ecotrin -) 81 mg PO DAILY [facility] Last Admin: 03/16/17 10:15 Dose: 81 mg Atorvastatin Calcium (Lipitor -) 20 mg PO HS [facility] Last Admin: 03/15/17 21:00 Dose: 20 mg Docusate Sodium (Colace -) 100 mg PO DAILY [facility] Last Admin: 03/16/17 10:15 Dose: 100 mg Enoxaparin Sodium (Lovenox -) 60 mg SQ BID [facility] Last Admin: 03/16/17 10:15 Dose: 60 mg Glipizide (Glucotrol -) 10 mg PO BIDAC [facility] Last Admin: 03/16/17 06:13 Dose: 10 mg Insulin Aspart (Novolog Vial Sliding Scale -) 1 vial SQ TIDAC [facility] PRN Reason: Protocol Last Admin: 03/16/17 06:13 Dose: Not Given Insulin Aspart (Novolog Vial Sliding Scale -) 1 vial SQ [facility] PRN Reason: Protocol Last Admin: 03/15/17 21:05 Dose: Not Given Lisinopril (Prinivil) 5 mg PO DAILY [facility] Last Admin: 03/16/17 10:15 Dose: 5 mg Metformin HCl (Glucophage Xr -) 1,000 mg PO BIDAC [facility] Last Admin: 03/16/17 06:13 Dose: 1,000 mg Phenytoin Sodium (Dilantin -) 100 mg PO TID [facility] Last Admin: 03/16/17 06:14 Dose: 100 mg Warfarin Sodium (Coumadin -) 5 mg PO DAILY@1800 [facility] Last Admin: 03/15/17 17:22 Dose: 5 mg *Physical Exam Vital Signs Period Temp Pulse Resp BP Sys/Salvador Pulse Ox Last 24 Hr 98.0 F-98.4 F 71-88 16-18 107-139/50-72 98-98 "GENERAL: Awake, alert, cooperative, following commands HEAD: No signs of trauma EYES: PERRLA, EOMI, sclera anicteric, conjunctiva clear ENT: No tongue lacerations, Auricles normal inspection, hearing grossly normal, nares patent, oropharynx clear without exudates. Moist mucosa NECK: Normal ROM, supple, no lymphadenopathy, JVD, or masses LUNGS: Breath sounds equal, clear to auscultation bilaterally. No wheezes, and no crackles HEART: Regular rate and rhythm, normal S1 and S2, no murmurs, rubs or gallops ABDOMEN: Soft, nontender, normoactive bowel sounds. No guarding, no rebound. No masses EXTREMITIES: Normal range of motion, no edema. No clubbing or cyanosis. No cords, erythema, or tenderness NEUROLOGICAL: Awake, alert, following commands, more cooperative, Cranial nerves II through XII grossly intact. moves all extremities spontaneously, sensory intact, gait deferred SKIN: Warm, Dry, normal turgor, no rashes or lesions noted. CBCD WBC 5.7 K/mm3 (4.0-10.0) 03/10/17 06:00 RBC 3.74 M/mm3 (3.60-5.2) 03/10/17 06:00 Hgb 10.9 GM/dL (10.7-15.3) 03/10/17 06:00 Hct 32.6 % (32.4-45.2) 03/10/17 06:00 MCV 87.2 fl (80-96) 03/10/17 06:00 MCHC 33.3 g/dl (32.0-36.0) 03/10/17 06:00 RDW 12.8 % (11.6-15.6) 03/10/17 06:00 Plt Count 147 K/MM3 (134-434) 03/10/17 06:00 MPV 8.2 fl (7.5-11.1) 03/10/17 06:00 CMP Sodium 141 mmol/L (136-145) 03/07/17 05:15 Potassium 4.4 mmol/L (3.5-5.1) 03/07/17 05:15 Chloride 108 mmol/L (98-107) H 03/07/17 05:15 Carbon Dioxide 24 mmol/L (21-32) 03/07/17 05:15 Anion Gap 9 (8-16) 03/07/17 05:15 BUN 16 mg/dL (7-18) 03/07/17 05:15 Creatinine 1.0 mg/dL (0.55-1.02) 03/07/17 05:15 Creat Clearance w eGFR 49.69 (>60) 03/06/17 05:00 Calcium 8.6 mg/dL (8.5-10.1) 03/07/17 05:15 Total Bilirubin 0.3 mg/dL (0.2-1.0) D 03/06/17 05:00 AST 14 U/L (15-37) L 03/06/17 05:00 ALT 20 U/L (12-78) 03/06/17 05:00 Alkaline Phosphatase 97 U/L (45-117) 03/06/17 05:00 Total Protein 6.0 g/dl (6.4-8.2) L 03/06/17 05:00 Albumin 2.7 g/dl (3.4-5.0) L 03/06/17 05:00 - RADIOLOGY CT head IMPRESSION: Mild ventriculomegaly that is slightly more than expected for the degree of cortical atrophy, without interval change. No mass lesion or gross acute infarct are identified. MRI brain reviewed and area of DWI suspicious for artifact LP- See lab section Medical Decision Making 66 year old female, with a significant past medical history of hypertension, diabetes, dementia, visual hallucinations, and CHRISTIANNE who presents to the emergency department accompanied by family, with increased confusion over the past 2 days. Per family member, the patient woke up this morning at approximately 04:00 shaking her right arm, turning her head to the right with an associated right sided droop of her lips. Family member states her episode lasted approximately 35 seconds, and has occurred intermittently since. Family reports the patient presented to the ED on 02/23/17 for confusion and hallucinations and was diagnosed with a UTI, discharged home, and started on antibiotics. As per daughter, patients blood sugar levels have been in the 250- 300 range throughout the day. Patient lives at home with family, and is able to carry a conversation and ambulate without a walker at her baseline. Stable on Dilantin, 300mg daily as outpatient As per psych, Zyprexa 5mg twice daily EEG completed and reviewed, grossly normal Monitor glucose, prefer range 100-130 Continue Insulin Blood pressure control, continue MARSHA Goal BP < 140/90 Physical therapy Mental status much improved at this point AC for LLE DVT, Lovenox to Coumadin bridge Awaiting theraputic INR range Outpatient follow up, should stay on Dilantin 300mg daily no further rec'd at this time
--- NOTE | 2017-03-16 11:43 | PN ---
Physical Exam: SUBJECTIVE: Patient seen and examined. No acute events overnight. Pt reports no complaints, denies chest pain, SOB, and leg pain. OBJECTIVE: Vital Signs Period Temp Pulse Resp BP Sys/Salvador Pulse Ox Last 24 Hr 98.0 F-98.4 F 71-88 16-18 107-139/50-72 98-98 GENERAL: The patient is awake, alert, and oriented, in no acute distress. HEAD: Normal with no signs of trauma. EYES: PERRL, extraocular movements intact, sclera anicteric, conjunctiva clear. No ptosis. ENT: Ears normal, nares patent, oropharynx clear without exudates, moist mucous membranes. NECK: Trachea midline, full range of motion, supple. LUNGS: Breath sounds equal, clear to auscultation bilaterally, no wheezes, no crackles, no accessory muscle use. HEART: Regular rate and rhythm, S1, S2 without murmur, rub or gallop. ABDOMEN: Soft, nontender, nondistended, normoactive bowel sounds, no guarding, no rebound, no hepatosplenomegaly, no masses. EXTREMITIES: LLE is still swollen compared to RLE, no tenderness to palpation. distal pulses intact NEUROLOGICAL: Cranial nerves II through XII grossly intact. Normal speech, gait not observed. PSYCH: Normal mood, normal affect. SKIN: Warm, dry, normal turgor, no rashes or lesions noted Laboratory Results - last 24 hr 03/15/17 03/15/17 03/15/17 12:25 16:26 21:04 PT with INR INR POC Glucometer 181 97 179 03/16/17 03/16/17 04:58 06:00 PT with INR 20.60 H INR 1.85 H POC Glucometer 177 Active Medications Generic Name Dose Route Start Last Admin Trade Name Freq PRN Reason Stop Dose Admin Acetaminophen 650 mg 03/15/17 15:51 Tylenol - PO Q6H PRN FEVER OR PAIN Amlodipine Besylate 2.5 mg 03/16/17 10:00 03/16/17 10:15 Norvasc - PO 2.5 mg DAILY ANAYELI Administration Aspirin 81 mg 03/16/17 10:00 03/16/17 10:15 Ecotrin - PO 81 mg DAILY ANAYELI Administration Atorvastatin Calcium 20 mg 03/15/17 22:00 03/15/17 21:00 Lipitor - PO 20 mg HS ANAYELI Administration Docusate Sodium 100 mg 03/16/17 10:00 03/16/17 10:15 Colace - PO 100 mg DAILY ANAYELI Administration Enoxaparin Sodium 60 mg 03/15/17 22:00 03/16/17 10:15 Lovenox - SQ 60 mg BID ANAYELI Administration Glipizide 10 mg 03/15/17 16:30 03/16/17 06:13 Glucotrol - PO 10 mg BIDAC ANAYELI Administration Insulin Aspart 1 vial 03/15/17 16:30 03/16/17 06:13 Novolog Vial Sliding Scale - SQ Not Given TIDAC [facility] Protocol Insulin Aspart 1 vial 03/15/17 22:00 03/15/17 21:05 Novolog Vial Sliding Scale - SQ Not Given HS [facility] Protocol Lisinopril 5 mg 03/16/17 10:00 03/16/17 10:15 Prinivil PO 5 mg DAILY ANAYELI Administration Metformin HCl 1,000 mg 03/15/17 16:30 03/16/17 06:13 Glucophage Xr - PO 1,000 mg BIDAC ANAYELI Administration Phenytoin Sodium 100 mg 03/15/17 22:00 03/16/17 06:14 Dilantin - PO 100 mg TID ANAYELI Administration Warfarin Sodium 5 mg 03/15/17 18:00 03/15/17 17:22 Coumadin - PO 5 mg DAILY@1800 ANAYELI Administration Warfarin Sodium 2.5 mg 03/16/17 18:00 Coumadin - PO 03/16/17 18:01 ONCE@1800 ONE ASSESSMENT/PLAN: 66F w/ hx of HTN and DM who presented with acute encephalopathy and intermittent seizures likely due to UTI and adverse reaction to levaquin, found to have DVT in LLE, currently bridging to coumadin (day 9). #LLE DVT -no insurance and can't afford NOAC, so bridging to coumadin -INR today of 1.85, up from 1.76 -will give coumadin 7.5mg tonight -continue 60mg lovenox BID (day 9 of bridge) -trend INR #episodic arm shaking and head turning- likely 2/2 UTI or levaquin adverse reaction -no seizure activity since being started on phenytoin. Per neuro, will d/c on phenytoin and try to wean as outpt #acute encephalopathy -likely 2/2 UTI -urine cultures grew E. coli whitley-sensitive except for levaquin. -finished course of abx -back at baseline mental status per daughter, resolved #HTN -continue amlodipine 2.5mg qd and lisinopril 5mg qd -monitor BP #DM -SSI, BGM ACHS -endocrinology on board -continue metformin HCl 1000mg BIDAC and glipizide 10 BIDAC. #FEN/PPX -no fluids -no BMP -diabetic diet -no GI ppx -lovenox 60mg BID #Dispo -Per PT, pt able to walk 80 feet, but with unsteady gait. -Discussed w/ protective services social worker that pt has no insurance and might not be covered for services -will write prescription for walker upon discharge -discussed pt's medical condition, medications, and answered all questions with daughter Aruna and pt using mailing machine assistant service phone. -add acarbose upon discharge for optimal DM control -appointment at [facility] coumadin clinic scheduled for 03/19, inserted in discharge plan -D/C pending therapeutic INR ----- Bernardino Segura MD PGY1 Problem List - Problems (1) Diabetes Code(s): E11.9 - TYPE 2 DIABETES MELLITUS WITHOUT COMPLICATIONS Visit type - Emergency Visit Emergency Visit: Yes ED Registration Date: 02/28/17 Care time: The patient presented to the Emergency Department on the above date and was hospitalized for further evaluation of their emergent condition. - New Patient This patient is new to me today: No - Critical Care Critical Care patient: No
[2017-03-16] MEDS ORDERED: INSULIN (NOVOLOG) ASPART 100 UNITS/ML 10ML VIAL ONE (12:56)
--- NOTE | 2017-03-16 16:58 | PN ---
Teaching Attending Note Name of Resident: Bernardino Segura ATTENDING PHYSICIAN STATEMENT I saw and evaluated the patient. I reviewed the resident's note and discussed the case with the resident. I agree with the resident's findings and plan as documented. SUBJECTIVE: Patient is comfortable with no acute distress, no shortness of breath. back to her normal sense. OBJECTIVE: Vital Signs Temperature 98.3 F 03/16/17 13:51 Pulse Rate 83 03/16/17 13:51 Respiratory Rate 20 03/16/17 13:51 Blood Pressure 112/69 03/16/17 13:51 O2 Sat by Pulse Oximetry (%) 98 03/16/17 09:00 CBCD WBC 5.7 K/mm3 (4.0-10.0) 03/10/17 06:00 RBC 3.74 M/mm3 (3.60-5.2) 03/10/17 06:00 Hgb 10.9 GM/dL (10.7-15.3) 03/10/17 06:00 Hct 32.6 % (32.4-45.2) 03/10/17 06:00 MCV 87.2 fl (80-96) 03/10/17 06:00 MCHC 33.3 g/dl (32.0-36.0) 03/10/17 06:00 RDW 12.8 % (11.6-15.6) 03/10/17 06:00 Plt Count 147 K/MM3 (134-434) 03/10/17 06:00 MPV 8.2 fl (7.5-11.1) 03/10/17 06:00 CMP Sodium 141 mmol/L (136-145) 03/07/17 05:15 Potassium 4.4 mmol/L (3.5-5.1) 03/07/17 05:15 Chloride 108 mmol/L (98-107) H 03/07/17 05:15 Carbon Dioxide 24 mmol/L (21-32) 03/07/17 05:15 Anion Gap 9 (8-16) 03/07/17 05:15 BUN 16 mg/dL (7-18) 03/07/17 05:15 Creatinine 1.0 mg/dL (0.55-1.02) 03/07/17 05:15 Creat Clearance w eGFR 49.69 (>60) 03/06/17 05:00 Random Glucose 182 mg/dL (74-106) H D 03/07/17 05:15 Calcium 8.6 mg/dL (8.5-10.1) 03/07/17 05:15 Total Bilirubin 0.3 mg/dL (0.2-1.0) D 03/06/17 05:00 AST 14 U/L (15-37) L 03/06/17 05:00 ALT 20 U/L (12-78) 03/06/17 05:00 Alkaline Phosphatase 97 U/L (45-117) 03/06/17 05:00 Total Protein 6.0 g/dl (6.4-8.2) L 03/06/17 05:00 Albumin 2.7 g/dl (3.4-5.0) L 03/06/17 05:00 CARDIAC ENZYMES Creatine Kinase 49 IU/L (26-192) 03/04/17 06:00 Troponin I < 0.02 ng/ml (0.00-0.05) 02/28/17 10:41 Current Medications Generic Name Dose Route Start Last Admin Trade Name Freq PRN Reason Stop Dose Admin Acetaminophen 650 mg 03/15/17 15:51 Tylenol - PO Q6H PRN FEVER OR PAIN Amlodipine Besylate 2.5 mg 03/16/17 10:00 03/16/17 10:15 Norvasc - PO 2.5 mg DAILY ANAYELI Administration Aspirin 81 mg 03/16/17 10:00 03/16/17 10:15 Ecotrin - PO 81 mg DAILY ANA[facility]ELI Administration Atorvastatin Calcium 20 mg 03/15/17 22:00 03/15/17 21:00 Lipitor - PO 20 mg HS ANAYELI Administration Docusate Sodium 100 mg 03/16/17 10:00 03/16/17 10:15 Colace - PO 100 mg DAILY ANAYELI Administration Enoxaparin Sodium 60 mg 03/15/17 22:00 03/16/17 10:15 Lovenox - SQ 60 mg BID ANAYELI Administration Glipizide 10 mg 03/15/17 16:30 03/16/17 06:13 Glucotrol - PO 10 mg BIDAC ANAYELI Administration Insulin Aspart 1 vial 03/15/17 16:30 03/16/17 12:58 Novolog Vial Sliding Scale - SQ 6 units TIDAC ANAYELI Administration Protocol Insulin Aspart 1 vial 03/15/17 22:00 03/15/17 21:05 Novolog Vial Sliding Scale - SQ Not Given HS [facility] Protocol Lisinopril 5 mg 03/16/17 10:00 03/16/17 10:15 Prinivil PO 5 mg DAILY ANAYELI Administration Metformin HCl 1,000 mg 03/15/17 16:30 03/16/17 06:13 Glucophage Xr - PO 1,000 mg BIDAC ANAYELI Administration Phenytoin Sodium 100 mg 03/15/17 22:00 03/16/17 13:00 Dilantin - PO 100 mg TID ANAYELI Administration Warfarin Sodium 5 mg 03/15/17 18:00 03/15/17 17:22 Coumadin - PO 5 mg DAILY@1800 ANAYELI Administration Warfarin Sodium 2.5 mg 03/16/17 18:00 Coumadin - PO 03/16/17 18:01 ONCE@1800 [facility] Home Medications Medication Instructions Recorded Lisinopril 5 mg PO DAILY 02/23/17 Insulin (Levemir) [Levemir Flexpen 5 units SQ HS #1 pen 02/25/17 -] Amlodipine Besylate [Norvasc -] 2.5 mg PO DAILY #30 tablet 03/07/17 Aspirin Coated [Ecotrin -] 81 mg PO DAILY #30 tab 03/07/17 Atorvastatin Ca [Lipitor] 20 mg PO HS #30 tablet 03/07/17 Insulin Sliding Scale [Novolog See Protocol SQ AC #100 units 03/07/17 Vial Sliding Scale -] Phenytoin Na Extended [Dilantin -] 100 mg PO TID #90 tab 03/07/17 Phenytoin Na Extended [Dilantin -] 300 mg PO DAILY #90 capsule 03/07/17 LE: Left leg swollen but less today but no pain or tenderness. Pulses are positive both LE and Upper extremities. rest of physical exam by the resident. ASSESSMENT AND PLAN: 66F w/ hx of HTN and DM and recent hospitalization for UTI presented with seizure activity # DVT of LLE ,on coumadin ,still subtherapeutic will give another dose of 7.5 mg today Pt/INR in am # s/p Seizure activity ,well controlled on Phenytoin will recheck with neurology whether to send the patient home on phenytoin or not # s/p UTI s/p post Rocephin IV # Acute metabolic encephalopathy due to UTI now resolved # HTN controlled #T2DM on metformin and glyburide continue start acarbose at DC ( patient can't afford insulin ) Patient requiring coumadin can't afford lovenox, need to finish bridging here for a safe DC
[2017-03-16] MEDS ORDERED: WARFARIN NA 2.5 MG TABLET (FP) PO ONE (18:00)
[2017-03-16] MEDS: WARFARIN NA 5 MG TABLET (UD) PO SCH (18:06)
--- NOTE | 2017-03-16 20:50 | PN ---
Mental Health Exam - Mental Status Exam Alert and Oriented to: Time, Place, Person Cognitive Function: Grossly Intact Patient Appearance: Well Groomed Mood: Hopeful, Happy Affect: Appropriate Patient Behavior: Passive, Talkative, Appropriate, Cooperative Speech Pattern: Clear (speaks thai only. ) Voice Loudness: Moderately Soft/Quiet Thought Process: Intact Thought Disorder: Not Present Hallucinations: Auditory (stated that she hears voices, but they are not distressing her in any way. ) Suicidal Ideation: Denies Homicidal Ideation: Denies Insight/Judgement: Good Sleep: Well Appetite: Good Muscle strength/Tone: Mild Hypertonicity (fall risk. ) Gait/Station: Shuffling Additional Comments: Client was previously evaluated by psych on 03-02, to start on antipsychotic, Zyprexia. Client stated that she is "unable to pay for such pills". Patient co-operative, alert, orientated by 3. Client denies SI, HI but still endorsed voices.
[2017-03-16] MEDS ORDERED: PT OWN MED DRAWER 7, Y5N ONE (21:20)
[2017-03-16] MEDS: ATORVASTATIN CA 20 MG TABLET (FP) PO SCH (22:30)
[2017-03-17] MEDS ORDERED: glipiZIDE 5 MG TABLET (FP) ONE ×2 (05:51→16:54)
[2017-03-17] MEDS ORDERED: PT OWN MED DRAWER 7, Y5N ONE ×4 (05:52→21:19)
[2017-03-17] MEDS: INSULIN SLIDING SCALE (NOVOLOG) 1 VIAL SQ SCH ×4 (06:05→21:30)
[2017-03-17] MEDS: PHENYTOIN NA EXTENDED 100 MG CAPSULE (FP) PO SCH ×3 (06:06→21:29)
[2017-03-17] MEDS: glipiZIDE 10 MG TABLET (FP) PO SCH ×2 (06:06→17:21)
[2017-03-17 08:05] LABS: INR 1.78 (0.82-1.09); PROTHROMBIN TIME (PATIENT) 19.8 SEC (9.98-11.88)
[2017-03-17] MEDS: ENOXAPARIN NA (PORCINE) 60 MG/0.6 ML DISP.SYRIN SQ SCH ×2 (09:38→21:29)
[2017-03-17] MEDS: DOCUSATE SODIUM 100 MG CAPSULE (FP) PO SCH (09:38)
[2017-03-17] MEDS: ASPIRIN COATED 81 MG TABLET.EC PO SCH (09:39)
[2017-03-17] MEDS: LISINOPRIL 5 MG TABLET (FP) PO SCH (09:39)
[2017-03-17] MEDS: amLODIPine BESYLATE 2.5 MG TABLET (FP) PO SCH (09:39)
--- NOTE | 2017-03-17 11:24 | PN ---
Progress Note (short form) - Note Progress Note: Patient is sitting on the bed, waiting to go home. Temperature 99.1 F 03/17/17 09:34 Pulse Rate 81 03/17/17 09:34 Respiratory Rate 18 03/17/17 09:34 Blood Pressure 118/65 03/17/17 09:34 O2 Sat by Pulse Oximetry (%) 97 03/17/17 09:00 GENERAL: The patient is awake, alert, and oriented, in no acute distress. HEAD: Normal with no signs of trauma. EYES: PERRL, extraocular movements intact, sclera anicteric, conjunctiva clear. ENT: Ears normal, oropharynx clear without exudates, moist mucous membranes. NECK: Trachea midline, full range of motion, supple. LUNGS: Breath sounds equal, clear to auscultation bilaterally, no wheezes, no crackles, no accessory muscle use. HEART: Regular rate and rhythm, S1, S2 without murmur, rub or gallop. ABDOMEN: Soft, nontender, nondistended, normoactive bowel sounds, no guarding, no rebound, no hepatosplenomegaly, no masses. EXTREMITIES: LLE is less swollen today. no tenderness to palpation. distal pulses intact NEUROLOGICAL: Cranial nerves II through XII grossly intact. Normal speech, gait is stable PSYCH: Normal mood, normal affect. SKIN: Warm, dry, normal turgor, no rashes or lesions noted CBCD WBC 5.7 K/mm3 (4.0-10.0) 03/10/17 06:00 RBC 3.74 M/mm3 (3.60-5.2) 03/10/17 06:00 Hgb 10.9 GM/dL (10.7-15.3) 03/10/17 06:00 Hct 32.6 % (32.4-45.2) 03/10/17 06:00 MCV 87.2 fl (80-96) 03/10/17 06:00 MCHC 33.3 g/dl (32.0-36.0) 03/10/17 06:00 RDW 12.8 % (11.6-15.6) 03/10/17 06:00 Plt Count 147 K/MM3 (134-434) 03/10/17 06:00 MPV 8.2 fl (7.5-11.1) 03/10/17 06:00 CMP Sodium 141 mmol/L (136-145) 03/07/17 05:15 Potassium 4.4 mmol/L (3.5-5.1) 03/07/17 05:15 Chloride 108 mmol/L (98-107) H 03/07/17 05:15 Carbon Dioxide 24 mmol/L (21-32) 03/07/17 05:15 Anion Gap 9 (8-16) 03/07/17 05:15 BUN 16 mg/dL (7-18) 03/07/17 05:15 Creatinine 1.0 mg/dL (0.55-1.02) 03/07/17 05:15 Creat Clearance w eGFR 49.69 (>60) 03/06/17 05:00 Random Glucose 182 mg/dL (74-106) H D 03/07/17 05:15 Calcium 8.6 mg/dL (8.5-10.1) 03/07/17 05:15 Total Bilirubin 0.3 mg/dL (0.2-1.0) D 03/06/17 05:00 AST 14 U/L (15-37) L 03/06/17 05:00 ALT 20 U/L (12-78) 03/06/17 05:00 Alkaline Phosphatase 97 U/L (45-117) 03/06/17 05:00 Total Protein 6.0 g/dl (6.4-8.2) L 03/06/17 05:00 Albumin 2.7 g/dl (3.4-5.0) L 03/06/17 05:00 CARDIAC ENZYMES Creatine Kinase 49 IU/L (26-192) 03/04/17 06:00 Troponin I < 0.02 ng/ml (0.00-0.05) 02/28/17 10:41 Current Medications Generic Name Dose Route Start Last Admin Trade Name Freq PRN Reason Stop Dose Admin Acetaminophen 650 mg 03/15/17 15:51 Tylenol - PO Q6H PRN FEVER OR PAIN Amlodipine Besylate 2.5 mg 03/16/17 10:00 03/17/17 09:39 Norvasc - PO 2.5 mg DAILY ANAYELI Administration Aspirin 81 mg 03/16/17 10:00 03/17/17 09:39 Ecotrin - PO 81 mg DAILY ANAYELI Administration Atorvastatin Calcium 20 mg 03/15/17 22:00 03/16/17 22:30 Lipitor - PO 20 mg HS ANAYELI Administration Docusate Sodium 100 mg 03/16/17 10:00 03/17/17 09:38 Colace - PO 100 mg DAILY ANAYELI Administration Enoxaparin Sodium 60 mg 03/15/17 22:00 03/17/17 09:38 Lovenox - SQ 60 mg BID ANAYELI Administration Glipizide 10 mg 03/15/17 16:30 03/17/17 06:06 Glucotrol - PO 10 mg BIDAC ANAYELI Administration Insulin Aspart 1 vial 03/15/17 16:30 03/17/17 06:05 Novolog Vial Sliding Scale - SQ 4 units TIDAC [facility] Administration Protocol Insulin Aspart 1 vial 03/15/17 22:00 03/16/17 22:26 Novolog Vial Sliding Scale - SQ Not Given [facility] Protocol Lisinopril 5 mg 03/16/17 10:00 03/17/17 09:39 Prinivil PO 5 mg DAILY ANAYELI Administration Metformin HCl 1,000 mg 03/15/17 16:30 03/17/17 06:06 Glucophage Xr - PO 1,000 mg BIDAC ANAYELI Administration Phenytoin Sodium 100 mg 03/15/17 22:00 03/17/17 06:06 Dilantin - PO 100 mg TID [facility] Administration Warfarin Sodium 5 mg 03/15/17 18:00 03/16/17 18:06 Coumadin - PO 5 mg DAILY@1800 [facility] Administration Warfarin Sodium 2.5 mg 03/17/17 18:00 Coumadin - PO DAILY@1800 [facility] Home Medications Medication Instructions Recorded Lisinopril 5 mg PO DAILY 02/23/17 Insulin (Levemir) [Levemir Flexpen 5 units SQ HS #1 pen 02/25/17 -] Amlodipine Besylate [Norvasc -] 2.5 mg PO DAILY #30 tablet 03/07/17 Aspirin Coated [Ecotrin -] 81 mg PO DAILY #30 tab 03/07/17 Atorvastatin Ca [Lipitor] 20 mg PO HS #30 tablet 03/07/17 Insulin Sliding Scale [Novolog See Protocol SQ AC #100 units 03/07/17 Vial Sliding Scale -] Phenytoin Na Extended [Dilantin -] 100 mg PO TID #90 tab 03/07/17 Phenytoin Na Extended [Dilantin -] 300 mg PO DAILY #90 capsule 03/07/17 ASSESSMENT AND PLAN: 66F w/ hx of HTN and DM and recent hospitalization for UTI presented with seizure activity # DVT of LLE ,on coumadin ,still subtherapeutic will give increase to 10mg today Pt/INR in am # s/p Seizure activity ,well controlled on Phenytoin will recheck with neurology whether to send the patient home on phenytoin or not # s/p UTI s/p post Rocephin IV # Acute metabolic encephalopathy due to UTI now resolved # HTN controlled #T2DM on metformin and glyburide continue start acarbose at DC ( patient can't afford insulin ) Patient requiring coumadin can't afford lovenox, need to finish bridging here for a safe DC Visit type - Emergency Visit Emergency Visit: Yes ED Registration Date: 02/28/17 Care time: The patient presented to the Emergency Department on the above date and was hospitalized for further evaluation of their emergent condition. - New Patient This patient is new to me today: No - Critical Care Critical Care patient: No
[2017-03-17] MEDS ORDERED: INSULIN (NOVOLOG) ASPART 100 UNITS/ML 10ML VIAL ONE ×2 (11:55→18:15)
--- NOTE | 2017-03-17 12:21 | PN ---
Progress Note (short form) - Note Progress Note: Neurology History of Present Illness The patient is a 66 year old female, with a significant past medical history of hypertension, diabetes, dementia, visual hallucinations, and CHRISTIANNE who presents to the emergency department accompanied by family, with increased confusion for 2 days prior to arrival. Per family member, the patient woke up morning of admission approximately 04:00 shaking her right arm, turning her head to the right with an associated right sided droop of her lips. Family member states her episode lasted approximately 35 seconds, and has occurred intermittently since. Family reports the patient presented to the ED on 02/23/17 for confusion and hallucinations and was diagnosed with a UTI, discharged home, and started on antibiotics. As per daughter, patients blood sugar levels have been in the 250-300 range throughout the day. Patient lives at home with family, and is able to carry a conversation and ambulate without a walker at her baseline. I arrived in the ER to see the patient, she was awake and responsive to me but not following all commands. She did seem to possess strength throughout and was Not TPA case due to no longer being in window and symptoms seem more general and not focal. CT head was completed and did not show any acute changes. Family at bedside and confirmed history that was provided. She was started on keppra 500mg twice daily. Repeat CT head completed and no structural changes. She is getting Ceftriaxone for UTI and this may have been precipitant for her convulsions. Has been having right arm shaking and also personality change so spoke to PMD and decision made to switch to Depakote which also has mood stabilization properties. Psych consulted and patient given Zyprexa 5mg twice a day as well. Thereafter, patient with repeat episode and decision made to transfer to ICU where LP was completed and 0 Wbc, normal protein, does not meet criteria for meningitis or encephalitis. Was switched to Dilantin, has not been have seizures, and downgraded to floor status and more stable now. Awake and alert with me. She has been able to tell me she's in the hospital which is much improved from previous. She seems to be at her baseline. Neurologically remains and well appearing. Is getting AC for LLE DVT per notes, lovenox to Coumadin bridge and awaiting theraputic range, still subtheraputic at 1.75. No acute events overnight. Has been stable on phenytoin and would benefit from this medication as outpatient as would want to avoid recurrence of seizures. Spoke to resident yesterday and encouraged keeping her on Dilantin 300mg daily as outpatient especially since it was challenging to control the seizures when occured. Can be considered for weaning as outpatient. Active Medications Acetaminophen (Tylenol -) 650 mg PO Q6H PRN PRN Reason: FEVER OR PAIN Amlodipine Besylate (Norvasc -) 2.5 mg PO DAILY [facility] Last Admin: 03/17/17 09:39 Dose: 2.5 mg Aspirin (Ecotrin -) 81 mg PO DAILY [facility] Last Admin: 03/17/17 09:39 Dose: 81 mg Atorvastatin Calcium (Lipitor -) 20 mg PO HS [facility] Last Admin: 03/16/17 22:30 Dose: 20 mg Docusate Sodium (Colace -) 100 mg PO DAILY [facility] Last Admin: 03/17/17 09:38 Dose: 100 mg Enoxaparin Sodium (Lovenox -) 60 mg SQ BID [facility] Last Admin: 03/17/17 09:38 Dose: 60 mg Glipizide (Glucotrol -) 10 mg PO BIDAC [facility] Last Admin: 03/17/17 06:06 Dose: 10 mg Insulin Aspart (Novolog Vial Sliding Scale -) 1 vial SQ TIDAC [facility] PRN Reason: Protocol Last Admin: 03/17/17 11:51 Dose: 4 units Insulin Aspart (Novolog Vial Sliding Scale -) 1 vial SQ [facility] PRN Reason: Protocol Last Admin: 03/16/17 22:26 Dose: Not Given Lisinopril (Prinivil) 5 mg PO DAILY [facility] Last Admin: 03/17/17 09:39 Dose: 5 mg Metformin HCl (Glucophage Xr -) 1,000 mg PO BIDAC [facility] Last Admin: 03/17/17 06:06 Dose: 1,000 mg Phenytoin Sodium (Dilantin -) 100 mg PO TID [facility] Last Admin: 03/17/17 06:06 Dose: 100 mg Warfarin Sodium (Coumadin -) 5 mg PO DAILY@1800 [facility] Last Admin: 03/16/17 18:06 Dose: 5 mg Warfarin Sodium (Coumadin -) 2.5 mg PO DAILY@1800 [facility] *Physical Exam Vital Signs Period Temp Pulse Resp BP Sys/Salvador Pulse Ox Last 24 Hr 98 F-99.1 F 73-83 18-20 105-126/64-69 97-97 "GENERAL: Awake, alert, cooperative, following commands HEAD: No signs of trauma EYES: PERRLA, EOMI, sclera anicteric, conjunctiva clear ENT: No tongue lacerations, Auricles normal inspection, hearing grossly normal, nares patent, oropharynx clear without exudates. Moist mucosa NECK: Normal ROM, supple, no lymphadenopathy, JVD, or masses LUNGS: Breath sounds equal, clear to auscultation bilaterally. No wheezes, and no crackles HEART: Regular rate and rhythm, normal S1 and S2, no murmurs, rubs or gallops ABDOMEN: Soft, nontender, normoactive bowel sounds. No guarding, no rebound. No masses EXTREMITIES: Normal range of motion, no edema. No clubbing or cyanosis. No cords, erythema, or tenderness NEUROLOGICAL: Awake, alert, following commands, more cooperative, Cranial nerves II through XII grossly intact. moves all extremities spontaneously, sensory intact, gait stable without ataxia SKIN: Warm, Dry, normal turgor, no rashes or lesions noted. CBCD WBC 5.7 K/mm3 (4.0-10.0) 03/10/17 06:00 RBC 3.74 M/mm3 (3.60-5.2) 03/10/17 06:00 Hgb 10.9 GM/dL (10.7-15.3) 03/10/17 06:00 Hct 32.6 % (32.4-45.2) 03/10/17 06:00 MCV 87.2 fl (80-96) 03/10/17 06:00 MCHC 33.3 g/dl (32.0-36.0) 03/10/17 06:00 RDW 12.8 % (11.6-15.6) 03/10/17 06:00 Plt Count 147 K/MM3 (134-434) 03/10/17 06:00 MPV 8.2 fl (7.5-11.1) 03/10/17 06:00 CMP Sodium 141 mmol/L (136-145) 03/07/17 05:15 Potassium 4.4 mmol/L (3.5-5.1) 03/07/17 05:15 Chloride 108 mmol/L (98-107) H 03/07/17 05:15 Carbon Dioxide 24 mmol/L (21-32) 03/07/17 05:15 Anion Gap 9 (8-16) 03/07/17 05:15 BUN 16 mg/dL (7-18) 03/07/17 05:15 Creatinine 1.0 mg/dL (0.55-1.02) 03/07/17 05:15 Creat Clearance w eGFR 49.69 (>60) 03/06/17 05:00 Calcium 8.6 mg/dL (8.5-10.1) 03/07/17 05:15 Total Bilirubin 0.3 mg/dL (0.2-1.0) D 03/06/17 05:00 AST 14 U/L (15-37) L 03/06/17 05:00 ALT 20 U/L (12-78) 03/06/17 05:00 Alkaline Phosphatase 97 U/L (45-117) 03/06/17 05:00 Total Protein 6.0 g/dl (6.4-8.2) L 03/06/17 05:00 Albumin 2.7 g/dl (3.4-5.0) L 03/06/17 05:00 - RADIOLOGY CT head IMPRESSION: Mild ventriculomegaly that is slightly more than expected for the degree of cortical atrophy, without interval change. No mass lesion or gross acute infarct are identified. MRI brain reviewed and area of DWI suspicious for artifact LP- See lab section Medical Decision Making 66 year old female, with a significant past medical history of hypertension, diabetes, dementia, visual hallucinations, and CHRISTIANNE who presents to the emergency department accompanied by family, with increased confusion over the past 2 days. Per family member, the patient woke up this morning at approximately 04:00 shaking her right arm, turning her head to the right with an associated right sided droop of her lips. Family member states her episode lasted approximately 35 seconds, and has occurred intermittently since. Family reports the patient presented to the ED on 02/23/17 for confusion and hallucinations and was diagnosed with a UTI, discharged home, and started on antibiotics. As per daughter, patients blood sugar levels have been in the 250- 300 range throughout the day. Patient lives at home with family, and is able to carry a conversation and ambulate without a walker at her baseline. Stable on Dilantin, 300mg daily as outpatient As per psych, Zyprexa 5mg twice daily EEG completed and reviewed, grossly normal Monitor glucose, prefer range 100-130 Continue Insulin Blood pressure control, continue MARSHA Goal BP < 140/90 Physical therapy Mental status much improved at this point AC for LLE DVT, Lovenox to Coumadin bridge Awaiting theraputic INR range still subtheraputic at 1.75 today Outpatient follow up, should stay on Dilantin 300mg daily no further rec'd at this time
[2017-03-17] MEDS ORDERED: WARFARIN NA 10 MG TABLET (FP) PO SCH (18:00)
[2017-03-17] MEDS ORDERED: WARFARIN NA 2.5 MG TABLET (FP) PO SCH (18:00)
[2017-03-17] MEDS: ATORVASTATIN CA 20 MG TABLET (FP) PO SCH (21:29)
[2017-03-18] MEDS ORDERED: glipiZIDE 5 MG TABLET (FP) ONE (06:29)
[2017-03-18] MEDS: glipiZIDE 10 MG TABLET (FP) PO SCH (06:35)
[2017-03-18] MEDS: PHENYTOIN NA EXTENDED 100 MG CAPSULE (FP) PO SCH ×2 (06:35→13:56)
[2017-03-18] MEDS: INSULIN SLIDING SCALE (NOVOLOG) 1 VIAL SQ SCH ×2 (06:36→12:25)
[2017-03-18 07:48] LABS: INR 2.03 (0.82-1.09); PROTHROMBIN TIME (PATIENT) 22.6 SEC (9.98-11.88)
[2017-03-18] MEDS ORDERED: PT OWN MED DRAWER 7, Y5N ONE (08:56)
[2017-03-18] MEDS: LISINOPRIL 5 MG TABLET (FP) PO SCH (09:54)
[2017-03-18] MEDS: ENOXAPARIN NA (PORCINE) 60 MG/0.6 ML DISP.SYRIN SQ SCH (09:54)
[2017-03-18] MEDS: ASPIRIN COATED 81 MG TABLET.EC PO SCH (09:54)
[2017-03-18] MEDS: amLODIPine BESYLATE 2.5 MG TABLET (FP) PO SCH (09:55)
[2017-03-18] MEDS: DOCUSATE SODIUM 100 MG CAPSULE (FP) PO SCH (09:55)
[2017-03-18 13:48] VITALS: BP 144/87; PULSE 100; TEMP 98.4
--- NOTE | 2017-03-18 14:22 | PN ---
Teaching Attending Note Name of Resident: Ashley Seo ATTENDING PHYSICIAN STATEMENT I saw and evaluated the patient. I reviewed the resident's note and discussed the case with the resident. I agree with the resident's findings and plan as documented. SUBJECTIVE: Patient is feeling better today, wants to go home. No headache, no nausea or vomiting. OBJECTIVE: Vital Signs Temperature 98.4 F 03/18/17 13:39 Pulse Rate 100 H 03/18/17 13:39 Respiratory Rate 18 03/18/17 13:39 Blood Pressure 144/87 03/18/17 13:39 O2 Sat by Pulse Oximetry (%) 97 03/17/17 21:00 GENERAL: The patient is awake, alert, and oriented, in no acute distress. HEAD: Normal with no signs of trauma. EYES: PERRL, extraocular movements intact, sclera anicteric, conjunctiva clear. ENT: Ears normal, oropharynx clear without exudates, moist mucous membranes. NECK: Trachea midline, full range of motion, supple. LUNGS: Breath sounds equal, clear to auscultation bilaterally, no wheezes, no crackles, no accessory muscle use. HEART: Regular rate and rhythm, S1, S2 without murmur, rub or gallop. ABDOMEN: Soft, nontender, nondistended, normoactive bowel sounds, no guarding, no rebound, no hepatosplenomegaly, no masses. EXTREMITIES: LLE is less swollen today. no tenderness to palpation. distal pulses are intact NEUROLOGICAL: Cranial nerves II through XII grossly intact. Normal speech, gait is stable PSYCH: Normal mood, normal affect. SKIN: Warm, dry, normal turgor, no rashes or lesions noted CBCD WBC 5.7 K/mm3 (4.0-10.0) 03/10/17 06:00 RBC 3.74 M/mm3 (3.60-5.2) 03/10/17 06:00 Hgb 10.9 GM/dL (10.7-15.3) 03/10/17 06:00 Hct 32.6 % (32.4-45.2) 03/10/17 06:00 MCV 87.2 fl (80-96) 03/10/17 06:00 MCHC 33.3 g/dl (32.0-36.0) 03/10/17 06:00 RDW 12.8 % (11.6-15.6) 03/10/17 06:00 Plt Count 147 K/MM3 (134-434) 03/10/17 06:00 MPV 8.2 fl (7.5-11.1) 03/10/17 06:00 CMP Sodium 141 mmol/L (136-145) 03/07/17 05:15 Potassium 4.4 mmol/L (3.5-5.1) 03/07/17 05:15 Chloride 108 mmol/L (98-107) H 03/07/17 05:15 Carbon Dioxide 24 mmol/L (21-32) 03/07/17 05:15 Anion Gap 9 (8-16) 03/07/17 05:15 BUN 16 mg/dL (7-18) 03/07/17 05:15 Creatinine 1.0 mg/dL (0.55-1.02) 03/07/17 05:15 Creat Clearance w eGFR 49.69 (>60) 03/06/17 05:00 Random Glucose 182 mg/dL (74-106) H D 03/07/17 05:15 Calcium 8.6 mg/dL (8.5-10.1) 03/07/17 05:15 Total Bilirubin 0.3 mg/dL (0.2-1.0) D 03/06/17 05:00 AST 14 U/L (15-37) L 03/06/17 05:00 ALT 20 U/L (12-78) 03/06/17 05:00 Alkaline Phosphatase 97 U/L (45-117) 03/06/17 05:00 Total Protein 6.0 g/dl (6.4-8.2) L 03/06/17 05:00 Albumin 2.7 g/dl (3.4-5.0) L 03/06/17 05:00 CARDIAC ENZYMES Creatine Kinase 49 IU/L (26-192) 03/04/17 06:00 Troponin I < 0.02 ng/ml (0.00-0.05) 02/28/17 10:41 Current Medications Generic Name Dose Route Start Last Admin Trade Name Freq PRN Reason Stop Dose Admin Acetaminophen 650 mg 03/15/17 15:51 Tylenol - PO Q6H PRN FEVER OR PAIN Amlodipine Besylate 2.5 mg 03/16/17 10:00 03/18/17 09:55 Norvasc - PO 2.5 mg DAILY ANA[facility]ELI Administration Aspirin 81 mg 03/16/17 10:00 03/18/17 09:54 Ecotrin - PO 81 mg DAILY ANA[facility]ELI Administration Atorvastatin Calcium 20 mg 03/15/17 22:00 03/17/17 21:29 Lipitor - PO 20 mg HS [facility] Administration Docusate Sodium 100 mg 03/16/17 10:00 03/18/17 09:55 Colace - PO 100 mg DAILY ANAYELI Administration Enoxaparin Sodium 60 mg 03/15/17 22:00 03/18/17 09:54 Lovenox - SQ 60 mg BID ANAYELI Administration Glipizide 10 mg 03/15/17 16:30 03/18/17 06:35 Glucotrol - PO 10 mg BIDAC [facility] Administration Insulin Aspart 1 vial 03/15/17 16:30 03/18/17 12:25 Novolog Vial Sliding Scale - SQ 4 units TIDAC [facility] Administration Protocol Insulin Aspart 1 vial 03/15/17 22:00 03/17/17 21:30 Novolog Vial Sliding Scale - SQ Not Given HS [facility] Protocol Lisinopril 5 mg 03/16/17 10:00 03/18/17 09:54 Prinivil PO 5 mg DAILY [facility] Administration Metformin HCl 1,000 mg 03/15/17 16:30 03/18/17 06:35 Glucophage Xr - PO 1,000 mg BIDAC [facility] Administration Phenytoin Sodium 100 mg 03/15/17 22:00 03/18/17 13:56 Dilantin - PO 100 mg TID [facility] Administration Warfarin Sodium 10 mg 03/17/17 18:00 03/17/17 17:59 Coumadin - PO 10 mg DAILY@1800 [facility] Administration Home Medications Medication Instructions Recorded Lisinopril 5 mg PO DAILY 02/23/17 Amlodipine Besylate [Norvasc -] 2.5 mg PO DAILY #30 tablet 03/18/17 Aspirin Coated [Ecotrin -] 81 mg PO DAILY #30 tab 03/18/17 Atorvastatin Ca [Lipitor] 20 mg PO HS #30 tablet 03/18/17 Glipizide [Glucotrol -] 10 mg PO BIDAC #60 tablet 03/18/17 Metformin Xr [Glucophage Xr -] 1,000 mg PO BIDAC #60 tab 03/18/17 Phenytoin Na Extended [Dilantin -] 300 mg PO DAILY #90 capsule 03/18/17 Warfarin Sodium [Coumadin] 7.5 mg PO ONCE 10 Days 03/18/17 ASSESSMENT AND PLAN: 66F w/ hx of HTN and DM and recent hospitalization for UTI presented with seizure activity # DVT of LLE ,on coumadin ,therapeutics today will continue with 7.5mg daily, patient has an appointment [facility] in am at 11:30am patient was explained in details and how important it is to have close f/u with the coumadin clinic. Explained all the risks. Angy "the Nurse" who is fluent in south korean, translated for us. # s/p Seizure activity ,well controlled on Phenytoin 300mg ER daily , follow up with dr. Muniz in 2 weeks . Or follow up with clinic at [facility]. # s/p UTI s/p post Rocephin IV completed the course # Acute metabolic encephalopathy due to UTI now resolved # HTN controlled #T2DM on metformin and glyburide continue further w/u by the primary care doctor.
--- NOTE | 2017-03-18 14:41 | DS ---
Physical Exam: SUBJECTIVE: Patient seen and examined No new complaint today. Feels much better and wants to go home. OBJECTIVE: Vital Signs Period Temp Pulse Resp BP Sys/Salvador Pulse Ox Last 24 Hr 98.2 F-99.3 F 83-100 18-20 114-145/73-91 97 PHYSICAL EXAM "GENERAL: Awake, alert, cooperative, following commands HEAD: No signs of trauma EYES: PERRLA, EOMI, sclera anicteric, conjunctiva clear ENT: No tongue lacerations, Auricles normal inspection, hearing grossly normal, nares patent, oropharynx clear without exudates. Moist mucosa NECK: Normal ROM, supple, no lymphadenopathy, JVD, or masses LUNGS: Breath sounds equal, clear to auscultation bilaterally. No wheezes, and no crackles HEART: Regular rate and rhythm, normal S1 and S2, no murmurs, rubs or gallops ABDOMEN: Soft, nontender, normoactive bowel sounds. No guarding, no rebound. No masses EXTREMITIES: Normal range of motion, improved swelling of LLE. No clubbing or cyanosis. No cords, erythema, or tenderness NEUROLOGICAL: Awake, alert, following commands, more cooperative, Cranial nerves II through XII grossly intact. moves all extremities spontaneously, sensory intact, gait stable without ataxia SKIN: Warm, Dry, normal turgor, no rashes or lesions noted. noted. LABS Laboratory Results - last 24 hr 03/17/17 03/17/17 03/18/17 16:51 21:28 06:10 PT with INR 22.60 H INR 2.03 H POC Glucometer 126 189 03/18/17 03/18/17 06:33 11:54 PT with INR INR POC Glucometer 139 122 Current Medications Generic Name Dose Route Start Last Admin Trade Name Freq PRN Reason Stop Dose Admin Acetaminophen 650 mg 03/15/17 15:51 Tylenol - PO Q6H PRN FEVER OR PAIN Amlodipine Besylate 2.5 mg 03/16/17 10:00 03/18/17 09:55 Norvasc - PO 2.5 mg DAILY ANAYELI Administration Aspirin 81 mg 03/16/17 10:00 03/18/17 09:54 Ecotrin - PO 81 mg DAILY ANAYELI Administration Atorvastatin Calcium 20 mg 03/15/17 22:00 03/17/17 21:29 Lipitor - PO 20 mg HS ANAYELI Administration Docusate Sodium 100 mg 03/16/17 10:00 03/18/17 09:55 Colace - PO 100 mg DAILY ANAYELI Administration Enoxaparin Sodium 60 mg 03/15/17 22:00 03/18/17 09:54 Lovenox - SQ 60 mg BID ANAYELI Administration Glipizide 10 mg 03/15/17 16:30 03/18/17 06:35 Glucotrol - PO 10 mg BIDAC ANAYELI Administration Insulin Aspart 1 vial 03/15/17 16:30 03/18/17 12:25 Novolog Vial Sliding Scale - SQ 4 units TIDAC [facility] Administration Protocol Insulin Aspart 1 vial 03/15/17 22:00 03/17/17 21:30 Novolog Vial Sliding Scale - SQ Not Given HS [facility] Protocol Lisinopril 5 mg 03/16/17 10:00 03/18/17 09:54 Prinivil PO 5 mg DAILY ANAYELI Administration Metformin HCl 1,000 mg 03/15/17 16:30 03/18/17 06:35 Glucophage Xr - PO 1,000 mg BIDAC [facility] Administration Phenytoin Sodium 100 mg 03/15/17 22:00 03/18/17 13:56 Dilantin - PO 100 mg TID ANAYELI Administration Warfarin Sodium 10 mg 03/17/17 18:00 03/17/17 17:59 Coumadin - PO 10 mg DAILY@1800 [facility] Administration Home Medications Medication Instructions Recorded Lisinopril 5 mg PO DAILY 02/23/17 Amlodipine Besylate [Norvasc -] 2.5 mg PO DAILY #30 tablet 03/18/17 Aspirin Coated [Ecotrin -] 81 mg PO DAILY #30 tab 03/18/17 Atorvastatin Ca [Lipitor] 20 mg PO HS #30 tablet 03/18/17 Glipizide [Glucotrol -] 10 mg PO BIDAC #60 tablet 03/18/17 Metformin Xr [Glucophage Xr -] 1,000 mg PO BIDAC #60 tab 03/18/17 Phenytoin Na Extended [Dilantin -] 300 mg PO DAILY #90 capsule 03/18/17 Warfarin Sodium [Coumadin] 7.5 mg PO ONCE 10 Days 03/18/17 HOSPITAL COURSE: Date of Admission:02/28/17 Date of Discharge: 03/18/17 The patient is a 66 year old female, with a significant past medical history of hypertension, diabetes, dementia, visual hallucinations, and CHRISTIANNE who presented to the emergency department accompanied by family, with increased confusion for 2 days prior to arrival. Per family member, the patient woke up morning of admission approximately 04:00 shaking her right arm, turning her head to the right with an associated right sided droop of her lips. Family member stated her episode lasted approximately 35 seconds, and occurred intermittently since. Family reported the patient presented to the ED on 02/23/17 for confusion and hallucinations and was diagnosed with a UTI, discharged home, and started on antibiotics. As per daughter, patients blood sugar levels had been in the 250- 300 range throughout the day. Patient lives at home with family, and is able to carry a conversation and ambulate without a walker at her baseline. On admission, at the ER the patient, the patient was awake and responsive to speech but did not follow all commands. She did seem to possess strength throughout and was Not TPA case due to no longer being in window and symptoms seem more general and not focal. CT head was completed and did not show any acute changes. She was started on keppra 500mg twice daily. Repeat CT head completed and no structural changes. She got Ceftriaxone for UTI which may have been precipitant for her convulsions. She had right arm shaking and also personality change so she was switched to Depakote for its mood stabilization properties. Psych consulted and patient given Zyprexa 5mg twice a day as well. Thereafter, patient had repeat episodes and she was transferred to ICU where LP was completed and 0 Wbc, normal protein, R/O meningitis or encephalitis. She was switched to Dilantin, has not had seizures, and downgraded to floor status and more stable now. At discharge, patient is awake and alert. She has been able to tell me she's in the hospital which is much improved from previous. She seems to be at her baseline. Neurologically remains stable and well appearing. Saul received anticoagulation for LLE DVT and was discharged when she became therapeutic on coumadin. Has been stable on phenytoin and would benefit from this medication as outpatient as would want to avoid recurrence of seizures.She will continue on Dilantin 300mg daily as outpatient especially since it was challenging to control the seizures when occured. Can be considered for weaning as outpatient. Please see full discharge list of medications above. Minutes to complete discharge: 50 <Ashley Seo I - Last Filed: 03/18/17 17:47> Physical Exam: Coumadin clinic is arranged for her at [facility]. all the information was given to her and instructions. <Carmela Sebastian - Last Filed: 03/19/17 15:12> Discharge Summary Reason For Visit: SEIZURE Current Active Problems CHRISTIANNE (acute kidney injury) (Acute) DVT (deep venous thrombosis) (Acute) Delirium (Acute) Hyperglycemia (Acute) Metabolic encephalopathy (Acute) Seizure (Acute) UTI (urinary tract infection) (Acute) Diabetes (Chronic) Hypertension (Chronic) - Home Medications Comprehensive Discharge Medication List: Ambulatory Orders Lisinopril 5 mg PO DAILY 02/23/17 Amlodipine Besylate [Norvasc -] 2.5 mg PO DAILY #30 tablet 03/18/17 Aspirin Coated [Ecotrin -] 81 mg PO DAILY #30 tab 03/18/17 Atorvastatin Ca [Lipitor] 20 mg PO HS #30 tablet 03/18/17 Glipizide [Glucotrol -] 10 mg PO BIDAC #60 tablet 03/18/17 Metformin Xr [Glucophage Xr -] 1,000 mg PO BIDAC #60 tab 03/18/17 Phenytoin Na Extended [Dilantin -] 300 mg PO DAILY #90 capsule 03/18/17 Warfarin Sodium [Coumadin] 7.5 mg PO ONCE 10 Days 03/18/17 <Ashley Seo I - Last Filed: 03/18/17 17:47> - Home Medications Comprehensive Discharge Medication List: Ambulatory Orders Lisinopril 5 mg PO DAILY 02/23/17 Amlodipine Besylate [Norvasc -] 2.5 mg PO DAILY #30 tablet 03/18/17 Aspirin Coated [Ecotrin -] 81 mg PO DAILY #30 tab 03/18/17 Atorvastatin Ca [Lipitor] 20 mg PO HS #30 tablet 03/18/17 Glipizide [Glucotrol -] 10 mg PO BIDAC #60 tablet 03/18/17 Metformin Xr [Glucophage Xr -] 1,000 mg PO BIDAC #60 tab 03/18/17 Phenytoin Na Extended [Dilantin -] 300 mg PO DAILY #90 capsule 03/18/17 Warfarin Sodium [Coumadin] 7.5 mg PO DAILY #14 tablet 03/18/17 <Carmela Sebastian - Last Filed: 03/19/17 15:12> Condition: Improved - Instructions Diet, Activity, Other Instructions: You were found to have seizures and altered mental status as a result of a urinary tract infection. In the hospital, we gave you an antibiotic called ceftriaxone and a medication to treat your seizures called phenytoin. Because you developed a deep vein thrombosis (DVT), we started you on an anti-coagulant (blood thinner) called coumadin. It is very important that you receive frequent lab checks to make sure that your blood level of coumadin is therapeutic so that you do not have another clot or a bleeding episode. 1. Please follow up with your PCP, Dr. Paris, within one week for close monitoring of your blood pressure and blood glucose. 2. You have an appointment in the [facility] on Sunday, 2016, at 11:30am. It is located at [address] [place] [address], 4th floor, [address], in the [place] ([phone]). 3. We have referred you to a neurologist, Dr. Muniz. Please make an appointment to see him within 2 weeks. He may want to perform repeat imaging including CT or MRI. Duplex of Left lower extremity in a month to reaccess the clot. Follow up at your clinic at [facility], and follow up with Dr. Muniz or a neurologist from [facility]. You will remain on medication to prevent seizures- Dilantin 300mg And medication to prevent another clot formation- Coumadin If you feel you are not getting better or your symptoms are worsening please see your primary care doctor, or go to the nearest emergency room. Referrals: Domo Muniz MD [Staff Physician] - Marilee Cooper MD [Primary Care Provider] - Disposition: HOME This patient is new to me today: Yes Date on this admission: 03/18/17 Emergency Visit: Yes ED Registration Date: 02/28/17 Care time: The patient presented to the Emergency Department on the above date and was hospitalized for further evaluation of their emergent condition. Critical Care patient: No - Discharge Referral Referred to [facility] No <Ashley Seo I - Last Filed: 03/18/17 17:47>
[2017-03-18] MEDS ORDERED: WARFARIN NA 7.5 MG TABLET (FP) PO ONE (15:39)
[2017-03-18] MEDS ORDERED: PHENYTOIN NA EXTENDED 100 MG CAPSULE (FP) PO ONE (15:40)
== END 2017-03-18 17:50 | disposition home or self-care (01) | DRG 52 ==
LOC: JER 09:43 → JERBED 13:05 → J5S 16:45 → JICU 03-04 16:38 → J2W 03-05 07:28 → J4W 03-09 20:08 → J7W 03-15 14:40
PROVIDERS: ADMIT Internal Medicine; ATTEND Internal Medicine
PROC: 009U3ZX Drainage of Spinal Canal, Percutaneous Approach, Diagnostic (ICD-10-PCS; principal; 2017-03-05)
DX: G93.41 Metabolic encephalopathy (principal); G40.409 Other generalized epilepsy and epileptic syndromes, not intractable, without status epilepticus; N17.9 Acute kidney failure, unspecified; N39.0 Urinary tract infection, site not specified; E11.65 Type 2 diabetes mellitus with hyperglycemia; I82.4Z2 Acute embolism and thrombosis of unspecified deep veins of left distal lower extremity; F02.80 Dementia in other diseases classified elsewhere, unspecified severity, without behavioral disturbance, psychotic disturbance, mood disturbance, and anxiety; B96.29 Other Escherichia coli [E. coli] as the cause of diseases classified elsewhere; I10 Essential (primary) hypertension; R44.1 Visual hallucinations; Z79.84 Long term (current) use of oral hypoglycemic drugs; Z79.01 Long term (current) use of anticoagulants; G30.9 Alzheimer's disease, unspecified; D64.9 Anemia, unspecified; R19.7 Diarrhea, unspecified; Z59.7 Insufficient social insurance and welfare support
CPT/HCPCS: 36415; 36600; 70450-TC; 70460-TC; 70551-TC; 71010-TC; 71250-TC; 80048; 80053; 80061; 80185; 81003; 81015; 82009; 82140; 82607; 82728; 82746; 82803; 82945; 82947; 83540; 83550; 83605; 83721; 83735; 84100; 84157; 84166; 84439; 84443; 84466; 84481; 84484; 85025; 85027; 85610; 85730; 86592; 86593; 86777; 87040; 87070; 87086; 87102; 87116; 87186; 87205; 87206; 87210; 87252; 87899; 89050; 93005; 93010; 93880-TC; 93971-TC; 95816; 97116-GP; 97161-GP; 99285-25; J1644

== ENCOUNTER 2022-04-19 17:59 | Inpatient (IN) | payer SELFPAY ==
[2022-04-19] MEDS ORDERED: FUROSEMIDE 40 MG/4 ML INJECTABLE VIAL IVPUSH ONE ×2 (18:46→20:14)
[2022-04-19] MEDS ORDERED: FUROSEMIDE 40 MG/4 ML INJECTABLE VIAL ONE (18:54)
[2022-04-19] MEDS ORDERED: AZTREONAM 1 GM in DEXTROSE 5%-WATER - 50 ML IVPB ONE (19:12)
[2022-04-19] MEDS ORDERED: VANCOMYCIN 1 GM in D5W (PRE-DOCKED) 1,000 MG/250 ML IVPB ONE (19:12)
[2022-04-19 19:40] LABS: VENOUS BASE EXCESS -3.1 mmol/L (-2-2); VENOUS O2 SATURATION 89.8 % (70-80); VENOUS PCO2 37.8 mmHg (38-52); VENOUS PH 7.376 (7.310-7.410)
[2022-04-19] MEDS ORDERED: VANCOMYCIN/WATER FOR INJ (PEG) 1,000 MG/200 ML BAG IVPB ONE (19:46)
[2022-04-19] MEDS ORDERED: AZTREONAM 1 GM VIAL (RESTRICTED TO ID) ONE (19:46)
[2022-04-19 19:47] LABS: BASO % 0.7 % (0-2.0); EOS % 0.6 % (0-4.5); HEMATOCRIT 28.6 % (32.4-45.2); HEMOGLOBIN 9.9 GM/dL (10.7-15.3); MCH 29.4 pg (25.7-33.7); MCHC 34.6 g/dl (32.0-36.0); MEAN CELL VOLUME 84.8 fl (80-96); MEAN PLT VOLUME 7.3 fl (7.5-11.1); MONO % 6.5 % (3.8-10.2); NEUT % 84.2 % (42.8-82.8); PLATELET COUNT 301 10^3/uL (134-434); RBC 3.37 M/mm3 (3.60-5.2); RDW 15.3 % (11.6-15.6); WHITE BLOOD COUNT 8.2 K/mm3 (4.0-10.0)
[2022-04-19 19:54] LABS: INR 0.89 (0.83-1.09); PROTHROMBIN TIME (PATIENT) 10.2 SEC (9.7-13.0)
[2022-04-19 20:04] LABS: ALBUMIN 3.1 g/dl (3.4-5.0); BLOOD UREA NITROGEN 14.5 mg/dL (7-18); MAGNESIUM 1.4 mg/dL (1.8-2.4)
[2022-04-19 20:07] LABS: CREATININE 1.3 mg/dL (0.55-1.3)
[2022-04-19 20:09] LABS: BILIRUBIN,TOTAL 0.4 mg/dL (0.2-1)
[2022-04-19 20:11] LABS: N-TERMINAL BNP 23746.6 pg/ml (5-125)
[2022-04-19] MEDS ORDERED: MAGNESIUM SULF 50% (8.12 MEQ/2 ML-1 GM VIAL) IVPB ONE (20:14)
[2022-04-19] MEDS ORDERED: MAGNESIUM SULFATE IN WATER 2 GM/50 ML IVPB IVPB ONE (20:33)
[2022-04-19 20:59] LABS: EPI CELLS 7 /uL (0-25.1); HYALINE CASTS 0 /uL (0-3.1); PH,URINE 5.5 (5.0-8.0); URINE APPEARANCE CLEAR; URINE BACTERIA 2020 /uL (0-1359); URINE BILIRUBIN NEGATIVE (NEGATIVE); URINE COLOR YELLOW; URINE GLUCOSE (UA) TRACE (NEGATIVE); URINE KETONE NEGATIVE (NEGATIVE); URINE LEUK ESTERASE 1+ (NEGATIVE); URINE NITRITE NEGATIVE (NEGATIVE); URINE PROTEIN 3+ (NEGATIVE); URINE RBC 9 /uL (0-23.9); URINE UROBILINOGEN 0.2 mg/dL (0.2-1.0); URINE WBC 231 /uL (0-25.8)
[2022-04-19] MEDS ORDERED: MAGNESIUM 2GM/50ML STERILE WATER IVPB IVPB ONE (22:26)
[2022-04-19] MEDS ORDERED: INSULIN SLIDING SCALE (NOVOLOG) 1 VIAL SQ SCH (22:30)
[2022-04-20] MEDS: FUROSEMIDE 40 MG/4 ML INJECTABLE VIAL IVPUSH SCH ×2 (07:00→13:01)
[2022-04-20] MEDS: INSULIN SLIDING SCALE (NOVOLOG) 1 VIAL SQ SCH ×3 (07:00→18:36)
[2022-04-20 07:29] LABS: HEMATOCRIT 27.5 % (32.4-45.2); HEMOGLOBIN 9.4 GM/dL (10.7-15.3); MCH 29.4 pg (25.7-33.7); MCHC 34.4 g/dl (32.0-36.0); MEAN CELL VOLUME 85.5 fl (80-96); MEAN PLT VOLUME 7.2 fl (7.5-11.1); PLATELET COUNT 274 10^3/uL (134-434); RBC 3.21 M/mm3 (3.60-5.2); RDW 15.3 % (11.6-15.6); WHITE BLOOD COUNT 6.4 K/mm3 (4.0-10.0)
[2022-04-20 07:46] LABS: ACTIVATED PTT 29.8 SECONDS (25.2-36.5); INR 0.87 (0.83-1.09)
[2022-04-20 08:10] LABS: CALCIUM 8.7 mg/dL (8.5-10.1)
[2022-04-20 08:11] LABS: ALBUMIN 2.6 g/dl (3.4-5.0); MAGNESIUM 2.7 mg/dL (1.8-2.4)
[2022-04-20 08:13] LABS: PHOSPHOROUS 4.6 mg/dL (2.5-4.9)
[2022-04-20 08:14] LABS: CREATININE 1.3 mg/dL (0.55-1.3)
[2022-04-20 08:15] LABS: BILIRUBIN,TOTAL 0.4 mg/dL (0.2-1); TOT PROT 5.1 g/dl (6.4-8.2)
[2022-04-20] MEDS ORDERED: LISINOPRIL 5 MG TABLET PO SCH (12:30)
[2022-04-20] MEDS: LISINOPRIL 5 MG TABLET PO SCH (13:01)
[2022-04-20] MEDS: amLODIPine BESYLATE 10 MG TABLET (FP) PO SCH (13:01)
[2022-04-20] MEDS: ENOXAPARIN NA (PORCINE) 40 MG/0.4 ML DISP.SYRIN SQ SCH (13:01)
[2022-04-20] MEDS: ATORVASTATIN CA 20 MG TABLET (FP) PO SCH (22:09)
[2022-04-21] MEDS: FUROSEMIDE 40 MG/4 ML INJECTABLE VIAL IVPUSH SCH ×2 (06:26→14:37)
[2022-04-21] MEDS: INSULIN SLIDING SCALE (NOVOLOG) 1 VIAL SQ SCH ×3 (06:44→17:26)
[2022-04-21 08:04] LABS: BASO % 0.7 % (0-2.0); EOS % 3.4 % (0-4.5); HEMATOCRIT 27.7 % (32.4-45.2); HEMOGLOBIN 9.2 GM/dL (10.7-15.3); LYMPH % 16.2 % (8-40); MCH 28.6 pg (25.7-33.7); MCHC 33.3 g/dl (32.0-36.0); MEAN CELL VOLUME 85.9 fl (80-96); MEAN PLT VOLUME 7.5 fl (7.5-11.1); MONO % 7.5 % (3.8-10.2); NEUT % 72.2 % (42.8-82.8); PLATELET COUNT 321 10^3/uL (134-434); RBC 3.23 M/mm3 (3.60-5.2); RDW 15.3 % (11.6-15.6); WHITE BLOOD COUNT 5.5 K/mm3 (4.0-10.0)
[2022-04-21 08:27] LABS: ALBUMIN 2.5 g/dl (3.4-5.0)
[2022-04-21 08:28] LABS: BLOOD UREA NITROGEN 16.1 mg/dL (7-18)
[2022-04-21 08:31] LABS: CREATININE 1.5 mg/dL (0.55-1.3); PHOSPHOROUS 5.2 mg/dL (2.5-4.9)
[2022-04-21 08:33] LABS: BILIRUBIN,TOTAL 0.3 mg/dL (0.2-1)
[2022-04-21] MEDS: ENOXAPARIN NA (PORCINE) 40 MG/0.4 ML DISP.SYRIN SQ SCH (09:40)
[2022-04-21] MEDS: amLODIPine BESYLATE 10 MG TABLET (FP) PO SCH (09:41)
[2022-04-21] MEDS: LISINOPRIL 5 MG TABLET PO SCH (09:41)
[2022-04-21] MEDS ORDERED: IRON SUCROSE INJECTION 100 MG in SODIUM CHLORIDE 95 ML IVPB ONE (14:16)
[2022-04-21 15:56] LABS: EPI CELLS 20 /uL (0-25.1); HYALINE CASTS 1 /uL (0-3.1); URINE APPEARANCE CLEAR; URINE BACTERIA 116 /uL (0-1359); URINE BILIRUBIN NEGATIVE (NEGATIVE); URINE COLOR YELLOW; URINE GLUCOSE (UA) NEGATIVE (NEGATIVE); URINE KETONE NEGATIVE (NEGATIVE); URINE LEUK ESTERASE 1+ (NEGATIVE); URINE NITRITE NEGATIVE (NEGATIVE); URINE PROTEIN 3+ (NEGATIVE); URINE RBC 15 /uL (0-23.9); URINE UROBILINOGEN 0.2 mg/dL (0.2-1.0); URINE WBC 226 /uL (0-25.8)
[2022-04-21] MEDS: ATORVASTATIN CA 20 MG TABLET (FP) PO SCH (22:26)
[2022-04-22] MEDS: INSULIN SLIDING SCALE (NOVOLOG) 1 VIAL SQ SCH ×3 (06:27→16:54)
[2022-04-22] MEDS: FUROSEMIDE 40 MG/4 ML INJECTABLE VIAL IVPUSH SCH ×2 (06:27→14:32)
[2022-04-22 08:27] LABS: BASO % 0.4 % (0-2.0); EOS % 2.6 % (0-4.5); HEMATOCRIT 29.4 % (32.4-45.2); HEMOGLOBIN 9.9 GM/dL (10.7-15.3); LYMPH % 11.9 % (8-40); MCH 29.1 pg (25.7-33.7); MCHC 33.6 g/dl (32.0-36.0); MEAN CELL VOLUME 86.7 fl (80-96); MEAN PLT VOLUME 7.2 fl (7.5-11.1); MONO % 6.4 % (3.8-10.2); NEUT % 78.7 % (42.8-82.8); PLATELET COUNT 353 10^3/uL (134-434); RBC 3.39 M/mm3 (3.60-5.2); RDW 15.3 % (11.6-15.6); WHITE BLOOD COUNT 6.3 K/mm3 (4.0-10.0)
[2022-04-22 08:41] LABS: CALCIUM 8.7 mg/dL (8.5-10.1)
[2022-04-22 08:42] LABS: ALBUMIN 2.8 g/dl (3.4-5.0); MAGNESIUM 1.7 mg/dL (1.8-2.4)
[2022-04-22 08:46] LABS: CREATININE 1.3 mg/dL (0.55-1.3)
[2022-04-22 08:47] LABS: BILIRUBIN,TOTAL 0.4 mg/dL (0.2-1); TOT PROT 5.9 g/dl (6.4-8.2)
[2022-04-22] MEDS: LISINOPRIL 5 MG TABLET PO SCH (09:36)
[2022-04-22] MEDS: amLODIPine BESYLATE 10 MG TABLET (FP) PO SCH (09:36)
[2022-04-22] MEDS: ENOXAPARIN NA (PORCINE) 40 MG/0.4 ML DISP.SYRIN SQ SCH (09:36)
[2022-04-22] MEDS: POLYETHYLENE GLYCOL (HEALTHYLAX) 3350 17 GM PACKET PO SCH ×2 (11:17→22:16)
[2022-04-22] MEDS ORDERED: VANCOMYCIN/WATER 1250 MG 1,250 MG/250 ML BAG IVPB ONE (11:30)
[2022-04-22] MEDS: DOCUSATE SODIUM 100 MG CAPSULE (FP) PO SCH (14:31)
[2022-04-22] MEDS: AZTREONAM 1 GM in DEXTROSE 5%-WATER - 50 ML IVPB SCH (16:53)
[2022-04-22] MEDS: AZITHROMYCIN IVPB 500 MG/250 ML BAG IVPB SCH (17:13)
[2022-04-22] MEDS: ATORVASTATIN CA 20 MG TABLET (FP) PO SCH (22:16)
[2022-04-23] MEDS: AZTREONAM 1 GM in DEXTROSE 5%-WATER - 50 ML IVPB SCH ×2 (03:18→07:40)
[2022-04-23] MEDS: DOCUSATE SODIUM 100 MG CAPSULE (FP) PO SCH ×4 (06:50→21:38)
[2022-04-23] MEDS: FUROSEMIDE 40 MG/4 ML INJECTABLE VIAL IVPUSH SCH ×2 (06:51→13:48)
[2022-04-23] MEDS: INSULIN SLIDING SCALE (NOVOLOG) 1 VIAL SQ SCH ×3 (06:54→16:25)
[2022-04-23 07:22] LABS: BASO % 0.6 % (0-2.0); EOS % 3.2 % (0-4.5); HEMATOCRIT 26.4 % (32.4-45.2); HEMOGLOBIN 8.7 GM/dL (10.7-15.3); LYMPH % 12.6 % (8-40); MCH 28.4 pg (25.7-33.7); MCHC 32.9 g/dl (32.0-36.0); MEAN CELL VOLUME 86.3 fl (80-96); MEAN PLT VOLUME 7.3 fl (7.5-11.1); NEUT % 74.6 % (42.8-82.8); PLATELET COUNT 315 10^3/uL (134-434); RBC 3.06 M/mm3 (3.60-5.2); RDW 15.1 % (11.6-15.6)
[2022-04-23 07:41] LABS: ALBUMIN 2.5 g/dl (3.4-5.0); BLOOD UREA NITROGEN 18.4 mg/dL (7-18); CALCIUM 8.2 mg/dL (8.5-10.1); MAGNESIUM 1.4 mg/dL (1.8-2.4)
[2022-04-23 07:44] LABS: CREATININE 1.3 mg/dL (0.55-1.3)
[2022-04-23 07:46] LABS: BILIRUBIN,TOTAL 0.3 mg/dL (0.2-1)
[2022-04-23] MEDS: ENOXAPARIN NA (PORCINE) 40 MG/0.4 ML DISP.SYRIN SQ SCH (09:39)
[2022-04-23] MEDS: AZITHROMYCIN IVPB 500 MG/250 ML BAG IVPB SCH (09:39)
[2022-04-23] MEDS: POLYETHYLENE GLYCOL (HEALTHYLAX) 3350 17 GM PACKET PO SCH ×2 (09:40→21:38)
[2022-04-23] MEDS: LISINOPRIL 5 MG TABLET PO SCH (09:40)
[2022-04-23] MEDS: amLODIPine BESYLATE 10 MG TABLET (FP) PO SCH (09:40)
[2022-04-23] MEDS: ATORVASTATIN CA 20 MG TABLET (FP) PO SCH (21:38)
[2022-04-24] MEDS: DOCUSATE SODIUM 100 MG CAPSULE (FP) PO SCH ×3 (06:17→21:55)
[2022-04-24] MEDS: FUROSEMIDE 40 MG/4 ML INJECTABLE VIAL IVPUSH SCH (06:17)
[2022-04-24] MEDS: INSULIN SLIDING SCALE (NOVOLOG) 1 VIAL SQ SCH ×3 (06:18→17:08)
[2022-04-24 07:36] LABS: BASO % 0.4 % (0-2.0); EOS % 0.8 % (0-4.5); HEMATOCRIT 25.8 % (32.4-45.2); HEMOGLOBIN 8.5 GM/dL (10.7-15.3); LYMPH % 10.6 % (8-40); MCH 28.5 pg (25.7-33.7); MCHC 32.9 g/dl (32.0-36.0); MEAN CELL VOLUME 86.5 fl (80-96); MEAN PLT VOLUME 7.3 fl (7.5-11.1); MONO % 9.3 % (3.8-10.2); NEUT % 78.9 % (42.8-82.8); PLATELET COUNT 324 10^3/uL (134-434); RBC 2.99 M/mm3 (3.60-5.2); RDW 15.1 % (11.6-15.6); WHITE BLOOD COUNT 5.7 K/mm3 (4.0-10.0)
[2022-04-24 08:00] LABS: CALCIUM 8.4 mg/dL (8.5-10.1)
[2022-04-24 08:01] LABS: ALBUMIN 2.5 g/dl (3.4-5.0); BLOOD UREA NITROGEN 19.6 mg/dL (7-18); MAGNESIUM 1.5 mg/dL (1.8-2.4)
[2022-04-24 08:05] LABS: CREATININE 1.4 mg/dL (0.55-1.3)
[2022-04-24 08:06] LABS: BILIRUBIN,TOTAL 0.3 mg/dL (0.2-1); TOT PROT 5.2 g/dl (6.4-8.2)
[2022-04-24] MEDS: ENOXAPARIN NA (PORCINE) 40 MG/0.4 ML DISP.SYRIN SQ SCH (09:28)
[2022-04-24] MEDS: amLODIPine BESYLATE 10 MG TABLET (FP) PO SCH (09:29)
[2022-04-24] MEDS: POLYETHYLENE GLYCOL (HEALTHYLAX) 3350 17 GM PACKET PO SCH ×2 (09:29→21:55)
[2022-04-24] MEDS: LISINOPRIL 5 MG TABLET PO SCH (09:29)
[2022-04-24] MEDS: AZITHROMYCIN IVPB 500 MG/250 ML BAG IVPB SCH (09:31)
[2022-04-24] MEDS: ATORVASTATIN CA 20 MG TABLET (FP) PO SCH (21:55)
[2022-04-24] MEDS ORDERED: HEPARIN NA (PORCINE) 5,000 UNITS/ML 1ML VIAL SQ SCH (22:00)
[2022-04-25] MEDS: INSULIN SLIDING SCALE (NOVOLOG) 1 VIAL SQ SCH ×3 (06:01→17:08)
[2022-04-25] MEDS: DOCUSATE SODIUM 100 MG CAPSULE (FP) PO SCH ×3 (06:05→22:08)
[2022-04-25 07:31] LABS: HEMATOCRIT 26.1 % (32.4-45.2); HEMOGLOBIN 8.8 GM/dL (10.7-15.3); MCH 29.4 pg (25.7-33.7); MCHC 33.9 g/dl (32.0-36.0); MEAN CELL VOLUME 86.9 fl (80-96); PLATELET COUNT 308 10^3/uL (134-434); RBC 3.01 M/mm3 (3.60-5.2); WHITE BLOOD COUNT 4.4 K/mm3 (4.0-10.0)
[2022-04-25 08:38] LABS: CALCIUM 8.8 mg/dL (8.5-10.1)
[2022-04-25 08:39] LABS: ALBUMIN 2.4 g/dl (3.4-5.0); BLOOD UREA NITROGEN 20.7 mg/dL (7-18); MAGNESIUM 1.9 mg/dL (1.8-2.4)
[2022-04-25 08:42] LABS: CREATININE 1.3 mg/dL (0.55-1.3); PHOSPHOROUS 4.3 mg/dL (2.5-4.9)
[2022-04-25 08:43] LABS: BILIRUBIN,TOTAL 0.2 mg/dL (0.2-1); TOT PROT 5.2 g/dl (6.4-8.2)
[2022-04-25] MEDS ORDERED: FUROSEMIDE 40 MG TABLET (FP) PO SCH (10:00)
[2022-04-25] MEDS: POLYETHYLENE GLYCOL (HEALTHYLAX) 3350 17 GM PACKET PO SCH ×2 (10:47→22:08)
[2022-04-25] MEDS: AZITHROMYCIN IVPB 500 MG/250 ML BAG IVPB SCH (10:48)
[2022-04-25] MEDS: amLODIPine BESYLATE 10 MG TABLET (FP) PO SCH (10:52)
[2022-04-25] MEDS: LISINOPRIL 5 MG TABLET PO SCH (10:52)
[2022-04-25] MEDS: HEPARIN NA (PORCINE) 5,000 UNITS/ML 1ML VIAL SQ SCH ×3 (10:52→22:08)
[2022-04-25 11:32] VITALS: BMI 30.2
[2022-04-25 18:40] LABS: EPI CELLS 2 /uL (0-25.1); HYALINE CASTS 0 /uL (0-3.1); PH,URINE 7.5 (5.0-8.0); URINE APPEARANCE CLEAR; URINE BACTERIA 7 /uL (0-1359); URINE BILIRUBIN NEGATIVE (NEGATIVE); URINE COLOR YELLOW; URINE GLUCOSE (UA) TRACE (NEGATIVE); URINE KETONE NEGATIVE (NEGATIVE); URINE LEUK ESTERASE NEGATIVE (NEGATIVE); URINE NITRITE NEGATIVE (NEGATIVE); URINE PROTEIN 3+ (NEGATIVE); URINE RBC 20 /uL (0-23.9); URINE UROBILINOGEN 0.2 mg/dL (0.2-1.0); URINE WBC 1 /uL (0-25.8)
[2022-04-25] MEDS: AZTREONAM 1 GM in DEXTROSE 5%-WATER - 50 ML IVPB SCH ×2 (19:49→20:42)
[2022-04-25] MEDS: ATORVASTATIN CA 20 MG TABLET (FP) PO SCH (22:08)
[2022-04-26] MEDS: INSULIN SLIDING SCALE (NOVOLOG) 1 VIAL SQ SCH ×3 (06:36→17:34)
[2022-04-26] MEDS: HEPARIN NA (PORCINE) 5,000 UNITS/ML 1ML VIAL SQ SCH ×3 (06:36→21:42)
[2022-04-26] MEDS: DOCUSATE SODIUM 100 MG CAPSULE (FP) PO SCH ×3 (06:36→21:42)
[2022-04-26] MEDS: LISINOPRIL 5 MG TABLET PO SCH (10:01)
[2022-04-26] MEDS: POLYETHYLENE GLYCOL (HEALTHYLAX) 3350 17 GM PACKET PO SCH ×2 (10:01→21:42)
[2022-04-26] MEDS: amLODIPine BESYLATE 10 MG TABLET (FP) PO SCH (10:02)
[2022-04-26] MEDS: FUROSEMIDE 40 MG TABLET (FP) PO SCH (10:02)
[2022-04-26] MEDS: AZITHROMYCIN IVPB 500 MG/250 ML BAG IVPB SCH (10:04)
[2022-04-26] MEDS: ATORVASTATIN CA 20 MG TABLET (FP) PO SCH (21:43)
[2022-04-27] MEDS: DOCUSATE SODIUM 100 MG CAPSULE (FP) PO SCH ×2 (06:13→13:28)
[2022-04-27] MEDS: INSULIN SLIDING SCALE (NOVOLOG) 1 VIAL SQ SCH ×3 (06:14→16:38)
[2022-04-27] MEDS: HEPARIN NA (PORCINE) 5,000 UNITS/ML 1ML VIAL SQ SCH ×2 (06:14→13:28)
[2022-04-27] MEDS: LISINOPRIL 5 MG TABLET PO SCH (09:16)
[2022-04-27] MEDS: amLODIPine BESYLATE 10 MG TABLET (FP) PO SCH (09:17)
[2022-04-27] MEDS: FUROSEMIDE 40 MG TABLET (FP) PO SCH (09:17)
[2022-04-27] MEDS: AZITHROMYCIN IVPB 500 MG/250 ML BAG IVPB SCH (09:17)
[2022-04-27] MEDS: POLYETHYLENE GLYCOL (HEALTHYLAX) 3350 17 GM PACKET PO SCH (09:17)
[2022-04-27] MEDS ORDERED: INSULIN (NOVOLOG) ASPART 100 UNITS/ML 10ML VIAL ONE (11:33)
[2022-04-27 13:58] LABS: CALCIUM 8.4 mg/dL (8.5-10.1)
[2022-04-27 13:59] LABS: ALBUMIN 2.4 g/dl (3.4-5.0); BLOOD UREA NITROGEN 24.2 mg/dL (7-18); MAGNESIUM 1.9 mg/dL (1.8-2.4)
[2022-04-27 14:00] VITALS: RESP 20
[2022-04-27 14:02] LABS: CREATININE 1.3 mg/dL (0.55-1.3)
[2022-04-27 14:03] LABS: BILIRUBIN,TOTAL 0.2 mg/dL (0.2-1); TOT PROT 5.4 g/dl (6.4-8.2)
[2022-04-27 15:31] VITALS: BP 131/63; PULSE 80; TEMP 97.8
[2022-04-28 16:07] LABS: ATYPICAL pANCA <1:20 titer (Neg:<1:20); C-ANCA <1:20 titer (Neg:<1:20)
== END 2022-04-27 18:44 | disposition home or self-care (01) | DRG 194 ==
LOC: JER 17:59 → JERBED 21:25 → J4W 22:29 → J8W 04-25 17:30
PROVIDERS: ADMIT Internal Medicine; ATTEND Internal Medicine
DX: I13.0 Hypertensive heart and chronic kidney disease with heart failure and stage 1 through stage 4 chronic kidney disease, or unspecified chronic kidney disease (principal); J18.9 Pneumonia, unspecified organism; I50.33 Acute on chronic diastolic (congestive) heart failure; E78.5 Hyperlipidemia, unspecified; D64.9 Anemia, unspecified; N18.9 Chronic kidney disease, unspecified; E83.42 Hypomagnesemia; R78.81 Bacteremia; E11.22 Type 2 diabetes mellitus with diabetic chronic kidney disease; N39.0 Urinary tract infection, site not specified; Z99.81 Dependence on supplemental oxygen; M79.606 Pain in leg, unspecified; R50.9 Fever, unspecified; R63.0 Anorexia; E87.70 Fluid overload, unspecified
CPT/HCPCS: 0241U-QW; 36415; 71045-TC-FY; 71250-TC; 80053; 81003; 82570; 82728; 82803; 82962; 83010; 83036; 83520; 83540; 83550; 83605; 83735; 83880; 84100; 84155; 84156; 84165; 84439; 84443; 84466; 84484; 85025; 85027; 85045; 85610; 85730; 86038; 86225; 86256; 86850; 86900; 86901; 87040; 87070; 87076; 87086; 87205; 87899; 93005; 93010; 93306-TC; 93970-TC; 94660; 94761; 97116-GP; 97162-GP; 99285-25; J1644; J1756